=== PATIENT | male | born 1935 | race Caucasian/White ===

== ENCOUNTER 2019-11-15 15:53 | Emergency (ER) | payer MEDICARE, SELFPAY ==
[2018-12-15 07:44] VITALS: BMI 30.7
[2019-11-15] VITALS (11 sets, daily range): BP systolic 108–172; BP diastolic 68–91; PULSE 60–74; RESP 11–16; TEMP 36; O2SAT 93–99; BMI 29.6
--- NOTE | 2019-11-15 16:42 | EKG12_ITS ---
Test Reason : NUMB\TING Blood Pressure : / mmHG Vent. Rate : 060 BPM Atrial Rate : 060 BPM P-R Int : 200 ms QRS Dur : 102 ms QT Int : 408 ms P-R-T Axes : 056 -06 026 degrees QTc Int : 408 ms Normal sinus rhythm Nonspecific ST and T wave abnormality Abnormal ECG Confirmed by ELSY JOHNSON ([id number]), editor farm journal CARLY ROBISON ([id number]) on 11/18/2019 10:26:31 AM Referred By: BHUPINDER Confirmed By:ELSY JOHNSON
--- NOTE | 2019-11-15 16:42 | CT_ITS ---
STUDY: CTA HEAD AND NECK WITH CONTRAST REASON FOR EXAM: Male, 84 years old. Numbness and tingling on the left side for 2 weeks. RADIATION DOSAGE (If Supplied By Facility): CTDIvol = ( 30.60 ) mGy, DLP = ( 1520.78 ) mGycm TECHNIQUE: CT angiography was performed with a multi-detector CT scanner. Data acquisition was obtained from the skull base through the vertex following intravenous administration of 100 CC ISOVUE 300. MIP images were reconstructed from the axial data set. Post-processing of the angiographic images was performed, with multiplanar reformation and 3D reconstruction. Individualized dose optimization techniques were used for this CT. COMPARISON: CT of the brain, August 14, 2016. CTA of the neck, May 22, 2016. FINDINGS: Normal bilateral petrous carotid arteries. There is calcified plaque formation of the right cavernous carotid artery, without a cross-sectional luminal stenosis. There is calcified plaque formation of the left cavernous carotid artery, without a cross-sectional luminal stenosis. Normal right A1 segments of the anterior cerebral artery. Normal left A1 segments of the anterior cerebral artery. Normal intact anterior communicating artery (ACOM). Normal bilateral A2 segments of the anterior cerebral arteries. Normal right M1 and M2 segments of the middle cerebral arteries, with a normal M1 bifurcation. Normal left M1 and M2 segments of the middle cerebral arteries, with a normal M1 bifurcation. Normal right posterior communicating artery (PCOM). Normal left posterior communicating artery (PCOM). Normal bilateral vertebral arteries. Normal basilar artery with a normal basilar bifurcation. The visualized bilateral superior cerebellar (SCA) arteries are normal. Normal bilateral P1, P2 and visualized P3 segments of the posterior cerebral arteries. There is no demonstrated aneurysm of the [place]. There is chronic involutional changes. There is a remote lacunar infarct in the left thalamus. There is vague increased density along the vasques matter of the right posterior to represent subarachnoid hemorrhage on the precontrast image. There is no evidence of extravasation of contrast on the post contrast study. AORTIC ARCH: There is atherosclerotic calcific plaque formation of the aortic arch and great vessels arising from the aortic arch, without a hemodynamically significant stenosis. There is a normal origin of the brachiocephalic, left common carotid, and left subclavian arteries. RIGHT CAROTID ARTERIES: Tortuosity of the proximal right common carotid artery (CCA). There is calcific plaque at the carotid bifurcation extending upward into the carotid bulb. There is less than 50% stenosis. Normal origin of the right internal carotid (ICA) artery without a hemodynamically significant stenosis. Normal visualized cervical portion of the right internal carotid artery. Normal origin of the right external carotid artery (ECA). LEFT CAROTID ARTERIES: Tortuosity of the proximal left common carotid artery (CCA). There is calcified plaque along the distal common carotid artery without stenosis. There is minimal calcific plaque in the carotid bulb without significant stenosis. There is minimal calcification at the origin of the left internal carotid (ICA) artery without a hemodynamically significant stenosis. Normal visualized cervical portion of the left internal carotid artery. Normal origin of the left external carotid artery (ECA). VERTEBRAL ARTERIES: Normal right vertebral artery. There is minimal calcific plaque of the left vertebral artery at the level of the C4-5 disc space without significant stenosis. The remainder of the left vertebral artery is unremarkable. CT/CTA Head AND Neck W/ Contrast IMPRESSION: 1. But appears to be a subarachnoid hemorrhage in the right posterior parietal vertex. 2. Normal [place]. 3. Hemodynamically insignificant bilateral carotid plaque by NASA criteria. The findings are similar to the previous study. N.B. : The above information has been verbally conveyed by Elan Rivas DO to Edwin Ramsey MD, on 11/15/2019 18:11:15 (ET). Electronically Signed: Elan Rivas DO at 18:14 EDT Tel [phone], Service support ,
--- NOTE | 2019-11-15 16:44 | ED.VISSUMM ---
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 History of diabetes, hypertension and pacemaker. Patient is on Plavix on a daily aspirin. Patient states for last 5 days that intermittent left-sided tingling, numbness and some weakness in his left leg today. Currently his symptoms are resolved. They have come and gone the last 5 days. He denies any falls or headache. He denies other complaints. Physical Examination: Older male no acute distress vital signs stable afebrile. Currently without complaint. Initial blood pressure 127/68. HEENT exam unremarkable. Pupils are unreactive light extra motions are intact. No facial droop. Normal speech. No signs of trauma to his face or scalp. Neck nontender. Lungs clear to auscultation. Heart regular rate and rhythm rate about 70 no murmur. Abdomen soft nontender. Remedies moves all 4. Neurovascular intact. 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 Fingertip to nose within normal limits. Dorsi plantarflexion intact. Neurologically is awake alert no focal motor or sensory deficits. NIH score of 0. Test Results: CBC shows a white count of 7. Hemoglobin 14. Chemistries BUN of 27 creatinine 1.62 consistent with renal insufficiency. PT PTT INR unremarkable. Troponin normal. EKG shows a normal sinus rhythm rate of 60 with no acute signs of AL. CAT scan of the brain without contrast shows a subarachnoid hemorrhage in the right posterior parietal vertex as read by the radiologist and reviewed by me. The CTA of the head neck shows bilateral insignificant carotid plaques. But no acute abnormality no significant change from prior. The radiologist did call me and I did review the CAT scan findings. Chest x-ray portable 1 view shows no acute abnormality read both by myself and radiologist. Emergency Department Course and Treatment: Patient currently symptom-free. 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 He will be worked up and admitted. Treatment Plan: Repeat exam at 1814 the patient is doing well. Neurologic exam is still normal 1 unchanged from his presentation here. He and I discussed all his test results. Due to the concern of a possible subarachnoid hemorrhage and that the patient is on Plavix and aspirin and we have no neurosurgery here will be transferred. I discussed options with him and he had his pacemaker placed at [facility] so I have them on page to accept him in transfer. Disposition: Transfer to [facility] Impression: Acute left-sided numbness and weakness resolved. Posterior parietal vertex subarachnoid hemorrhage Anticoagulated on aspirin and Plavix History of diabetes and prior stroke This note was generated with [employer] dictation software. It may contain incorrect words, spelling, and punctuation that were not noted in review of the chart prior to signing ED Disposition - Plan for ED Patient: Referrals: Navin Paniagua MD [Primary Care Provider] -
--- NOTE | 2019-11-15 17:15 | RAD_ITS ---
STUDY: X-RAY CHEST REASON FOR EXAM: Male, 84 years old. Numbness and tingling in the left side of the body intermittently since November 09. History of TIAs. TECHNIQUE: Single AP portable view of the chest. COMPARISON: May 12, 2016. FINDINGS: The lungs are mildly hyperexpanded. There are stable calcified granuloma in the left mid lung. There is no new mass or infiltrate. There is no demonstrated pleural abnormality. Normal size heart. Stable cardiac pacemaker. Normal mediastinum and soren. Normal visualized pulmonary arteries. There is atherosclerotic tortuosity of the aortic arch and descending thoracic aorta. There are diffuse degenerative changes of the visualized thoracic spine. There is degenerative osteoarthritis of the bilateral shoulders. There is no demonstrated abnormality of the visualized soft tissue structures of the upper abdomen. RAD/Chest 1 View IMPRESSION: No acute cardiopulmonary disease or interval change. Electronically Signed: Elan Rivas DO at 17:37 EDT Tel [phone], Service support ,
[2019-11-15 17:16] LABS: Bedside Glucose 114 mg/dL (70-110)
[2019-11-15 17:19] LABS: Absolute Lymphocyte Count 0.79 X10^3/uL (0.83-4.51); Absolute Neutrophil Count 5.6 X10^3/uL (2.0-7.7); Basophil# 0.02 X10^3/uL; Basophil% 0.3 % (0-1); Eosinophil# 0.06 X10^3/uL; Eosinophils% 0.9 % (0-5); Hematocrit 44.4 % (40-54); Hemoglobin 14.3 g/dL (13.0-16.5); Lymphocyte # 0.79 X10^3/ul (4.0); Lymphocyte % 11.2 % (19-41); Mean Corp Hgb Conc 32.2 g/dL (32-36); Mean Corpuscular Hgb 29.2 pg (27.0-32.0); Mean Corpuscular Volume 90.6 fL (80-94); Mean Platelet Vol. 10.7 fl (6.2-12.0); Monocyte# 0.61 X10^3/uL; Monocyte% 8.7 % (0-10); NRBC Flagged by Analyzer 0 % (0-5); Neutrophil # 5.55 X10^3/uL (2.7-7.7); Neutrophil % 78.6 % (47-70); Platelet Count 145 K/mm3 (150-450); RBC Distribution Width CV 13.1 % (11.6-14.6); RBC Distribution Width SD 42.6 fl (35.1-43.9); White Blood Count 7.1 K/mm3 (4.4-11.0)
[2019-11-15 17:21] LABS: Anion Gap 4 (5-15); BUN 27 mg/dL (7-18); BUN/Creat Ratio 16.7 RATIO (10-20); Calcium,Total 9.2 mg/dL (8.5-10.1); Chloride 104 mmol/L (98-107); Creatinine, Serum 1.62 mg/dL (0.70-1.30); EST Glomerular Filtration Rate 43 mL/min (>60); Est Glom Filt Rate - Afr Amer 52 mL/min (>60); Estimated Creatinine Clearance 36.15 ml/min; Glucose 112 mg/dL (74-106); Potassium 4.2 mmol/L (3.5-5.1); Sodium Level 136 mmol/L (136-145)
[2019-11-15 17:25] LABS: International Normalized Ratio 1.1; Prothrombin Time (Protime)PT. 13.2 SECONDS (11.7-14.9)
[2019-11-15 17:26] LABS: Partial Thromboplast Time 23.9 Seconds (24.1-36.2)
== END 2019-11-15 19:57 | disposition short-term general hospital (02) ==
LOC: ED 16:31
PROVIDERS: Emergency Provider Emergency Medicine; PCP Internal Medicine
DX: I60.9 Nontraumatic subarachnoid hemorrhage, unspecified (principal); E11.9 Type 2 diabetes mellitus without complications; I10 Essential (primary) hypertension; Z79.02 Long term (current) use of antithrombotics/antiplatelets; Z79.82 Long term (current) use of aspirin; Z87.891 Personal history of nicotine dependence; Z95.0 Presence of cardiac pacemaker
CPT/HCPCS: 70496; 70498; 71045; 80048; 82962; 84484; 85025; 85610; 85730; 93005; 99285; Q9967; A4216

== ENCOUNTER → 2019-12-22 13:37 | Outpatient (CLI) | payer MEDICARE, SELFPAY ==
[2019-12-14 09:42] VITALS: BMI 29.2
--- NOTE | 2019-12-22 13:50 | CT_ITS ---
STUDY: CT BRAIN WITH AND WITHOUT CONTRAST REASON FOR EXAM: Male, 84 years old. SDH RADIATION DOSAGE (If Supplied By Facility): CTDIvol = ( 60.81 ) mGy, DLP = ( 4374.99 ) mGycm TECHNIQUE: Transaxial CT imaging of the brain was performed pre and post contrast administration. The examination was performed with intravenous administration of IV 50mL Isovue-370. Individualized dose optimization techniques were used for this CT. COMPARISON: None. FINDINGS: Normal soft tissue structures. Normal calvarium. There is moderate cerebral atrophy with widening of the extra-axial spaces and ventricular dilatation. There are areas of decreased attenuation within the white matter tracts of the supratentorial brain, consistent with microvascular disease changes. Normal basal ganglia and thalami. Normal brainstem. Normal cerebellum. Dense carotid calcifications noted. There is no intracranial hemorrhage. There are no findings of an acute ischemic infarction. Normal visualized paranasal sinuses. CT/Brain/Head W/WO Contrast IMPRESSION: Chronic involutional changes of the brain. No acute hemorrhage or suspicious enhancing lesion, no interval change Electronically Signed: Jaylen Aj MD at 14:47 EDT , Service support ,
[2019-12-23 07:09] LABS: CREATININE FINGERSTICK 1.26 mg/dL (0.70-1.30); EGFR FINGERSTICK 58 mL/min (>60)
== END ==
PROVIDERS: PCP Internal Medicine
DX: I60.9 Nontraumatic subarachnoid hemorrhage, unspecified (principal)
CPT/HCPCS: 70470; Q9967

== ENCOUNTER → 2020-06-19 12:49 | Outpatient (CLI) | payer MEDICARE, SELFPAY ==
[2019-12-14 09:42] VITALS: BMI 29.2
--- NOTE | 2020-06-19 13:03 | CT_ITS ---
STUDY: CT ABDOMEN AND PELVIS WITH AND WITHOUT CONTRAST REASON FOR EXAM: Male, 85 years old. GROSS HEMATURIA-ONE EPISODE, ? [place], DB, HTN, COPD, NO PREV SURG RADIATION DOSAGE (If Supplied By Facility): CTDIvol = ( 16.67 ) mGy, DLP = ( 2193.31 ) mGycm TECHNIQUE: Transaxial images were obtained from the dome of the diaphragm to the symphysis pubis without oral contrast. 100ML ISOVUE 300 was administered. Sagittal and coronal images were reconstructed. Individualized dose optimization techniques were used for this CT. COMPARISON: None. FINDINGS: Mild increased linear markings at the lung bases suggestive of scarring. Calcified granuloma in the right lower lobe. A dual-chamber pacemaker is seen. Normal liver. Normal gallbladder and extrahepatic biliary system. There are multiple benign calcified granulomata of the spleen. Normal pancreas. Normal bilateral adrenal glands. There is a 5.1 cm x 5.2 cm cyst in the lower pole of the right kidney. Parapelvic cysts are also seen measuring up to 3.3 cm x 3.9 cm. Multiple cysts are seen in the left kidney. The largest is in the lower lateral wall of the left kidney measuring 5.1 cm x 4.3 cm. Normal visualized stomach. Normal small intestine. There are multiple colonic diverticula consistent with diverticulosis. The appendix is visualized and appears normal. There is diffuse atherosclerotic calcification of the abdominal aorta. There is evidence of an infrarenal abdominal aortic aneurysm with a transverse dimension of 4.1 cm.Normal inferior vena cava. There is borderline retroperitoneal lymphadenopathy with enlarged nodes no greater than 10mm in the short axis diameter. 2 calculi are seen at the base of the bladder on the left side. The larger calculus measures 1.8 cm x 1.7 cm. The smaller calculus measures 0.6 cm x 0.7 cm. There is enlargement of the prostate gland. This causes indentation at the bladder base. Central calcifications are seen. There is a small umbilical hernia containing fat. There are diffuse degenerative changes of the visualized lumbar spine. CT/CT Abd/Pelvis W/WO Contrast IMPRESSION: Bilateral renal cysts. Bladder calculi. Prostatic enlargement with indentation at the bladder base. Electronically Signed: Andrew Waters, at 14:55 EST , Service support ,
== END ==
PROVIDERS: PCP Internal Medicine; Visit Provider Nurse Practitioner Adult Health
DX: R31.0 Gross hematuria (principal)
CPT/HCPCS: 74178; Q9967

== ENCOUNTER → 2020-07-14 10:33 | Outpatient (CLI) | payer MEDICARE, SELFPAY ==
[2019-12-14 09:42] VITALS: BMI 29.2
== END ==
PROVIDERS: PCP Internal Medicine; Referring Provider Urology; Visit Provider Urology
DX: Z11.59 Encounter for screening for other viral diseases (principal)
CPT/HCPCS: 87635; C9803; U0003

== ENCOUNTER → 2020-07-18 10:54 | Outpatient (CLI) | payer MEDICARE, SELFPAY ==
[2019-12-14 09:42] VITALS: BMI 29.2
[2020-07-18 11:32] LABS: Hematocrit 43.8 % (40-54); Hemoglobin 14.5 g/dL (13.0-16.5); Mean Corp Hgb Conc 33.1 g/dL (32-36); Mean Corpuscular Volume 90.7 fL (80-94); Mean Platelet Vol. 11.4 fl (6.2-12.0); POSITIVE COUNT YES; Platelet Count 137 K/mm3 (150-450); RBC Distribution Width CV 12.9 % (11.6-14.6); RBC Distribution Width SD 42.2 fl (35.1-43.9); Red Blood Count 4.83 M/mm3 (4.6-6.2); White Blood Count 5.9 K/mm3 (4.4-11.0)
[2020-07-18 11:33] LABS: Scan Indicated on CBC? Y/N YES- FLAGS NOTED
[2020-07-18 11:54] LABS: Anion Gap 3 (5-15); BUN 19 mg/dL (7-18); BUN/Creat Ratio 18.4 RATIO (10-20); Calcium,Total 8.7 mg/dL (8.5-10.1); Chloride 103 mmol/L (98-107); Creatinine, Serum 1.03 mg/dL (0.70-1.30); EST Glomerular Filtration Rate 73 mL/min (>60); Est Glom Filt Rate - Afr Amer 88 mL/min (>60); Glucose 159 mg/dL (74-106); Potassium 4.1 mmol/L (3.5-5.1); Sodium Level 136 mmol/L (136-145)
== END ==
PROVIDERS: PCP Internal Medicine; Referring Provider Urology; Visit Provider Urology
DX: Z01.818 Encounter for other preprocedural examination (principal)
CPT/HCPCS: 36415; 80048; 85027

== ENCOUNTER → 2020-09-07 15:10 | Outpatient (CLI) | payer MEDICARE, SELFPAY ==
[2020-08-07 08:58] VITALS: BMI 29.7
[2020-09-07 15:41] LABS: Bacteria 0 SEEN /hpf (None Seen); Mucous, Urine 0 SEEN /hpf (<or=2+); Red Blood Cells-Urine 0 SEEN /hpf (0-5); Squamous Epithelial Cells - UA 0 SEEN /hpf (0-5)
[2020-09-07 16:24] LABS: Color, Urine Yellow (Yellow); Glucose, Dipstick Normal (Normal); Ketone-Dipstick Negative (Negative); Leukocyte Esterase-Dipstick 25 /ul (Negative); Nitrite-Dipstick Negative (Negative); Occult Blood-Urine 10 /ul (Negative); Protein-Dipstick Negative (Negative); Urine Bilirubin Dipstick Negative (Negative); Urine Clarity Clear (Clear); Urine Urobilinogen Normal (Normal); Urine pH 6.5 (5.0 - 8.0)
[2020-09-07 16:27] LABS: Anion Gap 4 (5-15); BUN 22 mg/dL (7-18); BUN/Creat Ratio 21.4 RATIO (10-20); Chloride 107 mmol/L (98-107); Creatinine, Serum 1.03 mg/dL (0.70-1.30); EST Glomerular Filtration Rate 73 mL/min (>60); Est Glom Filt Rate - Afr Amer 88 mL/min (>60); Glucose 100 mg/dL (74-106); Potassium 4.2 mmol/L (3.5-5.1); Sodium Level 138 mmol/L (136-145)
[2020-09-07 16:35] LABS: Hemoglobin A1c 6.4 % (3.8-5.6); White Blood Cells 0-5 SEEN /hpf (0-5)
[2020-09-07 16:39] LABS: Microalbumin,Random Urine 41.7 mg/L (NO RANGE EST.)
== END ==
PROVIDERS: PCP Internal Medicine; Referring Provider Internal Medicine; Visit Provider Internal Medicine
DX: E11.9 Type 2 diabetes mellitus without complications (principal); R31.0 Gross hematuria
CPT/HCPCS: 80048; 81001; 82043; 82570; 83036

== ENCOUNTER → 2021-03-22 12:38 | Outpatient (CLI) | payer MEDICARE, SELFPAY ==
[2021-03-22 13:18] LABS: ALB/GLOB Ratio 1.2 RATIO (0.9-2.4); AST(SGOT) 13 U/L (15-37); Alanine Aminotransfer ALT/SGPT 14 U/L (16-61); Albumin, Serum 3.7 g/dL (3.2-5.0); Alkaline Phosphatase 58 U/L (45-117); Anion Gap 4 (5-15); BUN 18 mg/dL (7-18); BUN/Creat Ratio 18.1 RATIO (10-20); Calcium,Total 8.8 mg/dL (8.5-10.1); Chloride 107 mmol/L (98-107); Cholesterol 139 mg/dL (200); Creatinine, Serum 0.99 mg/dL (0.70-1.30); EST Glomerular Filtration Rate 76 mL/min (>60); Est Glom Filt Rate - Afr Amer 92 mL/min (>60); Globulin 3.1 g/dL (2.2-4.2); Glucose 132 mg/dL (74-106); High Density Lipoprotein 54 mg/dL; Protein, Total 6.8 g/dL (6.4-8.2); Sodium Level 140 mmol/L (136-145); Triglycerides 51 mg/dL; Very Low Density Lipoprotein 10 mg/dL (5-40)
[2021-03-22 13:24] LABS: Hemoglobin A1c 6.3 % (3.8-5.6)
== END ==
PROVIDERS: PCP Internal Medicine; Visit Provider Internal Medicine
DX: E11.9 Type 2 diabetes mellitus without complications (principal)
CPT/HCPCS: 80053; 80061; 83036

== ENCOUNTER → 2021-06-20 12:30 | Outpatient (CLI) | payer MEDICARE, SELFPAY | PROVIDERS: PCP Internal Medicine; Visit Provider Surgery | DX: R19.4 Change in bowel habit (principal); Z86.010 Personal history of colon polyps | CPT/HCPCS: 82274 ==

== ENCOUNTER → 2022-08-08 | Outpatient (CLI) | payer MEDICARE, SELFPAY ==
[2022-08-08 13:39] LABS: BNP,B-Type NATRIURETIC PEPTIDE 176.6 pg/mL (0-100)
[2022-08-08 13:43] LABS: Anion Gap 4 (5-15); BUN 26 mg/dL (7-18); BUN/Creat Ratio 24.8 RATIO (10-20); Calcium,Total 9.1 mg/dL (8.5-10.1); Chloride 106 mmol/L (98-107); Creatinine, Serum 1.05 mg/dL (0.70-1.30); EST Glomerular Filtration Rate 71 mL/min (>60); Est Glom Filt Rate - Afr Amer 86 mL/min (>60); Glucose 161 mg/dL (74-106); Potassium 3.9 mmol/L (3.5-5.1); Sodium Level 139 mmol/L (136-145)
== END | disposition home or self-care (01) ==
LOC: LAB 10:27
PROVIDERS: PCP Internal Medicine; Referring Provider Nurse Practitioner Gerontology; Visit Provider Nurse Practitioner Gerontology
DX: R06.09 Other forms of dyspnea (principal); I48.0 Paroxysmal atrial fibrillation; R60.9 Edema, unspecified; M25.473 Effusion, unspecified ankle
CPT/HCPCS: 36415; 80048; 83880

== ENCOUNTER → 2022-08-15 | Outpatient (CLI) | payer MEDICARE, SELFPAY ==
--- NOTE | 2022-08-15 10:58 | ECHOD_ITS ---
Reason For Study: DYSPNEA Procedure This was a 2D Doppler, Color Flow transthoracic echocardiogram. Exam performed in department. Left Ventricle Normal LV size. Mild concentric left ventricular hypertrophy. Left ventricular systolic function is normal. The estimated ejection fraction is 60 %. Stage 2 diastolic dysfunction. No regional wall motion abnormalities noted. Right Ventricle Normal RV size. ICD or pacer leads identified within the right ventricle. Normal systolic function. Atria The left atrium is mildly enlarged. ICD or pacer leads identified within the right atrium. The right atrium is mildly enlarged. Mitral Valve Mild mitral valve prolapse. Mild (1+) eccentric mitral valve insufficiency. Tricuspid Valve Normal tricuspid valve. Mild (1+) tricuspid valve insufficiency. Pulmonary artery systolic pressure is 34 mmHg. Aortic Valve Normal aortic valve. Trisinus/trileaflet aortic valve. Pulmonic Valve Normal pulmonic valve. Great Vessels Normal aortic root. The pulmonary artery is normal size. Normal inferior vena cava. Pericardium/Pleural No pericardial effusion. MMode/2D Measurements & Calculations LVIDd: 4.3 cm IVSd: 1.2 cm Ao root diam: 3.6 cm LVIDs: 3.5 cm LVPWd: 1.2 cm RVDd: 3.8 cm FS: 18.9 % LAV(MOD-bp): 102.5 ml LVAd ap4: 26.6 cm2 SV(MOD-sp4): 47.9 ml LAV(MOD-bp) Indexed: 48.1 ml/m2 LVLd ap4: 7.6 cm LAV(MOD-sp2): 124.7 ml EDV(MOD-sp4): 74.8 ml LAV(MOD-sp4): 78.1 ml EDV(sp4-el): 78.6 ml LVAs ap4: 13.2 cm2 LVLs ap4: 5.3 cm ESV(MOD-sp4): 26.9 ml ESV(sp4-el): 27.6 ml EF(MOD-sp4): 64.1 % EF(sp4-el): 64.8 % SV(sp4-el): 51.0 ml LA A4 area: 23.9 cm2 LA dimension(2D): 4.4 cm RA A4 area: 23.6 cm2 Time Measurements MV dec time: 0.26 sec Doppler Measurements & Calculations MV E max harshil: 46.5 cm/sec Lat Peak E' Harshil: 9.3 cm/sec Med Peak E' Harshil: 6.0 cm/sec MV A max harshil: 44.4 cm/sec E/E' lat: 5.0 E/E' med: 7.8 MV E/A: 1.0 MV V2 max: 52.7 cm/sec Ao V2 max: 120.5 cm/sec MV max P.1 mmHg MV dec slope: 194.9 cm/sec2 Ao max P.8 mmHg MV V2 mean: 34.4 cm/sec Ao V2 mean: 83.9 cm/sec MV mean P.52 mmHg Ao mean P.3 mmHg MV V2 VTI: 20.4 cm Ao V2 VTI: 28.2 cm AV (velocity ratio): 0.73 LV V1 max: 91.2 cm/sec MR max harshil: 393.8 cm/sec PA V2 max: 109.5 cm/sec LV V1 max P.3 mmHg MR max P.0 mmHg PA V2 mean: 66.3 cm/sec LV V1 mean P.8 mmHg LV V1 mean: 61.7 cm/sec LV V1 VTI: 20.5 cm TR max harshil: 272.8 cm/sec TR max P.8 mmHg ECHO/Echo Complete Interpretation Summary Normal LV size. Left ventricular systolic function is normal. The estimated ejection fraction is 60 %. Stage 2 diastolic dysfunction. Mild concentric left ventricular hypertrophy. The left atrium is mildly enlarged. The right atrium is mildly enlarged. Ordering Physician: Nesha Grubbs Referring Physician: Nesha Grubbs Performed By: Helen Weldon RCS
== END | disposition home or self-care (01) ==
LOC: CVS 10:55
PROVIDERS: PCP Internal Medicine; Referring Provider Nurse Practitioner Gerontology; Visit Provider Nurse Practitioner Gerontology
DX: R60.9 Edema, unspecified (principal); I48.0 Paroxysmal atrial fibrillation; R06.09 Other forms of dyspnea; M25.473 Effusion, unspecified ankle; Z95.0 Presence of cardiac pacemaker
CPT/HCPCS: 93306

== ENCOUNTER → 2022-08-19 | Outpatient (CLI) | payer MEDICARE, SELFPAY ==
[2022-08-19 12:48] LABS: Anion Gap 5 (5-15); BUN 32 mg/dL (7-18); BUN/Creat Ratio 28.6 RATIO (10-20); Calcium,Total 9.1 mg/dL (8.5-10.1); Chloride 105 mmol/L (98-107); Creatinine, Serum 1.12 mg/dL (0.70-1.30); EST Glomerular Filtration Rate 66 mL/min (>60); Est Glom Filt Rate - Afr Amer 80 mL/min (>60); Glucose 110 mg/dL (74-106); Potassium 3.8 mmol/L (3.5-5.1); Sodium Level 138 mmol/L (136-145)
== END | disposition home or self-care (01) ==
LOC: LAB 11:20
PROVIDERS: PCP Internal Medicine; Referring Provider Nurse Practitioner Gerontology; Visit Provider Nurse Practitioner Gerontology
DX: R06.09 Other forms of dyspnea (principal)
CPT/HCPCS: 36415; 80048

== ENCOUNTER → 2023-10-21 | Outpatient (CLI) | payer MEDICARE, SELFPAY ==
--- NOTE | 2023-10-21 10:40 | ECHOD_ITS ---
Reason For Study: IDIOPATHIC HYPOTENSION Procedure This was a 2D Doppler, Color Flow transthoracic echocardiogram. Exam performed in department. Left Ventricle Normal LV size. The left ventricular ejection fraction is 55 %. Stage 1 diastolic dysfunction. No regional wall motion abnormalities noted. Right Ventricle Normal RV size. ICD or pacer leads identified within the right ventricle. Normal systolic function. Atria The left atrium is moderately enlarged. Normal right atrium. Mitral Valve Mild mitral valve prolapse. Mild-Moderate (1-2+) eccentric mitral valve insufficiency. Tricuspid Valve Normal tricuspid valve. Mild tricuspid valve insufficiency. Pulmonary artery systolic pressure is 21 mmHg. Aortic Valve Trisinus/trileaflet aortic valve. Pulmonic Valve Normal pulmonic valve. Mild (1+) pulmonic valve insufficiency. Pericardium/Pleural No pericardial effusion. MMode/2D Measurements & Calculations LVIDd: 5.5 cm IVSd: 1.4 cm Ao root diam: 3.7 cm LVIDs: 4.4 cm LVPWd: 1.1 cm RVDd: 3.4 cm FS: 19.8 % LAV(MOD-bp): 101.7 ml LVAd ap4: 26.8 cm2 LVAd ap2: 26.8 cm2 LAV(MOD-bp) Indexed: 47.5 ml/m2 LVLd ap4: 8.1 cm LVLd ap2: 8.0 cm LAV(MOD-sp2): 84.7 ml EDV(MOD-sp4): 74.9 ml EDV(MOD-sp2): 77.1 ml LAV(MOD-sp4): 117.4 ml EDV(sp4-el): 75.9 ml EDV(sp2-el): 76.0 ml LVAs ap4: 16.4 cm2 LVAs ap2: 13.0 cm2 LVLs ap4: 6.7 cm LVLs ap2: 6.6 cm ESV(MOD-sp4): 37.6 ml ESV(MOD-sp2): 23.0 ml ESV(sp4-el): 34.4 ml ESV(sp2-el): 21.8 ml EF(MOD-sp4): 49.9 % EF(MOD-sp2): 70.1 % EF(sp4-el): 54.6 % SV(MOD-sp4): 37.4 ml SV(MOD-sp2): 54.1 ml SV(sp4-el): 41.4 ml LA dimension(2D): 4.6 cm TAPSE: 1.5 cm LA A4 area: 30.2 cm2 Time Measurements MV dec time: 0.28 sec Doppler Measurements & Calculations MV E max harshil: 31.6 cm/sec Lat Peak E' Harshil: 6.6 cm/sec Med Peak E' Harshil: 4.2 cm/sec MV A max harshil: 44.6 cm/sec E/E' lat: 4.8 E/E' med: 7.5 MV E/A: 0.71 Ao V2 max: 115.9 cm/sec LV V1 max: 76.5 cm/sec PA V2 max: 68.6 cm/sec Ao max P.4 mmHg LV V1 max P.3 mmHg PA V2 mean: 48.8 cm/sec Ao V2 mean: 84.5 cm/sec LV V1 mean P.3 mmHg PA V2 VTI: 13.0 cm Ao mean P.3 mmHg LV V1 mean: 53.6 cm/sec Ao V2 VTI: 25.2 cm LV V1 VTI: 14.0 cm AV (velocity ratio): 0.56 PI dec slope: 70.0 cm/sec2 TR max harshil: 213.0 cm/sec TR max P.1 mmHg ECHO/Echo Complete Interpretation Summary The left ventricular ejection fraction is 55 %. ICD or pacer leads identified within the right ventricle. Normal LV size. No regional wall motion abnormalities noted. The left atrium is moderately enlarged. Mild mitral valve prolapse. Mild-Moderate (1-2+) eccentric mitral valve insufficiency. Stage 1 diastolic dysfunction. Ordering Physician: Navin Paniagua Referring Physician: Navin Paniagua Performed By: Luisa Whiteside, KATHRYN, RVT
== END | disposition home or self-care (01) ==
PROVIDERS: PCP Internal Medicine; Referring Provider Internal Medicine; Visit Provider Internal Medicine
DX: R06.02 Shortness of breath (principal)
CPT/HCPCS: 93306

== ENCOUNTER 2024-01-05 10:30 | Outpatient (RCR) | payer MEDICARE, SELFPAY ==
--- NOTE | 2023-12-03 10:22 | HP.PTEVAL_ITS ---
Patient's Visit Information Visit Information Visit Information: VIOLETA DEAL is a 88 year old M referred to Physical Therapy by Dr. Miguel Suarez DO with a diagnosis of CVA, imbalance. Date of Evaluation: 12/03/23 Physical Therapist: Tom Mccall, DPT, OCS, CSCS Visit Plan Frequency: 2x /Week Duration: 4-6 Weeks Plan: 2x/week for 4 weeks for 1. teach weight shift ex for HEP 2. Teach general strength for HEP with pics and HO, include HS stretch IE: is to use cane allt he time and stationary bike at home 5 min 3x/day gently Subjective Subjective: Thought he had a TIA. Symptoms were not feeling well. Has walker and cane that he uses at times. Got out of bed one time and balance gone and fell on L side. That was around 10/29. No injuries with fall. Got up and staggered out of room and banged into grigsby and furniture. Unlocked doors and called squad. Went to hospital and checked him out and symptoms passed, no more difficulty there but watched closely. Stayed a day and a half and then neighbor took him home. No other problems. Gets weakness in L leg at times for last couple years. Premorbid: walks neighborhood at home but doesn't anymore(not that he can't), Lives alone, has steps at home and no problkem with rail. Is back home now. Last couple weeks life feels back to normal but did fall one time LOB to the lef t and hit post, no injuries. 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 Sleeping well. Feels like balance is no better or worse than a month ago. No regular exercises. Basic ADLS all getting done easily, laundry in basement 11 steps without an issue, takes care of cat. Hobbies: reading newspaper and watching TV. Bigno night. Has cane he is using and walker in the house, does not always use. Objective Objective: Walk with cane into PT I, without cane can walk, trasnfers I chair and bed. Steps reciprocally with one rail.Poor weight shift with gait and short steps, pulls self up steps with UE vs weight shift. strength LE ankle, knees 4- and hips 3+ B Sensation LE WNL to gross light touch B LE. reflexes 2/3 patella and achilles B. coordination to reciprocal toe tap and heel tap is mild deficits. UE AROM funcitonal but stiff at top. TUG is 9 seconds. Balance/Special Test Scores Functional Gait Assessment Score: 22 % Disability: 26.6700 Lower Extremity Functional Score: 46 TUG Test Time Seconds: 9 30 Second Chair Rise Test Seconds: 8 Goals Goal 1:: FGA 24 and 30 second sit to stand 11 to improve mobility and safety Goal Time Frame: 2-4 Weeks Goal 2:: Pt feel 80% better in overall balance Goal Time Frame: 2-4 Weeks Goal 3:: I approrpiate hep to help balance and fend off effects of sedentarism Goal Time Frame: 2-4 Weeks Rehabilitation Potential Physical Therapy Diagnosis: imbalance leading to fall risk Rehabilitation Potential: Fair Anticipated Interventions Patient/Client Instruction: Educate patient on: Condition and Risk Factors For the Purpose of:: To increase tolerance to activity/condition/position, To improve gait and locomotor functions and To improve balance Therapeutic Exercise to Include: Strength training, Balance training and Flexibilty training For the Purpose of:: To improve muscle performance and motor function, To increase tolerance to activity/condition/position, To improve ability of physical actions for home/community/work/leisure, To improve gait and locomotor functions, To improve balance and To improve safety Text: Thank you for the opportunity to evaluate your patient. For Medicare and Medicare HMO plans, please review the plan of care and approve it. It will need to be FAXED BACK to us at [phone] for Medicare purposes. For Medicare only, by signing this I certify the plan of care. Please let me know if there are questions or concerns regarding this plan of care. Physician Signature: Date:
--- NOTE | 2023-12-03 11:26 | HP.OTEVAL ---
Patient's Visit Information Visit Information Visit Information: VIOLETA DEAL is a 88 year old M, referred to Occupational Therapy by Dr. Miguel Suarez DO, with a diagnosis of CVA. Date of Evaluation: 12/03/23 Occupational Therapist: Ellen Cantrell Subjective Subjective: This 88 year old referred to OT due to dx of CVA. per pt he had his first stroke approx 6 years ago pt states he was dx with brain bleed. Pt with TIA during COVID. Now pt presents s/p TIA one month ago. TIAs have impacted pt L side however he does not report he notices a difference. pt is R hand dominant. pt does not report any difficulty during self care or home management tasks at this time. OT eval only performed this date as pt functioning at baseline. pt is to see PT for balance impairments. pt in agreeance. Objective Objective/Observation: pt arrives using quad cane for mobility slow pace. ROM Shoulder: wfl Elbow: wfl Forearm: wfl Wrist: wfl CMC: wfl MP: wfl IP: wfl Radial Abduction: wfl Palmar Abduction: wfl Opposition: wfl MP: wfl PIP: wfl DIP: wfl ROM Comments: BUE AROM WFL Strength Shoulder: R 22# L 17.5# Elbow: R 37# L 33# Manager Civil: R and L 90# Lateral Pinch: R 10# L 8# Tripod Pinch: R 5# L 5# Strength Comments: no marked difference in strength between L and R UEs pt denies any perceived difference in strength between BUEs Edema Other: none Sensation Sensation Comments: denies numbness or tingling Movement Movement Comments: finger to nose assessment no dysmetria noted Nine Hole Peg Right: 27 sec Left: 33 sec Comments: no marked difference in coordination Quick DASH-Disab of Arm,Shoulder& Hand Quick DASH Score: 2.2725 Rehabilitation Rehabilitation Potential: Good Anticipated Interventions Other Interventions: no anticipated interventions as no OT POC eval only this date due to pt functioning at baseline Visit Plan General Plan: none TEXT: Thank you for the opportunity to evaluate your patient. For Medicare and Medicare HMO plans, please review the plan of care and approve it. It will need to be FAXED BACK to us at [phone] for Medicare purposes. Please let me know if there are questions or concerns regarding this plan of care. Physician Signature: Date:
--- NOTE | 2024-01-05 10:41 | HP.PTDCSUM ---
Discharge Summary D/C summary: It has been my pleasure to treat VIOLETA DEAL referred by Dr. Miguel Suarez DO, with the diagnosis of CVA, imbalance for a total of 8 visit(s). Discharge Date: 01/05/24 Please see the following information for a summary of their discharge status. Subjective Subjective: Feels ready to be done. Better then when he started. Still using cane, has not bumped any grigsby lately. Pruned grapes over the weekend adn got up of floor. Trying to remember to do HEP but not often. Overall Improvement % Improvement: 50 Objective Objective/Function: +3 FGA today. +3 on 30 sec STS Doing well outside of home exercise compliance. Goals Goal 1:: FGA 24 and 30 second sit to stand 11 to improve mobility and safety Goal Progress: Goal Met Goal 2:: Pt feel 80% better in overall balance Goal Progress: Progressing Goal 3:: I approrpiate hep to help balance and fend off effects of sedentarism Goal Progress: noncompliant. Plan Plan: d/c to HEP D/C Information d/c sentence: If there are questions or concerns regarding this patient's physical therapy, please feel free to call me at [phone]. Thank you for the referral of this patient. Sincerely, Tom Mccall, DPT, OCS, CSCS Balance/Gait/Functional tests Balance/Special Test Scores Functional Gait Assessment Score: 25 % Disability: 16.6700 Lower Extremity Functional Score: 51 TUG Test Time Seconds: 9 Tug Test: <10 sec.=free mobile 30 Second Chair Rise Test Seconds: 12 Improvement % Improvement: 50
== END 2024-01-05 13:56 | disposition home or self-care (01) ==
LOC: PT 10:30
PROVIDERS: PCP Internal Medicine; Referring Provider Internal Medicine; Visit Provider Internal Medicine
DX: Z86.73 Personal history of transient ischemic attack (TIA), and cerebral infarction without residual deficits (principal); R26.89 Other abnormalities of gait and mobility
CPT/HCPCS: 97110; 97161; 97165; 97530

== ENCOUNTER 2024-01-09 12:01 | Inpatient (IN) | payer MEDICARE, SELFPAY ==
[2024-01-09 12:06] VITALS: BP 136/63; PULSE 84; RESP 16; TEMP 36.1; O2SAT 100; BMI 27.1
--- NOTE | 2024-01-09 12:09 | ED.RN ---
D/T BLURRED VISION, VERBALIZED SYMPTOMS TO DR. STRICKLAND, HE ADVISED TO TRIAGE AND ROOM PATIENT.
--- NOTE | 2024-01-09 12:38 | CT_ITS ---
STUDY: CTA HEAD AND NECK WITH CONTRAST REASON FOR EXAM: Male, 89 years old. Right eye visual changes. History of prior subarachnoid hemorrhage. RADIATION DOSAGE (If Supplied By Facility): CTDIvol = ( 34.67 ) mGy, DLP = ( 1575.85 ) mGycm TECHNIQUE: CT angiography was performed with a multi-detector CT scanner. Data acquisition was obtained from the skull base through the vertex following intravenous administration of IV 100mL Isovue-370. MIP images were reconstructed from the axial data set. Post-processing of the angiographic images was performed, with multiplanar reformation and 3D reconstruction. Individualized dose optimization techniques were used for this CT. COMPARISON: Comparison is made with prior examination dated October 30, 2023. FINDINGS: Normal bilateral petrous carotid arteries. There is calcified plaque formation of the right cavernous carotid artery, without a cross-sectional luminal stenosis. There is calcified plaque formation of the left cavernous carotid artery, without a cross-sectional luminal stenosis. Normal right A1 segments of the anterior cerebral artery. Normal left A1 segments of the anterior cerebral artery. Normal intact anterior communicating artery (ACOM). Normal bilateral A2 segments of the anterior cerebral arteries. Normal right M1 and M2 segments of the middle cerebral arteries, with a normal M1 bifurcation. Normal left M1 and M2 segments of the middle cerebral arteries, with a normal M1 bifurcation. Normal right posterior communicating artery (PCOM). Normal left posterior communicating artery (PCOM). Normal bilateral vertebral arteries. Normal basilar artery with a normal basilar bifurcation. The visualized bilateral superior cerebellar (SCA) arteries are normal. Normal bilateral P1, P2 and visualized P3 segments of the posterior cerebral arteries. There is no demonstrated aneurysm of the [place] of [place]. Atherosclerotic calcification of the vertebral arteries. Moderate degree of cerebral atrophy. Old lacunar infarct in the left thalamus. Decreased bilateral periventricular density suggestive of chronic small vessel disease. AORTIC ARCH: There is atherosclerotic calcific plaque formation of the aortic arch and great vessels arising from the aortic arch, without a hemodynamically significant stenosis. There is a normal origin of the brachiocephalic, left common carotid, and left subclavian arteries. Atherosclerotic calcific plaques at the origin of the right brachiocephalic artery and left subclavian artery. RIGHT CAROTID ARTERIES: Normal right common carotid artery (CCA). Normal right common carotid bulb. There is extensive atherosclerotic plaque formation of the origin of the right internal carotid artery with an estimated stenosis of greater than 70%. Normal visualized cervical portion of the right internal carotid artery. Normal origin of the right external carotid artery (ECA). LEFT CAROTID ARTERIES: Normal left common carotid artery (CCA). Normal left common carotid bulb. There is mild atherosclerotic plaque formation of the origin of the left internal carotid artery with less than 50% cross sectional diameter stenosis. Normal visualized cervical portion of the left internal carotid artery. Normal origin of the left external carotid artery (ECA). VERTEBRAL ARTERIES: Atherosclerotic calcific plaque seen in the midportion of the left vertebral artery and along its distal portion. CT/CTA Head AND Neck W/ Contrast IMPRESSION: High-grade stenosis at the origin of the right internal carotid artery due to calcific plaque. No significant stenosis at the origin of left internal carotid artery. Stable atrophy of the brain. Electronically Signed: Andrew Waters MD at 14:06 EDT ,
--- NOTE | 2024-01-09 12:39 | EKG12_ITS ---
Test Reason : GENERAL Blood Pressure : / mmHG Vent. Rate : 062 BPM Atrial Rate : 062 BPM P-R Int : 278 ms QRS Dur : 102 ms QT Int : 420 ms P-R-T Axes : 000 -16 212 degrees QTc Int : 426 ms Atrial-paced rhythm with prolonged AV conduction Nonspecific ST and T wave abnormality Abnormal ECG Confirmed by RAPHAEL MIRZA, OMARI ([id number]), social media editor ARMIN LOFTON ([id number]) on 01/12/2024 8:34:51 AM Referred By: Confirmed By:OMARI LIM MD
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
[2024-01-09 12:48] LABS: Absolute Lymphocyte Count 0.59 X10^3/uL (0.83-4.51); Absolute Neutrophil Count 10.4 X10^3/uL (2.0-7.7); Basophil# 0.04 X10^3/uL; Basophil% 0.3 % (0-1); Eosinophil# 0.07 X10^3/uL; Eosinophils% 0.6 % (0-5); Hematocrit 43.6 % (40-54); Hemoglobin 13.7 g/dL (13.0-16.5); Lymphocyte # 0.59 X10^3/ul (0.83-4.51); Lymphocyte % 4.9 % (19-41); Mean Corp Hgb Conc 31.4 g/dL (32-36); Mean Corpuscular Hgb 28.8 pg (27.0-32.0); Mean Corpuscular Volume 91.8 fL (80-94); Mean Platelet Vol. 10.5 fl (6.2-12.0); Monocyte# 0.95 X10^3/uL; Monocyte% 7.9 % (0-10); NRBC Flagged by Analyzer 0 % (0-5); Neutrophil # 10.35 X10^3/uL (2.7-7.7); Neutrophil % 85.8 % (47-70); POSITIVE DIFFERENTIAL YES; Platelet Count 169 K/mm3 (150-450); RBC Distribution Width CV 13.5 % (11.6-14.6); RBC Distribution Width SD 45.7 fl (35.1-43.9); Red Blood Count 4.75 M/mm3 (4.6-6.2); White Blood Count 12.1 K/mm3 (4.4-11.0)
[2024-01-09 12:59] LABS: Anion Gap 8 (5-15); BUN 31 mg/dL (7-18); BUN/Creat Ratio 20.7 RATIO (10-20); Calcium,Total 9.4 mg/dL (8.5-10.1); Chloride 105 mmol/L (98-107); EST Glomerular Filtration Rate 47 mL/min (>60); Est Glom Filt Rate - Afr Amer 57 mL/min (>60); Estimated Creatinine Clearance 35.56 ml/min; Glucose 126 mg/dL (74-106); Sodium Level 139 mmol/L (136-145)
[2024-01-09 13:15] LABS: Prothrombin Time (Protime)PT. 13.4 SECONDS (11.7-14.9)
[2024-01-09 14:05] VITALS: BP 151/82; PULSE 71; RESP 14; O2SAT 95
[2024-01-09 14:55] VITALS: BP 155/83; PULSE 60; RESP 13; TEMP 36; O2SAT 96
--- NOTE | 2024-01-09 15:25 | HP.PCM.HOS_ITS ---
HPI - General General Date of Admission: 01/09/24 Date of Service: 01/09/24 Chief Complaint: vision changes [facility] Narrative VIOLETA DEAL, is a 89 M with a PMH as outlined who presents via the ED on 01/09/2024 with a complaint of vision changes. He saw his eye doctor today and was referred to the ED o/a of right eye retinal occlusion. He was watching tv yesterday and noticed that his left lower vision disappeared. He went to bed and says he woke up and his symptoms had improved; he went to see his opthalmologist and was referred to the ED. He said he had similar symptoms back in October 2023. HE denied any numbness, weakness, tingling, focal weakness or any other symptoms. Review of systems is otherwise negative. Vitals in the ED were blood pressure 155/83, pulse rate of 60, respirate rate of 13 and temperature of 96.8. He was saturating at 96% on room air. CBC showed hemoglobin of 13.7 WBC of 12.1 and platelets of 169. INR was 1. Chemistry was significant for creatinine of 1.5. Sodium was 139 potassium was 4 bicarb of 26. CTA head and neck showed high-grade stenosis at the origin of the right internal carotid artery due to calcific plaque. There was no read for the CT of the brain. Of note he did have a carotid ultrasound on 10/10/2023 which showed mild stenosis of the right and left extracranial internal carotid and with a 50% stenosis of the proximal common carotid artery. Of note he did have a CTA of the head and neck back October 2023 which showed moderate to severe atherosclerotic 2 disease most severe on the right with high-grade stenosis of the carotid bulb. He followed up with vascular surgery at that time. 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 Hyperlipidemia Hypertensive urgency Paroxysmal atrial fibrillation Paroxysmal supraventricular tachycardia Sick sinus syndrome Sinus node dysfunction Subarachnoid hemorrhage (11/12/19) Transient cerebral ischemic attack Home Medications ?Medication ?Instructions ?Recorded ?Last Taken ?Type finasteride 5 mg tablet 5 mg PO DAILY prostate 06/15/15 01/09/24 History tamsulosin 0.4 mg capsule 0.4 mg PO DAILY prostate 05/08/21 01/09/24 History atorvastatin 40 mg tablet 40 mg PO QHS cholesterol #90 tabs 11/19/22 01/08/24 Rx glipizide 5 mg tablet, extended 5 mg PO DAILY diabetes #90 tabs 11/19/22 01/09/24 Rx release 24 hr mycophenolate 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 10/30/23 01/09/24 History capsule aspirin 81 mg chewable tablet 81 mg PO BREAKFAST #0 tabs 10/31/23 01/09/24 Rx amiodarone 200 mg tablet 200 mg PO DAILY heart #90 tabs 11/06/23 01/09/24 Rx furosemide 40 mg tablet (Lasix) 40 mg PO TUSA diuretic 01/09/24 01/06/24 History Allergy/AdvReac Type Severity Reaction Status Date / Time amlodipine Allergy Rash Verified 01/09/24 12:05 ether AdvReac Unknown Verified 01/09/24 12:05 tolmetin (From To[place]in) AdvReac Hives Verified 01/09/24 12:05 Family History Father Negative FH of ASCVD Surgical History History of bladder surgery History of permanent cardiac pacemaker placement (08/29/15) History of tonsillectomy hx eyelid surgery Social History Smoking Status: Former smoker how long ago did patient quit smokin years ago alcohol intake: current alcohol intake frequency: 0-2 drinks per day Alcohol type: beer, wine and hard liquor substance use type: does not use caffeine: Yes Type: coffee Number of servings: 2 what type of physical activity do you participate in: none ROS Constitutional Constitutional: Denies anorexia, chills, fatigue, fever(s), malaise or weakness Eyes Eyes: Reports change in vision; Denies double vision, eye pain or loss of vision ENT HEENT: Denies dysphagia, headache(s), hearing loss or sore throat Cardiovascular Cardiovascular: Denies chest pain, dyspnea on exertion, edema, lightheadedness, orthopnea, palpitations, paroxysmal nocturnal dyspnea, rapid heart rate or syncope Respiratory/Chest Respiratory/Chest: Denies cough, dyspnea, shortness of breath at rest or shortness of breath with exertion Gastrointestinal Gastrointestinal: Denies abdominal pain, constipation, diarrhea, nausea or vomiting Genitourinary Genitourinary: Denies burning urination or dysuria Neurologic Neurologic: Denies confusion, disequilibrium, dizziness, focal weakness, headache(s), numbness, seizure-like activity, seizures, syncope or tingling Psychiatric Psychiatric: Denies anxiety or depression Endocrine Endocrinology: Denies change in body appearance Hematologic/Lymphatic Hematologic/Lymphatic: Denies anemia Vital Signs Vital Signs Vital Signs: 01/09/24 12:06 01/09/24 12:06 01/09/24 14:05 Temperature 96.9 F L Temperature Source Temporal Pulse Rate 84 84 71 Respiratory Rate 16 16 14 Blood Pressure 136/63 H 136/63 H 151/82 H Blood Pressure Mean 87 87 105 Pulse Ox 100 100 95 Oxygen Delivery Method Room Air Room Air Room Air 01/09/24 14:55 Temperature 96.8 F L Temperature Source Pulse Rate 60 Respiratory Rate 13 Blood Pressure 155/83 H Blood Pressure Mean 107 Pulse Ox 96 Oxygen Delivery Method Weight Weight: 194 lb 3.2 oz Body Mass Index (BMI) 27.1 Physical Exam Const alert, oriented x3 and no apparent distress General Appearance: cooperative and uncooperative HEENT normocephalic, head/scalp atraumatic, hearing grossly normal bilaterally, moist oral mucous membranes and oropharynx normal Mouth: oral and palatal mucosa normal Eyes PERRL, EOMs intact bilaterally and conjunctivae normal Neck no lymphadenopathy and supple Resp normal respiratory effort, no retractions, no use of accessory muscles and clear to auscultation bilaterally Cardio regular rate, regular rhythm, S1 normal heart sound, S2 normal heart sound and no murmurs GI normal to inspection, nondistended, normoactive bowel sounds, soft to palpation, non-tender and non-distended Extremity normal to inspection, full ROM and no clubbing, cyanosis or edema Neuro oriented x3, moves all extremities and no focal motor deficits Neuro Narrative: decreased visual [place] in the right eye. cranial nerves otherwise intact Sensorium / Orientation: awake and alert Motor Exam: strength 5/5 throughout Psych affect normal Results Lab / Micro Data 01/09/24 12:25 01/09/24 12:25 Labs: Laboratory Results - last 24 hr 01/09/24 12:25: WBC 12.1 H, RBC 4.75, Hgb 13.7, Hct 43.6, MCV 91.8, MCH 28.8, M CHC 31.4 L, RDW Std Deviation 45.7 H, RDW Coeff of [place] 13.5, Plt Count 169, MPV 10.5, Immature Gran % (Auto) 0.500, Neut % (Auto) 85.8 H, Lymph % (Auto) 4.9 L, [place] % (Auto) 7.9, Eos % (Auto) 0.6, Baso % (Auto) 0.3, Absolute Neuts (auto) 10.4 H, Absolute Lymphs (auto) 0.59 L, Nucleated RBC % 0, PT 13.4, INR 1.0, Sodium 139, Potassium 4.0, Chloride 105, Carbon Dioxide 26.0, Anion Gap 8, BUN 31 H, Creatinine 1.50 H, Estim Creat Clear Calc 35.56, Est GFR (MDRD) Af Amer 57 L, Est GFR (MDRD) Non-Af 47 L, BUN/Creatinine Ratio 20.7 H, Glucose 126 H, Calcium 9.4 Imaging Radiology Impression Head/Neck CTA 01/09/24 12:38 IMPRESSION: High-grade stenosis at the origin of the right internal carotid artery due to calcific plaque. No significant stenosis at the origin of left internal carotid artery. Stable atrophy of the brain. Electronically Signed: Andrew Waters MD at 14:06 EDT , Assessment & Plan Assessment/Plan (1) Sudden visual loss of right eye: (2) Carotid artery stenosis: PLAN: Plan #Sudden impaired right vision * Concern for an acute CVA. He was watching TV and suddenly lost vision in the right lower part of his eye. Has not improved. * He saw his supervisor [employer] today who referred to due to concern for stroke. * CT of the brain read is pending. * CTA of the head and neck showed high-grade stenosis at the origin of the right internal carotid artery due to calcific plaque. This is however present since October 2023. * PO aspirin; will consider adding on plavix. High intensity statin * consult neurology * 2D echo done in October 2023 showed EF of 55 to 60%. Will therefore hold off on repeating the echo * PT/OT on board. Fall precautions * Vascular surgery did see patient on 11/17/2023 and recommended completion of 3 weeks of Plavix as was recommended by neurology during his previous admission. He did complete 3 weeks of Plavix and is on aspirin only now. Plavix 75 mg daily added on pending neurology evaluation. * Patient is because risk factor is the A-fib which puts him at risk of thromboembolic stroke. Patient acknowledges this but is adamant he does not want to go on blood thinners such as Eliquis or Coumadin because of his history of subarachnoid hemorrhage. He understands that him not being on anticoagulation can result in mini strokes and possibly because stroke. He is however willing to take the risk and does not want to go on blood thinners. He wishes to have a conversation with the neurologist about this. * # Paroxysmal A-fib: On amiodarone. On statin. Not anticoagulated due to history of subarachnoid hemorrhage. Has a pacemaker in situ #Heart failure preserved ejection fraction: On Lasix. Not in exacerbation. #History of subarachnoid hemorrhage: Stable. Had a brain bleed about 4 years ago but is still adamant he does not want to go on any blood thinners. #BPH: On Flomax #TYpe 2 diabetes mellitus: on glipizide. ISS. Accuchecks ACHS. DVT prophylaxis: Lovenox Code status: full code * Patient counseled extensively about different types of CODE STATUS including full code, DNR CCA and DNR CCA. Patient elects to be full code. * Total [id number] time 17 minutes. Charges/Coding Visit Charges Inpatient E&M: 25487 Init Hosp L2 Procedures Hospitalists Procedures: 88940 Advncd Care Plan 30 Min
[2024-01-09 16:00] VITALS: BP 166/91; PULSE 62; RESP 18; O2SAT 97
[2024-01-09 17:10] VITALS: BP 146/87; PULSE 72; RESP 18; TEMP 36.5; O2SAT 97
[2024-01-09 17:13] VITALS: BMI 26.2
[2024-01-09 21:09] VITALS: BP 124/65; PULSE 64; RESP 18; TEMP 36.7; O2SAT 97
[2024-01-09] MEDS: Atorvastatin Calcium 40 MG Tablet PO (21:10)
[2024-01-09] MEDS: Mycophenolate Mofetil 250 MG Capsule 750 MG PO (21:10)
[2024-01-09] MEDS: Tamsulosin HCl 0.4 MG Capsule PO (21:25)
[2024-01-10] VITALS (7 sets, daily range): BP systolic 98–131; BP diastolic 59–73; PULSE 60–65; RESP 12–18; TEMP 36.4–37.1; O2SAT 94–97; BMI 26.2
[2024-01-10 05:32] LABS: Absolute Lymphocyte Count 0.78 X10^3/uL (0.83-4.51); Absolute Neutrophil Count 8.6 X10^3/uL (2.0-7.7); Basophil# 0.02 X10^3/uL; Basophil% 0.2 % (0-1); Eosinophil# 0.07 X10^3/uL; Eosinophils% 0.7 % (0-5); Hematocrit 38.3 % (40-54); Hemoglobin 11.9 g/dL (13.0-16.5); Lymphocyte # 0.78 X10^3/ul (0.83-4.51); Lymphocyte % 7.3 % (19-41); Mean Corp Hgb Conc 31.1 g/dL (32-36); Mean Corpuscular Hgb 28.7 pg (27.0-32.0); Mean Corpuscular Volume 92.5 fL (80-94); Mean Platelet Vol. 10.5 fl (6.2-12.0); Monocyte# 1.12 X10^3/uL; Monocyte% 10.5 % (0-10); NRBC Flagged by Analyzer 0 % (0-5); Neutrophil # 8.59 X10^3/uL (2.7-7.7); Neutrophil % 80.8 % (47-70); Platelet Count 166 K/mm3 (150-450); RBC Distribution Width CV 13.5 % (11.6-14.6); RBC Distribution Width SD 45.1 fl (35.1-43.9); Red Blood Count 4.14 M/mm3 (4.6-6.2); White Blood Count 10.6 K/mm3 (4.4-11.0)
[2024-01-10 05:58] LABS: Anion Gap 3 (5-15); BUN 24 mg/dL (7-18); BUN/Creat Ratio 20.7 RATIO (10-20); Calcium,Total 8.9 mg/dL (8.5-10.1); Chloride 109 mmol/L (98-107); Cholesterol 122 mg/dL (200); Creatinine, Serum 1.16 mg/dL (0.70-1.30); EST Glomerular Filtration Rate 63 mL/min (>60); Est Glom Filt Rate - Afr Amer 76 mL/min (>60); Estimated Creatinine Clearance 45.98 ml/min; Glucose 80 mg/dL (74-106); High Density Lipoprotein 49 mg/dL; Potassium 3.7 mmol/L (3.5-5.1); Sodium Level 138 mmol/L (136-145); Triglycerides 56 mg/dL; Very Low Density Lipoprotein 11 mg/dL (5-40)
--- NOTE | 2024-01-10 08:16 | PN.HOSP_ITS ---
Reason for Visit Reason for Visit: Diagnoses Sudden visual loss, right eye (01/09/24) Occlusion and stenosis of unspecified carotid artery (01/09/24) Subjective Subjective Patient is an 89-year-old gentleman who was referred to the emergency department by his air traffic controller on account of right eye retinal occlusion. He also did complain of some visual impairment in his left eye which he described as cloudy.CTA head and neck showed high-grade stenosis at the origin of the right internal carotid artery due to calcific plaque. Admitted to monitored bed for subsequent eval Objective Data Objective Data Vital Signs: Vital Signs Temp Pulse Resp BP Pulse Ox O2 Del Method 97.7 F L 65 18 112/61 96 Room Air 01/10/24 05:09 01/10/24 05:09 01/10/24 05:09 01/10/24 05:09 01/10/24 05:09 01/10/24 05:09 Oxygen Delivery Method Room Air Weight: 85.2 kg Body Mass Index (BMI) 26.2 Intake & Output: Intake and Output for Last 24 Hours 01/08/24 01/09/24 01/10/24 23:59 23:59 23:59 Intake Total 60 / 60 120 / 120 Balance 60 / 60 120 / 120 Lab / Micro Data 01/10/24 05:04 01/10/24 05:04 Labs: Laboratory Results - last 24 hr 01/09/24 12:25: WBC 12.1 H, RBC 4.75, Hgb 13.7, Hct 43.6, MCV 91.8, MCH 28.8, M CHC 31.4 L, RDW Std Deviation 45.7 H, RDW Coeff of [place] 13.5, Plt Count 169, MPV 10.5, Immature Gran % (Auto) 0.500, Neut % (Auto) 85.8 H, Lymph % (Auto) 4.9 L, [place] % (Auto) 7.9, Eos % (Auto) 0.6, Baso % (Auto) 0.3, Absolute Neuts (auto) 10.4 H, Absolute Lymphs (auto) 0.59 L, Nucleated RBC % 0, PT 13.4, INR 1.0, Sodium 139, Potassium 4.0, Chloride 105, Carbon Dioxide 26.0, Anion Gap 8, BUN 31 H, Creatinine 1.50 H, Estim Creat Clear Calc 35.56, Est GFR (MDRD) Af Amer 57 L, Est GFR (MDRD) Non-Af 47 L, BUN/Creatinine Ratio 20.7 H, Glucose 126 H, Calcium 9.4 01/10/24 05:04: WBC 10.6, RBC 4.14 L, Hgb 11.9 L, Hct 38.3 L, MCV 92.5, MCH 28.7, MCHC 31.1 L, RDW Std Deviation 45.1 H, RDW Coeff of [place] 13.5, Plt Count 166, MPV 10.5, Immature Gran % (Auto) 0.500, Neut % (Auto) 80.8 H, Lymph % (Auto) 7.3 L, [place] % (Auto) 10.5 H, Eos % (Auto) 0.7, Baso % (Auto) 0.2, A bsolute Neuts (auto) 8.6 H, Absolute Lymphs (auto) 0.78 L, Nucleated RBC % 0, Sodium 138, Potassium 3.7, Chloride 109 H, Carbon Dioxide 26.0, Anion Gap 3 L, B UN 24 H, Creatinine 1.16, Estim Creat Clear Calc 45.98, Est GFR (MDRD) Af Amer 76, Est GFR (MDRD) Non-Af 63, BUN/Creatinine Ratio 20.7 H, Glucose 80, Calcium 8.9, Triglycerides 56, Cholesterol 122, LDL Cholesterol 62, VLDL Cholesterol 11, HDL Cholesterol 49 Radiography Diagnostic Testing: Radiology Impression Head/Neck CTA 01/09/24 12:38 IMPRESSION: High-grade stenosis at the origin of the right internal carotid artery due to calcific plaque. No significant stenosis at the origin of left internal carotid artery. Stable atrophy of the brain. Electronically Signed: Andrew Waters MD at 14:06 EDT , Physical Exam Narrative GENERAL: cooperative HEENT: Atraumatic; normocephalic EYES; Anicteric, Normal Conjunctiva NECK; supple, normal thyroid, RESPIRATORY: Diminished to auscultation CARDIOVASCULAR: Regular S1 S2, GI: soft, normoactive bowel sounds, : No Renal angle tenderness; EXTREMITIES: No edema, no clubbing, MUSCULOSKELETAL: no muscle wasting NEURO: Awake; no lateralizing signs. SKIN: No Rash PSYCH; Flat affect Assessment & Plan Assessment/Plan (1) Sudden visual loss of right eye: (2) Carotid artery stenosis: QUALIFIERS: Laterality: right Qualified Code(s): I65.21 - Occlusion and stenosis of right carotid artery PLAN: Plan Patient is an 89-year-old gentleman who was referred to the emergency department by his air traffic controller on account of right eye retinal occlusion. He also did complain of some visual impairment in his left eye which he described as cloudy.CTA head and neck showed high-grade stenosis at the origin of the right internal carotid artery due to calcific plaque. Admitted to monitored bed for subsequent eval 1. Sudden visual loss ? Involving both eyes initially with the right side now with the left. Initial imaging studies obtained did demonstrate high-grade stenosis at the origin of the right internal carotid artery due to calcific plaque. This has been present since October 2023. Patient is on antiplatelet therapy with aspirin, Plavix was added in addition to high intensity statin. Requested for MRI of the brain (pending clearance by patient pacemaker rep on 01/12/2024) and neurology consultation. Patient has underlying history of paroxysmal A-fib and it was advised he goes on systemic anticoagulation however he was reluctant to start pending discussion with the neurologist 2. High-grade right internal carotid artery stenosis ? Consult placed to vascular surgery 3. Paroxysmal A-fib ? Rate controlled on amiodarone patient is not on systemic anticoagulation due to previous history of subarachnoid hemorrhage 4. Sick sinus syndrome ? Status post pacemaker placement 5. Chronic congestive heart failure with preserved ejection fraction ? Patient remains euvolemic 6. BPH with lower urinary obstructive symptoms - Patient treated with tamsulosin 7. Diabetes mellitus type II -patient's oral hypoglycemics held. Placed on Accu-Cheks a.c. and at bedtime and covered with sliding scale insulin 8. Anemia - Secondary to chronic disorder monitoring H&H and transfuse if patient becomes symptomatic or hemoglobin falls below 7 9. History of subarachnoid hemorrhage ? On 11/12/2019 10. DVT prophylaxis - On enoxaparin Time spent in the patient's overall evaluation,decision-making process, review of diagnostic data, adjustment of management, discussion with other providers, nursing nursing and ancillary staff involved in patient's care documentation, 50 Minutes Charges/Coding Visit Charges Inpatient E&M: 55552 Subs Hosp L3
[2024-01-10] MEDS: Aspirin 81 MG TAB.CHEW PO (09:26)
[2024-01-10] MEDS: Amiodarone 200 MG Tablet PO (09:27)
[2024-01-10] MEDS: Mycophenolate Mofetil 250 MG Capsule 750 MG PO ×2 (09:27→20:38)
[2024-01-10] MEDS: Enoxaparin 40 MG/0.4 ML Syringe SC (09:28)
[2024-01-10] MEDS: Finasteride 5 MG Tablet PO (09:28)
--- NOTE | 2024-01-10 11:49 | CON.PCM.NE_ITS ---
Assessment and Plan: Neuro Assessment/Plan VIOLETA DEAL is a 89 M with a past medical history of HTN, HLD and TIA presented with right retinal artery occlusion Plan: vascular surgery consult cont ASA 81 mg daily cont Lipitor 80 mg daily TTE hba1c, lipid panel vascular risk modification HPI Consult Data Date of Consult: 01/10/24 HPI Narrative HPI Narrative: VIOLETA DEAL, is a 89 M who presents hx of he was watching TV when he felt a curtain coming up his eye, he presented with his ct technologist where Retinal artery occlusion was found and he was sent to the hospital. 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 Hyperlipidemia Hypertensive urgency Paroxysmal atrial fibrillation Paroxysmal supraventricular tachycardia Sick sinus syndrome Sinus node dysfunction Subarachnoid hemorrhage (11/12/19) Transient cerebral ischemic attack Home Medications ?Medication ?Instructions ?Recorded ?Last Taken ?Type finasteride 5 mg tablet 5 mg PO DAILY prostate 06/15/15 01/09/24 History tamsulosin 0.4 mg capsule 0.4 mg PO QHS prostate 05/08/21 01/08/24 History atorvastatin 40 mg tablet 40 mg PO QHS cholesterol #90 tabs 11/19/22 01/08/24 Rx glipizide 5 mg tablet, extended 5 mg PO DAILY diabetes #90 tabs 11/19/22 01/09/24 Rx release 24 hr mycophenolate 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 10/30/23 01/09/24 History capsule aspirin 81 mg chewable tablet 81 mg PO BREAKFAST #0 tabs 10/31/23 01/09/24 Rx amiodarone 200 mg tablet 200 mg PO DAILY heart #90 tabs 11/06/23 01/09/24 Rx furosemide 40 mg tablet (Lasix) 40 mg PO TUSA diuretic 01/09/24 01/06/24 History Allergy/AdvReac Type Severity Reaction Status Date / Time amlodipine Allergy Rash Verified 01/09/24 12:05 ether AdvReac Unknown Verified 01/09/24 12:05 tolmetin (From Tolectin) AdvReac Hives Verified 01/09/24 12:05 Family History Father Negative FH of ASCVD Surgical History History of bladder surgery History of permanent cardiac pacemaker placement (08/29/15) History of tonsillectomy hx eyelid surgery Social History Smoking Status: Former smoker how long ago did patient quit smokin years ago alcohol intake: current alcohol intake frequency: 0-2 drinks per day Alcohol type: beer, wine and hard liquor substance use type: does not use caffeine: Yes Type: coffee Number of servings: 2 what type of physical activity do you participate in: none Vital Signs Vital Signs Vital Signs: 01/09/24 12:06 01/09/24 12:06 01/09/24 14:05 Temperature 96.9 F L Temperature Source Temporal Pulse Rate 84 84 71 Respiratory Rate 16 16 14 Respiratory Effort Respiratory Depth Respiratory Pattern Blood Pressure 136/63 H 136/63 H 151/82 H Blood Pressure Mean 87 87 105 Blood Pressure Source Blood Pressure Position Blood Pressure Location Pulse Ox 100 100 95 Oxygen Delivery Method Room Air Room Air Room Air 01/09/24 14:55 01/09/24 16:00 01/09/24 17:10 Temperature 96.8 F L 97.7 F L Temperature Source Oral Pulse Rate 60 62 72 Respiratory Rate 13 18 18 Respiratory Effort Respiratory Depth Respiratory Pattern Blood Pressure 155/83 H 166/91 H 146/87 H Blood Pressure Mean 107 116 106 Blood Pressure Source Monitor Blood Pressure Position Semi-Fowlers Blood Pressure Location Right Arm Pulse Ox 96 97 97 Oxygen Delivery Method Room Air Room Air 01/09/24 17:15 01/09/24 19:41 01/09/24 21:09 Temperature 98.0 F Temperature Source Temporal Pulse Rate 64 Respiratory Rate 18 Respiratory Effort Normal Non-Labored Respiratory Depth Normal Respiratory Pattern Normal Blood Pressure 124/65 H Blood Pressure Mean 84 Blood Pressure Source Monitor Blood Pressure Position Semi-Fowlers Blood Pressure Location Right Arm Pulse Ox 97 Oxygen Delivery Method Room Air Room Air Room Air 01/10/24 00:25 01/10/24 01:08 01/10/24 01:19 Temperature 98.7 F Temperature Source Temporal Pulse Rate 60 Respiratory Rate 18 Respiratory Effort Normal Non-Labored Respiratory Depth Normal Respiratory Pattern Normal Blood Pressure 117/63 Blood Pressure Mean 81 Blood Pressure Source Monitor Blood Pressure Position Semi-Fowlers Blood Pressure Location Left Arm Pulse Ox 94 96 Oxygen Delivery Method Room Air Room Air Room Air 01/10/24 05:09 01/10/24 08:38 01/10/24 09:09 Temperature 97.7 F L 98.0 F Temperature Source Temporal Oral Pulse Rate 65 63 Respiratory Rate 18 14 Respiratory Effort Respiratory Depth Respiratory Pattern Blood Pressure 112/61 98/61 Blood Pressure Mean 78 73 Blood Pressure Source Monitor Monitor Blood Pressure Position Semi-Fowlers Sitting Blood Pressure Location Left Arm Right Arm Pulse Ox 96 97 Oxygen Delivery Method Room Air Room Air Room Air Weight Weight: 85.2 kg Body Mass Index (BMI) 26.2 EEG Results Procedure Details EEG Procedure Details: VIOLETA DEAL is a 89 year old M with a past medical history of , who presents for evaluation of Electroencephalogram on DATE at TIME NIHSS NIHSS Nursing Documentation NIHSS Nursing Documentation: NIHSS: Ischemic Stroke/TIA Start: 01/09/24 17:52 Text: For PCU Patients: NIH and Neuro Check every 4 Status: Active hours, PRN and with change in RN caregiver. Freq: [id number] Protocol: Activity Type Activity Date Activity User E-sign Co-sign Detail Recorded Client Recorded Date Recorded By Document 01/10/24 05:09 DC desktop 01/10/24 05:17 DC 01/10/24 05:09 NIH Stroke Scale [NIHSS] A score of 0 is normal or asymptomatic . Total possible score is 42. Inpatient: RN or Physician to activate a stroke alert for onset of new stroke symptoms or with NIHSS increase >/= 3 points. Following change in neurological status, NIHSS will be performed per physician order or more frequently PRN. -1a. Level of Consciousness Alert; keenly responsive -1b. LOC Questions Answers BOTH questions correctly. -1c. LOC Commands Performs both tasks correctly . -2. Best Gaze Normal -3. Visual No visual loss -4. Facial Palsy Normal symmetrical movements -5a. Left Arm No drift; arm holds 90 (or 45 ) degrees for full 10 seconds -5b. Right Arm No drift; arm holds 90 (or 45 ) degrees for full 10 seconds -6a. Left Leg No drift; leg holds 30-degree position for full 5 seconds -6b. Right Leg No drift; leg holds 30-degree position for full 5 seconds -7. Limb Ataxia Absent -8. Sensory Normal; no sensory loss -9. Best Language No aphasia; normal -10. Dysarthria Normal -11. Extinction and Inattention No abnormality -Total 0 Query Text:A score of 0 is normal or asymptomatic. Total possible score is 42 . ED: Notify Physician for NIHSS increase by > / = 3 points. Inpatient: RN or Physician to activate a stroke alert for NIHSS increase of > / = 3 points. Coma Scale [Assess] -Eye Opening Spontaneous -Motor Obeys Commands -Verbal Oriented [Total] -Coma Scale Total 15 Physical Exam Neuro Neuro Narrative: AOx 3 following commands EMOI right lower eye decrease vision face symmetric no focal wekaness Lab / Micro Data 01/10/24 05:04 01/10/24 05:04 Labs: Laboratory Results - last 24 hr 01/09/24 12:25: WBC 12.1 H, RBC 4.75, Hgb 13.7, Hct 43.6, MCV 91.8, MCH 28.8, M CHC 31.4 L, RDW Std Deviation 45.7 H, RDW Coeff of [place] 13.5, Plt Count 169, MPV 10.5, Immature Gran % (Auto) 0.500, Neut % (Auto) 85.8 H, Lymph % (Auto) 4.9 L, [place] % (Auto) 7.9, Eos % (Auto) 0.6, Baso % (Auto) 0.3, Absolute Neuts (auto) 10.4 H, Absolute Lymphs (auto) 0.59 L, Nucleated RBC % 0, PT 13.4, INR 1.0, Sodium 139, Potassium 4.0, Chloride 105, Carbon Dioxide 26.0, Anion Gap 8, BUN 31 H, Creatinine 1.50 H, Estim Creat Clear Calc 35.56, Est GFR (MDRD) Af Amer 57 L, Est GFR (MDRD) Non-Af 47 L, BUN/Creatinine Ratio 20.7 H, Glucose 126 H, Calcium 9.4 01/10/24 05:04: WBC 10.6, RBC 4.14 L, Hgb 11.9 L, Hct 38.3 L, MCV 92.5, MCH 28.7, MCHC 31.1 L, RDW Std Deviation 45.1 H, RDW Coeff of [place] 13.5, Plt Count 166, MPV 10.5, Immature Gran % (Auto) 0.500, Neut % (Auto) 80.8 H, Lymph % (Auto) 7.3 L, [place] % (Auto) 10.5 H, Eos % (Auto) 0.7, Baso % (Auto) 0.2, A bsolute Neuts (auto) 8.6 H, Absolute Lymphs (auto) 0.78 L, Nucleated RBC % 0, Sodium 138, Potassium 3.7, Chloride 109 H, Carbon Dioxide 26.0, Anion Gap 3 L, B UN 24 H, Creatinine 1.16, Estim Creat Clear Calc 45.98, Est GFR (MDRD) Af Amer 76, Est GFR (MDRD) Non-Af 63, BUN/Creatinine Ratio 20.7 H, Glucose 80, Calcium 8.9, Triglycerides 56, Cholesterol 122, LDL Cholesterol 62, VLDL Cholesterol 11, HDL Cholesterol 49 Imaging Radiology Impression Head/Neck CTA 01/09/24 12:38 IMPRESSION: High-grade stenosis at the origin of the right internal carotid artery due to calcific plaque. No significant stenosis at the origin of left internal carotid artery. Stable atrophy of the brain. Electronically Signed: Andrew Waters MD at 14:06 EDT , Active Medications Active Medications Active Medications: Current Medications Generic Name Dose Route Start Last Admin Trade Name Freq PRN Reason Stop Dose Admin Acetaminophen 650 mg 01/09/24 17:50 Acetaminophen 325 Mg Tablet PO Q6H PRN PRN Pain 1-10 Or Fever >100.7 Amiodarone HCl 200 mg 01/10/24 10:00 01/10/24 09:27 Amiodarone 200 Mg Tablet PO 200 mg DAILY [facility]DO Administration Aspirin 81 mg 01/10/24 08:00 01/10/24 09:26 Aspirin 81 Mg Tab.Chew PO 81 mg BREAKFAST OSWALDO Administration Atorvastatin Calcium 40 mg 01/09/24 22:00 01/09/24 21:10 Atorvastatin Calcium 40 Mg Tablet PO 40 mg QHS [facility] Administration Enoxaparin Sodium 40 mg 01/10/24 10:00 01/10/24 09:28 Enoxaparin 40 Mg/0.4 Ml Syringe SC 40 mg DAILY [facility] Administration Finasteride 5 mg 01/10/24 10:00 01/10/24 09:28 Finasteride 5 Mg Tablet PO 5 mg DAILY [facility] Administration Furosemide 40 mg 01/10/24 10:00 01/10/24 09:28 Furosemide 40 Mg Tablet PO Not Given [facility] Protocol Glipizide 5 mg 01/10/24 08:00 [facility] HCl 10 - 20 mg 01/09/24 17:50 Labetalol (Compound) 20 Mg/4 Ml Syringe IV 01/10/24 17:54 Q10M PRN PRN maintain BP parameters with HR >/=60 Morphine Sulfate 2 - 4 mg 01/09/24 17:50 Morphine 2 Mg/Ml Syringe IV Q3H PRN PRN Pain Score 6-10 Morphine Sulfate 2 - 4 mg 01/09/24 18:16 Morphine 4 Mg/Ml Syringe IV Q3H PRN PRN Pain Score 6-10 Mycophenolate Mofetil 750 mg 01/09/24 22:00 01/10/24 09:27 Mycophenolate Mofetil 250 Mg Capsule PO 750 mg BID [facility] Administration Nitroglycerin 0.4 mg 01/09/24 17:50 Nitroglycerin (Inpatient Use) 0.4 Mg Tab.Subl SL Q5M PRN CARDIAC/CHEST PAIN Ondansetron HCl 4 mg 01/09/24 17:50 Ondansetron 4 Mg/2 Ml Vial IV Q8H PRN PRN NAUSEA/VOMITING Oxycodone HCl 5 mg 01/09/24 17:50 Oxycodone 5 Mg Tablet PO Q4H PRN PRN Pain Score 4-10 Sodium Chloride 10 - 40 ml 01/09/24 17:06 0.9% Saline Lock 10 Ml Syringe IV UD PRN SALINE FLUSH Tamsulosin HCl 0.4 mg 01/10/24 22:00 Tamsulosin Hcl 0.4 Mg Capsule PO 2200 [facility]
--- NOTE | 2024-01-10 14:05 | CASEMGMT ---
Social Work Pt completed PHQ-9 w/SW. Pt did indicate feeling down sometimes. Pt identifies it as being more related to his health. PHQ-9 does not indicate depression. RENAE Antonio
[2024-01-10] MEDS: Tamsulosin HCl 0.4 MG Capsule PO (20:38)
[2024-01-10] MEDS: Atorvastatin Calcium 40 MG Tablet PO (20:38)
[2024-01-10] MEDS: Bisacodyl 10 MG Suppository RC (20:38)
[2024-01-11] VITALS (10 sets, daily range): BP systolic 99–136; BP diastolic 62–78; PULSE 60–63; RESP 12–16; TEMP 36.1–36.6; O2SAT 94–99; BMI 26.2
--- NOTE | 2024-01-11 08:04 | PCM.PN.HOSP ---
Reason for Visit Reason for Visit: Diagnoses Sudden visual loss, right eye (01/10/24) Occlusion and stenosis of right carotid artery (01/10/24) Occlusion and stenosis of unspecified carotid artery (01/10/24) Subjective Subjective Case was discussed with teleneurology they recommended consultation with vascular surgery. Case was discussed with Dr. Mobley who had apparently seen the patient in November duplex revealed less than 50% stenosis bilaterally. Patient is scheduled to undergo MRI of the brain pending clearance from the IP [facility] (has a pacemaker) Objective Data Objective Data Vital Signs: Vital Signs Temp Pulse Resp BP Pulse Ox O2 Del Method 97.8 F 60 16 136/78 H 97 Room Air 01/11/24 06:00 01/11/24 06:00 01/11/24 06:00 01/11/24 06:00 01/11/24 06:00 01/11/24 06:00 Oxygen Delivery Method Room Air Weight: 85.2 kg Body Mass Index (BMI) 26.2 Intake & Output: Intake and Output for Last 24 Hours 01/09/24 01/10/24 01/11/24 23:59 23:59 23:59 Intake Total 60 / 60 600 / 720 240 / 240 Balance 60 / 60 600 / 720 240 / 240 Lab / Micro Data 01/10/24 05:04 01/10/24 05:04 Physical Exam Narrative GENERAL: cooperative HEENT: Atraumatic; normocephalic EYES; Anicteric, Normal Conjunctiva NECK; supple, normal thyroid, RESPIRATORY: Diminished to auscultation CARDIOVASCULAR: Regular S1 S2, GI: soft, normoactive bowel sounds, : No Renal angle tenderness; EXTREMITIES: No edema, no clubbing, MUSCULOSKELETAL: no muscle wasting NEURO: Awake; no lateralizing signs. SKIN: No Rash PSYCH; Flat affect Assessment & Plan Assessment/Plan (1) Sudden visual loss of right eye: (2) Carotid artery stenosis: QUALIFIERS: Laterality: right Qualified Code(s): I65.21 - Occlusion and stenosis of right carotid artery PLAN: Plan Patient is an 89-year-old gentleman who was referred to the emergency department by his tariff compiler on account of right eye retinal occlusion. He also did complain of some visual impairment in his left eye which he described as cloudy.CTA head and neck showed high-grade stenosis at the origin of the right internal carotid artery due to calcific plaque. Admitted to monitored bed for subsequent eval 1. Sudden visual loss ? Involving both eyes initially with the right side now with the left. Initial imaging studies obtained did demonstrate high-grade stenosis at the origin of the right internal carotid artery due to calcific plaque. This has been present since October 2023. Patient is on antiplatelet therapy with aspirin, Plavix was added in addition to high intensity statin. Requested for MRI of the brain (pending clearance by patient pacemaker rep on 01/12/2024) and neurology consultation. Patient has underlying history of paroxysmal A-fib and it was advised he goes on systemic anticoagulation however he was reluctant to start pending discussion with the neurologist 2. High-grade right internal carotid artery stenosis ? Consult placed to vascular surgery -01/11/2024 Case was discussed with teleneurology they recommended consultation with vascular surgery. Case was discussed with Dr. Mobley who had apparently seen the patient in November duplex revealed less than 50% stenosis bilaterally 3. Paroxysmal A-fib ? Rate controlled on amiodarone patient is not on systemic anticoagulation due to previous history of subarachnoid hemorrhage 4. Sick sinus syndrome ? Status post pacemaker placement 5. Chronic congestive heart failure with preserved ejection fraction ? Patient remains euvolemic 6. BPH with lower urinary obstructive symptoms - Patient treated with tamsulosin 7. Diabetes mellitus type II -patient's oral hypoglycemics held. Placed on Accu-Cheks a.c. and at bedtime and covered with sliding scale insulin 8. Anemia - Secondary to chronic disorder monitoring H&H and transfuse if patient becomes symptomatic or hemoglobin falls below 7 9. History of subarachnoid hemorrhage ? On 11/12/2019 10. DVT prophylaxis - On enoxaparin Time spent in the patient's overall evaluation,decision-making process, review of diagnostic data, adjustment of management, discussion with other providers, nursing nursing and ancillary staff involved in patient's care documentation, 35 Minutes Charges/Coding Visit Charges Inpatient E&M: 85153 Subs Hosp L2
[2024-01-11] MEDS: Mycophenolate Mofetil 250 MG Capsule 750 MG PO ×2 (08:13→20:51)
[2024-01-11] MEDS: Finasteride 5 MG Tablet PO (08:13)
[2024-01-11] MEDS: Aspirin 81 MG TAB.CHEW PO (08:14)
[2024-01-11] MEDS: Amiodarone 200 MG Tablet PO (08:14)
[2024-01-11] MEDS: Enoxaparin 40 MG/0.4 ML Syringe SC (08:14)
[2024-01-11] MEDS: glipiZIDE XL 5 MG Tablet PO (08:14)
[2024-01-11] MEDS: Atorvastatin Calcium 40 MG Tablet PO (20:51)
[2024-01-11] MEDS: Tamsulosin HCl 0.4 MG Capsule PO (20:52)
[2024-01-12] VITALS (9 sets, daily range): BP systolic 110–147; BP diastolic 69–87; PULSE 61–85; RESP 14–16; TEMP 36.4–36.6; O2SAT 94–99; BMI 26.2
[2024-01-12 06:28] LABS: Bedside Glucose 107 mg/dL (74-106)
--- NOTE | 2024-01-12 07:51 | EX.PCM.CON.S ---
Assessment & Plan Assessment/Plan (1) Acute retinal artery occlusion: PLAN: -CTA images reviewed, right ICA 23% stenosis, mid CCA tortuosity without atherosclerosis, left ICA 20% stenosis; innominate artery with 50% stenosis, irregular soft plaque, moderate aortic arch atherosclerosis -event most likely from aortic arch or innominate source -recommend care home dual antiplatelet, highest dose statin -will have him follow up in office after discharge HPI Consult Data Date of Consult: 01/12/24 HPI Narrative HPI Narrative: VIOLETA DEAL, is a 89 M who presents with right eye visual field loss occurring January 07. Was seen as outpatient by ophthalmology who identified a right retinal artery occlusion and referred him to the ED. No associated numbness/weakness/speech difficulty. He had been on 3 week course of plavix along with aspirin for a suspected posterior circulation transient ischemic attack in November. At that time duplex and CTA did not show significant carotid stenosis. 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 Hyperlipidemia Hypertensive urgency Paroxysmal atrial fibrillation Paroxysmal supraventricular tachycardia Sick sinus syndrome Sinus node dysfunction Subarachnoid hemorrhage (11/12/19) Transient cerebral ischemic attack Home Medications ?Medication ?Instructions ?Recorded ?Last Taken ?Type finasteride 5 mg tablet 5 mg PO DAILY prostate 06/15/15 01/09/24 History tamsulosin 0.4 mg capsule 0.4 mg PO QHS prostate 05/08/21 01/08/24 History atorvastatin 40 mg tablet 40 mg PO QHS cholesterol #90 tabs 11/19/22 01/08/24 Rx glipizide 5 mg tablet, extended 5 mg PO DAILY diabetes #90 tabs 11/19/22 01/09/24 Rx release 24 hr mycophenolate 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 10/30/23 01/09/24 History capsule aspirin 81 mg chewable tablet 81 mg PO BREAKFAST #0 tabs 10/31/23 01/09/24 Rx amiodarone 200 mg tablet 200 mg PO DAILY heart #90 tabs 11/06/23 01/09/24 Rx furosemide 40 mg tablet (Lasix) 40 mg PO TUSA diuretic 01/09/24 01/06/24 History Allergy/AdvReac Type Severity Reaction Status Date / Time amlodipine Allergy Rash Verified 01/09/24 12:05 ether AdvReac Unknown Verified 01/09/24 12:05 tolmetin (From Tolectin) AdvReac Hives Verified 01/09/24 12:05 Family History Father Negative FH of ASCVD Surgical History History of bladder surgery History of permanent cardiac pacemaker placement (08/29/15) History of tonsillectomy hx eyelid surgery Social History Smoking Status: Former smoker how long ago did patient quit smokin years ago alcohol intake: current alcohol intake frequency: 0-2 drinks per day Alcohol type: beer, wine and hard liquor substance use type: does not use caffeine: Yes Type: coffee Number of servings: 2 what type of physical activity do you participate in: none ROS Constitutional Constitutional: Denies chills, fever(s), frequent falls, lethargy or weakness Eyes Eyes: Reports blind spots, change in vision and loss of vision ENT HEENT: Denies bleeding gums, hoarseness or sore throat Cardiovascular Cardiovascular: Denies abdominal pain, bluish discoloration of hand/feet, chest pain with activity, claudication, cold extremities, cyanosis, dyspnea on exertion, erythema on extremities, irregular heart rhythm, leg edema, leg ulcers, numbness in extremities or weakness in extremities Respiratory/Chest Respiratory/Chest: Denies cough, excessive phlegm production, shortness of breath at rest, shortness of breath with exertion or wheezing Gastrointestinal Gastrointestinal: Denies anorexia, change in stool character, constipation, diarrhea, melena or rectal bleeding Genitourinary Genitourinary: Denies dysuria or hematuria Musculoskeletal Musculoskeletal: Denies abnormal gait Integumentary Integumentary: Reports other Details: ; Denies erythema, non-healing lesions or wounds Neurologic Neurologic: Denies abnormal speech, focal weakness, headache(s), loss of vision, numbness, paresthesias or sensory deficit Hematologic/Lymphatic Hematologic/Lymphatic: Denies easy bleeding, easy bruising or lymphadenopathy Physical Exam Const alert, oriented x3, no apparent distress and healthy appearing General Appearance: cooperative; Negative for combative or lethargic Orientation / Consciousness: awake Exam Limitations: no limitations HEENT Head and Scalp: normocephalic and atraumatic Eyes EOMs intact bilaterally General Eye: normal appearance of both eyes Neck full ROM, no lymphadenopathy and thyroid normal General: trachea midline; Negative for lymphadenopathy or tenderness Thyroid: thyroid normal Resp normal respiratory effort and no use of accessory muscles Effort and Inspection: Negative for labored, stridor or audible wheezes Cardio regular rate and regular rhythm Back/Spine Cervical Spine: cervical ROM normal Extremity full ROM, normal capillary refill and no clubbing, cyanosis or edema Skin no rashes or lesions noted and no wounds Neuro oriented x3, CN's II-XII intact bilaterally, no focal motor deficits and no sensory deficits noted Psych thought process normal, cooperative, affect normal, speech normal and activity/motor behavior normal Lab / Micro Data 01/10/24 05:04 01/10/24 05:04 Labs: Laboratory Results - last 24 hr 01/12/24 06:01: POC Glucose 107 H Charges/Coding Visit Charges Inpatient E&M: 79044 Init Hosp L3
[2024-01-12] MEDS: Finasteride 5 MG Tablet PO (09:22)
[2024-01-12] MEDS: Aspirin 81 MG TAB.CHEW PO (09:22)
[2024-01-12] MEDS: Enoxaparin 40 MG/0.4 ML Syringe SC (09:22)
[2024-01-12] MEDS: Mycophenolate Mofetil 250 MG Capsule 750 MG PO (09:22)
[2024-01-12] MEDS: glipiZIDE XL 5 MG Tablet PO (09:22)
[2024-01-12] MEDS: Amiodarone 200 MG Tablet PO (09:31)
--- NOTE | 2024-01-12 09:50 | CASEMGMT ---
RN CM Face to Face with patient for initial transition planning/care coordination assessment. RN CM introduced self and role at [facility]. Patient sitting in chair, alert and oriented. Patient willing to participate in assessment and is able to answer all questions appropriately. Care providers, pharmacy, and demographics verified. 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 Patient states he is independent at home. Transportation: self, [facility] Van, Neighbor DME/HHC: Patient has shower chair, cane, grab bars, walker, rollator at home. No previous HHC or SNF Patient wishes to discharge home, denies need for home health at this time. Patient walking 400ft with therapy. Patient states he has no further needs or concerns at this time. CM to follow for discharge planning needs that may arise. Disposition Plan: Patient to discharge home with family support and follow-up plans in place. Josephine PAULINO, RN, CM
[2024-01-12 12:19] LABS: Bedside Glucose 106 mg/dL (74-106)
--- NOTE | 2024-01-12 13:00 | NURSING ---
NIHSS late due to pt being down at MRI.
--- NOTE | 2024-01-12 13:59 | CHAPLAIN ---
Type of Pastoral Visit _x__ Initial Visit ___ Follow-up Visit ___ On-call Visit ___ General Patient Visit ___ Spiritual Assessment ___ Family Conference ___ Bereavement ___ Rapid Response ___ Code Blue ___ Other (describe below) Pastoral Care Referral From _x__ Patient ___ Family ___ Nurse ___ Physician ___ Regional Environmental Manager ___ Dietitian Research ___ Other (describe below) Sacrament/Intervention _x__ Active listening ___ Anointing ___ Buddhist ___ Bereavement ___ Communion ___ Janay exploration ___ _x__ Life review _x__ Prayer ___ Reconciliation ___ Sacrament of Sick _x__ Supportive presence ___ Wedding ___ Other (describe below) Pastoral Comments patient is welcoming and remembers this intermediate card tender from a recent admission; pt reviews his condition and that he is waiting for more direction on what it is and how to treat it; pt has good support from his neighbors; pt talks about what interests him and expresses thanks for the time given to him; prayer is given
--- NOTE | 2024-01-12 14:33 | STROKE.PNOTE ---
Objective Data Objective Data Vital Signs: Vital Signs Temp Pulse Resp BP Pulse Ox O2 Del Method 97.8 F 65 16 118/71 99 Room Air 01/12/24 14:05 01/12/24 14:05 01/12/24 14:05 01/12/24 14:05 01/12/24 14:05 01/12/24 14:05 Oxygen Delivery Method Room Air Weight: 85.2 kg Body Mass Index (BMI) 26.2 Intake & Output: Intake and Output for Last 24 Hours 01/10/24 01/11/24 01/12/24 23:59 23:59 23:59 Intake Total 600 / 720 600 / 840 600 / 600 Output Total 500 / 500 Balance 600 / 720 100 / 340 600 / 600 Lab / Micro Data 01/10/24 05:04 01/10/24 05:04 Labs: Laboratory Results - last 24 hr 01/12/24 06:01: POC Glucose 107 H 01/12/24 12:01: POC Glucose 106 Physical Exam HEENT normocephalic and head/scalp atraumatic Neuro oriented x3 and moves all extremities Neuro Narrative: Awake, alert, Oriented X3 Speech Fluent Comprehension intact decreased vision Right eye lower quadrant Rest of CN intact Motor 5/5 Sensation: Intact No ataxia Subject: Neurology Subjective VIOLETA DEAL is a 89 year old M, who we are seeing in consultation today for advice on the management of vision loss in right eye on left lower quadrant from retinal artery occlusion. No acute ON events. Assessment and Plan: Stroke Assessment/Plan VIOLETA DEAL is a 89 M with a history of carotid artery stenosis, P Afib, CVA, HTN, SSS, TIA who presents for evaluation of loss of vision in Right eye lower left quadrant. His symptoms are persistent. No new symptoms. Was diagnosed with Right retinal artery occlusion. has subacute R frontal infarct. Suspect from ICA disease vs AFib vs other causes. Neurological examination shows Loss of vision in Right eye lower quadrant. Neuroimaging shows R ICA stenosis on CTA, carotid duplex: <50% ICA stenosis. MRI Brain: subacute Right frontal stroke, LDL 62. Current on ASA. Continue AP per vascular surgery. F/up on HbA1c F/up with vascular surgery as out patient AFib. Currently not on AC. DW Patient risk and benefits of AC as he has PAfib for stroke prevention. If he is started on AC single AP is sufficient for carotid stenosis. HTN: Aggressive control of HTN. Aim normotension HLD: Statin. Thanks for the consult. Spent 35 min in evaluation and management
--- NOTE | 2024-01-12 15:45 | DCINST_ITS ---
Discharge Instructions Diet Discharge Diet: 1800 Calorie Control Diet Activity Discharge Activity: May Not Drive Weight Bearing Status: Full weight bearing Follow Up Care Test Results: Test results from this visit will be discussed in further detail at your follow- up appointment, if applicable. Discharge Plan Admission Admit Date/Time: 01/10/24 15:10 Primary Reason for Your Visit: SUBACUTE STROKE, RETINAL ARTERY OCCLUSION Attending Provider: Miguel Suarez Primary Care Provider: Navin Paniagua Consulting Providers: Huber Mendez; Garcia Page; Desiree Baptiste; Jimena Russell; Cecy Jackson; Medardo Wade; Farzaneh Reyes; Juanpablo Almanza; Lan Donovan; Wanda Bhat; Justin Kelly; Jennifer Heck; Nguyen Lombardo; Lida Mejia; Juan Quiroz; Joan Cardenas; Ender Olivarez; Niki Daigle; Eliseo Colin; Nicolasa Li; Tom Mobley; Santiago Boateng Discharge Orders/Prescriptions Prescriptions: New clopidogrel [Plavix] 75 mg tablet 75 mg PO DAILY Qty: 30 0RF Rx Instructions: START ON 01/13/24 Continued finasteride 5 MG tablet 5 mg PO DAILY tamsulosin 0.4 mg capsule 0.4 mg PO QHS furosemide [Lasix] 40 mg tablet 40 mg PO TUSA Rx Instructions: 40 mg orally twice per week on and Fri mycophenolate mofetil 250 mg capsule 750 mg PO BID aspirin 81 mg Tablet,Chewable 81 mg PO BREAKFAST Qty: 0 0RF Rx Instructions: You may take either a baby aspirin or an 81 mg coated aspirin daily atorvastatin 40 mg tablet 40 mg PO QHS Qty: 90 3RF glipizide 5 mg tablet extended release 24hr 5 mg PO DAILY Qty: 90 0RF amiodarone 200 mg tablet 200 mg PO DAILY Qty: 90 3RF Patient Comments: pt unsure of dosage 10/30/23 Referrals / Follow Up: Navin Paniagua MD [Primary Care Provider] - Within 1 Month Disposition Disposition (needs filled in before D/C Order can be placed): Home, Self Care
--- NOTE | 2024-01-12 15:54 | PCM.DC.SUM ---
Providers Date of Admission: 01/10/24 Date of Discharge: 01/12/24 Primary Care Physician: Dr. Navin Paniagua MD Consultations 01/09/24 17:52 Consult: Tele-Neurology Routine Consulting Provider: [facility] Reason for Consult: Acute Ischemic Stroke/TIA EMERGENT Consult: No Notified: Yes Date Notified: 01/09/24 Time Notified: 18:31 Method of Notification: Answering Service Nursing Unit Staff Notify [facility] of Tele-Neurology Consult: Yes 01/10/24 12:36 Consult: Vascular Surgery Routine Consulting Provider: Tom Mobley Reason for Consult: R ICA stenosis EMERGENT Consult: No Notified: Yes Date Notified: 01/10/24 Time Notified: 12:37 Method of Notification: Text Reason For Visit: TIA/CVA Diagnosis Discharge Diagnosis (1) Acute retinal artery occlusion: Status: Inactive Code(s): H34.9 - Unspecified retinal vascular occlusion Plan 1. Branch retinal artery occlusion right eye #2 subacute lacunar infarct right frontal area #3 paroxysmal atrial fibrillation #4 hyperlipidemia #5 type 2 diabetes #6 BPH Medications at Discharge Home Medications finasteride 5 mg tablet 5 mg PO DAILY prostate 06/15/15 tamsulosin 0.4 mg capsule 0.4 mg PO QHS prostate 05/08/21 atorvastatin 40 mg tablet 40 mg PO QHS cholesterol #90 tabs 11/19/22 glipizide 5 mg tablet, extended release 24 hr 5 mg PO DAILY diabetes #90 tabs 11/19/22 mycophenolate mofetil 250 mg capsule 750 mg PO BID transplant 10/30/23 aspirin 81 mg chewable tablet 81 mg PO BREAKFAST heart health #0 tabs 10/31/23 amiodarone 200 mg tablet 200 mg PO DAILY heart #90 tabs 11/06/23 furosemide 40 mg tablet (Lasix) 40 mg PO TUSA diuretic 01/09/24 clopidogrel 75 mg tablet (Plavix) 75 mg PO DAILY #30 tabs 01/12/24 Hospital Course Operations None Procedures - (Carotid duplex scan) Summary of Care Provided Minutes Spent on Discharge: 31 Hospital Course: This 89-year-old white male was seen in the emergency room at [facility] after being directed there by his facility maintenance technician due to blurred vision in his right eye. The facility maintenance technician told the patient he had a stroke in his eye, patient was sent in to evaluate him for an acute ischemic infarct of the brain. Workup in the emergency room included head and neck CTA which showed a high-grade stenosis at the origin of the right internal carotid artery due to calcific plaque, there was no significant stenosis at the origin of the left internal carotid artery, there was stable atrophy of the brain. Patient's chemistry panel showed an elevated creatinine of 1.5, CBC showed an elevated white blood cell count of 12.1. Patient was admitted to PCU, he was seen by PT OT and speech therapy, patient underwent a carotid artery duplex scan which showed no evidence of severe stenosis. Patient was maintained on antiplatelet agents and a statin, he was seen in consultation by teleneurology, he underwent an MRI which showed a subacute right frontal lacunar infarct. I talked with the patient's facility maintenance technician by phone, the facility maintenance technician stated that the patient had a branch retinal artery occlusion of the right eye-his facility maintenance technician was Dr. Brett Meza. I discussed this with the patient, I also went over the fact that the patient had no history of subarachnoid hemorrhage-this was erroneously placed in the patient's chart due to an incorrect CT scan read out several years ago. On 01/13/2024, patient was seen and examined: On examination he appeared in good health and spirits. Vital signs as documented. Skin warm and dry and without overt rashes. Neck without JVD, neck was supple, trachea midline, thyroid was normal. Lungs clear bilaterally, normal air movement was noted. Heart exam notable for regular rhythm, normal sounds and absence of murmurs, rubs or gallops. Abdomen unremarkable and without evidence of organomegaly, masses, or abdominal aortic enlargement. Bowel sounds are present, abdomen is not distended. Extremities nonedematous, no cyanosis was noted, no clubbing was noted. Neuro: Cranial nerves II through XII are grossly intact, no focal motor deficits were noted, sensation to light touch and pinprick intact, motor exam 5/5 throughout. Psych: Patient is alert and oriented x3, he does not appear anxious or depressed, he does not appear agitated. Patient was discharged home in stable condition on 01/13/2024, he was discharged on dual antiplatelet medications, patient's last 2 pacemaker interrogations did not show any evidence of A-fib and this was discussed with teleneurology and they recommended dual antiplatelet medications as to had vascular surgery. Weight / BMI Weight Weight: 85.2 kg Body Mass Index (BMI) 26.2 ABG / Lab / Microbiology Data 01/10/24 05:04 01/10/24 05:04 Laboratory: Laboratory Results - last 24 hr 01/12/24 06:01: POC Glucose 107 H 01/12/24 12:01: POC Glucose 106 Radiography Diagnostic Testing: Radiology Impression Brain MRI 01/12/24 17:50 IMPRESSION: Subacute right frontal periventricular lacunar infarct. Moderate chronic white matter changes. Electronically Signed: Dyana Zhang MD at 14:42 EDT , D/C Instructions Discharge Diet: 1800 Calorie Control Diet Weight Bearing Status: Full weight bearing Meaningful Use Info Meaningful Use Meaningful Use Diagnoses (Choose all that apply): None applicable Ischemic Stroke Statin Dosing Therapy Reference: STATIN DOSE THERAPY REFERENCE: * Patients > 75 years receive moderate or high dose statin therapy. * Patients 75 years or YOUNGER should receive HIGH intensity statin dose unless contraindicated. You will be required to document reason for non-treatment if statin daily dose does not meet guidelines. HIGH DOSE STATIN THERAPY DAILY Atorvastatin > than or = to 40 mg Rosuvastatin > than or = to 20 mg Amlodipine + Atorvastatin > than or = to 2.5/40 mg Ezetimibe + Simvastatin 10/80 mg Simvastatin 80mg Discharge Plan Admission Admit Date/Time: 01/10/24 15:10 Primary Reason for Your Visit: SUBACUTE STROKE, RETINAL ARTERY OCCLUSION Attending Provider: Miguel Suarez Primary Care Provider: Navin Paniagua Consulting Providers: Huber Mendez; Garcia Page; Desiree Baptiste; Jimena Russell; Cecy Jackson; Medardo Wade; Farzaneh Reyes; Juanpablo Almanza; Lan Donovan; Wanda Bhat; Justin Kelly; Jennifer Heck; Nguyen Lombardo; Lida Mejia; Juan Quiroz; Joan Cardenas; Ender Olivarez; Niki Daigle; Eliseo Colin; Nicolasa Li; Tom Mobley; Santiago Boateng Discharge Orders/Prescriptions Prescriptions: New clopidogrel [Plavix] 75 mg tablet 75 mg PO DAILY Qty: 30 0RF Rx Instructions: START ON 01/13/24 Continued finasteride 5 MG tablet 5 mg PO DAILY tamsulosin 0.4 mg capsule 0.4 mg PO QHS furosemide [Lasix] 40 mg tablet 40 mg PO TUSA Rx Instructions: 40 mg orally twice per week on and Fri mycophenolate mofetil 250 mg capsule 750 mg PO BID aspirin 81 mg Tablet,Chewable 81 mg PO BREAKFAST Qty: 0 0RF Rx Instructions: You may take either a baby aspirin or an 81 mg coated aspirin daily atorvastatin 40 mg tablet 40 mg PO QHS Qty: 90 3RF glipizide 5 mg tablet extended release 24hr 5 mg PO DAILY Qty: 90 0RF amiodarone 200 mg tablet 200 mg PO DAILY Qty: 90 3RF Patient Comments: pt unsure of dosage 10/30/23 Referrals / Follow Up: Navin Paniagua MD [Primary Care Provider] - 01/20/24 11:20 am Disposition Disposition (needs filled in before D/C Order can be placed): Home, Self Care Charges/Coding Visit Charges Inpatient E&M: 78950 Disch Hosp >30min
[2024-01-12] MEDS: Clopidogrel Bisulfate 75 MG Tablet PO (15:56)
--- NOTE | 2024-01-12 17:50 | MRI_ITS ---
HISTORY: STROKE LIKE SYMPTOMS. TECHNIQUE: Multiplanar and multisequence MR images of the brain were obtained without contrast. 289 images. COMPARISON: CT 01/09/2024. FINDINGS: BRAIN PARENCHYMA: Faint focus of restricted diffusion in the right frontal periventricular white matter. Chronic left periventricular lacunar infarct. Chronic white matter changes bilaterally. No acute intracranial hemorrhage identified. CSF SPACES: Moderate volume loss. No significant midline shift or other mass effect.No extra-axial fluid collection. VASCULAR SYSTEM: Major intracranial flow voids are maintained. PARANASAL SINUSES AND MASTOID AIR CELLS: No significant air fluid levels. ORBITS: Bilateral lens resections. MRI/Brain without Contrast IMPRESSION: Subacute right frontal periventricular lacunar infarct. Moderate chronic white matter changes. Electronically Signed: Dyana Zhang MD at 14:42 EDT ,
== END 2024-01-12 16:11 | disposition home or self-care (01) | DRG 124 ==
LOC: ED 14:39 → PCU 15:56
PROVIDERS: Internal Medicine; Nurse Practitioner; Admitting Provider Student in an Organized Health Care Education/Training Program; Emergency Provider Emergency Medicine; PCP Internal Medicine; Visit Provider Internal Medicine
DX: H34.231 Retinal artery branch occlusion, right eye (principal); I63.81 Other cerebral infarction due to occlusion or stenosis of small artery; I50.32 Chronic diastolic (congestive) heart failure; I11.0 Hypertensive heart disease with heart failure; E11.9 Type 2 diabetes mellitus without complications; J44.9 Chronic obstructive pulmonary disease, unspecified; I48.0 Paroxysmal atrial fibrillation; E78.5 Hyperlipidemia, unspecified; I69.322 Dysarthria following cerebral infarction; M48.02 Spinal stenosis, cervical region; I65.21 Occlusion and stenosis of right carotid artery; Z79.82 Long term (current) use of aspirin; Z87.891 Personal history of nicotine dependence; R29.700 NIHSS score 0; N40.0 Benign prostatic hyperplasia without lower urinary tract symptoms
CPT/HCPCS: 36415; 70496; 70498; 70551; 80048; 80061; 82962; 85025; 85610; 93005; 94762; 97110; 97161; 97166; 97530; 99284; Q9967; A4216

== ENCOUNTER → 2024-01-23 | Outpatient (CLI) | payer MEDICARE, SELFPAY ==
[2024-01-23 10:31] LABS: Absolute Lymphocyte Count 0.64 X10^3/uL (0.83-4.51); Basophil# 0.02 X10^3/uL; Basophil% 0.2 % (0-1); Eosinophil# 0.08 X10^3/uL; Hematocrit 41.2 % (40-54); Hemoglobin 13.1 g/dL (13.0-16.5); Lymphocyte # 0.64 X10^3/ul (0.83-4.51); Lymphocyte % 7.7 % (19-41); Mean Corp Hgb Conc 31.8 g/dL (32-36); Mean Corpuscular Hgb 28.9 pg (27.0-32.0); Mean Corpuscular Volume 90.9 fL (80-94); Mean Platelet Vol. 10.5 fl (6.2-12.0); Monocyte# 0.54 X10^3/uL; Monocyte% 6.5 % (0-10); NRBC Flagged by Analyzer 0 % (0-5); Neutrophil # 7.01 X10^3/uL (2.7-7.7); Platelet Count 175 K/mm3 (150-450); RBC Distribution Width CV 13.5 % (11.6-14.6); RBC Distribution Width SD 45.1 fl (35.1-43.9); Red Blood Count 4.53 M/mm3 (4.6-6.2); White Blood Count 8.3 K/mm3 (4.4-11.0)
[2024-01-23 11:10] LABS: ALB/GLOB Ratio 1.3 RATIO (0.9-2.4); AST(SGOT) 15 U/L (15-37); Alanine Aminotransfer ALT/SGPT 16 U/L (16-61); Albumin, Serum 3.5 g/dL (3.2-5.0); Alkaline Phosphatase 79 U/L (45-117); Anion Gap 7 (5-15); BUN 26 mg/dL (7-18); Chloride 108 mmol/L (98-107); Creatinine, Serum 1.18 mg/dL (0.70-1.30); EST Glomerular Filtration Rate 62 mL/min (>60); Est Glom Filt Rate - Afr Amer 75 mL/min (>60); Globulin 2.6 g/dL (2.2-4.2); Glucose 133 mg/dL (74-106); Potassium 4.3 mmol/L (3.5-5.1); Protein, Total 6.1 g/dL (6.4-8.2); Sodium Level 138 mmol/L (136-145)
[2024-01-23 13:33] LABS: Hemoglobin A1c 6.3 % (3.8-5.6)
== END | disposition home or self-care (01) ==
LOC: LAB 09:38
PROVIDERS: PCP Internal Medicine; Referring Provider Internal Medicine; Visit Provider Internal Medicine
DX: E11.22 Type 2 diabetes mellitus with diabetic chronic kidney disease (principal); N18.31 Chronic kidney disease, stage 3a
CPT/HCPCS: 36415; 80053; 83036; 85025

== ENCOUNTER 2024-03-16 16:52 | Emergency (ER) | payer OTHER, SELFPAY ==
[2024-03-16 16:53] VITALS: BP 137/69; PULSE 85; RESP 18; TEMP 36.2; O2SAT 96; BMI 26.9
--- NOTE | 2024-03-16 19:18 | EDS_ITS ---
HPI History of Present Illness HPI Narrative: Patient presents with pain and swelling to his right calf that began today. Patient noted some ecchymosis and swelling to his right calf. Patient denies any trauma or injury. Patient describes the pain as dull. Patient states it is worse when he stands up. Patient denies any paresthesias or weakness. Patient takes Plavix but is not on any anticoagulants. Patient states that he called his primary care physician's office who referred him to the emergency dep artment. Chief Complaint: Lower Extremity Injury Informant: patient Onset/Context/Timing Onset: Today Context: Sudden Onset Timing: Continuous Quality of Pain: Dull Location: Right calf Worsened by: Standing and weightbearing Relieved by: Nothing Associated Symptoms Associated Symptoms: Negative for Parasthesia, Weakness or Loss of Funtion Narrative Tetanus Immunization: Unknown [facility] Medical History Carotid artery stenosis Sudden visual loss of right eye Acute retinal artery occlusion Carotid stenosis, asymptomatic Diastolic CHF Ventricular tachycardia Swelling Dyspnea on exertion Ankle edema Chest pressure CVA (cerebral vascular accident) History of hemorrhagic cerebrovascular accident (CVA) without residual deficits Disequilibrium Blurred vision Carotid artery stenosis Hypertensive urgency History of CVA (cerebrovascular accident) COPD (chronic obstructive pulmonary disease) Sick sinus syndrome Paroxysmal supraventricular tachycardia Essential (primary) hypertension Diabetes mellitus BPH (benign prostatic hyperplasia) Hyperlipidemia Sinus node dysfunction Paroxysmal atrial fibrillation Transient cerebral ischemic attack Home Medications ?Medication ?Instructions ?Recorded ?Last Taken ?Type finasteride 5 mg tablet 5 mg PO DAILY prostate 06/15/15 01/09/24 History tamsulosin 0.4 mg capsule 0.4 mg PO QHS prostate 05/08/21 01/08/24 History atorvastatin 40 mg tablet 40 mg PO QHS cholesterol #90 tabs 11/19/22 01/08/24 Rx glipizide 5 mg tablet, extended 5 mg PO DAILY diabetes #90 tabs 11/19/22 01/09/24 Rx release 24 hr mycophenolate 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 10/30/23 01/09/24 History capsule aspirin 81 mg chewable tablet 81 mg PO BREAKFAST heart health #0 10/31/23 01/09/24 Rx tabs amiodarone 200 mg tablet 200 mg PO DAILY heart #90 tabs 11/06/23 01/09/24 Rx furosemide 40 mg tablet (Lasix) 40 mg PO TUSA diuretic 01/09/24 01/06/24 History clopidogrel 75 mg tablet (Plavix) 75 mg PO DAILY #30 tabs 01/12/24 Unknown Rx Allergy/AdvReac Type Severity Reaction Status Date / Time amlodipine Allergy Rash Verified 03/16/24 16:53 ether AdvReac Unknown Verified 03/16/24 16:53 tolmetin (From Tolectin) AdvReac Hives Verified 03/16/24 16:53 Family History Father Negative FH of ASCVD Surgical History History of bladder surgery History of permanent cardiac pacemaker placement (08/29/15) hx eyelid surgery History of tonsillectomy Social History Smoking Status: Former smoker how long ago did patient quit smokin years ago alcohol intake: current alcohol intake frequency: 0-2 drinks per day Alcohol type: beer, wine and hard liquor substance use type: does not use caffeine: Yes Type: coffee Number of servings: 2 what type of physical activity do you participate in: none ROS ROS ED Constitutional Constitutional ED: Denies chills or fever(s) Eyes Eyes: Denies blurry vision or change in vision ENT ENT ED: Denies rhinorrhea or sore throat Cardiovascular Cardiovascular: Denies chest pain or palpitations Respiratory/Chest Respiratory/Chest: Denies cough or dyspnea Gastrointestinal Gastrointestinal: Denies nausea or vomiting Genitourinary Genitourinary ED: Denies dysuria or hematuria Musculoskeletal Musculoskeletal: Reports back pain; Denies neck pain Integumentary Denies abscess or rash Neurologic Neurologic: Denies headache(s) or weakness Allergic/Immunologic Allergic/Immunologic ED: Denies mouth swelling or urticaria EXAM Physical Exam Const Vital Signs: 03/16/24 16:53 Temperature 97.2 F L Temperature Source Temporal Pulse Rate 85 Respiratory Rate 18 Blood Pressure 137/69 H Blood Pressure Mean 91 Pulse Ox 96 Oxygen Delivery Method Room Air Positive well nourished and well developed General Appearance ED: well developed and NAD HEENT Reports moist mucous membranes Neck full ROM and supple Extremity Extremity Narrative: There is tenderness, edema, and ecchymosis over the medial aspect of the right lower leg. There is no bony crepitance or step-off noted. There is a small skin tear noted over the distal aspect of the hematoma. There is no posterior calf muscle tenderness. There is good range of motion. There is no tenderness or step-off of the Achilles tendon. Sensation was intact to light touch bilaterally in the lower extremities. Strength is 5/5 bilaterally in the lower extremities. Neuro oriented x3, CN's II-XII intact bilaterally, moves all extremities and no sensory deficits noted Sensorium / Orientation: alert Motor Exam: strength 5/5 throughout Psych mental status grossly normal MDM MDM MDM Narrative Medical decision making narrative: Patient was advised that this is a hematoma in the subcutaneous tissues. Patient does not have any signs or symptoms of a DVT at this time. Patient was given a tetanus booster. There is a bacitracin dressing placed over the skin tear. Patient was instructed to ice and elevate the right leg. Patient was instructed to follow-up with his primary care physician in 5 to 7 days. Patient was instructed return if worse in any way. Patient understood and was agreeable with the plan. All questions were answered. Discharge Plan Triage Chief Complaint: Lower Extremity Injury ED Provider: Tom Raya Dx/Rx/DC Orders Clinical Impression: Hematoma of right lower leg, Skin tear of right lower leg without complication Instructions: ED Contusion, Lower Extremity Prescriptions: No Action finasteride 5 MG tablet 5 mg PO DAILY tamsulosin 0.4 mg capsule 0.4 mg PO QHS furosemide [Lasix] 40 mg tablet 40 mg PO TU Rx Instructions: 40 mg orally twice per week on and Fri clopidogrel [Plavix] 75 mg tablet 75 mg PO DAILY Qty: 30 0RF Rx Instructions: START ON 01/13/24 mycophenolate mofetil 250 mg capsule 750 mg PO BID aspirin 81 mg Tablet,Chewable 81 mg PO BREAKFAST Qty: 0 0RF Rx Instructions: You may take either a baby aspirin or an 81 mg coated aspirin daily atorvastatin 40 mg tablet 40 mg PO QHS Qty: 90 3RF glipizide 5 mg tablet extended release 24hr 5 mg PO DAILY Qty: 90 0RF amiodarone 200 mg tablet 200 mg PO DAILY Qty: 90 3RF Patient Comments: pt unsure of dosage 10/30/23 Primary Care Provider: Navin Paniagua Referrals: Navin Paniagua MD [Primary Care Provider] - 5-7 Days Print Language: Peruvian Disposition Disposition: Home, Self Care
[2024-03-16] MEDS: Diphth,Pertuss(Acell),Tet Vac 0.5 ML Vial IM (19:28)
[2024-03-16 19:35] VITALS: BP 123/70; PULSE 61; RESP 18; TEMP 36.4; O2SAT 99
== END 2024-03-16 19:37 | disposition home or self-care (01) ==
PROVIDERS: Emergency Provider Emergency Medicine; PCP Internal Medicine; Visit Provider Emergency Medicine
DX: S80.11XA Contusion of right lower leg, initial encounter (principal); I11.0 Hypertensive heart disease with heart failure; I50.30 Unspecified diastolic (congestive) heart failure; J44.9 Chronic obstructive pulmonary disease, unspecified; E11.9 Type 2 diabetes mellitus without complications; S81.811A Laceration without foreign body, right lower leg, initial encounter; Z87.891 Personal history of nicotine dependence; Z86.73 Personal history of transient ischemic attack (TIA), and cerebral infarction without residual deficits; Z95.0 Presence of cardiac pacemaker; X58.XXXA Exposure to other specified factors, initial encounter
CPT/HCPCS: 90715; 99283

== ENCOUNTER → 2024-03-22 | Outpatient (CLI) | payer MEDICARE, SELFPAY | END | disposition home or self-care (01) | PROVIDERS: PCP Internal Medicine; Visit Provider Nurse Practitioner | DX: M79.604 Pain in right leg (principal); R60.0 Localized edema ==

== ENCOUNTER → 2024-06-01 | Outpatient (CLI) | payer MEDICARE, SELFPAY ==
[2024-06-01 16:21] LABS: Absolute Lymphocyte Count 0.63 X10^3/uL (0.83-4.51); Absolute Neutrophil Count 6.2 X10^3/uL (2.0-7.7); Basophil# 0.02 X10^3/uL; Basophil% 0.3 % (0-1); Eosinophil# 0.07 X10^3/uL; Eosinophils% 0.9 % (0-5); Hematocrit 40.6 % (40-54); Hemoglobin 12.5 g/dL (13.0-16.5); Lymphocyte # 0.63 X10^3/ul (0.83-4.51); Lymphocyte % 8.3 % (19-41); Mean Corp Hgb Conc 30.8 g/dL (32-36); Mean Corpuscular Hgb 28.7 pg (27.0-32.0); Mean Corpuscular Volume 93.1 fL (80-94); Mean Platelet Vol. 10.9 fl (6.2-12.0); Monocyte# 0.63 X10^3/uL; Monocyte% 8.3 % (0-10); NRBC Flagged by Analyzer 0 % (0-5); Neutrophil % 81.5 % (47-70); Platelet Count 171 K/mm3 (150-450); RBC Distribution Width CV 13.2 % (11.6-14.6); RBC Distribution Width SD 44.9 fl (35.1-43.9); Red Blood Count 4.36 M/mm3 (4.6-6.2); White Blood Count 7.6 K/mm3 (4.4-11.0)
[2024-06-01 16:43] LABS: BNP,B-Type NATRIURETIC PEPTIDE 145.9 pg/mL (0-100)
[2024-06-01 16:46] LABS: ALB/GLOB Ratio 1.5 RATIO (0.9-2.4); AST(SGOT) 23 U/L (15-37); Alanine Aminotransfer ALT/SGPT 17 U/L (16-61); Albumin, Serum 3.6 g/dL (3.2-5.0); Alkaline Phosphatase 85 U/L (45-117); Anion Gap 4 (5-15); BUN 21 mg/dL (7-18); BUN/Creat Ratio 15.3 RATIO (10-20); Calcium,Total 8.9 mg/dL (8.5-10.1); Chloride 106 mmol/L (98-107); Creatinine, Serum 1.37 mg/dL (0.70-1.30); EST Glomerular Filtration Rate 52 mL/min (>60); Est Glom Filt Rate - Afr Amer 63 mL/min (>60); Globulin 2.4 g/dL (2.2-4.2); Glucose 97 mg/dL (74-106); Sodium Level 140 mmol/L (136-145)
--- OUTSIDE RECORDS SUMMARY | 2024-06-01 19:53 | XMS RPT_ITS | CCD ---
Author Organization [facility] Care Team Providers Care Cleat Feeder Name Role Phone OTRY Yao, Sandra Guevara Unavailable Unavailable TORY Yao, Sandra Guevara Unavailable Unavailable Siva MIRZA, Navin Magana Primary Care Provider [phone] Siva MIRZA, Navin Magana Primary Care Provider [phone] Siva MIRZA, Navin Magana Primary Care Provider [phone] Siva MIRZA, Navin Magana Primary Care Provider [phone] NAVIN PANIAGUA Referring Unavailable SIVA, NAVIN Magana Primary Care Unavailable NAVIN PANIAGUA Attending Unavailable NAVIN PANIAGUA Primary Care Unavailable NAVIN PANIAGUA Attending Unavailable NAVIN PANIAGUA Primary Care Unavailable NAVIN PANIAGUA Attending Unavailable NAVIN PANIAGUA Primary Care Unavailable SEEMA MCGINNIS Attending Unavailable NAVIN PANIAGUA Primary Care Unavailable SEEMA MCGINNIS Referring Unavailable SIVA, NAVIN Magana Primary Care Unavailable NAVIN PANIAGUA Referring Unavailable SIVA, NAVIN Magana Primary Care Unavailable RUBEN CORREA Referring Unavailable NAVIN PANIAGUA Primary Care Unavailable MARYLOU MELGOZA Attending Unavailable NAVIN PANIAGUA Referring Unavailable PANIAGUA, NAVIN Magana Primary Care Unavailable OSCAR WEAVER Attending Unavailable NAVIN PANIAGUA Referring Unavailable PANIAGUA, NAVIN Magana Primary Care Unavailable NAVIN PANIAGUA Attending Unavailable SIVA, NAVIN Magana Primary Care Unavailable NAVIN PANIAGUA Attending Unavailable NAVIN PANIAGUA Primary Care Unavailable SEEMA MCGINNIS Attending Unavailable NAVIN PANIAGUA Primary Care Unavailable RUBEN CORREA Attending Unavailable SIVANAVIN Primary Care Unavailable PANIAGUA, SOLO Attending Unavailable NAVIN PANIAGUA Primary Care Unavailable NAVIN PANIAGUA Attending Unavailable NAVIN PANIAGUA Primary Care Unavailable NAVIN PANIAGUA Referring Unavailable NAVIN PANIAGUA Primary Care Unavailable NAVIN PANIAGUA Attending Unavailable NAVIN PANIAGUA Primary Care Unavailable Allergies Allergy Classification Reported Allergen(s) Allergy Type Date of Onset Reaction(s) Facility NSAIDs (1 source) Tolmetin Drug Allergy 06-21-2005 [facility] (2 sources) TALECTIN drug allergy 10-18-2015 hives [facility] Work Phone: (20 sources) ETHER; Translations: [ETHER] drug allergy 06-21-2005 unknown [facility] Work Phone: (20 sources) Tolmetin; Translations: [TOLMETIN SODIUM] Drug Allergy 06-21-2005 [facility] Work Phone: Medications Current Medications Medication Drug Class(es) Dates Sig (Normalized) Sig (Original) amiodarone hydrochloride 200 mg oral tablet (20 sources) Antiarrhythmic Start: 11-13-2022 take 1 tablet by mouth once daily amiodarone (PACERONE) 200 mg tablet Take 200 mg by mouth once daily. 11/13/2022 Active Comment on above: Take 200 mg by mouth once daily. aspirin 81 mg delayed release oral tablet (20 sources) Platelet Aggregation Inhibitor, Nonsteroidal Anti-inflammatory Drug Start: 11-08-2023 take 1 tablet by mouth once daily aspirin, enteric coated (ASPIRIN, ENTERIC COATED) 81 mg EC tablet Indications: TIA (transient ischemic attack) Take 1 tablet by mouth once daily. 11/08/2023 Active Start: 10-10-2015 End: 10-22-2016 take 1 tablet by mouth once daily ASPIRIN 325 MG TABS One tablet by mouth daily ASPIRIN [id number] Michelle Moralez RN Comment on above: Take 1 tablet by marium th once daily. atorvastatin 40 mg oral tablet (20 sources) HMG-CoA Reductase Inhibitor Start: 08-19-19 24 take 1 tablet by mouth once daily at bedtime for hyperlipidemia atorvastatin (LIPITOR) 40 mg tablet Take 1 tablet by mouth daily at bedtime. For cholesterol. 90 tablet 3 08/19/2023 Active Start: 04-24-2022 End: 05-26-2023 take 1 tablet by mouth once daily at bedtime for hyperlipidemia atorvastatin (LIPITOR) 40 mg tablet Take 1 tablet by mouth daily at bedtime. For cholesterol. 90 tablet 3 05/22/2022 05/26/2023 Discontinued Start: 09-04-2021 End: 04-10-2022 take 1 tablet by mouth once daily at bedtime for hyperlipidemia atorvastatin (LIPITOR) 40 mg tablet Take 1 tablet by mouth daily at bedtime. For cholesterol. 90 tablet 3 09/04/2021 04/10/2022 Discontinued (Discontinued by another Health Care Provider) Start: 08-30-2019 End: 08-09-2020 take 1 tablet by mouth once daily at bedtime for hyperlipidemia atorvastatin (LIPITOR) 40 mg tablet Indications: Hyperlipidemia with target LDL less than 100 Take 1 tablet by mouth daily at bedtime. For cholesterol. 90 tablet 3 08/30/2019 08/09/2020 Discontinued Comment on above: Take 1 tablet by marium daily at bedtime. For cholesterol. cephalexin 500 mg oral capsule (9 sources) Cephalosporin Antibacterial Start: End: take 1 capsule by mouth three times daily cephALEXin (KEFLEX) 500 mg capsule Indications: Cellulitis of left leg Take 1 capsule by mouth three times a day for 7 days. 21 capsule 0 02/20/2024 02/27/2024 Active Start: 05-20-2023 End: 05-27-2023 take 1 capsule by mouth three times daily cephALEXin (KEFLEX) 500 mg capsule Indications: Cellulitis of left lower extremity Take 1 capsule by mouth three times a day for 7 days. 21 capsule 0 05/20/2023 05/27/2023 Active Comment on above: Take 1 capsule by mo [facility] three times a day for 7 days. clopidogrel 75 mg oral tablet (20 sources) [id number] Platelet Inhibitor Start: 02-07-2024 End: 04-07-2024 clopidogrel (PLAVIX) 75 mg tablet Indications: TIA (transient ischemic attack) Take 1 tablet by mouth once daily. Patient should start on February 07, 2024. 60 tablet 02/07/2024 Active Start: 10-31-2023 End: 01-28-2024 take 1 tablet by mouth once daily clopidogrel (PLAVIX) 75 mg tablet Indications: TIA (transient ischemic attack) Take 1 tablet by mouth once daily. 21 days/doses. 0 10/31/2023 01/28/2024 Discontinued Start: 10-22-2016 take 1 tablet by marium th once daily PLAVIX 75 MG TABS One tablet by mouth daily CLOPIDOGREL BISULFATE [id number] Ga Peters MD Comment on above: Take 1 tablet by marium th once daily. Take 1 tablet by marium th once daily. 21 days/doses. ezetimibe 10 mg oral tablet (14 sources) Dietary Cholesterol Absorption Inhibitor Start: 4 take 1 tablet by mouth once daily ezetimibe (ZETIA) 10 mg tablet Indications: Hyperlipidemia with target LDL less than 100 Take 1 tablet by mouth once daily. 90 tablet 3 01/28/2024 Active finasteride 5 mg oral tablet (20 sources) 5-alpha Reductase Inhibitor Start: 2 End: 4 take 1 tablet by mouth once daily finasteride (PROSCAR) 5 mg tablet Indications: BPH with obstruction/lower urinary tract symptoms Take 1 tablet by mouth once daily. 90 tablet 3 09/04/2023 Active Start: 06-01-2020 End: 11-04-2020 take 1 tablet by mouth once daily finasteride (PROSCAR) 5 mg tablet Indications: BPH with obstruction/lower urinary tract symptoms Take 1 tablet by mouth once daily. 90 tablet 3 06/01/2020 11/04/2020 Discontinued Start: 10-10-2015 take 1 tablet by marium th once daily PROSCAR 5 MG TABS One tablet by mouth daily FINASTERIDE [id number] Michelle Moralez RN Comment on above: Take 1 tablet by marium th once daily. furosemide 40 mg oral tablet (20 sources) Loop Diuretic Start: 05-29-2023 furosemide (LASIX) 40 mg tablet Take 1 tablet by mouth. Take 1 tablet on Friday & Friday only. 05/29/2023 Active Start: 05-16-2023 End: 06-05-2023 take 1 tablet by mouth once daily furosemide (LASIX) 20 mg tablet Indications: Edema of both legs Take 1 tablet by mouth once daily for 5 days. 5 tablet 05/16/2023 05/20/2023 Discontinued Comment on above: Take 1 tablet by mraium th once daily for 5 days. Take 1 tablet by marium th once daily for 5 days. This is in addition to the previously filled 5 day script. Take 1 tablet by marium th. Take 1 tablet on Friday & Friday only. Take 1 tablet by marium th. Take 1 tablet on Friday & Friday only. glipiZIDE er 5 mg 24 hr extended release oral tablet (20 sources) Sulfonylurea Start: 12-29-2023 take 1 tablet by mouth once daily glipiZIDE (GLUCOTROL XL) 5 mg 24 hr tablet Indications: Controlled type 2 diabetes mellitus without complication, without long-term current use of insulin (HCC) Take 1 tablet by mouth once daily. 90 tablet 3 12/29/2023 Active Start: 07-11-2022 End: 12-26-2023 take 1 tablet by mouth once daily glipiZIDE (GLUCOTROL XL) 5 mg 24 hr tablet Indications: Controlled type 2 diabetes mellitus without complication, without long-term current use of insulin (HCC) Take 1 tablet by mouth once daily. 90 tablet 07/11/2022 09/11/2022 Discontinued Comment on above: Take 1 tablet by marium th once daily. mycophenolate mofetil 250 mg oral capsule (20 sources) Start: take 3 capsules by mouth twice daily mycophenolate mofetil (CELLCEPT) 250 mg capsule Take 3 capsules by mouth two times a day. From [place] [facility] rep. 02/20/2024 Active Start: 03-10-2023 End: 02-20-2024 mycophenolate mofetil (CELLC EPT) 250 mg capsule 500 mg. 0 03/10/2023 02/20/2024 Discontinued Start: 01-10-2023 End: 05-20-2023 mycophenolate mofetil (CELLC EPT) 250 mg capsule Indications: Drug rash Take 3 capsules by mouth twice daily. Per Dr. Hwang 01/10/2023 05/20/2023 Discontinued Start: 02-08-2022 End: 01-10-2023 take 2 capsules by mouth in the evening mycophenolate mofetil (CELLCEPT) 250 mg capsule Indications: Bullous pemphigoid , Drug rash Take 750 mg by mouth twice daily. Per Dr. Hwang Staying off medication till 06/02 then restarting 07/09 changed to 3 capsules in AM and 2 in PM 02/08/2022 01/10/2023 Discontinued Start: 02-08-2022 mycophenolate mofetil (CELLCEPT) 250 mg capsule Indications: Bullous pemphigoid , Drug rash Take 750 mg by mouth twice daily. Per Dr. Hwang Staying off medication till 06/02 then restarting 0 02/08/2022 Active Start: 02-08-2022 take 1 capsule by mo uth twice daily mycophenolate mofetil (CELLCEPT) 250 mg capsule Indications: Bullous pemphigoid , Drug rash Take 1 capsule by mouth twice daily. 0 02/08/2022 Active Comment on above: Take 1 capsule by mo uth twice daily. Take 750 mg by mouth twice daily. Per Dr. Hwang Take 750 mg by mouth twice daily. Per Dr. Hwang Staying off medication till 06/02 then restarting Take 750 mg by mouth twice daily. Per Dr. Hwang Staying off medication till 06/02 then restarting 07/09 changed to 3 capsules in AM and 2 in PM Take 3 capsules by m outh twice daily. Per Dr. Hwang 500 mg. tamsulosin hydrochloride 0.4 mg oral capsule (20 sources) alpha-Adrenergic Lizbeth Start: take 1 capsule by mouth once daily at bedtime tamsulosin (FLOMAX) 0.4 mg Indications: BPH with obstruction/lower urinary tract symptoms Take 1 capsule by mouth daily at bedtime. 90 capsule 3 12/29/2023 Active Start: 09-04-2021 End: 12-26-2023 take 1 capsule by mouth once daily at bedtime tamsulosin (FLOMAX) 0.4 mg Indications: BPH with obstruction/lower urinary tract symptoms Take 1 capsule by mouth daily at bedtime. 90 capsule 3 09/04/2021 09/11/2022 Discontinued Start: 08-30-2019 End: 08-08-2020 take 1 capsule by mouth once daily at bedtime tamsulosin ER (FLOMAX) 0.4 mg cap Indications: BPH with obstruction/lower urinary tract symptoms Take 1 capsule by mouth daily at bedtime. 90 capsule 3 08/30/2019 08/08/2020 Discontinued Start: 10-10-2015 take 1 tablet by marium once daily FLOMAX 0.4 MG CAPS One tablet by mouth daily TAMSULOSIN HCL [id number] Michelle Moralez RN Comment on above: Take 1 capsule by mo [facility] daily at bedtime. triamcinolone acetonide 0.005 mg/mg topical ointment (20 sources) Corticosteroid Start: 03-08-2024 triamcinolone acetonide topical 0.5 % ointment Indications: Stasis dermatitis , Asteototic dermatitis Apply to affected area two times a day as needed (itchy areas arms and legs. [place] medication.). 03/08/2024 Active Start: 01-10-2023 End: 10-24-2023 triamcinolone (KENALOG) 0.02 5 % ointment Apply to affected area once daily. Dr. Hwang, [place] [facility]. 01/10/2023 10/24/2023 Discontinued Comment on above: Apply to affected ar ea once daily. Dr. Hwang, [place] [facility]. Completed/Discontinued Medications Medication Drug Class(es) Dates Sig (Normalized) Sig (Original) amLODIPine 10 mg oral tablet (12 sources) Dihydropyridine Calcium Channel Lizbeth Start: 09-04-2021 End: 04-10-2022 take 1 tablet by mouth once daily amLODIPine (NORVASC) 10 mg tablet Indications: Essential hypertension Take 1 tablet by mouth once daily. 90 tablet 3 09/04/2021 04/10/2022 Discontinued (Discontinued by another Health Care Provider) Start: 06-01-2020 End: 11-04-2020 take 1 tablet by mouth once daily amLODIPine (NORVASC) 10 mg tablet Indications: Essential hypertension Take 1 tablet by mouth once daily. 90 tablet 3 06/01/2020 11/04/2020 Discontinued Comment on above: Take 1 tablet by marium once daily. chlorthalidone 25 mg oral tablet (2 sources) Thiazide-like Diuretic Start: End: take 1 tablet by mouth once daily chlorthalidone (HYGROTON) 25 mg tablet Indications: Stasis dermatitis Take 1 tablet by mouth once daily for 7 days. 7 tablet 0 02/23/2024 03/08/2024 Discontinued (Course of therapy completed) diclofenac sodium 0.01 mg/mg topical gel (1 source) Nonsteroidal Anti-inflammatory Drug End: apply 2 g topically every twelve hours as needed diclofenac sodium (VOLTAREN) 1 % topical gel Apply 2 g to affected area twice daily as needed. 03/26/2021 Discontinued losartan potassium 25 mg oral tablet (20 sources) Angiotensin 2 Receptor Lizbeth Start: End: losartan (COZAAR) 25 mg tablet Indications: Essential hypertension 1 tablet. 07/11/2022 05/20/2023 Discontinued Comment on above: 1 tablet. Take 1 tablet by marium th once daily. 24 hr metFORMIN hydrochloride 500 mg extended release oral tablet (20 sources) Biguanide Start: End: take 1 tablet by mouth twice daily metFORMIN ER (GLUCOPHAGE XR) 500 mg 24 hr tablet Take 1 tablet by mouth twice daily. 180 tablet 3 05/22/2022 07/11/2022 Discontinued (Clinical Decision) Start: 09-04-2021 End: 04-26-2022 take 1 tablet by mouth once daily at breakfast metFORMIN ER (GLUCOPHAGE XR) 500 mg 24 hr tablet Take 1 tablet by mouth daily with breakfast. 90 tablet 3 09/04/2021 04/26/2022 Discontinued Start: 05-19-2020 End: 08-09-2020 take 1 tablet by mouth once daily at breakfast metFORMIN ER (GLUCOPHAGE XR) 500 mg 24 hr tablet Indications: Controlled type 2 diabetes mellitus without complication, without long-term current use of insulin (HCC) Take 1 tablet by mouth daily with breakfast. Covered generic please. 90 tablet 3 05/19/2020 08/09/2020 Discontinued Comment on above: Take 1 tablet by marium th daily with breakfast. Take 1 tablet by marium th twice daily. niacinamide 500 mg oral tablet (20 sources) End: 10-28-19 take 1 tablet by mouth twice daily at mealtime Niacinamide 500 mg tablet Take 500 mg by mouth two times a day with meals. 10/28/2023 Discontinued Comment on above: Take 500 mg by mouth two times a day with meals. omeprazole 40 mg delayed release oral capsule (20 sources) Proton Pump Inhibitor Start: 05-27-20 End: 09-08-19 take 1 capsule by mouth once daily omeprazole (PRILOSEC) 40 mg capsule Take 1 capsule by mouth once daily. 90 capsule 1 06/17/2022 12/16/2022 Discontinued Comment on above: Take 1 capsule by [facility] once daily. pramoxine hydrochloride 10 mg/ml topical lotion (20 sources) End: 10-24-19 24 Pramoxine HCl (SARNA SENSITIVE) 1 % lotn Apply 0.25 mL to affected area two times a day. 10/24/2023 Discontinued Comment on above: Apply 0.25 mL to aff ected area two times a day. pravastatin sodium 40 mg oral tablet (4 sources) HMG-CoA Reductase Inhibitor Start: 10-10-19 take 1 tablet by mouth at bedtime PRAVASTATIN SODIUM 40 MG TABS One tablet by mouth at bedtime. PRAVASTATIN SODIUM [id number] Michelle Moralez RN Start: 10-10-2015 take 1 tablet by marium th once daily PRAVASTATIN SODIUM 80 MG TABS One tablet by mouth daily PRAVASTATIN SODIUM [id number] Ga Peters MD predniSONE 5 mg oral tablet (20 sources) Start: 01-10-2023 take 2 tablets by mouth every other day predniSONE (DELTASONE) 5 mg tablet Take 2 tablets by mouth every other day. Dr. Hwang, [place] [facility]. 0 01/10/2023 Active Start: 04-10-2022 End: 01-10-2023 take 2 tablets by mouth once daily, then take 2 tablets by mouth once daily predniSONE (DELTASONE) 5 mg tablet Take 10 mg by mouth once daily. Taking 10mg per day 04/10/2022 01/10/2023 Discontinued Start: 04-10-2022 take 3 tablets by mo [facility] once daily predniSONE (DELTASONE) 5 mg tablet Take 3 tablets by mouth once daily. 0 04/10/2022 Active Start: 02-08-2022 End: 04-10-2022 predniSONE (DELTASONE) 20 mg tablet Indications: Bullous pemphigoid , Drug rash Take 5 mg by mouth three times daily. Per Dr. Hwang 0 02/08/2022 04/10/2022 Discontinued (Dosage adjustment) Start: 02-08-2022 take 1 tablet by marium th once daily predniSONE (DELTASONE) 20 mg tablet Indications: Bullous pemphigoid , Drug rash Take 1 tablet by mouth once daily. 0 02/08/2022 Active End: 09-04-2023 take 2 tablets by mouth once daily predniSONE (DELTASONE) 10 mg tablet Take 10 mg by mouth once daily. Taking 3 tablets once daily for 7 days then take two tablets once daily for 7 days 0 09/04/2023 Discontinued Comment on above: Take 1 tablet by marium th once daily. Take 3 tablets by mo uth once daily. Take 5 mg by mouth t hree times daily. Per Dr. Hwang Take 10 mg by mouth once daily. Taking 10mg per day Take 2 tablets by mo uth every other day. Dr. Hwang, [place] [facility]. Take 10 mg by mouth once daily. Taking 3 tablets once daily for 7 days then take two tablets once daily for 7 days silver sulfADIAZINE 10 mg/ml topical cream (16 sources) Sulfonamide Antibacterial Start: 05-07-20 End: 06-19-20 silver sulfADIAZINE (SILVADENE) 1 % cream Indications: Open wound Apply 1 application to affected area once daily. 400 g 2 05/07/2023 06/19/2023 Discontinued (Course of therapy completed) Comment on above: Apply 1 application to affected area once daily. B COMPLEX VITAMINS (4 sources) Start: 10-10-19 take 1 tablet by mouth once daily VITAMIN B COMPLEX TABS One tablet by mouth daily B COMPLEX VITAMINS [id number] Michelle Moralez RN Start: 10-10-2015 End: 10-22-2016 take 1 tablet by mouth once daily VITAMIN B COMPLEX TABS One tablet by mouth daily B COMPLEX VITAMINS [id number] Ga Peters MD Problems Active Problems Problem Classification Problem Date Documented Da te Episodic/Chronic Abdominal pain (2 sources) Indigestion; Translations: [Epigastric pain] Episodic Aortic; peripheral; and visceral artery aneurysms (20 sources) Abdominal aortic aneurysm without rupture; Translations: [Abdominal aortic aneurysm, without rupture] Onset: 06-20-2020 06-20-2020 Chronic Blindness and vision defects (2 sources) Visual disturbance; Translations: [Unspecified visual disturbance] 11-08-2023 Episodic Cardiac dysrhythmias (20 sources) Paroxysmal atrial fibrillation; Translations: [Sinus node dysfunction] Onset: 06-04-2015 Resolved: 10-27-2018 10-10-2015 Chronic Chronic kidney disease (20 sources) Chronic kidney disease stage 3A ; Translations: [Stage 3a chronic kidney disease] Onset: 01-10-2023 01-10-2023 Chronic Chronic kidney disease (1 source) Chronic kidney disease; Translations: [Stage 3a chronic kidney disease (HCC)] Onset: 01-10-2023 Chronic obstructive pulmonary disease and bronchiectasis (20 sources) Simple chronic bronchitis; Translations: [Simple chronic bronchitis] Onset: 05-07-2007 02-21-2017 Chronic Coagulation and hemorrhagic disorders (20 sources) Platelet count below reference range; Translations: [Thrombocytopenia, unspecified] Onset: 10-27-2018 Resolved: 01-28-2024 10-27-2018 Chronic Conduction disorders (20 sources) Sinus node dysfunction; Translations: [Cardiac pacemaker in situ] Onset: 10-10-2015 10-10-2015 Chronic Diabetes mellitus with complications (5 sources) Disorder of nervous system due to type 2 diabetes mellitus; Translations: [Type 2 diabetes mellitus with other diabetic neurological complication] Chronic Diabetes mellitus without complication (20 sources) Type 2 diabetes mellitus without complication; Translations: [Type 2 diabetes mellitus without complications] Onset: 02-21-2010 01-08-2016 Chronic Disorders of lipid metabolism (20 sources) Hyperlipidemia; Translations: [Hyperlipidemia, unspecified] Onset: 02-21-2010 10-10-2015 Chronic Essential hypertension (20 sources) Hypertensive disorder; Translations: [Essential hypertension] Onset: 10-10-2015 10-10-2015 Chronic Genitourinary symptoms and ill-defined conditions (1 source) Cloudy urine; Translations: [Unspecified abnormal findings in urine] Episodic Hyperplasia of prostate (20 sources) Benign prostatic hypertrophy with outflow obstruction; Translations: [Benign prostatic hyperplasia with lower urinary tract symptoms] Onset: 05-13-2006 01-31-2016 Chronic Immunizations and screening for infectious disease (4 sources) Needs influenza immunization; Translations: [Encounter for immunization] Episodic Mycoses (6 sources) Onychomycosis; Translations: [Tinea unguium] Episodic Nausea and vomiting (1 source) Nausea; Translations: [Nausea] Episodic Occlusion or stenosis of precerebral arteries (1 source) Bilateral stenosis of carotid arteries; Translations: [Occlusion and stenosis of bilateral carotid arteries] 11-10-2023 Chronic Other and ill-defined heart disease (11 sources) Diastolic dysfunction; Translations: [Other ill-defined heart diseases] Onset: 05-29-2023 02-23-2024 Chronic Other circulatory disease (1 source) Low blood pressure; Translations: [Hypotension, unspecified] 06-19-2023 Episodic Other circulatory disease (2 sources) Idiopathic hypotension; Translations: [Idiopathic hypotension] 09-04-2023 Episodic Other connective tissue disease (6 sources) Pain of toe of left foot; Translations: [Pain in left toe(s)] Episodic Other connective tissue disease (6 sources) Pain of toe of right foot; Translations: [Pain in right toe(s)] Episodic Other connective tissue disease (1 source) Pain in lower limb; Translations: [Pain in right leg] 03-22-2024 Episodic Other connective tissue disease (1 source) Pain in right leg; Translations: [Acute pain of right lower extremity] Onset: 03-23-2024 Episodic Other gastrointestinal disorders (1 source) Diarrhea; Translations: [Diarrhea, unspecified] Episodic Other inflammatory condition of skin (1 source) Pruritus, unspecified; Translations: [Unspecified pruritic disorder] 05-16-2023 Episodic Other injuries and conditions due to external causes (1 source) Open wound; Translations: [Other injury of unspecified body region, initial encounter] 05-08-2023 Episodic Other injuries and conditions due to external causes (1 source) Contusion; Translations: [Other injury of unspecified body region, initial encounter] 03-22-2024 Episodic Other lower respiratory disease (6 sources) Dyspnea on exertion; Translations: [Other forms of dyspnea] Episodic Other lower respiratory disease (3 sources) Dyspnea; Translations: [Dyspnea, unspecified] 05-16-2023 Episodic Other nervous system disorders (1 source) Abnormal gait; Translations: [Unsteadiness on feet] 11-10-2023 Episodic Other nutritional; endocrine; and metabolic disorders (2 sources) Body mass index (BMI) 30.0-30.9, adult; Translations: [Body mass index (BMI) 30.0-30.9, adult] Onset: 10-10-2015 10-10-2015 Chronic Other skin disorders (2 sources) Ingrowing toenail; Translations: [Ingrowing nail] 04-22-2023 Episodic Other skin disorders (1 source) Eruption; Translations: [Rash and other nonspecific skin eruption] 05-22-2023 Episodic Other upper respiratory infections (1 source) Viral upper respiratory tract infection; Translations: [Acute upper respiratory infection, unspecified] 06-19-2023 Episodic Peripheral and visceral atherosclerosis (5 sources) Peripheral vascular disease, unspecified; Translations: [Peripheral vascular disease, unspecified] Chronic Residual codes; unclassified (3 sources) Bilateral lower limb edema; Translations: [Localized edema] 05-16-2023 Episodic Residual codes; unclassified (1 source) Edema of right lower limb; Translations: [Localized edema] 03-22-2024 Episodic Residual codes; unclassified (1 source) Localized edema; Translations: [Edema of right lower extremity] Onset: 03-23-2024 Episodic Screening and history of mental health and substance abuse codes (2 sources) Ex-cigarette smoker; Translations: [Personal history of nicotine dependence] Episodic Superficial injury; contusion (1 source) Cat scratch injury; Translations: [Abrasion of left hand, initial encounter] 10-28-2023 Episodic Transient cerebral ischemia (20 sources) Transient cerebral ischemic attack, unspecified; Translations: [Transient cerebral ischemia] Onset: 10-10-2015 10-10-2015 Chronic Unclassified (1 source) Permanent cardiac pacemaker procedure ; Translations: [Presence of cardiac pacemaker] Onset: 10-10-2015 10-10-2015 Unclassified (1 source) Long-term drug therapy; Translations: [Other half-way (current) drug therapy] Onset: 10-10-2015 10-10-2015 Unclassified (1 source) Abdominal aortic aneurysm (AAA) without rupture, unspecified part (HCC); Translations: [Abdominal aortic aneurysm (AAA) without rupture, unspecified part (HCC)] Onset: 06-20-2020 Past or Other Problems Problem Classification Problem Date Documented Da te Episodic/Chronic Acute cerebrovascular disease (20 sources) Hemorrhage into subarachnoid space of neuraxis; Translations: [Nontraumatic subarachnoid hemorrhage, unspecified] Onset: 11-15-2019 Resolved: 09-05-2020 09-05-2020 Chronic Allergic reactions (20 sources) Eruption due to drug; Translations: [Generalized skin eruption due to drugs and medicaments taken internally] Onset: 02-08-2022 Resolved: 06-08-2023 Episodic Calculus of urinary tract (20 sources) Urinary bladder stone; Translations: [Calculus in bladder] Onset: 06-20-2020 Resolved: 06-06-2021 06-06-2021 Episodic Deficiency and other anemia (20 sources) Anemia; Translations: [Anemia, unspecified] Onset: 02-10-2008 Resolved: 02-21-2017 02-21-2017 Episodic Other aftercare (1 source) Other remote computer terminal operator (current) drug therapy; Translations: [Other half-way (current) drug therapy] Onset: 10-10-2015 10-10-2015 Episodic Other circulatory disease (1 source) Idiopathic hypotension; Translations: [Idiopathic hypotension] Onset: 09-04-2023 Episodic Other connective tissue disease (20 sources) Plantar fascial fibromatosis; Translations: [Plantar fascial fibromatosis] Onset: 07-24-2005 Resolved: 03-08-2015 03-08-2015 Episodic Other diseases of veins and lymphatics (20 sources) Stasis dermatitis; Translations: [Venous insufficiency (chronic) (peripheral)] Onset: 06-08-2023 06-08-2023 Episodic Other diseases of veins and lymphatics (1 source) Venous insufficiency (chronic) (peripheral); Translations: [Stasis dermatitis] Onset: 06-08-2023 Episodic Other inflammatory condition of skin (20 sources) Bullous pemphigoid; Translations: [Bullous pemphigoid] Onset: 02-08-2022 Resolved: 06-08-2023 Chronic Other inflammatory condition of skin (20 sources) Pruritus of skin; Translations: [Pruritus, unspecified] Onset: 06-05-2023 06-05-2023 Episodic Other nutritional; endocrine; and metabolic disorders (2 sources) Body mass index (BMI) 29.0-29.9, adult; Translations: [Body mass index (BMI) 29.0-29.9, adult] Onset: 10-10-2015 04-15-2016 Episodic Other screening for suspected conditions (not mental disorders or infectious disease) (20 sources) Patient encounter status; Translations: [Encounter for screening for eye and ear disorders] Onset: 09-08-2023 Resolved: 01-28-2024 07-15-2023 Episodic Other skin disorders (20 sources) Disseminated superficial actinic porokeratosis; Translations: [Disseminated superficial actinic porokeratosis (DSAP)] Onset: 06-08-2023 06-08-2023 Episodic Retinal detachments; defects; vascular occlusion; and retinopathy (20 sources) Retinal embolus; 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] Onset: 08-22-2016 Resolved: 10-27-2018 10-27-2018 Chronic Skin and subcutaneous tissue infections (3 sources) Cellulitis of left lower limb; Translations: [Cellulitis of left lower limb] Onset: 02-20-2024 05-20-2023 Episodic Spondylosis; intervertebral disc disorders; other back problems (20 sources) Sciatica; Translations: [Sciatica, unspecified side] Onset: 02-13-2011 Resolved: 03-08-2015 03-08-2015 Episodic Results Test Name Value Interpretation Reference Range Facility [facility] 05-31-2024 [facility] Telephone (INTMWS) VIOLETA DEAL ([id number]) 1935 Date Time Provider Department 05/31/24 NAVIN PANIAGUA INTWS During your visit today, we recorded the following information about you: Ismael Guevara RN 05/31/2024 9:34 AM Signed Patient phoned to let pcp know, [facility] [place], and informed him, his kidney lab is 1.5, states normal is 1.2. Reports they were not worried about it, but advised patient to let pcp know. Reports he takes mycophenolate mofetil 250 mg capsule, 3 capsules two times a day. Navin Paniagua MD 05/31/2024 12:20 PM Signed Noted. Allergies As of Date: 05/31/2024 Noted Allergy Reaction ETHER 06/21/2005 TOLECTIN (TOLMETIN SODIUM) 06/21/2005 Date Reviewed: 03/22/2024 Reviewed by: Alix Kevin MA - Fully Assessed Reason for Visit: Report of lab result [Other] Prescriptions as of 05/31/2024 - triamcinolone acetonide topical 0.5 % ointment Apply to affected area two times a day as needed (itchy areas arms and legs. [place] medication.). - mycophenolate mofetil (CELLCEPT) 250 mg capsule Take 3 capsules by mouth two times a day. From [place] support services rep. - clopidogrel (PLAVIX) 75 mg tablet Take 1 tablet by mouth once daily. Patient should start on February 07, 2024. - ezetimibe (ZETIA) 10 mg tablet Take 1 tablet by mouth once daily. - tamsulosin (FLOMAX) 0.4 mg Take 1 capsule by mouth daily at bedtime. - glipiZIDE (GLUCOTROL XL) 5 mg 24 hr tablet Take 1 tablet by mouth once daily. - aspirin, enteric coated (ASPIRIN, ENTERIC COATED) 81 mg EC tablet Take 1 tablet by mouth once daily. - finasteride (PROSCAR) 5 mg tablet Take 1 tablet by mouth once daily. - atorvastatin (LIPITOR) 40 mg tablet Take 1 tablet by mouth daily at bedtime. For cholesterol. - furosemide (LASIX) 40 mg tablet Take 1 tablet by mouth. Take 1 tablet on Friday AND Friday only. - amiodarone (PACERONE) 200 mg tablet Take 200 mg by mouth once daily. 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] 08/22/2016 10/27/2018 Paroxysmal A-fib (HCC) [I48.0] 06/04/2015 Sinus node dysfunction (HCC) [I49.5] 06/04/2015 10/27/2018 Cardiac pacemaker in situ [Z95.0] 01/12/2018 Thrombocytopenia (HCC) [D69.6] 10/27/2018 01/28/2024 Subarachnoid bleed (HCC) [I60.9] 11/15/2019 09/05/2020 Essential hypertension [I10] 11/24/2019 Abdominal aortic aneurysm (AAA) without rupture*06/20/2020 Bladder calculi [N21.0] 06/20/2020 06/06/2021 Bullous pemphigoid [L12.0] 02/08/2022 06/08/2023 Drug rash [L27.0] 02/08/2022 06/08/2023 Stage 3a chronic kidney disease (HCC) [N18.31] 01/10/2023 Pruritic disorder [L29.9] 06/05/2023 Asteototic dermatitis [L30.8] 06/08/2023 Stasis dermatitis [I87.2] 06/08/2023 Dermatitis, disseminated superficial actinic po*06/08/2023 Abnormal CBC [R79.89] 09/08/2023 01/28/2024 TIA (transient ischemic attack) [G45.9] 11/08/2023 Diastolic dysfunction [I51.89] 05/29/2023 Encounter Status:Closed by NAVIN PANIAGUA on 05/31/24 [facility] 05-18-2024 [facility] Telephone (INTMWS) VIOLETA DEAL ([id number]) 1935 Ismael Date Time Provider Department 05/18/24 NAVIN PANIAGUA INTMWS During your visit today, we recorded the following information about you: Ismael Guevara RN 05/18/2024 3:03 PM Signed Patient phoned to give Seema update on right leg. Reports the hematoma is reabsorbing back into the leg, and the leg is 1/2 smaller than the last time he saw Seema, on 03-22-24. Reports he saw Account Manager today, who clipped his toenails. Seema Mcginnis APRN.CECI 05/18/2024 3:07 PM Signed Noted Seema Mcginnis APRN.CNP Allergies As of Date: 05/18/2024 Noted Allergy Reaction ETHER 06/21/2005 TOLECTIN (TOLMETIN SODIUM) 06/21/2005 Date Reviewed: 03/22/2024 Reviewed by: Alix Kevin MA - Fully Assessed Reason for Visit: Patient Update [1234] Prescriptions as of 05/18/2024 - triamcinolone acetonide topical 0.5 % ointment Apply to affected area two times a day as needed (itchy areas arms and legs. [place] medication.). - mycophenolate mofetil (CELLCEPT) 250 mg capsule Take 3 capsules by mouth two times a day. From [place] support services rep. - clopidogrel (PLAVIX) 75 mg tablet Take 1 tablet by mouth once daily. Patient should start on February 07, 2024. - ezetimibe (ZETIA) 10 mg tablet Take 1 tablet by mouth once daily. - tamsulosin (FLOMAX) 0.4 mg Take 1 capsule by mouth daily at bedtime. - glipiZIDE (GLUCOTROL XL) 5 mg 24 hr tablet Take 1 tablet by mouth once daily. - aspirin, enteric coated (ASPIRIN, ENTERIC COATED) 81 mg EC tablet Take 1 tablet by mouth once daily. - finasteride (PROSCAR) 5 mg tablet Take 1 tablet by mouth once daily. - atorvastatin (LIPITOR) 40 mg tablet Take 1 tablet by mouth daily at bedtime. For cholesterol. - furosemide (LASIX) 40 mg tablet Take 1 tablet by mouth. Take 1 tablet on Friday AND Friday only. - amiodarone (PACERONE) 200 mg tablet Take 200 mg by mouth once daily. 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] 08/22/2016 10/27/2018 Paroxysmal A-fib (HCC) [I48.0] 06/04/2015 Sinus node dysfunction (HCC) [I49.5] 06/04/2015 10/27/2018 Cardiac pacemaker in situ [Z95.0] 01/12/2018 Thrombocytopenia (HCC) [D69.6] 10/27/2018 01/28/2024 Subarachnoid bleed (HCC) [I60.9] 11/15/2019 09/05/2020 Essential hypertension [I10] 11/24/2019 Abdominal aortic aneurysm (AAA) without rupture*06/20/2020 Bladder calculi [N21.0] 06/20/2020 06/06/2021 Bullous pemphigoid [L12.0] 02/08/2022 06/08/2023 Drug rash [L27.0] 02/08/2022 06/08/2023 Stage 3a chronic kidney disease (HCC) [N18.31] 01/10/2023 Pruritic disorder [L29.9] 06/05/2023 Asteototic dermatitis [L30.8] 06/08/2023 Stasis dermatitis [I87.2] 06/08/2023 Dermatitis, disseminated superficial actinic po*06/08/2023 Abnormal CBC [R79.89] 09/08/2023 01/28/2024 TIA (transient ischemic attack) [G45.9] 11/08/2023 Diastolic dysfunction [I51.89] 05/29/2023 Encounter Status:Closed by SEEMA MCGINNIS on 05/18/24 [facility] 04-27-2024 CNPN Telephone (FAMPWS) VIOLETA DEAL ([id number]) 1935 M Date Time Provider Department 04/27/24 SEEMA MCGINNISDARLENE During your visit today, we recorded the following information about you: Maria Teresa Palmer LPN 04/27/2024 8:26 AM Signed Last OV:03/22/24 - ER f/u right calf pain, swelling Pt is calling today for update on hematoma on right calf. Pt reports it has been over a month and he thought hematoma would have been absorbed by now. Pt reports right calf is 1 1/2 inches bigger than left calf and there is some swelling in left foot. Pt reports area is not painful. Pt reports he tries to keep leg elevated when he can. Pt is asking if he needs to be doing something else and also how long can it take for hematoma to be absorbed. Pt does not want to come in for appt because he does not feel he needs to. HOLLAND Vargas Naz M, BERNARDO.PREPARATION SUPERVISOR FREEZING 04/27/2024 2:59 PM Signed There is not specific timeline for resolution of a hematoma, it varies depending on location, size, etc. There could be other reasons for his symptoms as well. If he feels his symptoms have worsened he needs to be evaluated now, otherwise follow-up in 4 weeks if persisting. Seema Mcginnis APRN.Bonnie Alaniz LPN 04/27/2024 3:10 PM Signed Patient notified of below recommendation, verbalized understanding. Symptoms have not worsened, improving slowly. Bonnie Peres LPN Allergies As of Date: 04/27/2024 Noted Allergy Reaction ETHER 06/21/2005 TOLECTIN (TOLMETIN SODIUM) 06/21/2005 Date Reviewed: 03/22/2024 Reviewed by: Alix Kevin MA - Fully Assessed Reason for Visit: hematoma [Other] Prescriptions as of 04/27/2024 - triamcinolone acetonide topical 0.5 % ointment Apply to affected area two times a day as needed (itchy areas arms and legs. [place] medication.). - mycophenolate mofetil (CELLCEPT) 250 mg capsule Take 3 capsules by mouth two times a day. From [place] support services rep. - clopidogrel (PLAVIX) 75 mg tablet Take 1 tablet by mouth once daily. Patient should start on February 07, 2024. - ezetimibe (ZETIA) 10 mg tablet Take 1 tablet by mouth once daily. - tamsulosin (FLOMAX) 0.4 mg Take 1 capsule by mouth daily at bedtime. - glipiZIDE (GLUCOTROL XL) 5 mg 24 hr tablet Take 1 tablet by mouth once daily. - aspirin, enteric coated (ASPIRIN, ENTERIC COATED) 81 mg EC tablet Take 1 tablet by mouth once daily. - finasteride (PROSCAR) 5 mg tablet Take 1 tablet by mouth once daily. - atorvastatin (LIPITOR) 40 mg tablet Take 1 tablet by mouth daily at bedtime. For cholesterol. - furosemide (LASIX) 40 mg tablet Take 1 tablet by mouth. Take 1 tablet on Friday AND Friday only. - amiodarone (PACERONE) 200 mg tablet Take 200 mg by mouth once daily. 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] 08/22/2016 10/27/2018 Paroxysmal A-fib (HCC) [I48.0] 06/04/2015 Sinus node dysfunction (HCC) [I49.5] 06/04/2015 10/27/2018 Cardiac pacemaker in situ [Z95.0] 01/12/2018 Thrombocytopenia (HCC) [D69.6] 10/27/2018 01/28/2024 Subarachnoid bleed ([facility]) [I60.9] 11/15/2019 09/05/2020 Essential hypertension [I10] 11/24/2019 Abdominal aortic aneurysm (AAA) without rupture*06/20/2020 Bladder calculi [N21.0] 06/20/2020 06/06/2021 Bullous pemphigoid [L12.0] 02/08/2022 06/08/2023 Drug rash [L27.0] 02/08/2022 06/08/2023 Stage 3a chronic kidney disease (HCC) [N18.31] 01/10/2023 Pruritic disorder [L29.9] 06/05/2023 Asteototic dermatitis [L30.8] 06/08/2023 Stasis dermatitis [I87.2] 06/08/2023 Dermatitis, disseminated superficial actinic po*06/08/2023 Abnormal CBC [R79.89] 09/08/2023 01/28/2024 TIA (transient ischemic attack) [G45.9] 11/08/2023 Diastolic dysfunction [I51.89] 05/29/2023 Encounter Status:[facility] (INTMWS[facility] VIOLETA DEAL ([id number]) 1935 Ismael Date Time Provider Department 03/23/24 SEEMA MCGINNIS INTMWS During your visit today, we recorded the following information about you: Alix Kevin MA 03/23/2024 2:53 PM Signed ----- Message from Seema Mcginnis APRN.PREPARATION SUPERVISOR FREEZING sent at 03/23/2024 1:30 PM EDT ----- Please let the patient know the preliminary results of the ultrasound were negative for blood clot. It did show a large hematoma but as discussed during office visit this is not something that requires treatment and will resolve on its own. If the final results indicate anything different I will let him know Seema Mcginnis APRN.Alix Dickson MA 03/23/2024 2:53 PM Signed Left message to call office. 03/23/2024 2:53 PM Bonnie Peres LPN 03/24/2024 8:13 AM Signed Patient notified of below results/recommendatio ns, verbalized understanding. Bonnie Peres LPN Allergies As of Date: 03/23/2024 Noted Allergy Reaction ETHER 06/21/2005 TOLECTIN (TOLMETIN SODIUM) 06/21/2005 Date Reviewed: 03/22/2024 Reviewed by: Alix Kevin MA - Fully Assessed Reason for Visit: Results [95] Prescriptions as of 03/24/2024 - triamcinolone acetonide topical 0.5 % ointment Apply to affected area two times a day as needed (itchy areas arms and legs. [place] medication.). - mycophenolate mofetil (CELLCEPT) 250 mg capsule Take 3 capsules by mouth two times a day. From [place] support services rep. - clopidogrel (PLAVIX) 75 mg tablet Take 1 tablet by mouth once daily. Patient should start on February 07, 2024. - ezetimibe (ZETIA) 10 mg tablet Take 1 tablet by mouth once daily. - tamsulosin (FLOMAX) 0.4 mg Take 1 capsule by mouth daily at bedtime. - glipiZIDE (GLUCOTROL XL) 5 mg 24 hr tablet Take 1 tablet by mouth once daily. - aspirin, enteric coated (ASPIRIN, ENTERIC COATED) 81 mg EC tablet Take 1 tablet by mouth once daily. - finasteride (PROSCAR) 5 mg tablet Take 1 tablet by mouth once daily. - atorvastatin (LIPITOR) 40 mg tablet Take 1 tablet by mouth daily at bedtime. For cholesterol. - furosemide (LASIX) 40 mg tablet Take 1 tablet by mouth. Take 1 tablet on Friday AND Friday only. - amiodarone (PACERONE) 200 mg tablet Take 200 mg by mouth once daily. 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] 08/22/2016 10/27/2018 Paroxysmal A-fib (HCC) [I48.0] 06/04/2015 Sinus node dysfunction (HCC) [I49.5] 06/04/2015 10/27/2018 Cardiac pacemaker in situ [Z95.0] 01/12/2018 Thrombocytopenia (HCC) [D69.6] 10/27/2018 01/28/2024 Subarachnoid bleed (HCC) [I60.9] 11/15/2019 09/05/2020 Essential hypertension [I10] 11/24/2019 Abdominal aortic aneurysm (AAA) without rupture*06/20/2020 Bladder calculi [N21.0] 06/20/2020 06/06/2021 Bullous pemphigoid [L12.0] 02/08/2022 06/08/2023 Drug rash [L27.0] 02/08/2022 06/08/2023 Stage 3a chronic kidney disease (HCC) [N18.31] 01/10/2023 Pruritic disorder [L29.9] 06/05/2023 Asteototic dermatitis [L30.8] 06/08/2023 Stasis dermatitis [I87.2] 06/08/2023 Dermatitis, disseminated superficial actinic po*06/08/2023 Abnormal CBC [R79.89] 09/08/2023 01/28/2024 TIA (transient ischemic attack) [G45.9] 11/08/2023 Diastolic dysfunction [I51.89] 05/29/2023 Encounter Status:Closed by ALIX KEVIN on 03/23/24 Normal [facility] Telephone (INTMWS) VIOLETA DEAL ([id number]) 1935 M Date Time Provider Department 03/23/24 SEEMA MCGINNIS INTMWS During your visit today, we recorded the following information about you: Enedina Grayson LPN 03/23/2024 9:07 AM Signed Pt states he was sent to [facility] yesterday for an US to r/o a clot. Pt states when he arrived at the hospital they did not have the order so he was unable to get the test done. Pt is unhappy AND wants to know what happened. HOLLAND Joya Naz M, APRN.CNP 03/23/2024 9:17 AM Signed Please have one of the PSR's look into this Seema Mcginnis APRN.Alix Dickson MA 03/23/2024 9:22 AM Signed Order reprinted and handed to PSS on 2nd floor to look into. Keep encounter open until resolved. Alix Kevin MA 03/23/2024 9:56 AM Signed Patient scheduled today at noon at [facility]. Maria Teresa Palmer LPN 03/23/2024 3:14 PM Signed Pt notified of message below: Alix Kevin MA 03/23/24 2:53 PM Note ----- Message from Seema Mcginnis APRN.PREPARATION SUPERVISOR FREEZING sent at 03/23/2024 1:30 PM EDT ----- Please let the patient know the preliminary results of the ultrasound were negative for blood clot. It did show a large hematoma but as discussed during office visit this is not something that requires treatment and will resolve on its own. If the final results indicate anything different I will let him know Seema Mcginnis APRN.CECI Palmer LPN Allergies As of Date: 03/23/2024 Noted Allergy Reaction ETHER 06/21/2005 TOLECTIN (TOLMETIN SODIUM) 06/21/2005 Date Reviewed: 03/22/2024 Reviewed by: Alix Kevin MA - Fully Assessed Reason for Visit: Patient Update [1234] Prescriptions as of 03/23/2024 - triamcinolone acetonide topical 0.5 % ointment Apply to affected area two times a day as needed (itchy areas arms and legs. VT medication.). - mycophenolate mofetil (CELLCEPT) 250 mg capsule Take 3 capsules by mouth two times a day. From [place] support services rep. - clopidogrel (PLAVIX) 75 mg tablet Take 1 tablet by mouth once daily. Patient should start on February 07, 2024. - ezetimibe (ZETIA) 10 mg tablet Take 1 tablet by mouth once daily. - tamsulosin (FLOMAX) 0.4 mg Take 1 capsule by mouth daily at bedtime. - glipiZIDE (GLUCOTROL XL) 5 mg 24 hr tablet Take 1 tablet by mouth once daily. - aspirin, enteric coated (ASPIRIN, ENTERIC COATED) 81 mg EC tablet Take 1 tablet by mouth once daily. - finasteride (PROSCAR) 5 mg tablet Take 1 tablet by mouth once daily. - atorvastatin (LIPITOR) 40 mg tablet Take 1 tablet by mouth daily at bedtime. For cholesterol. - furosemide (LASIX) 40 mg tablet Take 1 tablet by mouth. Take 1 tablet on Friday AND Friday only. - amiodarone (PACERONE) 200 mg tablet Take 200 mg by mouth once daily. 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] 08/22/2016 10/27/2018 Paroxysmal A-fib (HCC) [I48.0] 06/04/2015 Sinus node dysfunction (HCC) [I49.5] 06/04/2015 10/27/2018 Cardiac pacemaker in situ [Z95.0] 01/12/2018 Thrombocytopenia (HCC) [D69.6] 10/27/2018 01/28/2024 Subarachnoid bleed (HCC) [I60.9] 11/15/2019 09/05/2020 Essential hypertension [I10] 11/24/2019 Abdominal aortic aneurysm (AAA) without rupture*06/20/2020 Bladder calculi [N21.0] 06/20/2020 06/06/2021 Bullous pemphigoid [L12.0] 02/08/2022 06/08/2023 Drug rash [L27.0] 02/08/2022 06/08/2023 Stage 3a chronic kidney disease (HCC) [N18.31] 01/10/2023 Pruritic disorder [L29.9] 06/05/2023 Asteototic dermatitis [L30.8] 06/08/2023 Stasis dermatitis [I87.2] 06/08/2023 Dermatitis, disseminated superficial actinic po*06/08/2023 Abnormal CBC [R79.89] 09/08/2023 01/28/2024 TIA (transient ischemic attack) [G45.9] 11/08/2023 Diastolic dysfunction [I51.89] 05/29/2023 Encounter Status:Closed by MARIA ETRESA PALMER on 03/23/24 Normal [facility] LEG VEIN DVT UNL VAS LABo n 03-23-2024 LEG VEIN DVT UNL VAS LAB Non-Invasive Vascular Laboratory [facility] Lower Extremity Venous Duplex Unilateral - Right Date of service/time: 03/23/2024 12:03:55 PM Name: MR. VIOLETA DEAL Date of : 1935 Age: 89 years Gender: M Clinical Indication Lower extremity pain and lower extremity swelling. Right TECHNIQUE -------- A venous duplex ultrasound examination was performed, including grayscale imaging with compression maneuvers and color Doppler and spectral Doppler examination with augmentation maneuvers and response to respiration of the below mentioned veins. FINDINGS -------- RIGHT SIDE Distal external iliac vein Doppler: normal flow. Compression: normal. Common femoral vein Doppler: normal flow. Compression: normal. Femoral vein Doppler: normal flow. Compression: normal. Popliteal vein Doppler: normal flow. Compression: normal. Posterior tibial veins Compression: normal. Peroneal veins Compression: normal. Great saphenous vein Compression: normal. Small saphenous vein Compression: normal. LEFT SIDE Common femoral vein Doppler: normal flow. IMPRESSION RIGHT SIDE - DEEP VEINS Negative for acute deep vein thrombosis. Hematoma noted at mid calf measuring 12.6 cm in length. RIGHT SIDE - SUPERFICIAL VEINS Negative for superficial thrombophlebitis in the great saphenous vein and small saphenous vein. LEFT SIDE - DEEP VEINS Spontaneous and respirophasic flow noted in the common femoral vein. Technologist: Junie Wilde RVT, [facility] Ordering physician: SEEMA MCGINNIS Interpreting physician: LEE ANN Carreno DO Final CC [facility] Image : [id number] See Link below for Image Normal [facility] CNOVon 03-22-2024 CNOV Office Visit (INTMWS ) VIOLETA DEAL ([id number]) 1935 [place] Date Time Provider Department 03/22/24 12:40 PM SEEMA MCGINNIS INTMWS During your visit today, we recorded the following information about you: Temperature Pulse Respiration Blood pressure 98.8 degrees 85/minute 20/minute 112/64 Weight 87.8 kg Seema Mcginnis, 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 He was being treated outpatient for the past month with antibiotics for cellulitis of the right leg followed by triamcinolone for stasis dermatitis. He called on 03/16 to report right calf swelling, pain and bruising and advised to go to the ER. He was evaluated at [facility] ER, symptoms attributed to a hematoma secondary to soft tissue injury/skin tear. No concerns for DVT and ultrasound was not done. Patient called today to report bruising in the leg is worse, bruising has now spread to the inner thigh and down to the foot. Swelling and pain are improving. Wound is healing albeit slowly. Denies fever, chills, body aches, malaise, nausea, purulent drainage. Keeping wound covered with dressing. Review of Systems See HPI PAST MEDICAL HISTORY 06/20/2020: Abdominal aortic aneurysm (AAA) without rupture (HCC) Comment: Infrarenal 4.[address] scan No date: Acute gastritis without mention of hemorrhage No date: Anemia, unspecified No date: Benign neoplasm of colon 06/20/2020: Bladder calculi 05/13/2006: BPH with obstruction/lower urinary tract symptoms 01/10/2024: Branch retinal artery occlusion of right eye No date: Bullous pemphigoid 01/12/2018: Cardiac pacemaker in situ Comment: Dr. [facility] 01/24/2022: COVID-19 No date: Degeneration of lumbar or lumbosacral intervertebral disc 05/29/2023: Diastolic dysfunction No date: Diverticulosis of colon (without mention of hemorrhage) 02/08/2022: Drug rash 08/22/2016: Embolism involving retinal artery Comment: 2015 02/21/2010: Hyperlipidemia LDL goal < 100 No date: MGUS (monoclonal gammopathy of unknown significance) 06/04/2015: Paroxysmal A-fib (HCC) No date: Personal history of colonic polyps 01/10/2024: Right-sided lacunar infarction (HCC) Comment: subacute right frontal 05/07/2007: Simple chronic bronchitis (HCC) Comment: mild COPD 06/04/2015: Sinus node dysfunction (HCC) 11/15/2019: Subarachnoid bleed (HCC) Comment: [facility] 11/08/2023: TIA (transient ischemic attack) 06/04/2015: Transient neurologic deficit 02/21/2010: Type II or unspecified type diabetes mellitus without mention of complication, not stated as uncontrolled PAST SURGICAL HISTORY 08/2004: COLONOSCOPY FLX DX W/COLLJ SPEC WHEN PFRMD Comment: Colonoscopy 02/25/2008: COLONOSCOPY FLX DX W/COLLJ SPEC WHEN PFRMD Comment: Repeat in 06/26/2020: CYSTOSCOPY 02/25/2008: EGD TRANSORAL BIOPSY SINGLE/MULTIPLE 2014: EYELID SURGERY PROCEDURE, UNLISTED; Left 07/21/2020: LITHOLAPAXY COMP/LG > 2.5 CM 08/2015: PACEMAKER 2011: PAST SURGICAL HISTORY OF; Left Comment: macular hole, left eye 07/27/2020: PROSTHETIC IMPLANT DEVICE UROLIFT Comment: Dr. Queen 2011: XCAPSL CTRC RMVL INSJ IO LENS PROSTH W/O ECP Comment: Cataract Removal ALLERGIES Ether and Tolectin [Tolmetin Sodium] MEDICATIONS triamcinolone acetonide topical 0.5 % ointment Apply to affected area two times a day as needed (itchy areas arms and legs. [facility] medication.). mycophenolate mofetil (CELLCEPT) 250 mg capsule Take 3 capsules by mouth two times a day. From [place] support [place] rep. clopidogrel (PLAVIX) 75 mg tablet Take 1 tablet by mouth once daily. Patient should start on February 07, 2024. ezetimibe (ZETIA) 10 mg tablet Take 1 tablet by mouth once daily. tamsulosin (FLOMAX) 0.4 mg Take 1 capsule by mouth daily at bedtime. glipiZIDE (GLUCOTROL XL) 5 mg 24 hr tablet Take 1 tablet by mouth once daily. aspirin, enteric coated (ASPIRIN, ENTERIC COATED) 81 mg EC tablet Take 1 tablet by mouth once daily. finasteride (PROSCAR) 5 mg tablet Take 1 tablet by mouth once daily. atorvastatin (LIPITOR) 40 mg tablet Take 1 tablet by mouth daily at bedtime. For cholesterol. furosemide (LASIX) 40 mg tablet Take 1 tablet by mouth. Take 1 tablet on Friday AND Friday only. amiodarone (PACERONE) 200 mg tablet Take 200 mg by mouth once daily. FAMILY HISTORY Problem Relation Age of Onset COPD Mother Heart Father CHF Diabetes Father COPD Sister Obesity Maternal Grandmother Obesity Paternal Grandmother Diabetes Paternal Grandmother Social History Tobacco Use Smoking status: Former Current packs/day: 0.00 Average packs/day: 1 pack/day for 50.0 years (50.0 ttl pk-yrs) Types: Cigarettes Start date: 12/18/1944 Quit date: 12/18/1994 Years since qu (more content not included)... Normal [facility] CNOVon 03-08-2024 CNOV Office Visit (INTMWS ) VIOLETA DEAL ([id number]) 1935 M Date Time Provider Department 03/08/24 3:00 PM NAVIN PANIAGUA INTMWS During your visit today, we recorded the following information about you: Temperature Pulse Respiration Blood pressure 97.3 degrees 77/minute 14/minute 130/70 Weight Height 86.9 kg 1.803 m Navin Paniagua MD 03/08/2024 3:19 PM Signed This note was created using BlackDuckter. Subjective Violeta Deal is a 89 year old male. His leg rashes were much better. He also saw his [facility] support services rep last week, and he was advised to use his compression socks regularly. He was prescribed KANDI as needed. Review of Systems Constitutional: Negative for fatigue and fever. Respiratory: Negative. Cardiovascular: Negative. Neurological: Negative. ACTIVE PROBLEM LIST Bph With Obstruction/Lower Urinary Tract Symptoms Simple Chronic Bronchitis (Hcc) Controlled Type 2 Diabetes Mellitus Without Complication, Without Long-Term Current Use of Insulin (Hcc) Hyperlipidemia With Target Ldl Less Than 100 Paroxysmal A-Fib (Hcc) Cardiac Pacemaker in Situ Essential Hypertension Abdominal Aortic Aneurysm (Aaa) Without Rupture (Hcc) Stage 3a Chronic Kidney Disease (Hcc) Pruritic Disorder Asteototic Dermatitis Stasis Dermatitis Dermatitis, Disseminated Superficial Actinic Porokeratosis (Dsap) Tia (Transient Ischemic Attack) Diastolic Dysfunction Current Outpatient Medications Medication Sig chlorthalidone (HYGROTON) 25 mg tablet Take 1 tablet by mouth once daily for 7 days. mycophenolate mofetil (CELLCEPT) 250 mg capsule Take 3 capsules by mouth two times a day. From [place] support [place] rep. clopidogrel (PLAVIX) 75 mg tablet Take 1 tablet by mouth once daily. Patient should start on February 07, 2024. ezetimibe (ZETIA) 10 mg tablet Take 1 tablet by mouth once daily. tamsulosin (FLOMAX) 0.4 mg Take 1 capsule by mouth daily at bedtime. glipiZIDE (GLUCOTROL XL) 5 mg 24 hr tablet Take 1 tablet by mouth once daily. aspirin, enteric coated (ASPIRIN, ENTERIC COATED) 81 mg EC tablet Take 1 tablet by mouth once daily. finasteride (PROSCAR) 5 mg tablet Take 1 tablet by mouth once daily. atorvastatin (LIPITOR) 40 mg tablet Take 1 tablet by mouth daily at bedtime. For cholesterol. furosemide (LASIX) 40 mg tablet Take 1 tablet by mouth. Take 1 tablet on Friday AND Friday only. amiodarone (PACERONE) 200 mg tablet Take 200 mg by mouth once daily. No current facility-administered medications for this visit. Objective BP 130/70 (BP Site: Left Arm, BP Position: Sitting, BP Cuff Size: Large Adult) Pulse 77 Temp 36.3 ?C (97.3 ?F) Resp 14 Ht 180.3 cm (5' 11 ) Wt 86.9 kg (191 lb 9.3 oz) SpO2 98% BMI 26.72 kg/m? Physical Exam Constitutional: General: He is not in acute distress. Cardiovascular: Heart sounds: Normal heart sounds. Pulmonary: Breath sounds: Normal breath sounds. Musculoskeletal: Right lower leg: No edema. Left lower leg: No edema. Skin: Findings: No erythema or rash. Neurological: Mental Status: He is alert. Assessment and Plan 1. Stasis dermatitis - ICD9: 454.1, ICD10: I87.2 (primary diagnosis) Controlled. - TRIAMCINOLONE ACETONIDE 0.5 % TOPICAL OINTMENT 2. 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 - TRIAMCINOLONE ACETONIDE 0.5 % TOPICAL OINTMENT MD Siva Walls Victor H, MD 03/08/2024 3:09 PM Signed DO FASTING BLOOD WORK BEFORE JULY APPT. Allergies As of Date: 03/08/2024 Noted Allergy Reaction ETHER 06/21/2005 TOLECTIN (TOLMETIN SODIUM) 06/21/2005 Date Reviewed: 03/08/2024 Reviewed by: Katelyn Simmons LPN - Fully Assessed Reason for Visit: Follow Up [171] Cmt: 2 week follow up- lower left leg cellulitis Primary Visit Diagnosis:Stasis dermatitis [I87.2] Other Visit Diagnosis:Asteototic dermatitis [L30.8] Prescriptions as of 03/08/2024 - triamcinolone acetonide topical 0.5 % ointment Apply to affected area two times a day as needed (itchy areas arms and legs. [facility] medication.). - mycophenolate mofetil (CELLCEPT) 250 mg capsule Take 3 capsules by mouth two times a day. From [place] support services rep. - clopidogrel (PLAVIX) 75 mg tablet Take 1 tablet by mouth once daily. Patient should start on February 07, 2024. - ezetimibe (ZETIA) 10 mg tablet Take 1 tablet by mouth once daily. - tamsulosin (FLOMAX) 0.4 mg Take 1 capsule by mouth daily at bedtime. - glipiZIDE (GLUCOTROL XL) 5 mg 24 hr tablet Take 1 tablet by mouth once daily. - aspirin, enteric coated (ASPIRIN, ENTERIC COATED) 81 mg EC tablet Take 1 tablet by mouth once daily. - finasteride (PROSCAR) 5 mg tablet Take 1 tablet by mouth once daily. - atorvastatin (LIPITOR) 40 mg tablet Take 1 tablet by mouth daily at bedtime. For cholesterol. - furosemide (LASIX) 40 mg tablet Take 1 tablet by mouth. Take 1 tablet on Friday AND (more content not included)... Normal [facility] CNOVon 02-23-2024 CNOV Office Visit (INTMWS ) VIOLETA DEAL ([id number]) 1935 M Date Time Provider Department 02/23/24 2:40 PM NAVIN PANIAGUA INTMWS During your visit today, we recorded the following information about you: Temperature Pulse Respiration Blood pressure 98.3 degrees 84/minute 24/minute 124/64 Weight 88 kg Navin Paniagua MD 02/23/2024 3:22 PM Signed This note was created using Denty'sriter. Subjective Patient presents with: Pain Violeta Deal was here with daughter and son in law. He was having sharp pains in his legs last night, bothersome enough to interfere with sleep. He had no fever or chills. Pain was better today. His rash was stable. I saw him 3 days ago. Review of Systems Constitutional: Negative for fatigue and fever. ACTIVE PROBLEM LIST Bph With Obstruction/Lower Urinary Tract Symptoms Simple Chronic Bronchitis ([facility]) Controlled Type 2 Diabetes Mellitus Without Complication, Without Long-Term Current Use of Insulin ([facility]) Hyperlipidemia With Target Ldl Less Than 100 Paroxysmal A-Fib ([facility]) Cardiac Pacemaker in Situ Essential Hypertension Abdominal Aortic Aneurysm (Aaa) Without Rupture ([facility]) Stage 3a Chronic Kidney Disease ([facility]) Pruritic Disorder Asteototic Dermatitis Stasis Dermatitis Dermatitis, Disseminated Superficial Actinic Porokeratosis (Dsap) Tia (Transient Ischemic Attack) Current Outpatient Medications Medication Sig cephALEXin (KEFLEX) 500 mg capsule Take 1 capsule by mouth three times a day for 7 days. mycophenolate mofetil (CELLCEPT) 250 mg capsule Take 3 capsules by mouth two times a day. From [place] support services rep. clopidogrel (PLAVIX) 75 mg tablet Take 1 tablet by mouth once daily. Patient should start on February 07, 2024. ezetimibe (ZETIA) 10 mg tablet Take 1 tablet by mouth once daily. tamsulosin (FLOMAX) 0.4 mg Take 1 capsule by mouth daily at bedtime. glipiZIDE (GLUCOTROL XL) 5 mg 24 hr tablet Take 1 tablet by mouth once daily. aspirin, enteric coated (ASPIRIN, ENTERIC COATED) 81 mg EC tablet Take 1 tablet by mouth once daily. finasteride (PROSCAR) 5 mg tablet Take 1 tablet by mouth once daily. atorvastatin (LIPITOR) 40 mg tablet Take 1 tablet by mouth daily at bedtime. For cholesterol. furosemide (LASIX) 40 mg tablet Take 1 tablet by mouth. Take 1 tablet on Friday AND Friday only. amiodarone (PACERONE) 200 mg tablet Take 200 mg by mouth once daily. No current facility-administered medications for this visit. Objective BP 124/64 (BP Site: Left Arm, BP Position: Sitting, BP Cuff Size: Large Adult) Pulse 84 Temp 36.8 ?C (98.3 ?F) (Temporal) Resp 24 Wt 88 kg (194 lb) BMI 26.31 kg/m? Physical Exam Constitutional: General: He is not in acute distress. Appearance: He is not ill-appearing. Pulmonary: Effort: Pulmonary effort is normal. Musculoskeletal: Right lower le+ Pitting Edema present. Left lower le+ Pitting Edema present. Skin: Findings: Erythema and rash present. Comments: Erythema is more confluent in the lower legs above the ankle. Left lateral small ulcer has dried up. Neurological: Mental Status: He is alert. Assessment and Plan 1. Stasis dermatitis - ICD9: 454.1, ICD10: I87.2 (primary diagnosis) - Elevate legs often. I did not recommend compression stockings due to inflammation. - CHLORTHALIDONE 25 MG TABLET. Take one(1) tablet daily x 7 days. - I offered PRN pain medication. He declined. 2. Stage 3a chronic kidney disease (HCC) - ICD9: 585.3, ICD10: N18.31 - eGFR: 48 Stable - Recent labs noted. Questions, concerns were discussed with patient and family. He should consider reaching out to his [place] support services rep. Follow up in 2 weeks. Navin Paniagua MD Allergies As of Date: 02/23/2024 Noted Allergy Reaction ETHER 06/21/2005 TOLECTIN (TOLMETIN SODIUM) 06/21/2005 Date Reviewed: 02/23/2024 Reviewed by: Bonnie Peres LPN - Fully Assessed Reason for Visit: Pain [78] Primary Visit Diagnosis:Stasis dermatitis [I87.2] Other Visit Diagnosis:Stage 3a chronic kidney disease (HCC) [N18.31] Order(s):chlorthalido ne (HYGROTON) 25 mg tabletTake 1 tablet by mouth once daily for 7 days.Disp: 7 tabletRfl: 0 Prescriptions as of 02/23/2024 - chlorthalidone (HYGROTON) 25 mg tablet Take 1 tablet by mouth once daily for 7 days. - cephALEXin (KEFLEX) 500 mg capsule Take 1 capsule by mouth three times a day for 7 days. - mycophenolate mofetil (CELLCEPT) 250 mg capsule Take 3 capsules by mouth two times a day. From [place] support services rep. - clopidogrel (PLAVIX) 75 mg tablet Take 1 tablet by mouth once daily. Patient should start on February 07, 2024. - ezetimibe (ZETIA) 10 mg tablet Take 1 tablet by mouth once daily. - tamsulosin (FLOMAX) 0.4 mg Take 1 capsule by mouth daily at bedtime. - glipiZIDE (GLUCOTROL XL) 5 mg 24 hr tablet Take 1 tablet by mouth once daily. - aspirin, enteri (more content not included)... Normal [facility] CNOVon 02-20-2024 CNOV Office Visit (INTMWS ) VIOLETA DEAL ([id number]) 1935 M Date Time Provider Department 02/20/24 3:40 PM NAVIN PANIAGUA INTMWS During your visit today, we recorded the following information about you: Temperature Pulse Respiration Blood pressure 97.5 degrees 90/minute 14/minute 138/60 Weight Height 87.1 kg 1.829 m Navin Paniagua MD 02/22/2024 1:13 PM Signed This note was created using Denty'sriter. Subjective Violeta Deal is a 89 year old male with itchy rash of both legs for 2 days. He was concerned about a medication reaction due to a recalcitrant rash managed by his [facility] support services rep and diagnosed as drug sensitivity rash. He's also had drainage noted from his left leg. Review of Systems Constitutional: Negative for fatigue and fever. ACTIVE PROBLEM LIST Bph With Obstruction/Lower Urinary Tract Symptoms Simple Chronic Bronchitis ([facility]) Controlled Type 2 Diabetes Mellitus Without Complication, Without Long-Term Current Use of Insulin (Hcc) Hyperlipidemia With Target Ldl Less Than 100 Paroxysmal A-Fib (Hcc) Cardiac Pacemaker in Situ Essential Hypertension Abdominal Aortic Aneurysm (Aaa) Without Rupture (Hcc) Stage 3a Chronic Kidney Disease (Hcc) Pruritic Disorder Asteototic Dermatitis Stasis Dermatitis Dermatitis, Disseminated Superficial Actinic Porokeratosis (Dsap) Tia (Transient Ischemic Attack) Social History Tobacco Use Smoking status: Former Packs/day: 1.00 Years: 50.00 Additional pack years: 0.00 Total pack years: 50.00 Types: Cigarettes Quit date: 12/18/1994 Years since quittin.1 Smokeless tobacco: Never Vaping Use Vaping Use: Never used Substance Use Topics Alcohol use: Yes Alcohol/week: 2.0 standard drinks of alcohol Types: 2 Cans of Beer (12oz) per week Comment: daily Drug use: No Current Outpatient Medications Medication Sig clopidogrel (PLAVIX) 75 mg tablet Take 1 tablet by mouth once daily. Patient should start on February 07, 2024. ezetimibe (ZETIA) 10 mg tablet Take 1 tablet by mouth once daily. tamsulosin (FLOMAX) 0.4 mg Take 1 capsule by mouth daily at bedtime. glipiZIDE (GLUCOTROL XL) 5 mg 24 hr tablet Take 1 tablet by mouth once daily. aspirin, enteric coated (ASPIRIN, ENTERIC COATED) 81 mg EC tablet Take 1 tablet by mouth once daily. finasteride (PROSCAR) 5 mg tablet Take 1 tablet by mouth once daily. atorvastatin (LIPITOR) 40 mg tablet Take 1 tablet by mouth daily at bedtime. For cholesterol. mycophenolate mofetil (CELLCEPT) 250 mg capsule 500 mg. furosemide (LASIX) 40 mg tablet Take 1 tablet by mouth. Take 1 tablet on Friday AND Friday only. amiodarone (PACERONE) 200 mg tablet Take 200 mg by mouth once daily. No current facility-administered medications for this visit. Objective BP 138/60 (BP Site: Left Arm, BP Position: Sitting, BP Cuff Size: Large Adult) Pulse 90 Temp 36.4 ?C (97.5 ?F) Resp 14 Ht 182.9 cm (6') Wt 87.1 kg (192 lb) SpO2 98% BMI 26.04 kg/m? Physical Exam Constitutional: Appearance: He is not ill-appearing. Musculoskeletal: Right lower le+ Pitting Edema present. Left lower le+ Pitting Edema present. Skin: Comments: Small ulcer just above left lateral ankle with scant serous drainage and more confluent erythema extending proximally. Assessment and Plan 1. Cellulitis of left leg - ICD9: 682.6, ICD10: L03.116 (primary diagnosis) - Begin treatment with Cephalaxin (Keflex) - CEPHALEXIN 500 MG CAPSULE - Over the counter Benadryl as needed for itching. 2. Stasis dermatitis - ICD9: 454.1, ICD10: I87.2 - Take an extra dose of furosemide. 3. Essential hypertension - ICD9: 401.9, ICD10: I10 Fair control. - Continue current medications MD Siva Walls Victor H, MD 02/20/2024 3:50 PM Signed TRY BENADRYL (OFF THE SHELF) FOR ALLERGY, ITCHING. Allergies As of Date: 02/20/2024 Noted Allergy Reaction ETHER 06/21/2005 TOLECTIN (TOLMETIN SODIUM) 06/21/2005 Date Reviewed: 02/20/2024 Reviewed by: Katelyn Simmons LPN - Fully Assessed Reason for Visit: Same Day Appointment [255] Cmt: bilateral legs and arms itchy Primary Visit Diagnosis:Cellulitis of left leg [L03.116] Other Visit Diagnoses:Stasis dermatitis [I87.2] Essential hypertension [I10] Order(s):cephALEXin (KEFLEX) 500 mg capsuleTake 1 capsule by mouth three times a day for 7 days.Disp: 21 capsuleRfl: 0 Prescriptions as of 02/22/2024 - cephALEXin (KEFLEX) 500 mg capsule Take 1 capsule by mouth three times a day for 7 days. - mycophenolate mofetil (CELLCEPT) 250 mg capsule Take 3 capsules by mouth two times a day. From [place] support services rep. - clopidogrel (PLAVIX) 75 mg tablet Take 1 tablet by mouth once daily. Patient should start on February 07, 2024. - ezetimibe (ZETIA) 10 mg tablet Take 1 tablet by mouth once daily. - tamsulosin (FLOMAX) 0.4 mg Take 1 capsule by mouth daily at (more content not included)... Normal [facility] ALBUMIN/CREATININE RATIO, UR INEon 01-28-2024 Albumin DL <= 20 mg/L (U) [Mass/Vol] 75.5 mg/L Normal [facility] Comment on above: Order Comment: Speci men Type: URINE SPECIMENOrdering Facility: [facility] Address: [address] [place] [address] Performed By: #### U ACR ####[facility] LABCLIA [id number] [place] [address] [place] Albumin/Creatinine (U) [Mass ratio] 39 mg/g High <30 [facility] Comment on above: Order Comment: Speci men Type: URINE SPECIMENOrdering Facility: [facility] Address: [address] [place] [address] Result Comment: Adul t Male and Female Nephrotic Criteria: <30 mg/g is considered normal to mildly increased 30-300 mg/g is considered moderately increased >300 mg/g is considered severely increased KDIGO. (2013). KDIGO 2012 Clinical Practice Guideline for the Evaluation and Management of Chronic Kidney Disease. Official Journal of the International Society of Nephrology, 3(1), 1-150. Performed By: #### U ACR ####[facility] LABIA [id number] [place] [address] [place] Creatinine (U) [Mass/Vol] 191.4 mg/dL Normal 20.0-300.0 [facility] Comment on above: Order Comment: Speci men Type: URINE SPECIMENOrdering Facility: [facility] Address: [address] [place] [address] Performed By: #### U ACR ####[facility] LABCLIA [id number] [place] [id number] [place] CBC W Auto Differential pane l (Bld)on 01-28-2024 Basophils (Bld) [#/Vol] 0.03 10*3/uL Normal <0.11 [facility] Comment on above: Order Comment: Speci men Type: BLOOD SPECIMENOrdering Facility: [facility] Address: [address] [place] [address] Performed By: #### 5 7021-8 ####[facility] LABCLIA [id number] [place] [address] [place] Basophils/100 WBC (Bld) 0.3 % Normal [facility] Comment on above: Order Comment: Speci men Type: BLOOD SPECIMENOrdering Facility: [facility] Address: [address] [place] [address] Performed By: #### 5 7021-8 ####[facility] LABCLIA [id number] [place] [address] [place] Differential cell count method Nom (Bld) Auto Normal [facility] Comment on above: Order Comment: Speci men Type: BLOOD SPECIMENOrdering Facility: [facility] Address: [address] [place] [address] Performed By: #### 5 7021-8 ####[facility] LABCLIA [id number] [place] [address] [place] Eosinophils (Bld) [#/Vol] 0.09 10*3/uL Normal <0.46 [facility] Comment on above: Order Comment: Speci men Type: BLOOD SPECIMENOrdering Facility: [facility] Address: [address] [place] [address] Performed By: #### 5 7021-8 ####[facility] LABCLIA [id number] [place] [address] [place] Eosinophils/100 WBC (Bld) 1.0 % Normal [facility] Comment on above: Order Comment: Speci men Type: BLOOD SPECIMENOrdering Facility: [facility] Address: [address] [place] [address] Performed By: #### 5 7021-8 ####[facility] LABCLIA [id number] [place] [address] [place] Erythrocyte distribution width (RBC) [Ratio] 13.5 % Normal 11.5-15.0 [facility] Comment on above: Order Comment: Speci men Type: BLOOD SPECIMENOrdering Facility: [facility] Address: [address] [place] [address] Performed By: #### 5 7021-8 ####[facility] LABCLIA [id number] [place] [address] [place] Hematocrit (Bld) [Volume fraction] 44.6 % Normal 39.0-51.0 [facility] Comment on above: Order Comment: Speci men Type: BLOOD SPECIMENOrdering Facility: [facility] Address: [address] [place] [address] Performed By: #### 5 7021-8 ####[facility] LABCLIA [id number] [place] [address] [place] Hemoglobin (Bld) [Mass/Vol] 14.1 g/dL Normal 13.0-17.0 [facility] Comment on above: Order Comment: Speci men Type: BLOOD SPECIMENOrdering Facility: [facility] Address: [address] [place] [address] Performed By: #### 5 7021-8 ####[facility] LABCLIA [id number] [place] [address] [place] Immature granulocytes (Bld) [#/Vol] 0.04 10*3/uL Normal <0.10 [facility] Comment on above: Order Comment: Speci men Type: BLOOD SPECIMENOrdering Facility: [facility] Address: [address] [place] [address] Performed By: #### 5 7021-8 ####[facility] LABCLIA [id number] [place] [address] [place] Immature granulocytes/100 WBC (Bld) 0.5 % Normal [facility] Comment on above: Order Comment: Speci men Type: BLOOD SPECIMENOrdering Facility: [facility] Address: [address] [place] [address] Performed By: #### 5 7021-8 ####[facility] LABCLIA [id number] [place] [address] [place] Lymphocytes (Bld) [#/Vol] 0.74 10*3/uL Low 1.00-4.00 [facility] Comment on above: Order Comment: Speci men Type: BLOOD SPECIMENOrdering Facility: [facility] Address: [address] [place] [address] Performed By: #### 5 7021-8 ####[facility] LABCLIA [id number] [place] [address] [place] Lymphocytes/100 WBC (Bld) 8.6 % Normal [facility] Comment on above: Order Comment: Speci men Type: BLOOD SPECIMENOrdering Facility: [facility] Address: [address] [place] [address] Performed By: #### 5 7021-8 ####[facility] LABIA [id number] [place] [address] [place] MCH (RBC) [Entitic mass] 29.6 pg Normal 26.0-34.0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 06/08/2023 Stasis dermatitis [I87.2] 06/08/2023 Dermatitis, disseminated superficial actinic po*06/08/2023 Abnormal CBC [R79.89] 09/08/2023 TIA (transient ischemic attack) [G45.9] 11/08/2023 Encounter Status:Closed by NAVIN PANIAGUA on 12/12/23 [facility] 11-17-2023 CNP[facility] Telephone (INTMWS) VIOLETA DEAL ([id number]) 1935 M Date Time Provider Department 11/17/23 NAVIN PANIAGUA During your visit today, we recorded the following information about you: Bonnie Peres LPN 11/17/2023 12:18 PM Signed ----- Message from Navin Paniagua MD sent at 11/16/2023 6:19 AM EDT ----- Stable abdominal aortic aneurysm. Recheck in next year. Bonnie Peres LPN 11/17/2023 12:20 PM Signed Patient notified, verbalized understanding. Bonnie Peres LPN Allergies As of Date: 11/17/2023 Noted Allergy Reaction ETHER 06/21/2005 TOLECTIN (TOLMETIN SODIUM) 06/21/2005 Date Reviewed: 11/10/2023 Reviewed by: Katelyn Mcgovern LPN - Fully Assessed Reason for Visit: Results [95] Prescriptions as of 11/17/2023 - clopidogrel (PLAVIX) 75 mg tablet Take 1 tablet by mouth once daily. 21 days/doses. - aspirin, enteric coated (ASPIRIN, ENTERIC COATED) 81 mg EC tablet Take 1 tablet by mouth once daily. - finasteride (PROSCAR) 5 mg tablet Take 1 tablet by mouth once daily. - atorvastatin (LIPITOR) 40 mg tablet Take 1 tablet by mouth daily at bedtime. For cholesterol. - tamsulosin (FLOMAX) 0.4 mg Take 1 capsule by mouth daily at bedtime. - glipiZIDE (GLUCOTROL XL) 5 mg 24 hr tablet Take 1 tablet by mouth once daily. - mycophenolate mofetil (CELLCEPT) 250 mg capsule 500 mg. - furosemide (LASIX) 40 mg tablet Take 1 tablet by mouth. Take 1 tablet on Friday AND Friday only. - amiodarone (PACERONE) 200 mg tablet Take 200 mg by mouth once daily. Meds Comments as of 11/12/2019: Problem List As Of Date 11/17/2023 Noted Resolved Plantar fascial fibromatosis [M72.2] 07/24/2005 03/08/2015 BPH with obstruction/lower urinary tract sympto*05/13/2006 Simple chronic bronchitis (HCC) [J41.0] 05/07/2007 Anemia, unspecified [D64.9] 02/10/2008 02/21/2017 Controlled type 2 diabetes mellitus without com*02/21/2010 Hyperlipidemia with target LDL less than 100 [E*02/21/2010 Sciatica [M54.30] 02/13/2011 03/08/2015 Embolism involving retinal artery [H34.9] 08/22/2016 10/27/2018 Paroxysmal A-fib (HCC) [I48.0] 06/04/2015 Sinus node dysfunction (HCC) [I49.5] 06/04/2015 10/27/2018 Cardiac pacemaker in situ [Z95.0] 01/12/2018 Thrombocytopenia (HCC) [D69.6] 10/27/2018 Subarachnoid bleed (HCC) [I60.9] 11/15/2019 09/05/2020 Essential hypertension [I10] 11/24/2019 Abdominal aortic aneurysm (AAA) without rupture*06/20/2020 Bladder calculi [N21.0] 06/20/2020 06/06/2021 Bullous pemphigoid [L12.0] 02/08/2022 06/08/2023 Drug rash [L27.0] 02/08/2022 06/08/2023 Stage 3a chronic kidney disease (HCC) [N18.31] 01/10/2023 Pruritic disorder [L29.9] 06/05/2023 Asteototic dermatitis [L30.8] 06/08/2023 Stasis dermatitis [I87.2] 06/08/2023 Dermatitis, disseminated superficial actinic po*06/08/2023 Abnormal CBC [R79.89] 09/08/2023 TIA (transient ischemic attack) [G45.9] 11/08/2023 Encounter Status:Closed by BONNIE PERES on 11/17/23 Normal [facility] ABD AORTAon 11-13-2023 US ABD AORTA * * *Final Report* * * DATE OF EXAM: Nov 13 2023 10:33AM WRU [id number] - US ABD AORTA / PROCEDURE REASON: Abdominal aortic aneurysm (AAA) without rupture, unspecified part (HCC) * * * * Physician Interpretation * * * * EXAMINATION: COMPLETE ABDOMINAL AORTA ULTRASOUND WITH DOPPLER IMAGING HISTORY: Follow-up of a previously demonstrated abdominal aortic aneurysm. TECHNIQUE: Yan scale sonography with color Doppler and spectral Doppler (duplex) imaging of the abdominal aorta and common iliac arteries bilaterally was performed. Images were obtained and stored in a permanent archive. MQ: USAOC_1 COMPARISON: 06/13/2021 RESULT: AORTA (AP x TV): Proximal: Not seen due to overlying bowel gas Mid (level of renal arteries): 2.3 cm x 2.6 cm Distal: 3.5 cm x 4.1 cm. This extends 4.6 cm in length Common Iliac Arteries (AP x TV): Right: 1.1 cm x 1 cm Left: 0.8 cm x 1 cm Atherosclerotic plaque: present Doppler: Abdominal aorta is patent with no stenosis or dissection. Normal spectral waveforms. IMPRESSION: Stable infrarenal abdominal aortic aneurysm General Inspector: PSC Transcribe Date/Time: Nov 13 2023 4:50P Dictated by : KURT ACUNA MD This examination was interpreted and the report reviewed and electronically signed by: KURT ACUNA MD on Nov 13 2023 4:52PM EST [id number] Normal [facility] Abdominal Aortaon 024 [facility] CNOVon 11-10-2023 CNOV Office Visit (INTMWS ) VIOLETA DEAL ([id number]) 1935 M Date Time Provider Department 11/10/23 12:00 PM NAVIN PANIAGUA INTMWS During your visit today, we recorded the following information about you: Temperature Pulse Respiration Blood pressure 97.6 degrees 72/minute 12/minute 124/68 Weight Height 89.4 kg 1.829 m Navin Paniagua MD 11/10/2023 1:26 PM Signed This note was created using Denty'sriter. Subjective Patient presents with: Hospital F/U: had a possible stroke with a fall Transitional Care Management Progress Note The patients TCM visit was performed within the 14 days of discharge. Patient's Date of discharge: 10/31/23 Date of initial coordinator contact after discharge: 11/03/23 Discharge diagnosis: TIA, cerebrovascular disease, HTN, paroxysmal atrial fibrillation. Medication review completed Yes Navin Paniagua MD Provider Documentation: In follow-up of hospitalization, Violeta Deal is a 88 year old male with the chief complaint of transition of care. I have reviewed the patient?s last hospital course including diagnostic testing performed during this hospitalization, their discharge medications, and my assessment and plan with the patient and any family members present at today?s visit (son Shamir). Violeta Deal is a 88 year old male he was feeling better, and had residual dizziness and persisting unsteady gait. He had no falls since his discharge. He continued to have vision disturbance. He was limiting his driving due to squiggly lines at times. I referred him to ophthalmology but he had not decided where to go. It turned out he had been to the [facility] several years ago. Review of Systems Constitutional: Negative for chills, fatigue and fever. HENT: Negative. Eyes: Positive for visual disturbance. Negative for pain. Respiratory: Negative for cough and shortness of breath. Cardiovascular: Negative for chest pain, palpitations and leg swelling. Gastrointestinal: Negative for nausea and vomiting. Musculoskeletal: Positive for gait problem. Neurological: Positive for dizziness. Negative for facial asymmetry, speech difficulty, weakness, numbness and headaches. ACTIVE PROBLEM LIST Bph With Obstruction/Lower Urinary Tract Symptoms Simple Chronic Bronchitis (Hcc) Controlled Type 2 Diabetes Mellitus Without Complication, Without Long-Term Current Use of Insulin (Hcc) Hyperlipidemia With Target Ldl Less Than 100 Paroxysmal A-Fib (Hcc) Cardiac Pacemaker in Situ Thrombocytopenia (Hcc) Essential Hypertension Abdominal Aortic Aneurysm (Aaa) Without Rupture (Hcc) Stage 3a Chronic Kidney Disease (Hcc) Pruritic Disorder Asteototic Dermatitis Stasis Dermatitis Dermatitis, Disseminated Superficial Actinic Porokeratosis (Dsap) Abnormal Cbc Tia (Transient Ischemic Attack) Social History Tobacco Use Smoking status: Former Packs/day: 1.00 Years: 50.00 Additional pack years: 0.00 Total pack years: 50.00 Types: Cigarettes Quit date: 12/18/1994 Years since quittin.9 Smokeless tobacco: Never Vaping Use Vaping Use: Never used Substance Use Topics Alcohol use: Yes Alcohol/week: 2.0 standard drinks of alcohol Types: 2 Cans of Beer (12oz) per week Comment: daily Drug use: No Current Outpatient Medications Medication Sig clopidogrel (PLAVIX) 75 mg tablet Take 1 tablet by mouth once daily. 21 days/doses. aspirin, enteric coated (ASPIRIN, ENTERIC COATED) 81 mg EC tablet Take 1 tablet by mouth once daily. finasteride (PROSCAR) 5 mg tablet Take 1 tablet by mouth once daily. atorvastatin (LIPITOR) 40 mg tablet Take 1 tablet by mouth daily at bedtime. For cholesterol. tamsulosin (FLOMAX) 0.4 mg Take 1 capsule by mouth daily at bedtime. glipiZIDE (GLUCOTROL XL) 5 mg 24 hr tablet Take 1 tablet by mouth once daily. mycophenolate mofetil (CELLCEPT) 250 mg capsule 500 mg. furosemide (LASIX) 40 mg tablet Take 1 tablet by mouth. Take 1 tablet on Friday AND Friday only. amiodarone (PACERONE) 200 mg tablet Take 200 mg by mouth once daily. No current facility-administered medications for this visit. Objective Blood Pressure 124/68 (BP Site: Left Arm, BP Position: Sitting, BP Cuff Size: Large Adult) Pulse 72 Temperature 36.4 ?C (97.6 ?F) Respiration 12 Height 182.9 cm (6') Weight 89.4 kg (197 lb) Oxygen Saturation 96% Body Mass Index 26.72 kg/m? Physical Exam Constitutional: General: He is not in acute distress. Appearance: He is not ill-appearing. HENT: Head: Normocephalic. Eyes: Extraocular Movements: Extraocular movements intact. Pupils: Pupils are equal, round, and reactive to light. Comments: Mild ptosis right eye. Neck: Vascular: No carotid bruit. Cardiovascular: Rate and Rhythm: Normal rate and regular rhythm. Heart sounds: No murmur heard. No gallop. Pulmonary: Effort (more content not included)... [facility]INT[facility] VIOLETA DEAL ([id number]) 1935 M Date Time Provider Department 11/07/23 NAVIN PANIAGUA INTMWS During your visit today, we recorded the following information about you: Chanell Doan RN 11/07/2023 4:41 PM Signed Patient calling and states that his vision has been blurry for past couple of days. Patient states that it has been worse where he cannot read. Patient reports that he cannot see to drive. Patient reports that he was driving over the lines. Patient states that he knows he should not be driving. Patient was recently in the hospital and is wondering if Plavix could be causing this? Asked patient if he told daughter about all this. Patient states that he thinks. Asked patient if this nurse could call daughter regarding medical information. Patient gave permission for staff to talk to daughter regarding medical information. Called and spoke with daughter. Patient has been complaining of vision problems with reading. Patient was complaining of this prior to starting on Plavix. Daughter aware of patient having issues with driving. Daughter is going to talk to patient's son regarding this. Patient is scheduled with Dr. Paniagua on 11/10/2023. Daughter states that one of them will try and make it to appointment with provider. TORY Faith Victor H, MD 11/08/2023 10:13 AM Signed ASSESSMENT/PLAN: 1. Vision disturbance - ICD9: 368.9, ICD10: H53.9 (primary diagnosis) - Not likely from Plavix. Schedule consult. - CONSULT TO OPHTHALMOLOGY 2. TIA (transient ischemic attack) - ICD9: 435.9, ICD10: G45.9 Recent discharge summary noted. - ASPIRIN 81 MG TABLET,DELAYED RELEASE - CLOPIDOGREL 75 MG TABLET MD Rhea Walls Amanda, TORY 11/10/2023 9:35 AM Signed Pts daughter called and is notified of providers results and instructions. She voices understanding. She states her brother will be going with Pt to appointment today. She states her and her brother are going to talk to him today about going into a residential and not driving. TORY Calzada Amanda, TORY 11/10/2023 9:47 AM Signed Pt called and is notified of providers results and instructions. Pt voices understanding. Maryellen Wilkerson RN Allergies As of Date: 11/07/2023 Noted Allergy Reaction ETHER 06/21/2005 TOLECTIN (TOLMETIN SODIUM) 06/21/2005 Date Reviewed: 10/28/2023 Reviewed by: Bonnie Peres LPN - Fully Assessed Reason for Visit: Patient Update [1234] Primary Visit Diagnosis:Vision disturbance [H53.9] Other Visit Diagnosis:TIA (transient ischemic attack) [G45.9] Order(s):aspirin, enteric coated (ASPIRIN, ENTERIC COATED) 81 mg EC tabletTake 1 tablet by mouth once daily.Disp: Rfl: clopidogrel (PLAVIX) 75 mg tabletTake 1 tablet by mouth once daily.Disp: 30 tabletRfl: CONSULT TO OPHTHALMOLOGY [1948] Order #: [id number]: 1 FUTURE Prescriptions as of 11/10/2023 - aspirin, enteric coated (ASPIRIN, ENTERIC COATED) 81 mg EC tablet Take 1 tablet by mouth once daily. - clopidogrel (PLAVIX) 75 mg tablet Take 1 tablet by mouth once daily. - finasteride (PROSCAR) 5 mg tablet Take 1 tablet by mouth once daily. - atorvastatin (LIPITOR) 40 mg tablet Take 1 tablet by mouth daily at bedtime. For cholesterol. - tamsulosin (FLOMAX) 0.4 mg Take 1 capsule by mouth daily at bedtime. - glipiZIDE (GLUCOTROL XL) 5 mg 24 hr tablet Take 1 tablet by mouth once daily. - mycophenolate mofetil (CELLCEPT) 250 mg capsule 500 mg. - furosemide (LASIX) 40 mg tablet Take 1 tablet by mouth. Take 1 tablet on Friday AND Friday only. - amiodarone (PACERONE) 200 mg tablet Take 200 mg by mouth once daily. Meds Comments as of 11/12/2019: Problem List As Of Date 11/07/2023 Noted Resolved Plantar fascial fibromatosis [M72.2] 07/24/2005 03/08/2015 BPH with obstruction/lower urinary tract sympto*05/13/2006 Simple chronic bronchitis (HCC) [J41.0] 05/07/2007 Anemia, unspecified [D64.9] 02/10/2008 02/21/2017 Controlled type 2 diabetes mellitus without com*02/21/2010 Hyperlipidemia with target LDL less than 100 [E*02/21/2010 Sciatica [M54.30] 02/13/2011 03/08/2015 Embolism involving retinal artery [H34.9] 08/22/2016 10/27/2018 Paroxysmal A-fib (HCC) [I48.0] 06/04/2015 Sinus node dysfunction (HCC) [I49.5] 06/04/2015 10/27/2018 Cardiac pacemaker in situ [Z95.0] 01/12/2018 Thrombocytopenia (HCC) [D69.6] 10/27/2018 Subarachnoid bleed (HCC) [I60.9] 11/15/2019 09/05/2020 Essential hypertension [I10] 11/24/2019 Abdominal aortic aneurysm (AAA) without rupture*06/20/2020 Bladder calculi [N21.0] 06/20/2020 06/06/2021 Bullous pemphigoid [L12.0] 02/08/2022 06/08/2023 Drug rash [L27.0] 02/08/2022 06/08/2023 Stage 3a chronic kidney disease (HCC) [N18.31] 01/10/2023 Pruritic disorder [L29.9] 06/05/2023 Asteototic dermatitis [L30.8] 06/08/2023 Stasis dermatitis [I87.2] more content not included)... Normal [facility] CNOVon 10-28-2023 CNOV Office Visit (INTMWS ) VIOLETA DEAL ([id number]) 1935 M Date Time Provider Department 10/28/23 10:00 AM NAVIN PANIAGUA INTMWS During your visit today, we recorded the following information about you: Weight 88.9 kg Navin Paniagua MD 10/28/2023 10:50 AM Signed This note was created using NoteWriter. Subjective Patient presents with: F/U 3 Month Violeta Deal is a 88 year old male. His blood pressure had stabilized and hypotension resolved. He was not taking hypertension medication now. Echo showed normal EF. He was scheduled to see his trauma registrar next month. He mentioned his neck feeling heavy at times. He had his left hand scratched by his cat 3 days ago. He cleaned scratches immediately and this looked dry. Review of Systems Constitutional: Negative for activity change, appetite change and unexpected weight change. HENT: Negative for congestion and sore throat. Respiratory: Negative for cough and shortness of breath. Cardiovascular: Negative for chest pain, palpitations and leg swelling. Gastrointestinal: Negative for abdominal pain, diarrhea and vomiting. Genitourinary: Negative for difficulty urinating and dysuria. Musculoskeletal: Negative for neck pain and neck stiffness. Neurological: Negative for dizziness, weakness, numbness and headaches. ACTIVE PROBLEM LIST Bph With Obstruction/Lower Urinary Tract Symptoms Simple Chronic Bronchitis ([facility]) Controlled Type 2 Diabetes Mellitus Without Complication, Without Long-Term Current Use of Insulin ([facility]) Hyperlipidemia With Target Ldl Less Than 100 Paroxysmal A-Fib ([facility]) Cardiac Pacemaker in Situ Thrombocytopenia ([facility]) Essential Hypertension Abdominal Aortic Aneurysm (Aaa) Without Rupture ([facility]) Stage 3a Chronic Kidney Disease ([facility]) Pruritic Disorder Asteototic Dermatitis Stasis Dermatitis Dermatitis, Disseminated Superficial Actinic Porokeratosis (Dsap) Abnormal Cbc Current Outpatient Medications Medication Sig finasteride (PROSCAR) 5 mg tablet Take 1 tablet by mouth once daily. atorvastatin (LIPITOR) 40 mg tablet Take 1 tablet by mouth daily at bedtime. For cholesterol. tamsulosin (FLOMAX) 0.4 mg Take 1 capsule by mouth daily at bedtime. glipiZIDE (GLUCOTROL XL) 5 mg 24 hr tablet Take 1 tablet by mouth once daily. mycophenolate mofetil (CELLCEPT) 250 mg capsule 500 mg. furosemide (LASIX) 40 mg tablet Take 1 tablet by mouth. Take 1 tablet on Friday AND Friday only. amiodarone (PACERONE) 200 mg tablet Take 200 mg by mouth once daily. Niacinamide 500 mg tablet Take 500 mg by mouth two times a day with meals. (Patient not taking: Reported on 09/18/2023) No current facility-administered medications for this visit. Objective Blood Pressure (Pended) 104/60 (BP Site: Left Arm, BP Position: Sitting, BP Cuff Size: Large Adult) Pulse (Pended) 64 Temperature (Pended) 36.1 ?C (97 ?F) (Temporal) Weight 88.9 kg (196 lb) Body Mass Index 26.58 kg/m? Physical Exam Constitutional: Appearance: Normal appearance. HENT: Head: Atraumatic. Eyes: Conjunctiva/sclera: Conjunctivae normal. Cardiovascular: Rate and Rhythm: Normal rate and regular rhythm. Heart sounds: No murmur heard. No gallop. Pulmonary: Effort: No respiratory distress. Breath sounds: No wheezing or rales. Abdominal: Palpations: There is no mass. Tenderness: There is no abdominal tenderness. Musculoskeletal: Cervical back: Neck supple. No tenderness. No pain with movement, spinous process tenderness or muscular tenderness. Normal range of motion. Right lower leg: No edema. Left lower leg: No edema. Lymphadenopathy: Cervical: No cervical adenopathy. Skin: Comments: 2 small dried superficial lacertations, left hand. No signs of inflammation. Neurological: General: No focal deficit present. Mental Status: He is alert. Comments: Using a cane. Assessment and Plan 1. Essential hypertension - ICD9: 401.9, ICD10: I10 (primary diagnosis) Diet controlled. Off medications. 2. Controlled type 2 diabetes mellitus without complication, without long-term current use of insulin (HCC) - ICD9: 250.00, ICD10: E11.9 - Controlled - Continue current medications - HGB A1C 3. Abdominal aortic aneurysm (AAA) without rupture, unspecified part (HCC) - ICD9: 441.4, ICD10: I71.40 Recheck. - US ABD AORTA 4. Need for COVID-19 vaccine - ICD9: V04.89, ICD10: Z23 - [employer] COVID-19 VACCINE (2022- SEASON) AGE 12+ YR 5. Cat scratch of left hand, initial encounter - ICD9: 914.0, E906.8, ICD10: S60.512A, W55.03XA Superficial, not infected. Monitor for s/s of infection. 6. Stage 3a chronic kidney disease (HCC) - ICD9: 585.3, ICD10: N18.31 Monitor. - COMP METABOLIC PANEL 7. Thrombocytopenia (HCC) - ICD9: 287.5, ICD10: D69.6 Monitor. - CBC + DIFF Navin Paniagua MD Allergies As of Date: 10/28/2023 Noted (more content not included)... [facility]INTMWS[facility] VIOLETA DEAL ([id number]) 1935 M Date Time Provider Department 10/21/23 NAVIN PANIAGUA INTMWS During your visit today, we recorded the following information about you: Ute Witt Ma 10/21/2023 3:16 PM Signed Pt had Echo competed outside ordered by PCP. Please review records scanned into chart, link below. Ute Witt Ma [facility] - Echo [ID [id number]] Navin Paniagua MD 10/23/2023 5:50 PM Signed Echocardiogram is overall stable. When does he see his director of cardiology service line? Instruct him to review the medication changes we made to help keep his blood pressure up with [facility]. Mya Hernández LPN 10/24/2023 2:52 PM Signed Pt reports he has an apt with his trauma registrar on 12-01-23. He will make sure his trauma registrar is aware of the medications he is taking and the changes that were made. Mya Hernández LPN Allergies As of Date: 10/21/2023 Noted Allergy Reaction ETHER 06/21/2005 TOLECTIN (TOLMETIN SODIUM) 06/21/2005 Date Reviewed: 09/18/2023 Reviewed by: Candis Carreno MA - Fully Assessed Reason for Visit: Results [95] Prescriptions as of 10/24/2023 - finasteride (PROSCAR) 5 mg tablet Take 1 tablet by mouth once daily. - atorvastatin (LIPITOR) 40 mg tablet Take 1 tablet by mouth daily at bedtime. For cholesterol. - tamsulosin (FLOMAX) 0.4 mg Take 1 capsule by mouth daily at bedtime. - glipiZIDE (GLUCOTROL XL) 5 mg 24 hr tablet Take 1 tablet by mouth once daily. - mycophenolate mofetil (CELLCEPT) 250 mg capsule 500 mg. - furosemide (LASIX) 40 mg tablet Take 1 tablet by mouth. Take 1 tablet on Friday AND Friday only. - Niacinamide 500 mg tablet Take 500 mg by mouth two times a day with meals. - amiodarone (PACERONE) 200 mg tablet Take 200 mg by mouth once daily. 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.9] 08/22/2016 10/27/2018 Paroxysmal A-fib (HCC) [I48.0] 06/04/2015 Sinus node dysfunction (HCC) [I49.5] 06/04/2015 10/27/2018 Cardiac pacemaker in situ [Z95.0] 01/12/2018 Thrombocytopenia (HCC) [D69.6] 10/27/2018 Subarachnoid bleed (HCC) [I60.9] 11/15/2019 09/05/2020 Essential hypertension [I10] 11/24/2019 Abdominal aortic aneurysm (AAA) without rupture*06/20/2020 Bladder calculi [N21.0] 06/20/2020 06/06/2021 Bullous pemphigoid [L12.0] 02/08/2022 06/08/2023 Drug rash [L27.0] 02/08/2022 06/08/2023 Stage 3a chronic kidney disease (HCC) [N18.31] 01/10/2023 Pruritic disorder [L29.9] 06/05/2023 Asteototic dermatitis [L30.8] 06/08/2023 Stasis dermatitis [I87.2] 06/08/2023 Dermatitis, disseminated superficial actinic po*06/08/2023 Abnormal CBC [R79.89] 09/08/2023 Medications Discontinued During This Encounter Prescriptions - Pramoxine HCl (SARNA SENSITIVE) 1 % lotn (Discontinued) Reported on 09/18/2023 - triamcinolone (KENALOG) 0.025 % ointment (Discontinued) Reported on 09/18/2023 Encounter Status:Closed by NAVIN PANIAGUA on 10/24/23 Normal [facility] 09-29-2023 CNPN Telephone (INTMWS) VIOLETA DEAL ([id number]) 1935 Date Time Provider Department 09/29/23 NAVIN PANIAGUA INTMWS During your visit today, we recorded the following information about you: Barbara Cardona RN 09/29/2023 10:[address] Hwang, physician at [facility], calling with an update for Dr. Paniagua. Dr. Hwang sees patient routinely at the [facility] and patient has been experiencing a rash that he has been having difficulty determining the cause. Dr. Hwang calling to review current [facility] medication list compared to their [facility] list as well as past medication holidays . Medication discrepancies were noted by Dr. Hwang as well. Dr. Hwang states that he is not sure of cause of pt's rash. He voices concern for the patient to be able to presently comply with care due to current cognitive impairments. Dr. Hwang is sensing a disconnect in patient. Dr. Hwang states that he may call back this week for further information, or for any fax requests. TORY Mayo Victor H, MD 09/29/2023 10:18 PM Signed Noted. Allergies As of Date: 09/29/2023 Noted Allergy Reaction ETHER 06/21/2005 TOLECTIN (TOLMETIN SODIUM) 06/21/2005 Date Reviewed: 09/18/2023 Reviewed by: Candis Carreno MA - Fully Assessed Reason for Visit: [facility] Physician Call to PCP [Other] Prescriptions as of 09/29/2023 - finasteride (PROSCAR) 5 mg tablet Take 1 tablet by mouth once daily. - atorvastatin (LIPITOR) 40 mg tablet Take 1 tablet by mouth daily at bedtime. For cholesterol. - tamsulosin (FLOMAX) 0.4 mg Take 1 capsule by mouth daily at bedtime. - glipiZIDE (GLUCOTROL XL) 5 mg 24 hr tablet Take 1 tablet by mouth once daily. - mycophenolate mofetil (CELLCEPT) 250 mg capsule 500 mg. - furosemide (LASIX) 40 mg tablet Take 1 tablet by mouth. Take 1 tablet on Friday AND Friday only. - Niacinamide 500 mg tablet Take 500 mg by mouth two times a day with meals. - Pramoxine HCl (SARNA SENSITIVE) 1 % lotn Apply 0.25 mL to affected area two times a day. - triamcinolone (KENALOG) 0.025 % ointment Apply to affected area once daily. Dr. Hwang, [facility]. - amiodarone (PACERONE) 200 mg tablet Take 200 mg by mouth once daily. 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] 08/22/2016 10/27/2018 Paroxysmal A-fib (HCC) [I48.0] 06/04/2015 Sinus node dysfunction (HCC) [I49.5] 06/04/2015 10/27/2018 Cardiac pacemaker in situ [Z95.0] 01/12/2018 Thrombocytopenia (HCC) [D69.6] 10/27/2018 Subarachnoid bleed (HCC) [I60.9] 11/15/2019 09/05/2020 Essential hypertension [I10] 11/24/2019 Abdominal aortic aneurysm (AAA) without rupture*06/20/2020 Bladder calculi [N21.0] 06/20/2020 06/06/2021 Bullous pemphigoid [L12.0] 02/08/2022 06/08/2023 Drug rash [L27.0] 02/08/2022 06/08/2023 Stage 3a chronic kidney disease (HCC) [N18.31] 01/10/2023 Pruritic disorder [L29.9] 06/05/2023 Asteototic dermatitis [L30.8] 06/08/2023 Stasis dermatitis [I87.2] 06/08/2023 Dermatitis, disseminated superficial actinic po*06/08/2023 Abnormal CBC [R79.89] 09/08/2023 Encounter Status:Closed by NAVIN PANIAGUA on 09/29/23 [facility] CNOVSPon 09-18-2023 OVS Visit (SP) Office (ABBI) TOYINVIOLETA Pedro ([id number]) 1935 M Date Time Provider Department 09/18/23 10:40 AM OSCAR WEAVER During your visit today, we recorded the following information about you: Temperature Pulse Blood pressure Weight 97.9 degrees 69/minute 118/66 91.9 kg Height 1.829 m Oscar Weaver MD 09/18/2023 3:43 PM Signed HISTORY OF PRESENT ILLNESS: Violeta Deal is a 88 year old male referred for cbc abnormality. Looking at CBC he appears to have platelet clumping. We reviewed this phenomenon, and that it is a purely in vitro issue. CLINICAL IMPRESSION: Platelet clumping, this is of no clinical significance RECOMMENDATION/PLAN: 1. Cbcs can be run in blue top tubes for possibly more accurate platelet counts. Written and verbal health teaching given to patient, patient verbalizes understanding and agrees with treatment plan. 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 Peters[facility] 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 Hyperlipidemia LDL goal < 100 02/21/2010 MGUS (monoclonal gammopathy of unknown significance) Paroxysmal A-fib (HCC) 06/04/2015 Personal history of colonic polyps Simple chronic bronchitis (HCC) 05/07/2007 mild COPD Sinus node dysfunction ([facility]) 06/04/2015 Subarachnoid bleed ([facility]) 11/15/2019 [facility] Transient neurologic deficit 06/04/2015 Type II or unspecified type diabetes mellitus without mention of complication, not stated as uncontrolled 02/21/2010 PAST SURGICAL HISTORY Procedure Laterality Date COLONOSCOPY FLX DX W/COLLJ SPEC WHEN PFRMD 08/2004 Colonoscopy COLONOSCOPY FLX DX W/COLLJ SPEC WHEN PFRMD 02/25/2008 Repeat in CYSTOSCOPY 06/26/2020 EGD TRANSORAL BIOPSY SINGLE/MULTIPLE 02/25/2008 EYELID SURGERY PROCEDURE, UNLISTED Left 2014 LITHOLAPAXY COMP/LG > 2.5 CM 07/21/2020 PACEMAKER 08/2015 PAST SURGICAL HISTORY OF Left 2011 macular hole, left eye PROSTHETIC IMPLANT DEVICE UROLIFT 07/27/2020 Dr. Queen XCAPSL CTRC RMVL INSJ IO LENS PROSTH W/O ECP 2012 Cataract Removal FAMILY HISTORY Problem Relation Age of Onset COPD Mother Heart Father CHF Diabetes Father COPD Sister Obesity Maternal Grandmother Obesity Paternal Grandmother Diabetes Paternal Grandmother Social History Tobacco Use Smoking status: Former Packs/day: 1.00 Years: 50.00 Additional pack years: 0.00 Total pack years: 50.00 Types: Cigarettes Quit date: 12/18/1994 Years since quittin.7 Smokeless tobacco: Never Vaping Use Vaping Use: Never used Substance Use Topics Alcohol use: Yes Alcohol/week: 2.0 standard drinks of alcohol Types: 2 Cans of Beer (12oz) per week Comment: daily Drug use: No ALLERGIES: ALLERGIES Allergen Reactions Ether Tolectin [Tolmetin * CURRENT OUTPATIENT MEDICATIONS: finasteride (PROSCAR) 5 mg tablet Take 1 tablet by mouth once daily. atorvastatin (LIPITOR) 40 mg tablet Take 1 tablet by mouth daily at bedtime. For cholesterol. tamsulosin (FLOMAX) 0.4 mg Take 1 capsule by mouth daily at bedtime. glipiZIDE (GLUCOTROL XL) 5 mg 24 hr tablet Take 1 tablet by mouth once daily. mycophenolate mofetil (CELLCEPT) 250 mg capsule 500 mg. furosemide (LASIX) 40 mg tablet Take 1 tablet by mouth. Take 1 tablet on Friday AND Friday only. amiodarone (PACERONE) 200 mg tablet Take 200 mg by mouth once daily. Niacinamide 500 mg tablet Take 500 mg by mouth two times a day with meals. (Patient not taking: Reported on 09/18/2023) Pramoxine HCl (SARNA SENSITIVE) 1 % lotn Apply 0.25 mL to affected area two times a day. (Patient not taking: Reported on 09/18/2023) triamcinolone (KENALOG) 0.025 % ointment Apply to affected area once daily. Dr. Hwang, [place] [facility]. (Patient not taking: Reported on 09/18/2023) REVIEW OF SYSTEMS: GENERAL: No fever, night sweats, weight loss or malaise. All other reviewed and negative other than HPI. PHYSICAL EXAMINATION: VITAL SIGNS: BP 118/66 Pulse 69 Temp (Src) 97.9 (Temporal) Ht 6' 0 (1.83m) Wt 202 lb 8 oz (91.9kg) SpO2 98% BMI 27.46 kg/(m2). GENERAL APPEARANCE: Well appearing, in no acute distress, alert and oriented x3, well-hydrated, well nourished. I spent a total of 30 minutes on the date of the service which included preparing to see the patient, [id number] patient care, completing clinical documentation, c (more content not included)... Normal [facility] CNPNon 09-10-2023 CNPN Telephone (INTMWS) TOYINVIOLETA Vasquez ([id number]) 1935 M Date Time Provider Department 09/10/23 NAVIN PANIAGUA INTMWS During your visit today, we recorded the following information about you: Bettie Brumfield LPN 09/10/2023 8:58 AM Signed Will you please file an order for the echo at [facility]. This will then send the PSR to enter a referral/precert. [facility] is asking for the recert/auth number. With faxing them an outside order the precert/referral doesn't get completed. Navin Paniagua MD 09/11/2023 8:51 AM Signed ASSESSMENT/PLAN: 1. Idiopathic hypotension - ICD9: 458.9, ICD10: I95.0 - ECHO MD Alyce Walls Janice, LPN 09/15/2023 9:14 AM Signed Precert says no auth needed this was faxed to [facility] by or precert dept. Allergies As of Date: 09/10/2023 Noted Allergy Reaction ETHER 06/21/2005 TOLECTIN (TOLMETIN SODIUM) 06/21/2005 Date Reviewed: 09/09/2023 Reviewed by: Maryellen Melissa, TORY - Fully Assessed Reason for Visit: Orders [681] Primary Visit Diagnosis:Idiopathic hypotension [I95.0] Order(s):ECHO [057724] Order #: [id number]: 1 FUTURE Prescriptions as of 09/15/2023 - finasteride (PROSCAR) 5 mg tablet Take 1 tablet by mouth once daily. - atorvastatin (LIPITOR) 40 mg tablet Take 1 tablet by mouth daily at bedtime. For cholesterol. - tamsulosin (FLOMAX) 0.4 mg Take 1 capsule by mouth daily at bedtime. - glipiZIDE (GLUCOTROL XL) 5 mg 24 hr tablet Take 1 tablet by mouth once daily. - mycophenolate mofetil (CELLCEPT) 250 mg capsule 500 mg. - furosemide (LASIX) 40 mg tablet Take 1 tablet by mouth. Take 1 tablet on Friday AND Friday only. - Niacinamide 500 mg tablet Take 500 mg by mouth two times a day with meals. - Pramoxine HCl (SARNA SENSITIVE) 1 % lotn Apply 0.25 mL to affected area two times a day. - triamcinolone (KENALOG) 0.025 % ointment Apply to affected area once daily. Dr. Hwang, [facility]. - amiodarone (PACERONE) 200 mg tablet Take 200 mg by mouth once daily. 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] 08/22/2016 10/27/2018 Paroxysmal A-fib (HCC) [I48.0] 06/04/2015 Sinus node dysfunction (HCC) [I49.5] 06/04/2015 10/27/2018 Cardiac pacemaker in situ [Z95.0] 01/12/2018 Thrombocytopenia (HCC) [D69.6] 10/27/2018 Subarachnoid bleed (HCC) [I60.9] 11/15/2019 09/05/2020 Essential hypertension [I10] 11/24/2019 Abdominal aortic aneurysm (AAA) without rupture*06/20/2020 Bladder calculi [N21.0] 06/20/2020 06/06/2021 Bullous pemphigoid [L12.0] 02/08/2022 06/08/2023 Drug rash [L27.0] 02/08/2022 06/08/2023 Stage 3a chronic kidney disease (HCC) [N18.31] 01/10/2023 Pruritic disorder [L29.9] 06/05/2023 Asteototic dermatitis [L30.8] 06/08/2023 Stasis dermatitis [I87.2] 06/08/2023 Dermatitis, disseminated superficial actinic po*06/08/2023 Abnormal CBC [R79.89] 09/08/2023 Encounter Status:Closed by BETTIE BRUMFIELD on 09/15/23 Normal [facility] CNOVon 09-09-2023 CNOV Office Visit (PODIWS ) VIOLETA DEAL ([id number]) 1935 Date Time Provider Department 09/09/23 11:30 AM MARYLOU MELGOZA PODTERESA During your visit today, we recorded the following information about you: Maryellen Melissa, TORY 09/09/2023 11:56 AM Signed Patient presents with: Left Foot - Established Patient, Follow Up, Diabetic Foot Care Right Foot - Established Patient, Follow Up, Diabetic Foot Care Patient presents for Diabetic foot /nail care. UMAIR- 04/22/23 Marylou Melgoza 09/09/2023 11:44 AM Signed Diabetes Foot Care Instructions When you have diabetes, proper foot care is very important. Poor foot care may lead to amputation of a foot or leg. As a person with diabetes, you are more vulnerable to foot problems, because diabetes can damage your nerves and reduce blood flow to your feet. Here are some diabetes foot care tips to follow: Wash and Dry Your Feet Daily Use mild soaps Use warm water Pat your skin dry; do not rub. Thoroughly dry your feet. After washing, use lotion on your feet to prevent cracking. Do not put lotion between your toes. Examine Your Feet Each Day Check the tops and bottoms of your feet. Have someone else look at your feet if you cannot see them. Check for dry, cracked skin. Look for blisters, cuts, scratches, or other sores. Check for redness, increased warmth, or tenderness when touching any area of your feet. Check for ingrown toenails, corns, and calluses. If you get a blister or sore from your shoes, do not pop it. Apply a bandage and wear a different pair of shoes. Take Care of Your Toenails Cut toenails after bathing, when they are soft. Cut toenails straight across and smooth with a nail file. Avoid cutting into the corners of toes. Do not cut cuticles. If you have neuropathy (or decreased sensation in your feet) a rate examiner should always cut your toenails. Be Careful When Exercising Walk and exercise in comfortable shoes. Do not exercise when you have open sores on your feet. Protect Your Feet With Shoes and Socks Never go barefoot. Always protect your feet by wearing shoes or hard-soled slippers or footwear. Avoid shoes with high heels and pointed toes. Avoid shoes that expose your toes or heels (such as open-toed shoes or sandals). These types of shoes increase your risk for injury and potential infections. Try on new footwear with the type of socks you usually wear. Do not wear new shoes for more than an hour at a time. Change your socks daily. Look and feel inside your shoes before putting them on to make sure there are no foreign objects or rough areas. Avoid tight socks. Wear natural-fiber socks (cotton, wool, or a cotton-wool blend). Wear special shoes if your health care provider recommends them. Wear shoes/boots that will protect your feet from various weather conditions (cold, moisture, etc.). Make sure your shoes fit properly. If you have neuropathy (nerve damage), you may not notice that your shoes are too tight. Perform the footwear test described below. Footwear Test Use this simple test to see if your shoes fit correctly: Stand on a piece of paper. (Make sure you are standing and not sitting, because your foot changes shape when you stand.) Trace the outline of your foot. Trace the outline of your shoe. Compare the tracings: Is the shoe too narrow? Is your foot crammed into the shoe? The shoe should be at least 1/2 inch longer than your longest toe and as wide as your foot. Proper Shoe Choices The following types of shoes are best for people with diabetes Closed toes and heels Leather uppers without a seam inside At least 1/2 inch extra space at the end of your longest toe Inside of shoe should be soft with no rough areas Outer sole should be made of stiff material Shoes should be at least as wide as your feet Tips for Foot Care in Diabetes Don't wait to treat a minor foot problem if you have diabetes. Follow your health care provider's guidelines and first aid guidelines. Report foot injuries and infections to your health care provider immediately. Check water temperature with your elbow, not your foot. Do not use a heating pad on your feet. Do not cross your legs. Do not self-treat your corns, calluses, or other foot problems. Go to your health care provider or rate examiner to treat these conditions. Marylou Melgoza 09/09/2023 11:56 AM Signed Last saw pcp: 09/04/23 Subjective: Patient presents to clinic c/o painful toenails. They state that the nails are especially painful with shoe gear and pressure. Patient states that nails 1-5 b/l are painful. Patient admits to being diabetic . No other pedal complaints at this time. Patient states no change in medications or medical history since last visit. Objective: Patient presents to clinic ambulating in sneakers Vasc: DP and PT pulses are nonpalpable b (more content not included)... Normal [facility] Noa 09-08-2023 KATERINA Telephone (ABBI) HERCULES,VIOLETA J ([id number]) 1935 M Date Time Provider Department 09/08/23 KHLOE BEEBE During your visit today, we recorded the following information about you: Brielle Jeffries 09/08/2023 2:34 PM Signed Patient is being referred to Hematology. DX: Abnormal CBC Insurance: O Medicare Referred by: Dr. Paniagua Please review and advise. Marisela Block LPN 09/08/2023 3:05 PM Signed Schedule with Dr. Weaver. HOLLAND Melendez Haley 09/10/2023 9:27 AM Signed Patient scheduled for 09/[address] Weaver. Amita Fam Allergies As of Date: 09/08/2023 Noted Allergy Reaction ETHER 06/21/2005 TOLECTIN (TOLMETIN SODIUM) 06/21/2005 Date Reviewed: 09/04/2023 Reviewed by: Bonnie Peres LPN - Fully Assessed Reason for Visit: New Patient [172] Prescriptions as of 09/10/2023 - finasteride (PROSCAR) 5 mg tablet Take 1 tablet by mouth once daily. - atorvastatin (LIPITOR) 40 mg tablet Take 1 tablet by mouth daily at bedtime. For cholesterol. - tamsulosin (FLOMAX) 0.4 mg Take 1 capsule by mouth daily at bedtime. - glipiZIDE (GLUCOTROL XL) 5 mg 24 hr tablet Take 1 tablet by mouth once daily. - mycophenolate mofetil (CELLCEPT) 250 mg capsule 500 mg. - furosemide (LASIX) 40 mg tablet Take 1 tablet by mouth. Take 1 tablet on Friday AND Friday only. - Niacinamide 500 mg tablet Take 500 mg by mouth two times a day with meals. - Pramoxine HCl (SARNA SENSITIVE) 1 % lotn Apply 0.25 mL to affected area two times a day. - triamcinolone (KENALOG) 0.025 % ointment Apply to affected area once daily. Dr. Hwang, [place] [facility]. - amiodarone (PACERONE) 200 mg tablet Take 200 mg by mouth once daily. 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] 08/22/2016 10/27/2018 Paroxysmal A-fib (HCC) [I48.0] 06/04/2015 Sinus node dysfunction (HCC) [I49.5] 06/04/2015 10/27/2018 Cardiac pacemaker in situ [Z95.0] 01/12/2018 Thrombocytopenia (HCC) [D69.6] 10/27/2018 Subarachnoid bleed (HCC) [I60.9] 11/15/2019 09/05/2020 Essential hypertension [I10] 11/24/2019 Abdominal aortic aneurysm (AAA) without rupture*06/20/2020 Bladder calculi [N21.0] 06/20/2020 06/06/2021 Bullous pemphigoid [L12.0] 02/08/2022 06/08/2023 Drug rash [L27.0] 02/08/2022 06/08/2023 Stage 3a chronic kidney disease (HCC) [N18.31] 01/10/2023 Pruritic disorder [L29.9] 06/05/2023 Asteototic dermatitis [L30.8] 06/08/2023 Stasis dermatitis [I87.2] 06/08/2023 Dermatitis, disseminated superficial actinic po*06/08/2023 Abnormal CBC [R79.89] 09/08/2023 Encounter Status:Closed by AMITA PARNELL on 09/10/23 Normal [facility] CBC panel Auto (Bld)on 09-05 Erythrocyte distribution width (RBC) [Ratio] 13.9 % 11.5 - 15.0 % [facility] Hematocrit (Bld) [Volume fraction] 43.1 % 39.0 - 51.0 % [facility] Hemoglobin (Bld) [Mass/Vol] 13.6 g/dL 13.0 - 17.0 g/dL [facility] MCH (RBC) [Entitic mass] 29.4 pg 26.0 - 34.0 pg [facility] MCHC (RBC) [Mass/Vol] 31.6 g/dL 30.5 - 36.0 g/dL [facility] MCV (RBC) [Entitic vol] 93.3 fL 80.0 - 100.0 fL [facility] Nucleated RBC (Bld) [#/Vol] <0.01 k/uL [facility] Platelet mean volume (Bld) [Entitic vol] [facility] Platelets (Bld) [#/Vol] [facility] RBC (Bld) [#/Vol] 4.62 10*6/uL 4.20 - 6.0 0 m/uL [facility] WBC (Bld) [#/Vol] 9.77 10*3/uL 3.70 - 11. 00 k/uL [facility] Comprehensive metabolic 2000 panelon 09-05-2023 Albumin [Mass/Vol] 4.0 g/dL 3.9 - 4.9 g/dL [facility] ALP [Catalytic activity/Vol] 62 U/L 38 - 113 U/L [facility] ALT [Catalytic activity/Vol] 8 U/L Low 10 - 54 U/L [facility] Anion gap [Moles/Vol] 8 mmol/L Low 9 - 18 mmol/L [facility] AST [Catalytic activity/Vol] 15 U/L 14 - 40 U/L [facility] Bilirubin [Mass/Vol] 0.4 mg/dL 0.2 - 1.3 mg/dL [facility] Calcium [Mass/Vol] 9.7 mg/dL 8.5 - 10. 2 mg/dL [facility] Chloride [Moles/Vol] 100 mmol/L 97 - 105 mmol/L [facility] CO2 [Moles/Vol] 28 mmol/L 22 - 30 mmol/L [facility] Creatinine [Mass/Vol] 1.31 mg/dL High 0.73 - 1.22 mg/dL [facility] Estimated Glomerular Filtration Rate 52 mL/min/1.73m Low >=60 mL/min/1.73m [facility] Glucose [Mass/Vol] 152 mg/dL High 74 - 99 mg/dL [facility] Potassium [Moles/Vol] 4.7 mmol/L 3.7 - 5.1 mmol/L [facility] Protein [Mass/Vol] 6.0 g/dL Low 6.3 - 8.0 g/dL [facility] Sodium [Moles/Vol] 136 mmol/L 136 - 144 mmol/L [facility] Urea nitrogen [Mass/Vol] 22 mg/dL 9 - 24 mg/dL [facility] CBC panel Auto (Bld)on 09-04 Erythrocyte distribution width (RBC) [Ratio] 13.9 % Normal 11.5-15.0 [facility] Comment on above: Order Comment: Speci men Type: BLOOD SPECIMENOrdering Facility: [facility] Address: [address] [place] [address] Performed By: #### 5 [id number], ROBERTR ####[facility] [facility] [id number] [place] [address] [place] Hematocrit (Bld) [Volume fraction] 43.1 % Normal 39.0-51.0 [facility] Comment on above: Order Comment: Speci men Type: BLOOD SPECIMENOrdering Facility: [facility] Address: [address] [place] [address] Performed By: #### 5 8410-2, ROBERTR ####[facility] [id number] [place] [address] [place] Hemoglobin (Bld) [Mass/Vol] 13.6 g/dL Normal 13.0-17.0 [facility] Comment on above: Order Comment: Speci men Type: BLOOD SPECIMENOrdering Facility: [facility] Address: [address] [place] [address] Performed By: #### 5 8410-2, WAMMR ####[facility] [id number] [place] [address] [place] MCH (RBC) [Entitic mass] 29.4 pg Normal 26.0-34.0 [facility] Comment on above: Order Comment: Speci men Type: BLOOD SPECIMENOrdering Facility: [facility] Address: [address] [place] [address] Performed By: #### 5 8410-2, WAFESTUSR ####[facility] [id number] [place] [address] [place] MCHC (RBC) [Mass/Vol] 31.6 g/dL Normal 30.5-36.0 [facility] Comment on above: Order Comment: Speci men Type: BLOOD SPECIMENOrdering Facility: [facility] Address: [address] [place] [address] Performed By: #### 5 8410-2, ROBERTR ####[facility] [id number] [place] [address] [place] MCV (RBC) [Entitic vol] 93.3 fL Normal 80.0-100.0 [facility] Comment on above: Order Comment: Speci men Type: BLOOD SPECIMENOrdering Facility: [facility] Address: [address] [place] [address] Performed By: #### 5 8410-2, WAFESTUSR ####[facility] [id number] [place] [address] [place] Nucleated RBC (Bld) [#/Vol] 10*3/uL Normal <0.01 [facility] Comment on above: Order Comment: Speci men Type: BLOOD SPECIMENOrdering Facility: [facility] Address: [address] [place] [address] Performed By: #### 5 8410-2, WAMMR ####[facility] [id number] [place] [address] [place] Platelet mean volume (Bld) [Entitic vol] Normal [facility] Comment on above: Order Comment: Speci men Type: BLOOD SPECIMENOrdering Facility: [facility] Address: [address] [place] [address] Result Comment: Unab le to Report. Performed By: #### 5 8410-2, WAFESTUSR ####[facility] [id number] [place] [address] [place] Platelets (Bld) [#/Vol] Normal [facility] Comment on above: Order Comment: Speci men Type: BLOOD SPECIMENOrdering Facility: [facility] Address: [address] [place] [address] Result Comment: Plat elet count confirmed by manual review of peripheral blood smear. Results checked and verified.No clot detected.Platelets Clumped Estimate Normal. Performed By: #### 5 8410-2, WAMMR ####[facility] [id number] [place] [address] [place] RBC (Bld) [#/Vol] 4.62 10*6/uL Normal 4.20-6.00 [facility] Comment on above: Order Comment: Speci men Type: BLOOD SPECIMENOrdering Facility: [facility] Address: [address] [place] [address] Performed By: #### 5 8410-2, WAMMR ####[id number] [place] [address] [place] WBC (Bld) [#/Vol] 9.77 10*3/uL Normal 3.70-11.00 [facility] Comment on above: Order Comment: Speci men Type: BLOOD SPECIMENOrdering Facility: [facility] Address: [address] [place] [address] Performed By: #### 5 8410-2, WAMMR ####[facility] [id number] [place] [address] [place] CNOVon 09-04-2023 CNOV Office Visit (INTMWS ) VIOLETA DEAL ([id number]) 1935 M Date Time Provider Department 09/04/23 11:40 AM NAVIN PANIAGUA INTMWS During your visit today, we recorded the following information about you: Temperature Pulse Blood pressure Weight 97.7 degrees 81/minute 94/58 90.7 kg Navin Paniagua MD 09/04/2023 2:10 PM Signed This note was created using VeriShow. Subjective Violeta Deal is a 88 year old male. Review of Systems Objective BP 94/58 (BP Site: Left Arm, BP Position: Sitting, BP Cuff Size: Large Adult) Pulse 81 Temp 36.5 ?C (97.7 ?F) (Temporal) Wt 90.7 kg (200 lb) BMI 28.45 kg/m? Physical Exam Assessment and Plan Navin Paniagua MD 09/04/2023 2:10 PM Signed This note was created using VeriShow. Subjective Violeta Deal is a 88 year old male. His blood pressure started running lower about 6 months ago. Few months ago, I had him stop losartan completely. Recently he was concerned about elevating blood pressure, but comparison with his machines show his home readings are 20 points or more higher. He saw his trauma registrar ([facility]) in May but no medication changes were recommended. [facility] Review of Systems Constitutional: Negative for appetite change, diaphoresis, fever and unexpected weight change. HENT: Negative. Respiratory: Negative for cough, shortness of breath and wheezing. Cardiovascular: Negative for chest pain, palpitations and leg swelling. Gastrointestinal: Negative for diarrhea, nausea and vomiting. Genitourinary: Negative for difficulty urinating, dysuria and frequency. Neurological: Negative for dizziness, syncope and headaches. ACTIVE PROBLEM LIST Bph With Obstruction/Lower Urinary Tract Symptoms Simple Chronic Bronchitis (Hcc) Controlled Type 2 Diabetes Mellitus Without Complication, Without Long-Term Current Use of Insulin (Hcc) Hyperlipidemia With Target Ldl Less Than 100 Paroxysmal A-Fib (Hcc) Cardiac Pacemaker in Situ Thrombocytopenia (Hcc) Essential Hypertension Abdominal Aortic Aneurysm (Aaa) Without Rupture (Hcc) Stage 3a Chronic Kidney Disease (Hcc) Pruritic Disorder Asteototic Dermatitis Stasis Dermatitis Dermatitis, Disseminated Superficial Actinic Porokeratosis (Dsap) Current Outpatient Medications Medication Sig atorvastatin (LIPITOR) 40 mg tablet Take 1 tablet by mouth daily at bedtime. For cholesterol. tamsulosin (FLOMAX) 0.4 mg Take 1 capsule by mouth daily at bedtime. glipiZIDE (GLUCOTROL XL) 5 mg 24 hr tablet Take 1 tablet by mouth once daily. mycophenolate mofetil (CELLCEPT) 250 mg capsule 500 mg. furosemide (LASIX) 40 mg tablet Take 1 tablet by mouth. Take 1 tablet on Friday AND Friday only. omeprazole (PRILOSEC) 40 mg capsule Take 1 capsule by mouth once daily. Niacinamide 500 mg tablet Take 500 mg by mouth two times a day with meals. Pramoxine HCl (SARNA SENSITIVE) 1 % lotn Apply 0.25 mL to affected area two times a day. triamcinolone (KENALOG) 0.025 % ointment Apply to affected area once daily. Dr. Hwang, [place] [facility]. amiodarone (PACERONE) 200 mg tablet Take 200 mg by mouth once daily. finasteride (PROSCAR) 5 mg tablet Take 1 tablet by mouth once daily. No current facility-administered medications for this visit. Objective BP 94/58 (BP Site: Left Arm, BP Position: Sitting, BP Cuff Size: Large Adult) Pulse 81 Temp 36.5 ?C (97.7 ?F) (Temporal) Wt 90.7 kg (200 lb) BMI 28.45 kg/m? Physical Exam Constitutional: General: He is not in acute distress. Appearance: He is not ill-appearing or diaphoretic. HENT: Head: Normocephalic. Eyes: Extraocular Movements: Extraocular movements intact. Conjunctiva/sclera: Conjunctivae normal. Cardiovascular: Rate and Rhythm: Normal rate and regular rhythm. Occasional Extrasystoles are present. Heart sounds: No murmur heard. No gallop. Pulmonary: Effort: No respiratory distress. Breath sounds: No wheezing or rales. Abdominal: General: There is no distension. Palpations: Abdomen is soft. Tenderness: There is no abdominal tenderness. Musculoskeletal: Right lower le+ Pitting Edema present. Left lower le+ Pitting Edema present. Neurological: General: No focal deficit present. Mental Status: He is alert. Comments: Using a cane. EKG RESULTS: Paced, prolonged AV conduction, nonspecific T changes. Rate 62. Similar pattern to previous. Assessment and Plan 1. 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 Send order for ECHO at the local hospital to be read by his trauma registrar, Dr. Peters. His cardiology follow up is in November. - ECG COMPLETE - CBC - COMP METABOLIC PANEL 2. 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 - FINASTERIDE 5 (more content not included)... Normal [facility] Comprehensive metabolic 2000 panelon 09-04-2023 Albumin [Mass/Vol] 4.0 g/dL Normal 3.9-4.9 [facility] Comment on above: Order Comment: Speci men Type: BLOOD SPECIMENOrdering Facility: [facility] Address: [address] [place] [address] Performed By: #### 2 4323-8 ####[facility] [id number] [place] [address] [place] ALP [Catalytic activity/Vol] 62 U/L Normal 38-113 [facility] Comment on above: Order Comment: Speci men Type: BLOOD SPECIMENOrdering Facility: [facility] Address: [address] [place] [address] Performed By: #### 2 4323-8 ####[facility]CL[facility] [id number] [place] [address] [place] ALT [Catalytic activity/Vol] 8 U/L Low 10-54 [facility] Comment on above: Order Comment: Speci men Type: BLOOD SPECIMENOrdering Facility: [facility] Address: [address] [place] [address] Performed By: #### 2 4323-8 ####[facility]CLIA [id number] [id number] [address] [place] Anion gap [Moles/Vol] 8 mmol/L Low 9-18 [facility] Comment on above: Order Comment: Speci men Type: BLOOD SPECIMENOrdering Facility: [facility] Address: [address] [place] [address] Performed By: #### 2 4323-8 ####[facility]CL[facility] [id number] [place] [address] [place] AST [Catalytic activity/Vol] 15 U/L Normal 14-40 [facility] Comment on above: Order Comment: Speci men Type: BLOOD SPECIMENOrdering Facility: [facility] Address: [address] [place] [address] Performed By: #### 2 4323-8 ####[facility] [id number] [place] [address] [place] Bilirubin [Mass/Vol] 0.4 mg/dL Normal 0.2-1.3 [facility] Comment on above: Order Comment: Speci men Type: BLOOD SPECIMENOrdering Facility: [facility] Address: [address] [place] [address] Performed By: #### 2 4323-8 ####[facility] [id number] [place] [address] [place] Calcium [Mass/Vol] 9.7 mg/dL Normal 8.5-10.2 [facility] Comment on above: Order Comment: Speci men Type: BLOOD SPECIMENOrdering Facility: [facility] Address: [address] [place] [address] Performed By: #### 2 4323-8 ####[facility] [id number] [place] [address] [place] Chloride [Moles/Vol] 100 mmol/L Normal 97-105 [facility] Comment on above: Order Comment: Speci men Type: BLOOD SPECIMENOrdering Facility: [facility] Address: [address] [place], [place] [address] Performed By: #### 2 4323-8 ####[facility] [id number] [place] [address] [place] CO2 [Moles/Vol] 28 mmol/L Normal 22-30 [facility] Comment on above: Order Comment: Speci men Type: BLOOD SPECIMENOrdering Facility: [facility] Address: [address] [place] [address] Performed By: #### 2 4323-8 ####[facility] [id number] [place] [address] [place] Creatinine [Mass/Vol] 1.31 mg/dL High 0.73-1.22 [facility] Comment on above: Order Comment: Speci men Type: BLOOD SPECIMENOrdering Facility: [facility] Address: [address] [place] [address] Performed By: #### 2 4323-8 ####[facility]CL[facility] [id number] [place] [address] [place] Creatinine and Glomerular filtration rate.predicted panel (S/P/Bld) 52 mL/min/1.73m??? Low >=60 [facility] Comment on above: Order Comment: Speci men Type: BLOOD SPECIMENOrdering Facility: [facility] Address: [address] [place] [address] Result Comment: Jaycee mated Glomerular Filtration Rate (eGFR) is calculated using the 2020 CKD-EPI creatinine equation. This equation utilizes serum creatinine, sex, and age as parameters. The creatinine assay has traceable calibration to isotope dilution-mass spectrometry. Refer to KDIGO guidelines for clinical interpretation. In patients with unstable renal function, e.g. those with acute kidney injury, the eGFR may not accurately reflect actual GFR. Performed By: #### 2 4323-8 ####[facility] [id number] [place] [address] [place] Glucose [Mass/Vol] 152 mg/dL High 74-99 [facility] Comment on above: Order Comment: Speci men Type: BLOOD SPECIMENOrdering Facility: [facility] Address: [address] [place] [address] Result Comment: The [place] Diabetes Association (ADA) provides guidance for cutoff values for fasting glucose and random glucose. The ADA defines fasting as no caloric intake for at least 8 hours. Fasting plasma glucose results between 100 to 125 mg/dL indicate increased risk for diabetes (prediabetes). Fasting plasma glucose results greater than or equal to 126 mg/dL meet the criteria for diagnosis of diabetes. In the absence of unequivocal hyperglycemia, results should be confirmed by repeat testing. In a patient with classic symptoms of hyperglycemia or hyperglycemic crisis, random plasma glucose results greater than or equal to 200 mg/dL meet the criteria for diagnosis of diabetes. Reference: Standards of Medical Care in Diabetes 2016, [place] Diabetes Association. Diabetes Care. 2016.39(Suppl 1). Performed By: #### 2 4323-8 ####[facility] [id number] [place] [address] [place] Potassium [Moles/Vol] 4.7 mmol/L Normal 3.7-5.1 [facility] Comment on above: Order Comment: Speci men Type: BLOOD SPECIMENOrdering Facility: [facility] Address: [address] [place] [address] Performed By: #### 2 4323-8 ####[facility] [id number] [place] [address] [place] Protein [Mass/Vol] 6.0 g/dL Low 6.3-8.0 [facility] Comment on above: Order Comment: Speci men Type: BLOOD SPECIMENOrdering Facility: [facility] Address: [address] [place] [address] Performed By: #### 2 4323-8 ####[facility]CLIA [id number] [facility] [place] [address] [place] Sodium [Moles/Vol] 136 mmol/L Normal 136-144 [facility] Comment on above: Order Comment: Speci men Type: BLOOD SPECIMENOrdering Facility: [facility] Address: [address] [place], [place] [id number] Performed By: #### 2 4323-8 ####[facility] [id number] [place] [id number] [place] Urea nitrogen [Mass/Vol] 22 mg/dL Normal 9-24 [facility] Comment on above: Order Comment: Speci men Type: BLOOD SPECIMENOrdering Facility: [facility] Address: [address] [place] [address] Performed By: #### 2 4323-8 ####[facility] [id number] [place] [id number] [place] [id number] 09-04-2023 ECG01 Ventricular Rate : 6 2 BPM Atrial Rate : 61 BPM P-R Interval : 262 ms QRS Duration : 106 ms Q-T Interval : 432 ms QTC Calculation(Bazett) : 438 ms Calculated R [place] : -18 degrees Calculated T [place] : -31 degrees ATRIAL-PACED RHYTHM WITH PROLONGED AV CONDUCTION NONSPECIFIC T WAVE ABNORMALITY ABNORMAL ECG Confirmed by IVAN MOTA DO ([id number]) on 09/09/2023 4:31:20 PM NAME : VIOLETA DEAL PID : [id number] : 1935 Gender : Male Race : ORD : Procedure Date : Sep 04 2023 12:54:27 Edit Date : Sep 09 2023 16:31:23 Diagnosis: ATRIAL-PACED RHYTHM WITH PROLONGED AV CONDUCTION NONSPECIFIC T WAVE ABNORMALITY ABNORMAL ECG Confirmed by IVAN MOTA DO ([id number]) on 09/09/2023 4:31:20 PM Test Reason : Location : [facility] : [facility] Overread By : IVAN MOTA DO Edited By : IVAN MOTA DO Referred By : NAVIN PANIAGUA Acquired by : Eber GARCIA [facility] HbA1c (Bld)on 09-04-2023 Average glucose Estimated from glycated hemoglobin (Bld) [Mass/Vol] 148 mg/dL Normal [facility] Comment on above: Order Comment: Speci men Type: BLOOD SPECIMENOrdering Facility: [facility] Address: [address] [place] [address] Result Comment: eAG: (Estimated average glucose) is a calculated value from HgbA1c and is technical account representative of the average blood glucose level in the last 2-3 month period. Performed By: #### 5 5454-3 ####[facility]CL[facility] [id number] [place] [address] [place] HbA1c (Bld) [Mass fraction] 6.8 % High 4.3-5.6 [facility] Comment on above: Order Comment: Speci men Type: BLOOD SPECIMENOrdering Facility: [facility] Address: [address] [place] [address] Result Comment: [place] Diabetes Association guidelines indicate that patients with HgbA1c in the range 5.7-6.4% are at increased risk for development of diabetes, and intervention by lifestyle modification may be beneficial. HgbA1c greater or equal to 6.5% is considered diagnostic of diabetes. Performed By: #### 5 5454-3 ####[facility]CL[facility] [id number] [place] [address] [place] MORPH WAM REFLEXon 4 Ovalocytes LM Ql (Bld) Few Normal [facility] Comment on above: Order Comment: [place] men Type: BLOOD SPECIMENOrdering Facility: [facility] Address: [address] [place] [address] Performed By: #### 5 8410-2, WAMMR ####[facility]CL[facility] [id number] [place] [address] [place] Platelets Estimate (Bld) [#/Vol] Adequate Normal [facility] Comment on above: Order Comment: Speci men Type: BLOOD SPECIMENOrdering Facility: [facility] Address: [address] [place] [place] [address] Performed By: #### 5 8410-2, WAMMR ####[facility]CL[facility] [id number] [place] [address] [place] RBC FRAGMENTS Few Abnormal None Seen [facility] Comment on above: Order Comment: Speci men Type: BLOOD SPECIMENOrdering Facility: [facility] Address: [address] [place] [address] Performed By: #### 5 8410-2, LAINA ####[facility]CL[facility] [id number] [place] [address] [place] RED CELL MORPH Reviewed: see result s of individual morphologies Normal [facility] Comment on above: Order Comment: Speci men Type: BLOOD SPECIMENOrdering Facility: [facility] Address: [address] [place] [address] Performed By: #### 5 8410-2, LAINA ####[facility] [id number] [address] OF [facility] VIOLE[facility] DEAL ([id number]) 1935 M Date Time Provider Department 07/29/23 NAVIN PANIAGUA INTCLARK During your visit today, we recorded the following information about you: Bernice Blas MA 07/29/2023 11:53 AM Signed ----- Message from Navin Paniagua MD sent at 07/26/2023 11:18 AM EST ----- Test results are okay. Diabetes controlled. Kidney disease stable. Cholesterol better. Continue current medications. Bernice Blas MA 07/29/2023 1:03 PM Signed Patient notified of results, verbalizes understanding of instructions. Bernice Blas MA Allergies As of Date: 07/29/2023 Noted Allergy Reaction ETHER 06/21/2005 TOLECTIN (TOLMETIN SODIUM) 06/21/2005 Date Reviewed: 07/15/2023 Reviewed by: Ruben Correa APRN.POLICY CANCELLATION CLERK - Fully Assessed Reason for Visit: Results [95] Prescriptions as of 07/29/2023 - tamsulosin (FLOMAX) 0.4 mg Take 1 capsule by mouth daily at bedtime. - glipiZIDE (GLUCOTROL XL) 5 mg 24 hr tablet Take 1 tablet by mouth once daily. - mycophenolate mofetil (CELLCEPT) 250 mg capsule 500 mg. - predniSONE (DELTASONE) 10 mg tablet Take 10 mg by mouth once daily. Taking 3 tablets once daily for 7 days then take two tablets once daily for 7 days - furosemide (LASIX) 40 mg tablet Take 1 tablet by mouth. Take 1 tablet on Friday AND Friday only. - omeprazole (PRILOSEC) 40 mg capsule Take 1 capsule by mouth once daily. - atorvastatin (LIPITOR) 40 mg tablet Take 1 tablet by mouth daily at bedtime. For cholesterol. - Niacinamide 500 mg tablet Take 500 mg by mouth two times a day with meals. - Pramoxine HCl (SARNA SENSITIVE) 1 % lotn Apply 0.25 mL to affected area two times a day. - triamcinolone (KENALOG) 0.025 % ointment Apply to affected area once daily. Dr. Hwang, [place] [facility]. - amiodarone (PACERONE) 200 mg tablet Take 200 mg by mouth once daily. - finasteride (PROSCAR) 5 mg tablet Take 1 tablet by mouth once daily. 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] 08/22/2016 10/27/2018 Paroxysmal A-fib (HCC) [I48.0] 06/04/2015 Sinus node dysfunction (HCC) [I49.5] 06/04/2015 10/27/2018 Cardiac pacemaker in situ [Z95.0] 01/12/2018 Thrombocytopenia (HCC) [D69.6] 10/27/2018 Subarachnoid bleed (HCC) [I60.9] 11/15/2019 09/05/2020 Essential hypertension [I10] 11/24/2019 Abdominal aortic aneurysm (AAA) without rupture*06/20/2020 Bladder calculi [N21.0] 06/20/2020 06/06/2021 Bullous pemphigoid [L12.0] 02/08/2022 06/08/2023 Drug rash [L27.0] 02/08/2022 06/08/2023 Stage 3a chronic kidney disease (HCC) [N18.31] 01/10/2023 Pruritic disorder [L29.9] 06/05/2023 Asteototic dermatitis [L30.8] 06/08/2023 Stasis dermatitis [I87.2] 06/08/2023 Dermatitis, disseminated superficial actinic po*06/08/2023 Encounter Status:Closed by BERNICE BLAS on [facility]29/23 [facility] VIOLETA DEAL ([id number]) 1935 M Date Time Provider Department 07/24/23 [facility] During your visit today, we recorded the following information about you: Enedina Grayson LPN 07/24/2023 12:04 PM Signed Pt is asking if there are any restrictions on the amount of alcohol he can have over the holidays in regards to the medications he takes? States he usually doesn't drink much, occasionally 2 beers but is asking about cocktails now. Please advise. HOLLAND Joya Victor H, MD 07/24/2023 5:23 PM Signed I would not exceed 2 12 oz of beer or 1.5 ounce of hard liquor daily. Alcohol can interact with his diabetes medication. Bernice Blas MA 07/24/2023 7:02 PM Signed Unable to reach patient. Left VM to return call to office. Please read below and advise. NEELAM Schwartz Brittany L, MA 07/29/2023 11:41 AM Signed Patient notified of results, verbalizes understanding of instructions. Patient would like PCP to be made aware urine has been cloudy AND denies any other symptoms. Patient states he has not completed a urinalysis in awhile AND wasn't sure based off the cloudiness if it was necessary. NEELAM Schwartz Victor H, MD 07/29/2023 4:01 PM Signed Monitor only, and increase fluid intake. Call for other symptoms like dysuria, fever, urgency. Alix Kevin Ma 07/29/2023 5:11 PM Signed Patient notified, verbalized understanding,. Allergies As of Date: 07/24/2023 Noted Allergy Reaction ETHER 06/21/2005 TOLECTIN (TOLMETIN SODIUM) 06/21/2005 Date Reviewed: 07/15/2023 Reviewed by: Ruben Correa APRN.POLICY CANCELLATION CLERK - Fully Assessed Reason for Visit: Patient Question [4977] Prescriptions as of 07/29/2023 - tamsulosin (FLOMAX) 0.4 mg Take 1 capsule by mouth daily at bedtime. - glipiZIDE (GLUCOTROL XL) 5 mg 24 hr tablet Take 1 tablet by mouth once daily. - mycophenolate mofetil (CELLCEPT) 250 mg capsule 500 mg. - predniSONE (DELTASONE) 10 mg tablet Take 10 mg by mouth once daily. Taking 3 tablets once daily for 7 days then take two tablets once daily for 7 days - furosemide (LASIX) 40 mg tablet Take 1 tablet by mouth. Take 1 tablet on Friday AND Friday only. - omeprazole (PRILOSEC) 40 mg capsule Take 1 capsule by mouth once daily. - atorvastatin (LIPITOR) 40 mg tablet Take 1 tablet by mouth daily at bedtime. For cholesterol. - Niacinamide 500 mg tablet Take 500 mg by mouth two times a day with meals. - Pramoxine HCl (SARNA SENSITIVE) 1 % lotn Apply 0.25 mL to affected area two times a day. - triamcinolone (KENALOG) 0.025 % ointment Apply to affected area once daily. Dr. Hwang, [facility]. - amiodarone (PACERONE) 200 mg tablet Take 200 mg by mouth once daily. - finasteride (PROSCAR) 5 mg tablet Take 1 tablet by mouth once daily. 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] 08/22/2016 10/27/2018 Paroxysmal A-fib (HCC) [I48.0] 06/04/2015 Sinus node dysfunction (HCC) [I49.5] 06/04/2015 10/27/2018 Cardiac pacemaker in situ [Z95.0] 01/12/2018 Thrombocytopenia (HCC) [D69.6] 10/27/2018 Subarachnoid bleed (HCC) [I60.9] 11/15/2019 09/05/2020 Essential hypertension [I10] 11/24/2019 Abdominal aortic aneurysm (AAA) without rupture*06/20/2020 Bladder calculi [N21.0] 06/20/2020 06/06/2021 Bullous pemphigoid [L12.0] 02/08/2022 06/08/2023 Drug rash [L27.0] 02/08/2022 06/08/2023 Stage 3a chronic kidney disease (HCC) [N18.31] 01/10/2023 Pruritic disorder [L29.9] 06/05/2023 Asteototic dermatitis [L30.8] 06/08/2023 Stasis dermatitis [I87.2] 06/08/2023 Dermatitis, disseminated superficial actinic po*06/08/2023 Encounter Status:Closed by ALIX KEVIN MA on 07/29/23 Normal [facility] Comprehensive metabolic 2000 panelon 07-18-2023 Albumin [Mass/Vol] 3.8 g/dL Low 3.9-4.9 [facility] Comment on above: Order Comment: Speci men Type: BLOOD SPECIMENOrdering Facility: [facility] Address: [address] [place] [address] Performed By: #### 2 4331-1, ####[facility] LABCLIA [id number] [place] [address] [place] ALP [Catalytic activity/Vol] 52 U/L Normal 38-113 [facility] Comment on above: Order Comment: Speci men Type: BLOOD SPECIMENOrdering Facility: [facility] Address: [address] [place] [address] Performed By: #### 2 4331-1, ####[facility] LABCLIA [id number] [place] [address] [place] ALT [Catalytic activity/Vol] 10 U/L Normal 10-54 [facility] Comment on above: Order Comment: Speci men Type: BLOOD SPECIMENOrdering Facility: [facility] Address: [address] [place] [address] Performed By: #### 2 4331-1, ####[facility] LABCLIA [id number] [place] [address] [place] Anion gap [Moles/Vol] 7 mmol/L Low 9-18 [facility] Comment on above: Order Comment: Speci men Type: BLOOD SPECIMENOrdering Facility: [facility] Address: [address] [place] [address] Performed By: #### 2 4331-1, ####[facility] LABCLIA [id number] [place] [address] [place] AST [Catalytic activity/Vol] 17 U/L Normal 14-40 [facility] Comment on above: Order Comment: Speci men Type: BLOOD SPECIMENOrdering Facility: [facility] Address: [address] [place] [address] Performed By: #### 2 433-, ####[facility] LABCLIA [id number] [place] [address] [place] Bilirubin [Mass/Vol] 0.6 mg/dL Normal 0.2-1.3 [facility] Comment on above: Order Comment: Speci men Type: BLOOD SPECIMENOrdering Facility: [facility] Address: [address] [place] [address] Performed By: #### 2 43308-04, ####[facility] LABCLIA [id number] [place] [address] [place] Calcium [Mass/Vol] 9.5 mg/dL Normal 8.5-10.2 [facility] Comment on above: Order Comment: Speci men Type: BLOOD SPECIMENOrdering Facility: [facility] Address: [address] [place] [address] Performed By: #### 2 43308-04, ####[facility] LABCLIA [id number] [place] [id number] [place] Chloride [Moles/Vol] 102 mmol/L Normal 97-105 [facility] Comment on above: Order Comment: Speci men Type: BLOOD SPECIMENOrdering Facility: [facility] Address: [address] [place] [address] Performed By: #### 2 4331-1, ####[facility] LABCLIA [id number] [place] [address] [place] CO2 [Moles/Vol] 29 mmol/L Normal 22-30 [facility] Comment on above: Order Comment: Speci men Type: BLOOD SPECIMENOrdering Facility: [facility] Address: [address] [place] [address] Performed By: #### 2 4331-1, ####[facility] LABCLIA [id number] [place] [address] [place] Creatinine [Mass/Vol] 1.30 mg/dL High 0.73-1.22 [facility] Comment on above: Order Comment: Speci men Type: BLOOD SPECIMENOrdering Facility: [facility] Address: [address] [place] [address] Performed By: #### 2 4331-, ####[facility] LABIA [id number] [address] STATES OF [facility] Creatinine and Glomerular filtration rate.predicted panel (S/P/Bld) 53 mL/min/1.73m??? Low >=60 [facility] Comment on above: Order Comment: Speci men Type: BLOOD SPECIMENOrdering Facility: [facility] Address: [address] [place] [address] Result Comment: Jaycee mated Glomerular Filtration Rate (eGFR) is calculated using the 2020 CKD-EPI creatinine equation. This equation utilizes serum creatinine, sex, and age as parameters. The creatinine assay has traceable calibration to isotope dilution-mass spectrometry. Refer to KDIGO guidelines for clinical interpretation. In patients with unstable renal function, e.g. those with acute kidney injury, the eGFR may not accurately reflect actual GFR. Performed By: #### 2 4331-1, ####[facility] LABCLIA [id number] [place] [address] [place] Glucose [Mass/Vol] 133 mg/dL High 74-99 [facility] Comment on above: Order Comment: Speci men Type: BLOOD SPECIMENOrdering Facility: [facility] Address: [address] [place] [address] Result Comment: The [place] Diabetes Association (ADA) provides guidance for cutoff values for fasting glucose and random glucose. The ADA defines fasting as no caloric intake for at least 8 hours. Fasting plasma glucose results between 100 to 125 mg/dL indicate increased risk for diabetes (prediabetes). Fasting plasma glucose results greater than or equal to 126 mg/dL meet the criteria for diagnosis of diabetes. In the absence of unequivocal hyperglycemia, results should be confirmed by repeat testing. In a patient with classic symptoms of hyperglycemia or hyperglycemic crisis, random plasma glucose results greater than or equal to 200 mg/dL meet the criteria for diagnosis of diabetes. Reference: Standards of Medical Care in Diabetes 2016, [place] Diabetes Association. Diabetes Care. 2016.39(Suppl 1). Performed By: #### 2 4331-, 62735-3 ####[facility] LABCLIA [id number] [place] [address] [place] Potassium [Moles/Vol] 4.6 mmol/L Normal 3.7-5.1 [facility] Comment on above: Order Comment: Speci men Type: BLOOD SPECIMENOrdering Facility: [facility] Address: [address] [place] [address] Performed By: #### 2 4331-, ####[facility] LABIA [id number] [place] [address] [place] Protein [Mass/Vol] 6.0 g/dL Low 6.3-8.0 [facility] Comment on above: Order Comment: Speci men Type: BLOOD SPECIMENOrdering Facility: [facility] Address: [address] [place] [address] Performed By: #### 2 4331-, ####[facility] LABIA [id number] [place] [address] [place] Sodium [Moles/Vol] 138 mmol/L Normal 136-144 [facility] Comment on above: Order Comment: Speci men Type: BLOOD SPECIMENOrdering Facility: [facility] Address: [address] [place] [address] Performed By: #### 2 4331-1, 16704-1 ####[facility] LABCLIA [id number] [place] [address] [place] Urea nitrogen [Mass/Vol] 27 mg/dL High 9-24 [facility] Comment on above: Order Comment: Speci men Type: BLOOD SPECIMENOrdering Facility: [facility] Address: [address] [place] [address] Performed By: #### 2 4331-1, 63279-1 ####[facility] LABCLIA [id number] [place] [address] [place] HbA1c (Bld)on 07-18-2023 Average glucose Estimated from glycated hemoglobin (Bld) [Mass/Vol] 160 mg/dL Normal [facility] Comment on above: Order Comment: [facility] Type: BLOOD SPECIMENOrdering Facility: [facility] Address: [address] [place] [address] Result Comment: eAG: (Estimated average glucose) is a calculated value from HgbA1c and is technical account representative of the average blood glucose level in the last 2-3 month period. Performed By: #### 5 5454-3 ####[facility] LABCLIA [id number] [place] [address] [place] HbA1c (Bld) [Mass fraction] 7.2 % High 4.3-5.6 [facility] Comment on above: Order Comment: Speci men Type: BLOOD SPECIMENOrdering Facility: [facility] Address: [address] [place] [address] Result Comment: [place] Diabetes Association guidelines indicate that patients with HgbA1c in the range 5.7-6.4% are at increased risk for development of diabetes, and intervention by lifestyle modification may be beneficial. HgbA1c greater or equal to 6.5% is considered diagnostic of diabetes. Performed By: #### 5 5454-3 ####[facility] LABCLIA [id number] [place] [id number] [place] Lipid 1996 panelon 3 Cholesterol [Mass/Vol] 181 mg/dL Normal <200 [facility] Comment on above: Order Comment: Speci men Type: BLOOD SPECIMENOrdering Facility: [facility] Address: [address] [place] [address] Result Comment: <200 mg/dL, Desirable 200-239 mg/dL, Borderline high >239 mg/dL, High Performed By: #### 2 4331-1, 44109-0 ####[facility] LABCLIA [id number] [address] STATES [facility] Cholesterol in HDL [Mass/Vol] 66 mg/dL Normal >39 [facility] Comment on above: Order Comment: Harrisi men Type: BLOOD SPECIMENOrdering Facility: [facility] Address: [address] [place] [address] Result Comment: 40-5 9 mg/dL, Acceptable >59 mg/dL, High: Negative risk factor for coronary heart disease <40 mg/dL, Low: Positive risk factor for coronary heart disease Performed By: #### 2 4331-1, ####[facility] LABCLIA [id number] [address] Cholesterol in LDL [Mass/Vol] 105 mg/dL High <100 [facility] Comment on above: Order Comment: Speci men Type: BLOOD SPECIMENOrdering Facility: [facility] Address: [address] [place] [address] Result Comment: <100 mg/dL, Optimal 100-129 mg/dL, Near optimal/above optimal 130-159 mg/dL, Borderline high 160-189 mg/dL, High >189 mg/dL, Very high Secondary prevention optimal LDL Cholesterol levels are recommended to be < 70 mg/dL Performed By: #### 2 4331-1, 45340-8 ####[facility] LABCLIA [id number] [address] [place] Cholesterol in LDL/Cholesterol in HDL [Mass ratio] 1.59 {ratio} Normal <2.54 [facility] Comment on above: Order Comment: Speci men Type: BLOOD SPECIMENOrdering Facility: [facility] Address: [address] [place] [address] Result Comment: Hafsa cline: 1. National Cholesterol Education Program ATP III Guideline At-A-Glance Quick Desk Reference: National Heart, Lung, and Blood [place]. National Institutes of Health. 2001: NIH Publication No. 01-3305. 2. An International Atherosclerosis Society position paper: global recommendations for the management of dyslipidemia: executive summary, Atherosclerosis. 2014: 232(2):410-413. Performed By: #### 2 4331-1, ####[facility] LABCLIA [id number] [place] [address] [place] Cholesterol in VLDL [Mass/Vol] 10 mg/dL Normal <30 [facility] Comment on above: Order Comment: Harriskate carmen Type: BLOOD SPECIMENOrdering Facility: [facility] Address: [address] [place] [address] Performed By: #### 2 433-, ####[facility] LABCLIA [id number] [place] [address] [place] Cholesterol non HDL [Mass/Vol] 115 mg/dL Normal <130 [facility] Comment on above: Order Comment: Morro nella Type: BLOOD SPECIMENOrdering Facility: [facility] Address: [address] [place] [address] Result Comment: <130 mg/dL, Optimal 130-159 mg/dL, Near optimal/above optimal 160-189 mg/dL, Borderline high 190-219 mg/dL, High >219 mg/dL, Very high Secondary prevention optimal non HDL Cholesterol levels are recommended to be <100 mg/dL Performed By: #### 2 4331-1, 72576-4 ####[facility] LABCLIA [id number] [place] [address] [place] Cholesterol.total/C holesterol in HDL [Mass ratio] 2.74 {ratio} Normal <5.10 [facility] Comment on above: Order Comment: Speci men Type: BLOOD SPECIMENOrdering Facility: [facility] Address: [address] [place] [address] Performed By: #### 2 4331-1, ####[facility] LABCLIA [id number] [place] [address] [place] FASTING TIME 12 hrs Normal [facility] Comment on above: Order Comment: Speci men Type: BLOOD SPECIMENOrdering Facility: [facility] Address: [address] [place] [address] Performed By: #### 2 4331-1, ####[facility] LABCLIA [id number] [place] [address] [place] Triglyceride [Mass/Vol] 51 mg/dL Normal <150 [facility] Comment on above: Order Comment: Speci men Type: BLOOD SPECIMENOrdering Facility: [facility] Address: [address] [place] [address] Result Comment: <150 mg/dL, Normal 150-199 mg/dL, Borderline high 200-499 mg/dL, High >499 mg/dL, Very high Performed By: #### 2 4331-1, ####[facility] LABCLIA [id number] [place] [address] [place] CNOVon 07-15-2023 CNOV Office Visit (INTMWS ) VIOLETA DEAL ([id number]) 1935 M Date Time Provider Department 07/15/23 10:00 AM RUBEN CORREA INTMWS During your visit today, we recorded the following information about you: Pulse Respiration Blood pressure Weight 69/minute 16/minute 120/66 89.8 kg Ruben Correa APRN.POLICY CANCELLATION CLERK 07/15/2023 12:17 PM Signed Violeta Deal is a 88 year old male here for a Medicare wellness visit. Medicare Health Risk Assessment He notes he is in his usual state of health. He is active daily but no formal exercise. No reported alcohol use. He walks with a cane. No falls reported since last year no reported concerns regarding teaser sexual function. Reports trying to eat a healthy diet. Notes feeling a bit depressed at times but not interested in counseling or medication at this time. No smoking is reported. Mildly hard of hearing. No tobacco use. No safety concerns in his home. General Health Exercise: Minutes/Day Exercise: Days/Week Alcohol: Daily Use Alcohol: Drinks/Day Alcohol: 6 or more drinks Feel off balance Concerns: Teeth/Dentures Concerns: Sexual function Troubled by feelings Frequency: Eating healthy diet ADLs requiring help Safety precautions in home/vehicle Smoke, vape, chews tobacco Difficulty hearing Difficulty seeing Current Providers Specialists: I have reviewed specialist-related care of the patient in the medical record. [facility]. He sees [facility] specialist, interested in getting prescriptions ordered by this provider sent to his preferred pharmacy. He sees rate examiner Dr Melgoza Medical/Family history review Reviewed and updated problem list, medical/surgical/fami ly/social history, medications, and allergies. Opioid use review Opioid Medications (last 90 days) Some values may be hidden. Unless noted otherwise, only the newest values recorded on each date are displayed. Opioid Medications No data to display. Depression screening Depression Screening PHQ-2 Score 07/15/2023 2 Depression screening tool completed and reviewed. Based on score and interview, patient is at risk for depression. Screening tool discussed with patient, and I recommended antidepressant and counseling if he would like but he defers for now. He will consider it. Cognitive screening Mini Cog Score: 4 Cognitive screening reviewed and no further action needed (score 3-5) Functional Observation Was the patient's timed Up AND Go test unsteady or ? 12 seconds? Yes Advance Care Planning Surrogate decision maker and/or advance care plan documented Measurements BP 120/66 Pulse 69 Resp 16 Wt 198 lb (89.8kg) Additional screenings: Vision Screening Right eye - Without correction: 20/25 With correction: Left eye - Without correction: 20/100 With correction: Both eyes - Without correction: 20/25 With correction: Assessment/Plan Medicare annual wellness visit, subsequent (Z00.00) - Endorse healthy diet and regular exercise - Fall avoidance information provided - Personalized prevention plan provided Advised: [facility] to [facility] your [facility] to your preferred pharmacy when you see them. Let us know if any problem with this. Consider treatment of depression Ruben Correa APRN.Ruben Walker APRN.CNS 07/15/2023 10:37 AM Addendum Ask your [facility] doctor to send your prescriptions to your preferred pharmacy when you see them. Let us know if any problem with this. Consider treatment of depression Screening schedule The following prevention plan is recommended: RSV Vaccine(1 - 1-dose 60+ series) Never done Advance Directive Discussion due on 08/04/2022 Depression Assessment due on 08/04/2022 Covid-19 Vaccine(2022- season) due on 04/04/2023 LDL Cholesterol due on 04/11/2023 Diabetic Foot Exam due on 05/29/2023 Dilated Retinal Exam due on 06/06/2023 HbA1C due on 07/12/2023 WHAT YOU CAN DO TO PREVENT FALLS Many falls can be prevented. By making some changes, you can lower your chances of falling. Four things YOU can do to prevent falls for you* and your caregiver 1. Begin a regular exercise program Exercise is one of the most important ways to lower your chances of falling. It makes you stronger and helps you feel better. Exercises that improve balance and coordination (like Lito Chi) are the most helpful. Lack of exercise leads to weakness and increases your chances of falling. Ask your doctor or health care provider about the best type of exercise program for you. 2. Have your health care provider review your medicines Have your doctor or pharmacist review all the medicines you take, even [id number] medicines. As you get older, the way medicines work in your body can change. Some medicines, or combinations of medicines, can make you sleepy or dizzy and can cause you to fall. 3. Have (more content not included)... Normal [facility] Noa 06-30-2023 KATERINA Telephone (FAMPWS) VIOLETA DEAL ([id number]) 1935 M Date Time Provider Department 06/30/23 SEEMA STANFORD During your visit today, we recorded the following information about you: Maria Teresa Palmer LPN 06/30/2023 8:29 AM Signed Pt calls to report he is on prednisone that was prescribed by [facility] support services rep for rash. Pt reports either he did not get enough tabs or he miscalculated his dose but he is a couple tabs short. Pt reports [facility] to see if it will matter if he does not take the last two doses of prednisone 10 mg. Pt is asking if he does need it if pcp will prescribe a couple of tabs and send it to [facility] because [facility] meds come through [facility] and would not make it here in time. Pt will call back and let office know what he hears from the [facility]. Seema Poe LPN, APRN.CECI 06/30/2023 9:21 AM Signed I can refill if needed Seema Stanford APRN.Bonnie Alaniz LPN 06/30/2023 11:02 AM Signed TC to Vu, he is waiting for the [facility] to return his call and would like to get the medication from [facility]. Bonnie Peres LPN Allergies As of Date: 06/30/2023 Noted Allergy Reaction ETHER 06/21/2005 TOLECTIN (TOLMETIN SODIUM) 06/21/2005 Date Reviewed: 06/19/2023 Reviewed by: Seema Stanford APRN.PREPARATION SUPERVISOR FREEZING - Fully Assessed Reason for Visit: Medication Problem [65] Prescriptions as of 06/30/2023 - mycophenolate mofetil (CELLCEPT) 250 mg capsule 500 mg. - predniSONE (DELTASONE) 10 mg tablet Take 10 mg by mouth once daily. Taking 3 tablets once daily for 7 days then take two tablets once daily for 7 days - furosemide (LASIX) 40 mg tablet Take 1 tablet by mouth. Take 1 tablet on Friday AND Friday only. - omeprazole (PRILOSEC) 40 mg capsule Take 1 capsule by mouth once daily. - atorvastatin (LIPITOR) 40 mg tablet Take 1 tablet by mouth daily at bedtime. For cholesterol. - Niacinamide 500 mg tablet Take 500 mg by mouth two times a day with meals. - Pramoxine HCl (SARNA SENSITIVE) 1 % lotn Apply 0.25 mL to affected area two times a day. - triamcinolone (KENALOG) 0.025 % ointment Apply to affected area once daily. Dr. Hwang, [facility]. - amiodarone (PACERONE) 200 mg tablet Take 200 mg by mouth once daily. - tamsulosin (FLOMAX) 0.4 mg Take 1 capsule by mouth daily at bedtime. - finasteride (PROSCAR) 5 mg tablet Take 1 tablet by mouth once daily. - glipiZIDE (GLUCOTROL XL) 5 mg 24 hr tablet Take 1 tablet by mouth once daily. 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 Simple chronic bronchitis (HCC) [J41.0] 05/07/2007 Anemia, unspecified [D64.9] 02/10/2008 02/21/2017 Controlled type 2 diabetes mellitus without com*02/21/2010 Hyperlipidemia with target LDL less than 100 [E*02/21/2010 Sciatica [M54.30] 02/13/2011 03/08/2015 Embolism involving retinal artery [H34.9] 08/22/2016 10/27/2018 Paroxysmal A-fib (HCC) [I48.0] 06/04/2015 Sinus node dysfunction (HCC) [I49.5] 06/04/2015 10/27/2018 Cardiac pacemaker in situ [Z95.0] 01/12/2018 Thrombocytopenia (HCC) [D69.6] 10/27/2018 Subarachnoid bleed (HCC) [I60.9] 11/15/2019 09/05/2020 Essential hypertension [I10] 11/24/2019 Abdominal aortic aneurysm (AAA) without rupture*06/20/2020 Bladder calculi [N21.0] 06/20/2020 06/06/2021 Bullous pemphigoid [L12.0] 02/08/2022 06/08/2023 Drug rash [L27.0] 02/08/2022 06/08/2023 Stage 3a chronic kidney disease (HCC) [N18.31] 01/10/2023 Pruritic disorder [L29.9] 06/05/2023 Asteototic dermatitis [L30.8] 06/08/2023 Stasis dermatitis [I87.2] 06/08/2023 Dermatitis, disseminated superficial actinic po*06/08/2023 Encounter Status:Closed by BONNIE PERES LPN on 06/30/23 [facility] [place] 06-20-2023 CNPN Telephone (INTMWS) VIOLETA DEAL ([id number]) 1935 M Date Time Provider Department 06/20/23 NAVIN PANIAGUA INTIsmaelWS During your visit today, we recorded the following information about you: Barbara Cardona RN 06/20/2023 8:32 AM Signed Patient updated of message below. Result Notes Seema Stanford APRN.CNP 06/20/2023 6:53 AM EST Please let the patient know he was negative for COVID, influenza and RSV. Follow-up in one week if throat symptoms don't improve or sooner for any worsening symptoms MIREYA Nieto RN Allergies As of Date: 06/20/2023 Noted Allergy Reaction ETHER 06/21/2005 TOLECTIN (TOLMETIN SODIUM) 06/21/2005 Date Reviewed: 06/19/2023 Reviewed by: Seema Stanford APRN.CNP - Fully Assessed Prescriptions as of 06/20/2023 - mycophenolate mofetil (CELLCEPT) 250 mg capsule 500 mg. - predniSONE (DELTASONE) 10 mg tablet Take 10 mg by mouth once daily. Taking 3 tablets once daily for 7 days then take two tablets once daily for 7 days - furosemide (LASIX) 40 mg tablet Take 1 tablet by mouth. Take 1 tablet on Friday AND Friday only. - omeprazole (PRILOSEC) 40 mg capsule Take 1 capsule by mouth once daily. - atorvastatin (LIPITOR) 40 mg tablet Take 1 tablet by mouth daily at bedtime. For cholesterol. - Niacinamide 500 mg tablet Take 500 mg by mouth two times a day with meals. - Pramoxine HCl (SARNA SENSITIVE) 1 % lotn Apply 0.25 mL to affected area two times a day. - triamcinolone (KENALOG) 0.025 % ointment Apply to affected area once daily. Dr. Hwang, [place] [facility]. - amiodarone (PACERONE) 200 mg tablet Take 200 mg by mouth once daily. - tamsulosin (FLOMAX) 0.4 mg Take 1 capsule by mouth daily at bedtime. - finasteride (PROSCAR) 5 mg tablet Take 1 tablet by mouth once daily. - glipiZIDE (GLUCOTROL XL) 5 mg 24 hr tablet Take 1 tablet by mouth once daily. 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 Simple chronic bronchitis (HCC) [J41.0] 05/07/2007 Anemia, unspecified [D64.9] 02/10/2008 02/21/2017 Controlled type 2 diabetes mellitus without com*02/21/2010 Hyperlipidemia with target LDL less than 100 [E*02/21/2010 Sciatica [M54.30] 02/13/2011 03/08/2015 Embolism involving retinal artery [H34.9] 08/22/2016 10/27/2018 Paroxysmal A-fib (HCC) [I48.0] 06/04/2015 Sinus node dysfunction (HCC) [I49.5] 06/04/2015 10/27/2018 Cardiac pacemaker in situ [Z95.0] 01/12/2018 Thrombocytopenia (HCC) [D69.6] 10/27/2018 Subarachnoid bleed (HCC) [I60.9] 11/15/2019 09/05/2020 Essential hypertension [I10] 11/24/2019 Abdominal aortic aneurysm (AAA) without rupture*06/20/2020 Bladder calculi [N21.0] 06/20/2020 06/06/2021 Bullous pemphigoid [L12.0] 02/08/2022 06/08/2023 Drug rash [L27.0] 02/08/2022 06/08/2023 Stage 3a chronic kidney disease (HCC) [N18.31] 01/10/2023 Pruritic disorder [L29.9] 06/05/2023 Asteototic dermatitis [L30.8] 06/08/2023 Stasis dermatitis [I87.2] 06/08/2023 Dermatitis, disseminated superficial actinic po*06/08/2023 Encounter Status:Closed by BARBARA CARDONA on 06/20/23 [facility] CNOVon 06-19-2023 CNOV Office Visit (INTMWS ) VIOLETA DEAL ([id number]) 1935 M Date Time Provider Department 06/19/23 10:40 AM SEEMA STANFORD INTMWS During your visit today, we recorded the following information about you: Temperature Pulse Respiration Blood pressure 97.1 degrees 65/minute 18/minute 104/53 Weight 93 kg Seema Stanford APRN.CNP 06/19/2023 11:50 AM Signed CC: Patient presents with: Recheck: Blood pressure HPI Violeta Deal is a 88 year old male who presents today for above. His visit today is for follow-up. Patient was last seen for this approximately 2 weeks ago. Medication changes: Yes BP was low, Losartan discontinued. He is not currently on any medications now for hypertension Home BP's: Yes 130/60's Denies: dizziness, lightheadedness, palpitations, feeling faint, syncope Last 4 Encounter BP Readings: Date: BP: 06/19/2023 104/53 06/05/2023 86/42 05/22/2023 130/70 05/20/2023 114/62 Last 3 Encounter Wt Readings: Date: Wt: 06/19/2023 93 kg (205 lb) 06/05/2023 93 kg (205 lb) 05/22/2023 94.3 kg (208 lb) Patient's daughter called in this morning with concerns. Reports she spoke with him this morning and his voiced sounded hoarse and that patient stated he can't even clear it with water. He was also speaking in short, choppy sentences like he was SOB. She is concerned that symptoms may be due to CHF. Patient reports hoarse voice, post nasal drainage and sore throat started three days ago. Mucus is thick and hard to swallow but he denies difficulty swallowing liquids/solids and does not choke or cough. He has a slight cough that is productive with clear sputum. He has chronic SOB with exertion, no worse than usual. Edema is actually improving with Lasix twice a week prescribed by his trauma registrar. He has a history of CHF and COPD. Denies weight gain, PND, orthopnea, fever, chills, nasal congestion, rhinorrhea, wheezing. No sick contacts that he is aware of. Started taking Robitussin cough syrup this morning. Review of Systems Constitutional: Negative for appetite change and fatigue. 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 Peters[facility] 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 Hyperlipidemia LDL goal < 100 02/21/2010 MGUS (monoclonal gammopathy of unknown significance) Paroxysmal A-fib (HCC) 06/04/2015 Personal history of colonic polyps Simple chronic bronchitis (HCC) 05/07/2007 mild COPD Sinus node dysfunction (HCC) 06/04/2015 Subarachnoid bleed (HCC) 11/15/2019 [facility] Transient neurologic deficit 06/04/2015 Type II or unspecified type diabetes mellitus without mention of complication, not stated as uncontrolled 02/21/2010 PAST SURGICAL HISTORY Procedure Laterality Date COLONOSCOPY FLX DX W/COLLJ SPEC WHEN PFRMD 08/2004 Colonoscopy COLONOSCOPY FLX DX W/COLLJ SPEC WHEN PFRMD 02/25/2008 Repeat in CYSTOSCOPY 06/26/2020 EGD TRANSORAL BIOPSY SINGLE/MULTIPLE 02/25/2008 EYELID SURGERY PROCEDURE, UNLISTED Left 2014 LITHOLAPAXY COMP/LG > 2.5 CM 07/21/2020 PACEMAKER 08/2015 PAST SURGICAL HISTORY OF Left 2011 macular hole, left eye PROSTHETIC IMPLANT DEVICE UROLIFT 07/27/2020 Dr. Queen XCAPSL CTRC RMVL INSJ IO LENS PROSTH W/O ECP 2011 Cataract Removal ALLERGIES Ether and Tolectin [Tolmetin Sodium] MEDICATIONS mycophenolate mofetil (CELLCEPT) 250 mg capsule 500 mg. furosemide (LASIX) 40 mg tablet Take 1 tablet by mouth. Take 1 tablet on Friday AND Friday only. omeprazole (PRILOSEC) 40 mg capsule Take 1 capsule by mouth once daily. atorvastatin (LIPITOR) 40 mg tablet Take 1 tablet by mouth daily at bedtime. For cholesterol. Niacinamide 500 mg tablet Take 500 mg by mouth two times a day with meals. Pramoxine HCl (SARNA SENSITIVE) 1 % lotn Apply 0.25 mL to affected area two times a day. triamcinolone (KENALOG) 0.025 % ointment Apply to affected area once daily. Dr. Hwang, [place] [facility]. amiodarone (PACERONE) 200 mg tablet Take 200 mg by mouth once daily. tamsulosin (FLOMAX) 0.4 mg Take 1 capsule by mouth daily at bedtime. finasteride (PROSCAR) 5 mg tablet Take 1 tablet by mouth once daily. glipiZIDE (GLUCOTROL XL) 5 mg 24 hr tablet Take 1 tablet by mouth once daily. predniSONE (DELTASONE) 10 mg tablet Take 10 mg by mouth once daily. Taking 3 tablets once daily for 7 days then take two tablets once bri (more content not included)... [facility] VIOLE[facility] DEAL ([id number]) 1935 M Date Time Provider Department 06/19/23 NAVIN PANIAGUA INTMWS During your visit today, we recorded the following information about you: Maryellen Wilkerson, RN 06/19/2023 10:12 AM Signed Pts daughter called in and reports she just got off the phone with the Pt and they didn't know he had an appointment today, and he has been sneaking around to other doctor appointments and not telling them. She said they wouldn't be able to make it here in an hour to go with him and they don't think he is being truthful with the providers. The states on the phone his voice sounds hoarse and Pts states he can't clear his throat even with water, daughters was a regulatory auditor and he states it sounds like CHF to him. They also report it's hard to understand him and he's speaking in choppy sentences. They report he is very irritable and threw the phone down when they were talking to him. They think his )2 may be low and wanted provider to check pulse ox. Pt also has swelling in his legs, they were saying something about fluid on the lungs. She says he has been sleeping in late and left [place] early because he couldn't stand any longer, and this isn't like him. They have had the talk of him moving closer to them or her brother and going into a residential, but he says he isn't ready. They said he had just gone to the [place] and had been put on Prednisone, but it had been discontinued. Then they said Dr Paniagua had put him on Lasix and his trauma registrar had put him on a 5 day course of Lasix. She just wants the provider to ask him how he's feeling and take a really good lock at him. She would like a call if provider thinks he needs sent to the ER. Older, Seema, 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 [employer]ZING 06/19/2023 10:25 AM Signed Noted Seema Stanford APRN.CNP Allergies As of Date: 06/19/2023 Noted Allergy Reaction ETHER 06/21/2005 TOLECTIN (TOLMETIN SODIUM) 06/21/2005 Date Reviewed: 06/05/2023 Reviewed by: Bonnie Peres LPN - Fully Assessed Reason for Visit: Patient Update [1234] Prescriptions as of 06/19/2023 - furosemide (LASIX) 40 mg tablet Take 1 tablet by mouth. Take 1 tablet on Friday AND Friday only. - omeprazole (PRILOSEC) 40 mg capsule Take 1 capsule by mouth once daily. - atorvastatin (LIPITOR) 40 mg tablet Take 1 tablet by mouth daily at bedtime. For cholesterol. - silver sulfADIAZINE (SILVADENE) 1 % cream Apply 1 application to affected area once daily. - Niacinamide 500 mg tablet Take 500 mg by mouth two times a day with meals. - Pramoxine HCl (SARNA SENSITIVE) 1 % lotn Apply 0.25 mL to affected area two times a day. - triamcinolone (KENALOG) 0.025 % ointment Apply to affected area once daily. Dr. Hwang, [place] [facility]. - amiodarone (PACERONE) 200 mg tablet Take 200 mg by mouth once daily. - tamsulosin (FLOMAX) 0.4 mg Take 1 capsule by mouth daily at bedtime. - finasteride (PROSCAR) 5 mg tablet Take 1 tablet by mouth once daily. - glipiZIDE (GLUCOTROL XL) 5 mg 24 hr tablet Take 1 tablet by mouth once daily. 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] 08/22/2016 10/27/2018 Paroxysmal A-fib (HCC) [I48.0] 06/04/2015 Sinus node dysfunction (HCC) [I49.5] 06/04/2015 10/27/2018 Cardiac pacemaker in situ [Z95.0] 01/12/2018 Thrombocytopenia (HCC) [D69.6] 10/27/2018 Subarachnoid bleed (HCC) [I60.9] 11/15/2019 09/05/2020 Essential hypertension [I10] 11/24/2019 Abdominal aortic aneurysm (AAA) without rupture*06/20/2020 Bladder calculi [N21.0] 06/20/2020 06/06/2021 Bullous pemphigoid [L12.0] 02/08/2022 06/08/2023 Drug rash [L27.0] 02/08/2022 06/08/2023 Stage 3a chronic kidney disease (HCC) [N18.31] 01/10/2023 Pruritic disorder [L29.9] 06/05/2023 Asteototic dermatitis [L30.8] 06/08/2023 Stasis dermatitis [I87.2] 06/08/2023 Dermatitis, disseminated superficial actinic po*06/08/2023 Encounter Status:Closed by SEEMA STANFORD on 06/19/23 Normal [facility] COVID AND INFLUENZA A/B AND RSV NAAT, ROUTINEon 06-19-2023 SARS-CoV-2 (COVID-19) RNA ANAND+probe Ql (Unsp spec) COVID 19 RESULT: Not detected INFLUENZA A PCR: Not detected INFLUENZA B PCR: Not detected RSV PCR: Not detected Normal [facility] Comment on above: Performed By: #### C VFLRS ####[facility] LABCLIA [id number] [address] [place] Noa 06-06-2023 CNPN Telephone (INTMWS) VIOLETA DEAL ([id number]) 1935 M Date Time Provider Department 06/06/23 NAVIN PANIAGUA INTMWS During your visit today, we recorded the following information about you: Ismael Guevara RN 06/06/2023 2:[address] Thomason- [place]- asked to speak with pcp or send message. Reports patient saw pcp yesterday and was referred to [facility]. Reports she was informed pcp has concern for cellulitis. Reports she has been seeing patient and is sure it is not cellulitis. 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 They treated patient with doxycycline recently, and are treating him with triamcinolone ointment (pt hasn't received it yet- will receive in the mail) twice day. Patient is encouraged to moisturize dry skin. Reports the weeping is from stasis derm. Dr. Thomason has advised patient to wear compression socks for the swelling and wrap the weeping areas. Reports patient has a f/u with them this month and hopefully has improved. Reports they have a half-way plan in place. 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 States they believe for patient to go to [facility], may cause confusion, and risk continuity of care, and overlapping of treatments. She has advised patient to hold off on visit to [facility], and patient is agreeable. You can reach Dr. Thomason [phone] extension [phone], which is Dr Isabelle bañuelos. She will be at the [place] on Friday. Navin Paniagua MD 06/08/2023 9:02 AM Signed Noted. 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 Take 1 tablet on Friday AND Friday only. - omeprazole (PRILOSEC) 40 mg capsule Take 1 capsule by mouth once daily. - atorvastatin (LIPITOR) 40 mg tablet Take 1 tablet by mouth daily at bedtime. For cholesterol. - silver sulfADIAZINE (SILVADENE) 1 % cream Apply 1 application to affected area once daily. - Niacinamide 500 mg tablet Take 500 mg by mouth two times a day with meals. - Pramoxine HCl (SARNA SENSITIVE) 1 % lotn Apply 0.25 mL to affected area two times a day. - triamcinolone (KENALOG) 0.025 % ointment Apply to affected area once daily. Dr. Hwang, [place] [facility]. - amiodarone (PACERONE) 200 mg tablet Take 200 mg by mouth once daily. - tamsulosin (FLOMAX) 0.4 mg Take 1 capsule by mouth daily at bedtime. - finasteride (PROSCAR) 5 mg tablet Take 1 tablet by mouth once daily. - glipiZIDE (GLUCOTROL XL) 5 mg 24 hr tablet Take 1 tablet by mouth once daily. 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/13/2006 Simple chronic bronchitis (HCC) [J41.0] 05/07/2007 Anemia, unspecified [D64.9] 02/10/2008 02/21/2017 Controlled type 2 diabetes mellitus without com*02/21/2010 Hyperlipidemia with target LDL less than 100 [E*02/21/2010 Sciatica [M54.30] 02/13/2011 03/08/2015 Embolism involving retinal artery [H34.9] 08/22/2016 10/27/2018 Paroxysmal A-fib (HCC) [I48.0] 06/04/2015 Sinus node dysfunction (HCC) [I49.5] 06/04/2015 10/27/2018 Cardiac pacemaker in situ [Z95.0] 01/12/2018 Thrombocytopenia (HCC) [D69.6] 10/27/2018 Subarachnoid bleed (HCC) [I60.9] 11/15/2019 09/05/2020 Essential hypertension [I10] 11/24/2019 Abdominal aortic aneurysm (AAA) without rupture*06/20/2020 Bladder calculi [N21.0] 06/20/2020 06/06/2021 Bullous pemphigoid [L12.0] 02/08/2022 Drug rash [L27.0] 02/08/2022 Stage 3a chronic kidney disease (HCC) [N18.31] 01/10/2023 Pruritic disorder [L29.9] 06/05/2023 Encounter Status:Closed by NAVIN PANIAGUA on 06/08/23 [facility] CNOVon 06-05-2023 CNOV Office Visit (INTMWS ) VIOLETA DEAL ([id number]) 1935 M Date Time Provider Department 06/05/23 3:00 PM NAVIN PANIAGUA INTMWS During your visit today, we recorded the following information about you: Temperature Pulse Respiration Blood pressure 97.3 degrees 65/minute 24/minute 86/42 Weight 93 kg Navin Paniagua MD 06/08/2023 8:54 AM Signed This note was created using Denty'sriter. Subjective Violeta Deal is a 88 year old male. He had chronic refractory dermatitis and pruritus for which he has been going to the [place]. Last month he was seen acutely for left arm cellulitis, wounds, and edema. This was followed with celluliti of the left leg. This was in the setting of edema and chronic refractory dermatitis. He has been going to dermatology in the [place] and had various diagnoses the past few years. He even had elimination process of his medications for drug hypersensitivity to no avail. His trauma registrar had been giving his diuretics sparingly due to low blood pressure and kidney disease. His furosemide dose was increased to 40 mg 2 times a week. At this point, he has completed antibiotics an infection was controlled. He continued with rash, itching, swelling with areas of serous seepage in his left elbow and left leg. He was applying absorbent dressings and applying topical treatments. Review of Systems Constitutional: Positive for fatigue. Negative for chills and fever. HENT: Negative. Respiratory: Negative for cough, chest tightness and shortness of breath. Cardiovascular: Positive for leg swelling. Negative for chest pain and palpitations. Gastrointestinal: Negative for diarrhea, nausea and vomiting. Genitourinary: Negative for difficulty urinating and frequency. Neurological: Negative for dizziness, light-headedness and headaches. ACTIVE PROBLEM LIST Bph With Obstruction/Lower Urinary Tract Symptoms Simple Chronic Bronchitis ([facility]) Controlled Type 2 Diabetes Mellitus Without Complication, Without Long-Term Current Use of Insulin ([facility]) Hyperlipidemia With Target Ldl Less Than 100 Paroxysmal A-Fib ([facility]) Cardiac Pacemaker in Situ Thrombocytopenia ([facility]) Essential Hypertension Abdominal Aortic Aneurysm (Aaa) Without Rupture ([facility]) Bullous Pemphigoid Drug Rash Stage 3a Chronic Kidney Disease ([facility]) Current Outpatient Medications Medication Sig omeprazole (PRILOSEC) 40 mg capsule Take 1 capsule by mouth once daily. atorvastatin (LIPITOR) 40 mg tablet Take 1 tablet by mouth daily at bedtime. For cholesterol. losartan (COZAAR) 25 mg tablet Take 1 tablet by mouth once daily. silver sulfADIAZINE (SILVADENE) 1 % cream Apply 1 application to affected area once daily. Niacinamide 500 mg tablet Take 500 mg by mouth two times a day with meals. Pramoxine HCl (SARNA SENSITIVE) 1 % lotn Apply 0.25 mL to affected area two times a day. triamcinolone (KENALOG) 0.025 % ointment Apply to affected area once daily. Dr. Hwang, [place] [facility]. amiodarone (PACERONE) 200 mg tablet Take 200 mg by mouth once daily. tamsulosin (FLOMAX) 0.4 mg Take 1 capsule by mouth daily at bedtime. finasteride (PROSCAR) 5 mg tablet Take 1 tablet by mouth once daily. glipiZIDE (GLUCOTROL XL) 5 mg 24 hr tablet Take 1 tablet by mouth once daily. furosemide (LASIX) 40 mg tablet Take 1 tablet by mouth. Take 1 tablet on Friday AND Friday only. furosemide (LASIX) 20 mg tablet Take 1 tablet by mouth once daily for 5 days. This is in addition to the previously filled 5 day script. (Patient not taking: Reported on 06/05/2023) No current facility-administered medications for this visit. Objective BP (!) 86/42 (BP Site: Right Arm, BP Position: Sitting, BP Cuff Size: Large Adult) Pulse 65 Temp 36.3 ?C (97.3 ?F) (Temporal) Resp 24 Wt 93 kg (205 lb) SpO2 96% BMI 29.16 kg/m? Physical Exam Constitutional: General: He is not in acute distress. Appearance: He is not ill-appearing or diaphoretic. HENT: Mouth/Throat: Mouth: Mucous membranes are moist. Eyes: Conjunctiva/sclera: Conjunctivae normal. Cardiovascular: Rate and Rhythm: Normal rate and regular rhythm. Pulmonary: Effort: No respiratory distress. Breath sounds: No wheezing or rales. Abdominal: General: There is no distension. Musculoskeletal: Right forearm: No edema. Left forearm: Edema present. Right lower le+ Pitting Edema present. Left lower le+ Pitting Edema present. Skin: Findings: Rash present. Rash is scaling. Comments: Superficial erosions with serous seepage, left lebow, left tibia. Neurological: Mental Status: He is alert. Assessment and Plan 1. Dermatitis - ICD9: 692.9, ICD10: L30.9 (primary diagnosis) - I suggested he get a 2nd opinion. [facility] TO [facility]ER[facility] 2. Pruritic disorder - ICD9: 698.9, ICD10: L29.9 See above. - CONSULT TO DERMATOLOGY (more content not included)... Normal [facility] XR Chest PA and Lateralon IMPRESSION: Stable exam with mild fibrotic changes in the lung bases and no definite acute disease. General Inspector: ASHWINI Transcribe Date/Time: May 17 2023 8:04P Dictated by : ELLY PATEL MD This examination was interpreted and the report reviewed and electronically signed by: ELLY PATEL MD on May 17 2023 8:05PM [facility] DIVISION OF RADIOLOGY * * *Final Report* * * DATE OF EXAM: May 16 2023 2:32PM WOX [id number] - XR CHEST 2V FRONTAL/LAT / PROCEDURE REASON: Dyspnea, unspecified type * * * * Physician Interpretation * * * * EXAMINATION: CHEST RADIOGRAPH (2 VIEW FRONTAL & LATERAL) CLINICAL HISTORY: Dyspnea, unspecified type MQ: [id number] EXAM DATE/TIME: 05/16/2023 2:32 PM COMPARISON: 07/25/2022. RESULT: Lines, tubes, and devices: A left pacemaker remains in place. Lungs and pleura: There are mild fibrotic changes in the lower lungs. There is a small calcified granuloma in the left midlung. No consolidation. No lung mass. No pleural effusion. No pneumothorax. Cardiomediastinal silhouette: Stable cardiomediastinal silhouette. Bones and soft tissues: Unremarkable. DIVISION OF RADIOLOGY Provider, [facility] - 05/17/2023 * * *Final Report* * * DATE OF EXAM: May 16 2023 2:32PM WOX [id number] - XR CHEST 2V FRONTAL/LAT / PROCEDURE REASON: Dyspnea, unspecified type * * * * Physician Interpretation * * * * EXAMINATION: CHEST RADIOGRAPH (2 VIEW FRONTAL & LATERAL) CLINICAL HISTORY: Dyspnea, unspecified type MQ: [id number] EXAM DATE/TIME: 05/16/2023 2:32 PM COMPARISON: 07/25/2022. RESULT: Lines, tubes, and devices: A left pacemaker remains in place. Lungs and pleura: There are mild fibrotic changes in the lower lungs. There is a small calcified granuloma in the left midlung. No consolidation. No lung mass. No pleural effusion. No pneumothorax. Cardiomediastinal silhouette: Stable cardiomediastinal silhouette. Bones and soft tissues: Unremarkable. IMPRESSION IMPRESSION: Stable exam with mild fibrotic changes in the lung bases and no definite acute disease. General Inspector: ASHWINI Transcribe Date/Time: May 17 2023 8:04P Dictated by : ELLY PATEL MD This examination was interpreted and the report reviewed and electronically signed by: ELLY PATEL MD on May 17 2023 8:05PM EST [facility] XR Chest PA and LateralOrder ed By: [facility] Provider on 05-17-2023 [facility] XR Chest PA and Lateralon Radiology Study observation (narrative) [facility] HEMOGLOBIN A1C (POC)on 09-11 HbA1c (Bld) [Mass fraction] 7.0 % Abnormal 4.2 - 5.6 % [facility] XR Chest PA and Lateralon IMPRESSION: Stable exam without acute findings. General Inspector: ASHWINI Transcribe Date/Time: Jul 26 2022 4:35P Dictated by : ILEANA CUADRA MD This examination was interpreted and the report reviewed and electronically signed by: ILEANA CUADRA MD on Jul 26 2022 4:37PM EST DIVISION OF RADIOLOGY * * *Final Report* * * DATE OF EXAM: Jul 25 2022 10:42AM WOX 5291 - XR CHEST 2V FRONTAL/LAT / PROCEDURE REASON: multiple diagnoses * * * * Physician Interpretation * * * * EXAMINATION: CHEST RADIOGRAPH (2 VIEW FRONTAL & LATERAL) CLINICAL HISTORY: Simple chronic bronchitis (HCC) Dyspnea on exertion MQ: XC2_6 EXAM DATE/TIME: 07/25/2022 10:42 AM COMPARISON: Chest on 06/01/2020 RESULT: Lines, tubes, and devices: No change in position of left chest dual-chamber pacemaker. Lungs and pleura: Stable focal calcification overlying the left midlung. No consolidation. No lung mass. No pleural effusion or pneumothorax. There is a large left-sided pericardial fat pad. Cardiomediastinal silhouette: Stable cardiac silhouette, with tortuosity and atherosclerotic calcifications of the thoracic aorta. Bones and soft tissues: Mild degenerative changes in the spine. DIVISION OF RADIOLOGY Provider, [facility] - 07/26/2022 * * *Final Report* * * DATE OF EXAM: Jul 25 2022 10:42AM WOX 5291 - XR CHEST 2V FRONTAL/LAT / PROCEDURE REASON: multiple diagnoses * * * * Physician Interpretation * * * * EXAMINATION: CHEST RADIOGRAPH (2 VIEW FRONTAL & LATERAL) CLINICAL HISTORY: Simple chronic bronchitis (HCC) Dyspnea on exertion MQ: XC2_6 EXAM DATE/TIME: 07/25/2022 10:42 AM COMPARISON: Chest on 06/01/2020 RESULT: Lines, tubes, and devices: No change in position of left chest dual-chamber pacemaker. Lungs and pleura: Stable focal calcification overlying the left midlung. No consolidation. No lung mass. No pleural effusion or pneumothorax. There is a large left-sided pericardial fat pad. Cardiomediastinal silhouette: Stable cardiac silhouette, with tortuosity and atherosclerotic calcifications of the thoracic aorta. Bones and soft tissues: Mild degenerative changes in the spine. IMPRESSION IMPRESSION: Stable exam without acute findings. General Inspector: PSCB Transcribe Date/Time: Jul 26 2022 4:35P Dictated by : ILEANA CUADRA MD This examination was interpreted and the report reviewed and electronically signed by: ILEANA CUADRA MD on Jul 26 2022 4:37PM EST [facility] XR Chest PA and LateralOrder ed By: [facility] Provider on 07-26-2022 [facility] LUNG DIFFUSION CAPACITY (GWYN O)on 07-25-2022 [facility] SPIROMETRY WITH DILATOR IF O BSTRUCTEDon 07-25-2022 DLCO (ml/min/mmHg) 23.81 ml/min/mmHg [facility] DLCO/VA (ml/min/mmHg/L) 4.23 ml/min/mmHg/L [facility] NRB94-98% PRE (L/S) 1.50 L/S [facility] FEV1 PRE (L) 2.58 L [facility] FEV1/FVC PRE (%) 70 % [facility] FVC PRE (L) 3.71 L [facility] PEF PRE (L/S) 7.53 L/S [facility] VA (L) 5.63 L [facility] XR Chest PA and Lateralon Radiology Study observation (narrative) [facility] CBC panel Auto (Bld)on 05-27 Erythrocyte distribution width (RBC) [Ratio] 13.6 % 11.5 - 15.0 % [facility] Hematocrit (Bld) [Volume fraction] 42.9 % 39.0 - 51.0 % [facility] Hemoglobin (Bld) [Mass/Vol] 14.1 g/dL 13.0 - 17.0 g/dL [facility] MCH (RBC) [Entitic mass] 30.1 pg 26.0 - 34.0 pg [facility] MCHC (RBC) [Mass/Vol] 32.9 g/dL 30.5 - 36.0 g/dL [facility] MCV (RBC) [Entitic vol] 91.5 fL 80.0 - 100.0 fL [facility] Nucleated RBC (Bld) [#/Vol] <0.01 k/uL [facility] Platelet mean volume (Bld) [Entitic vol] 11.0 fL 9.0 - 12.7 fL [facility] Platelets (Bld) [#/Vol] 165 10*3/uL 150 - 400 k/uL [facility] RBC (Bld) [#/Vol] 4.69 10*6/uL 4.20 - 6.0 0 m/uL [facility] WBC (Bld) [#/Vol] 10.51 10*3/uL 3.70 - 11 .00 k/uL [facility] Comprehensive metabolic 2000 panelon 05-27-2022 Albumin [Mass/Vol] 4.2 g/dL 3.9 - 4.9 g/dL [facility] ALP [Catalytic activity/Vol] 59 U/L 38 - 113 U/L [facility] ALT [Catalytic activity/Vol] 6 U/L Low 10 - 54 U/L [facility] Anion gap [Moles/Vol] 9 mmol/L 9 - 18 mmol/L [facility] AST [Catalytic activity/Vol] 14 U/L 14 - 40 U/L [facility] Bilirubin [Mass/Vol] 0.6 mg/dL 0.2 - 1.3 mg/dL [facility] Calcium [Mass/Vol] 9.4 mg/dL 8.5 - 10. 2 mg/dL [facility] Chloride [Moles/Vol] 104 mmol/L 97 - 105 mmol/L [facility] CO2 [Moles/Vol] 24 mmol/L 22 - 30 mmol/L [facility] Creatinine [Mass/Vol] 1.19 mg/dL 0.73 - 1.22 mg/dL [facility] Estimated Glomerular Filtration Rate 59 mL/min/1.73m Low >=60 mL/min/1.73m [facility] Glucose [Mass/Vol] 175 mg/dL High 74 - 99 mg/dL [facility] Potassium [Moles/Vol] 4.5 mmol/L 3.7 - 5.1 mmol/L [facility] Protein [Mass/Vol] 5.8 g/dL Low 6.3 - 8.0 g/dL [facility] Sodium [Moles/Vol] 137 mmol/L 136 - 144 mmol/L [facility] Urea nitrogen [Mass/Vol] 26 mg/dL High 9 - 24 mg/dL [facility] XR Chest PA and Lateralon IMPRESSION: Findings as described above. General Inspector: ASHWINI Transcribe Date/Time: Jun 01 2020 3:25P Dictated by : ILEANA CUADRA MD This examination was interpreted and the report reviewed and electronically signed by: ILEANA CUADRA MD on Jun 01 2020 3:26PM [facility] DIVISION OF RADIOLOGY * * *Final Report* * * DATE OF EXAM: Jun 01 2020 11:14AM WOX 5291 - XR CHEST 2V FRONTAL/LAT / PROCEDURE REASON: Dyspnea, unspecified type * * * * Physician Interpretation * * * * EXAMINATION: CHEST RADIOGRAPH (2 VIEW FRONTAL & LATERAL) CLINICAL HISTORY: Dyspnea, unspecified type MQ: XC2_6 EXAM DATE/TIME: 06/01/2020 11:14 AM COMPARISON: Chest x-ray on 02/11/2008 RESULT: Lines, tubes, and devices: There is a left chest dual-chamber pacemaker in place, with its leads extending to the right atrium and right ventricle. Lungs and pleura: Stable calcified granuloma overlying the left midlung. No consolidation seen. No masses. No pleural effusions or pneumothorax. Cardiomediastinal silhouette: The cardiac silhouette is within normal limits, with tortuosity of the thoracic aorta. There are calcified lymph nodes in the left hilum. Bones and soft tissues: The spine shows degenerative changes. DIVISION OF RADIOLOGY Provider, [facility] - 06/01/2020 * * *Final Report* * * DATE OF EXAM: Jun 01 2020 11:14AM WOX 5291 - XR CHEST 2V FRONTAL/LAT / PROCEDURE REASON: Dyspnea, unspecified type * * * * Physician Interpretation * * * * EXAMINATION: CHEST RADIOGRAPH (2 VIEW FRONTAL & LATERAL) CLINICAL HISTORY: Dyspnea, unspecified type MQ: XC2_6 EXAM DATE/TIME: 06/01/2020 11:14 AM COMPARISON: Chest x-ray on 02/11/2008 RESULT: Lines, tubes, and devices: There is a left chest dual-chamber pacemaker in place, with its leads extending to the right atrium and right ventricle. Lungs and pleura: Stable calcified granuloma overlying the left midlung. No consolidation seen. No masses. No pleural effusions or pneumothorax. Cardiomediastinal silhouette: The cardiac silhouette is within normal limits, with tortuosity of the thoracic aorta. There are calcified lymph nodes in the left hilum. Bones and soft tissues: The spine shows degenerative changes. IMPRESSION IMPRESSION: Findings as described above. General Inspector: PSCMarsha Transcribe Date/Time: Jun 01 2020 3:25P Dictated by : ILEANA CUADRA MD This examination was interpreted and the report reviewed and electronically signed by: ILEANA CUADRA MD on Jun 01 2020 3:26PM EST [facility] Radiology Study observation (narrative) [facility] XR Chest PA and LateralOrder ed By: [facility] Provider on 06-01-2020 [facility] A1Con 11-17-2019 HbA1c (Bld) [Mass fraction] 6.2 % High 4.0-6.0 [facility] ([place]) Comment on above: Performed By: #### A 1C #### [place] [address] CT ANGIOGRAPHY HEAD W/ CONTR Amanda 11-17-2019 CT ANGIOGRAPHY HEAD W/ CONTRAST ORIGINAL CT Angiogram of the head, 11/16/2019 8:19 PM INDICATION: SAH, r/o vascular lesion (AVM, etc.) COMPARISON: No TECHNIQUE: CT angiography of the head following uncomplicated administration of intravenous contrast, with 3D post-acquisition processing, and with results displayed in source images, sagittal reformats throught the carotid siphons, maximum intensity projections and volume rendered images. This exam was performed according to our departmental dose optimization program, and includes the following measures where applicable: automated exposure control, adjustment of the mAs and/or kVp according to patient size and/or exam, and an iterative reconstruction algorithm. FINDINGS: The study is of fair technical quality. The internal carotid arteries and their major branches are patent without occlusion, significant stenosis or aneurysm. Major vessels of the posterior circulation are unremarkable in appearance. IMPRESSION: Mildly limited but otherwise unremarkable examination. Interpreted By: Lan Pennington MD Preliminary Report By: Lan Pennington MD Electronically Signed By: Lan Pennington MD Dictated Date: 11/16/2019 10:16:11 PM Prelim Date: 11/16/2019 10:16:11 PM Sign Date: 11/16/2019 10:27:24 PM Ordering Provider:Tom Velázquez [facility] ([place] CT VENOGRAM HEAD W/CONTRASTo n 11-17-2019 CT VENOGRAM HEAD W/CONTRAST ORIGINAL CT VENOGRAM HEAD W/CONTRAST Multiplanar sagittal, axial, coronal, and 3D reconstructions were created and reviewed. This exam was performed according to our departmental dose optimization program, and includes the following measures where applicable: automated exposure control, adjustment of the mAs and/or kVp according to patient size and/or exam, and an iterative reconstruction algorithm. Clinical Statement: SAH, r/o cortical vein thrombosis. COMPARISON: None CTV: There is normal opacification of the dural venous sinuses and larger intracranial veins, including the deep cerebral venous system. Specifically, there is no evidence of dural sinus or cortical vein thrombosis. IMPRESSION: No venous sinus or cortical vein thrombosis. Interpreted By: Nesha Sawyer MD Preliminary Report By: Nesha Sawyer MD Electronically Signed By: Nesha Sawyer MD Dictated Date: 11/17/2019 12:41:31 PM Prelim Date: 11/17/2019 12:41:31 PM Sign Date: 11/17/2019 12:51:01 PM Ordering Provider:Tom Velázquez [facility] ([place]) .Auto Diffon 11-16-2019 Ammonia (P) [Mass/Vol] 0.50 10 3/mcL Normal 0.09-1.40 [facility] ([place] Comment on above: Performed By: #### C CHRISTIAN GIRARD ANEU, BMP, GFR #### [address] [address] Basophils (Bld) [#/Vol] 0.00 10 3/mcL Normal 0.00-0.27 [facility] ([place]) Comment on above: Performed By: #### C BC, ADGARY, ANEU, BMP, GFR #### [address] [address] Basophils/100 WBC (Bld) 0.3 % Normal 0.0-2.5 [facility] ([place] Comment on above: Performed By: #### C BC, ADIFF, ANEU, BMP, GFR #### [address] [address] Eosinophils (Bld) [#/Vol] 0.10 10 3/mcL Normal 0.00-0.65 [facility] ([place]) Comment on above: Performed By: #### C BC, ADIFF, ANEU, BMP, GFR #### [address] [address] Eosinophils/100 WBC (Bld) 1.9 % Normal 0.0-6.0 [facility] ([place]) Comment on above: Performed By: #### C BC, ADIFF, ANEU, BMP, GFR #### [address] [address] Lymphocytes (Bld) [#/Vol] 0.70 10 3/mcL Low 0.90-4.32 [facility] ([place]) Comment on above: Performed By: #### C BC, ADIFF, ANEU, BMP, GFR #### [address] [address] Lymphocytes/100 WBC (Bld) 15.4 % Low 20.0-40.0 [facility] ([place]) Comment on above: Performed By: #### C BC, ADIFF, ANEU, BMP, GFR #### [address] [address] Monocytes/100 WBC (Bld) 11.6 % Normal 2.0-13.0 [facility] ([place]) Comment on above: Performed By: #### C BC, ADIFF, ANEU, BMP, GFR #### [address] [address] Neutrophils/100 WBC (Bld) 70.8 % Normal 50.0-75.0 [facility] ([place]) Comment on above: Performed By: #### C BC, ADIFF, ANEU, BMP, GFR #### [address] [address] .GFRon 11-16-2019 GFR >60 Normal [facility] ([place]) Comment on above: Result Comment: GFR Population mean for , Non- Americans Ages 20-29 = 116 mL/min/1.73 sq.m. Ages 30-39 = 107 mL/min/1.73 sq.m. Ages 40-49 = 99 mL/min/1.73 sq.m. Ages 50-59 = 93 mL/min/1.73 sq.m. Ages 60-69 = 85 mL/min/1.73 sq.m. Ages 70+ = 75 mL/min/1.73 sq.m. Chronic Kidney Disease: Less than 60 mL/min/1.73 square meters End Stage Renal Disease: Less than 15 mL/min/1.73 square meters Performed By: #### C BC, ADIFF, ANEU, BMP, GFR #### [address] [address] GFR Non- >60 Normal [facility] ([place]) Comment on above: Result Comment: GFR Population mean for , Non- Americans Ages 20-29 = 116 mL/min/1.73 sq.m. Ages 30-39 = 107 mL/min/1.73 sq.m. Ages 40-49 = 99 mL/min/1.73 sq.m. Ages 50-59 = 93 mL/min/1.73 sq.m. Ages 60-69 = 85 mL/min/1.73 sq.m. Ages 70+ = 75 mL/min/1.73 sq.m. Chronic Kidney Disease: Less than 60 mL/min/1.73 square meters End Stage Renal Disease: Less than 15 mL/min/1.73 square meters Performed By: #### C BC, ADIFF, ANEU, BMP, GFR #### [address] [address] .NEUABSon 11-16-2019 Neutrophils (Bld) [#/Vol] 3.20 10 3/mcL Normal 2.25-8.10 [facility] ([place] Comment on above: Performed By: #### C BC, ADIFF, ANEU, BMP, GFR #### [address] [address] BMPon 11-16-2019 Creatinine [Mass/Vol] 1.04 mg/dL Normal 0.60-1.40 [facility] ([place] Comment on above: Performed By: #### C BC, ADIFF, ANEU, BMP, GFR #### [address] [address] Urea nitrogen/Creatinine [Mass ratio] 21.2 ratio Normal 10.0-22.0 [facility] ([place] Comment on above: Performed By: #### C BC, ADIFF, ANEU, BMP, GFR #### [address] [address] Calcium [Mass/Vol] 8.6 mg/dL Normal 8.4-10.1 [facility] ([place]) Comment on above: Performed By: #### C BC, ADIFF, ANEU, BMP, GFR #### [address] [address] Chloride [Moles/Vol] 107 mmol/L Normal 98-110 [facility] ([place] Comment on above: Performed By: #### C BC, ADIFF, ANEU, BMP, GFR #### [address] [address] CO2 [Moles/Vol] 27 mmol/L Normal 22-32 [facility] ([place]) Comment on above: Performed By: #### C BC, ADIFF, ANEU, BMP, GFR #### [address] [address] Electrolyte Balance 5.0 mEq/L Normal 4.0-15.0 [facility] ([place]) Comment on above: Performed By: #### C BC, ADIFF, ANEU, BMP, GFR #### [address] [address] Glucose [Mass/Vol] 165 mg/dL High 82-115 [facility] ([place]) Comment on above: Performed By: #### C BC, ADIFF, ANEU, BMP, GFR #### [address] [address] Potassium [Moles/Vol] 4.1 mmol/L Normal 3.5-5.0 [facility] ([place] Comment on above: Performed By: #### C BC, ADIFF, ANEU, BMP, GFR #### [address] [address] Sodium [Moles/Vol] 139 mmol/L Normal 136-145 [facility] ([place] Comment on above: Performed By: #### C BC, ADIFF, ANEU, BMP, GFR #### [place] [address] Urea nitrogen [Mass/Vol] 22.0 mg/dL Normal 8.0-22.0 [facility] ([place] Comment on above: Performed By: #### C BC, ADIFF, ANEU, BMP, GFR #### [place] [address] CBCon 11-16-2019 Erythrocyte distribution width (RBC) [Ratio] 13.7 % Normal 11.5-15.5 [facility] ([place] Comment on above: Performed By: #### C BC, ADIFF, ANEU, BMP, GFR #### [place] [address] Hematocrit (Bld) [Volume fraction] 40.7 % Normal 40.0-52.0 [facility] ([place] Comment on above: Performed By: #### C BC, ADIFF, ANEU, BMP, GFR #### [place] [address] Hemoglobin (Bld) [Mass/Vol] 13.9 G/dL Normal 13.0-17.5 [facility] ([place] Comment on above: Performed By: #### C BC, ADIFF, ANEU, BMP, GFR #### [place] [address] MCH (RBC) [Entitic mass] 30.3 pg Normal 27.0-33.0 [facility] ([place] Comment on above: Performed By: #### C BC, ADIFF, ANEU, BMP, GFR #### [place] [address] MCHC (RBC) [Mass/Vol] 34.3 G/dL Normal 32.0-36.0 [facility] ([place] Comment on above: Performed By: #### C BC, ADIFF, ANEU, BMP, GFR #### [facility] [address] [place], [place] [address] MCV (RBC) [Entitic vol] 88.5 fL Normal 81.0-100.0 [facility] ([place] Comment on above: Performed By: #### C BC, ADIFF, ANEU, BMP, GFR #### [address] [address] Platelet mean volume (Bld) [Entitic vol] 7.6 fL Normal 6.4-10.5 [facility] ([place] Comment on above: Performed By: #### C BC, ADIFF, ANEU, BMP, GFR #### [address] [address] Platelets (Bld) [#/Vol] 166 10 3/mcL Normal 150-450 [facility] ([place] Comment on above: Performed By: #### C BC, ADIFF, ANEU, BMP, GFR #### [address] [address] RBC (Bld) [#/Vol] 4.59 10 6/mcL Normal 4.50-6.00 [facility] ([place]) Comment on above: Performed By: #### C BC, ADIFF, ANEU, BMP, GFR #### [address] [address] WBC (Bld) [#/Vol] 4.50 10 3/mcL Normal 4.50-10.80 [facility] ([place]) Comment on above: Performed By: #### C BC, ADIFF, ANEU, BMP, GFR #### [address] [address] [address] HEAD OR BRAIN W/O CONTRAS Ton 11-16-2019 CT HEAD OR BRAIN W/O CONTRAST ORIGINAL CT HEAD OR BRAIN W/O CONTRAST CLINICAL STATEMENT: Intracranial hemorrhage. TECHNIQUE: Axial CT images from skull base to vertex without IV contrast. This exam was performed according to our departmental dose optimization program, and includes the following measures where applicable: automated exposure control, adjustment of the mAs and/or kVp according to patient size and/or exam, and an iterative reconstruction algorithm. COMPARISON: 11/15/2019 FINDINGS: Hyperdensity along the RIGHT central sulcus appears unchanged from yesterday's examination and appears to follow cortex. No new intracranial hyperdensity or hemorrhage is identified. Scattered parenchymal hypodensities in the cerebral white matter are nonspecific but statistically most consistent with mild chronic microvascular angiopathy. Atherosclerotic calcifications are present in the cavernous carotid arteries bilaterally. There is proportionate enlargement of the ventricular system and cortical sulci, compatible with parenchymal volume loss. 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 A small hypodensity in the LEFT basal ganglia is also unchanged. The skull base and calvarium demonstrate no acute abnormality. The visualized paranasal sinuses are clear. Included mastoid air cells are clear. IMPRESSION: No significant change in hyperdensity along the RIGHT central sulcus which may relate to laminar necrosis (favored) or hemorrhage. 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 piece dye worker 10-18-2016 Left ventricular Ejection fraction 69 % Invalid Interpretation Code [employer] Work Phone: Office Visit: [facility] 04-15-20 16 Dietary management education, guidance, and counseling (procedure) yes Invalid Interpretation Code [employer] Work Phone: Office Visiton 10-18-2015 cardiac risk group C Invalid Interpretation Code [employer] Work Phone: General cardiovascular disease 10Y risk [#] [place] no Not enough information Invalid Interpretation Code [employer] Work Phone: Tobacco smoking status NHIS Former smoker [employer] Work Phone: Tobacco use CPHS Former smoker Invalid Interpretation Code [employer] Work Phone: Clinical Lists Update: Camilo whitney 08-22-2015 Anion gap 6 mmol/L Invalid Interpretation Code [facility] Work Phone: Anion gap molar conc 6 mmol/L [facility] Work Phone: Calcium mass conc 8.8 mg/dL Invalid Interpretation Code [facility] Work Phone: Chloride molar conc 106 mmol/L Invalid Interpretation Code [facility] Work Phone: CO2 28 mmol/L Invalid Interpretation Code [facility] Work Phone: CO2 ppres (BldV) 28 mmol/L [facility] Work Phone: Creatinine mass conc 1.28 mg/dL Invalid Interpretation Code [facility] Work Phone: Erythrocytes (RBC) 5.04 10*6/uL Invalid Interpretation Code [facility] Work Phone: Glucose 146 mg/dL High [facility] Work Phone: Glucose mass conc 146 mg/dL High [facility] Work Phone: Hematocrit (HCT) 46.0 % Invalid Interpretation Code [facility] Work Phone: Hematocrit Volume Fraction (Bld) 46.0 % [facility] Work Phone: Hemoglobin mass conc (Bld) 14.9 g/dL Invalid Interpretation Code [facility] Work Phone: Platelets 167 10*3/mm3 Invalid Interpretation Code [facility] Work Phone: Platelets #/vol (Bld) 167 10*3/mm3 [facility] Work Phone: Potassium molar conc 4.5 mmol/L Invalid Interpretation Code [facility] Work Phone: RBC #/vol (Bld) 5.04 10*6/uL [facility] Work Phone: Sodium molar conc 140 mmol/L Invalid Interpretation Code [facility] Work Phone: Urea nitrogen mass conc 19 mg/dL Invalid Interpretation Code [facility] Work Phone: Urea nitrogen/Creatinine mass ratio 14.8 mg/mg Invalid Interpretation Code [facility] Work Phone: WBC #/vol (Bld) 7.8 10*3/uL [facility] Work Phone: WBC (Leukocytes) 7.8 10*3/uL Invalid Interpretation Code [facility] Work Phone: Vital Signs Date Time Vital Sign Value Performing Clinician Ricky phillips 03-22-2024 12:33-0400 Body mass index (BMI) [Ratio] 27 kg/m2 Seema Mcginnis 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 [employer] Work Phone: [facility] 03-22-2024 12:33-0400 Body temperature 98.8 [degF] Seema Mcginnis APRN.PREPARATION SUPERVISOR [employer] Work Phone: [facility] 03-22-2024 12:33-0400 Body weight 87.8 kg Seema Mcginnis APRN.PREPARATION SUPERVISOR [employer] Work Phone: [facility] 03-22-2024 12:33-0400 Diastolic blood pressure 64 mm[Hg] Seema Mcginnis 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 [employer] Work Phone: [facility] 03-22-2024 12:33-0400 Heart rate 85 /min Seema Mcginnis APRN.PREPARATION SUPERVISOR [employer] Work Phone: [facility] 03-22-2024 12:33-0400 Respiratory rate 20 /min Seema Mcginnis APRN.PREPARATION SUPERVISOR [employer] Work Phone: [facility] 03-22-2024 12:33-0400 SaO2% (BldA) [Mass fraction] 98 % Seema Mcginnis APRN.PREPARATION SUPERVISOR [employer] Work Phone: [facility] 03-22-2024 12:33-0400 Systolic blood pressure 112 mm[Hg] Seema Mcginnis APRN.PREPARATION SUPERVISOR [employer] Work Phone: [facility] 03-08-2024 14:42-0400 Body height 180.3 cm Navin Paniagua MD Work Phone: [facility] 03-08-2024 14:42-0400 Body mass index (BMI) [Ratio] 26.72 kg/m2 Navin Paniagua MD Work Phone: [facility] 03-08-2024 14:42-0400 Body temperature 97.3 [degF] Navin Paniagua MD Work Phone: [facility] 03-08-2024 14:42-0400 Body weight 86.9 kg Navin Paniagua MD Work Phone: [facility] 03-08-2024 14:42-0400 Diastolic blood pressure 70 mm[Hg] Navin Paniagua MD Work Phone: [facility] 03-08-2024 14:42-0400 Heart rate 77 /min Navin Paniagua MD Work Phone: [facility] 03-08-2024 14:42-0400 Respiratory rate 14 /min Navin Paniagua MD Work Phone: [facility] 03-08-2024 14:42-0400 SaO2% (BldA) [Mass fraction] 98 % Navin Paniagua MD Work Phone: [facility] 03-08-2024 14:42-0400 Systolic blood pressure 130 mm[Hg] Navin Paniagua MD Work Phone: [facility] 02-23-2024 14:44-0400 Body mass index (BMI) [Ratio] 26.31 kg/m2 Navin Paniagua MD Work Phone: [facility] 02-23-2024 14:44-0400 Body temperature 98.29 [degF] Navin Paniagua MD Work Phone: [facility] 02-23-2024 14:44-0400 Body weight 88 kg Navin Paniagua MD Work Phone: [facility] 02-23-2024 14:44-0400 Diastolic blood pressure 64 mm[Hg] Navin Paniagua MD Work Phone: [facility] 02-23-2024 14:44-0400 Heart rate 84 /min Navin Paniagua MD Work Phone: [facility] 02-23-2024 14:44-0400 Respiratory rate 24 /min Navin Paniagua MD Work Phone: [facility] 02-23-2024 14:44-0400 Systolic blood pressure 124 mm[Hg] Navin Paniagua MD Work Phone: [facility] 02-20-2024 15:21-0400 Body height 182.9 cm Navin Paniagua MD Work Phone: [facility] 02-20-2024 15:21-0400 Body mass index (BMI) [Ratio] 26.04 kg/m2 Navin Paniagua MD Work Phone: [facility] 02-20-2024 15:21-0400 Body temperature 97.5 [degF] Navin Paniagua MD Work Phone: [facility] 02-20-2024 15:21-0400 Body weight 87.09 kg Navin Paniagua MD Work Phone: [facility] 02-20-2024 15:21-0400 Diastolic blood pressure 60 mm[Hg] Navin Paniagua MD Work Phone: [facility] 02-20-2024 15:21-0400 Heart rate 90 /min Navin Paniagua MD Work Phone: [facility] 02-20-2024 15:21-0400 Respiratory rate 14 /min Navin Paniagua MD Work Phone: [facility] 02-20-2024 15:21-0400 SaO2% (BldA) [Mass fraction] 98 % Navin Paniagua MD Work Phone: [facility] 02-20-2024 15:21-0400 Systolic blood pressure 138 mm[Hg] Navin Paniagua MD Work Phone: [facility] 01-28-2024 09:00-0400 Body mass index (BMI) [Ratio] 25.62 kg/m2 Navin Paniagua MD Work Phone: [facility] 01-28-2024 09:00-0400 Body temperature 97.11 [degF] Navin Paniagua MD Work Phone: [facility] 01-28-2024 09:00-0400 Body weight 85.68 kg Navin Paniagua MD Work Phone: [facility] 01-28-2024 09:00-0400 Diastolic blood pressure 60 mm[Hg] Navin Paniagua MD Work Phone: [facility] 01-28-2024 09:00-0400 Heart rate 72 /min Navin Paniagua MD Work Phone: [facility] 01-28-2024 09:00-0400 Respiratory rate 12 /min Navin Paniagua MD Work Phone: [facility] 01-28-2024 09:00-0400 Systolic blood pressure 96 mm[Hg] Navin Paniagua MD Work Phone: [facility] 11-10-2023 12:05-0400 Body height 182.9 cm Navin Paniagua MD Work Phone: [facility] 11-10-2023 12:05-0400 Body temperature 97.59 [degF] Navin Paniagua MD Work Phone: [facility] 11-10-2023 12:05-0400 Body weight 89.36 kg Navin Paniagua MD Work Phone: [facility] 11-10-2023 12:05-0400 Diastolic blood pressure 68 mm[Hg] Navin Paniagua MD Work Phone: [facility] 11-10-2023 12:05-0400 Heart rate 72 /min Navin Paniagua MD Work Phone: [facility] 11-10-2023 12:05-0400 Respiratory rate 12 /min Navin Paniagua MD Work Phone: [facility] 11-10-2023 12:05-0400 SaO2% (BldA) [Mass fraction] 96 % Navin Paniagua MD Work Phone: [facility] 11-10-2023 12:05-0400 Systolic blood pressure 124 mm[Hg] Navin Paniagua MD Work Phone: [facility] 10-28-2023 10:00-0400 Body weight 88.91 kg Navin Paniagua MD Work Phone: [facility] 09-18-2023 10:47-0500 Body height 182.9 cm Oscar Weaver MD Work Phone: [facility] 09-18-2023 10:47-0500 Body temperature 97.9 [degF] Oscar Weaver MD Work Phone: [facility] 09-18-2023 10:47-0500 Body weight 91.85 kg Oscar Weaver MD Work Phone: [facility] 09-18-2023 10:47-0500 Diastolic blood pressure 66 mm[Hg] Oscar Weaver MD Work Phone: [facility] 09-18-2023 10:47-0500 Heart rate 69 /min Oscar Weaver MD Work Phone: [facility] 09-18-2023 10:47-0500 SaO2% (BldA) [Mass fraction] 98 % Oscar Weaver MD Work Phone: [facility] 09-18-2023 10:47-0500 Systolic blood pressure 118 mm[Hg] Oscar Weaver MD Work Phone: [facility] 09-04-2023 11:56-0500 Body temperature 97.7 [degF] Navin Paniagua MD Work Phone: [facility] 09-04-2023 11:56-0500 Body weight 90.72 kg Navin Paniagua MD Work Phone: [facility] 09-04-2023 11:56-0500 Diastolic blood pressure 58 mm[Hg] Navin Paniagua MD Work Phone: [facility] 09-04-2023 11:56-0500 Heart rate 81 /min Navin Paniagua MD Work Phone: [facility] 09-04-2023 11:56-0500 Systolic blood pressure 94 mm[Hg] Navin Paniagua MD Work Phone: [facility] 07-15-2023 09:57-0500 Body weight 89.81 kg Ruben Correa LABORER LANDSCAPE.POLICY CANCELLATION CLERK Work Phone: [facility] 07-15-2023 09:57-0500 Diastolic blood pressure 66 mm[Hg] Ruben Correa LABORER LANDSCAPE.POLICY CANCELLATION CLERK Work Phone: [facility] 07-15-2023 09:57-0500 Heart rate 69 /min Ruben Correa LABORER LANDSCAPE.POLICY CANCELLATION CLERK Work Phone: [facility] 07-15-2023 09:57-0500 Respiratory rate 16 /min Ruben Correa LABORER LANDSCAPE.POLICY CANCELLATION CLERK Work Phone: [facility] 07-15-2023 09:57-0500 Systolic blood pressure 120 mm[Hg] Ruben Correa LABORER LANDSCAPE.POLICY CANCELLATION CLERK Work Phone: [facility] 06-19-2023 10:42-0500 Body temperature 97.11 [degF] Seema Older 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 FREEZING Work Phone: [facility] 06-19-2023 10:42-0500 Body weight 92.99 kg Seema Older 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 FREEZING Work Phone: [facility] 06-19-2023 10:42-0500 Diastolic blood pressure 53 mm[Hg] Seema Older 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 FREEZING Work Phone: [facility] 06-19-2023 10:42-0500 Heart rate 65 /min Seema Older 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 FREEZING Work Phone: [facility] 06-19-2023 10:42-0500 Respiratory rate 18 /min Seema Older 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 FREEZING Work Phone: [facility] 06-19-2023 10:42-0500 SaO2% (BldA) [Mass fraction] 98 % Seema Older 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 FREEZING Work Phone: [facility] 06-19-2023 10:42-0500 Systolic blood pressure 104 mm[Hg] Seema Older 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 FREEZING Work Phone: [facility] 06-05-2023 15:03-0400 Diastolic blood pressure 42 mm[Hg] Navin Paniagua MD Work Phone: [facility] 06-05-2023 15:03-0400 Heart rate 65 /min Navin Paniagua MD Work Phone: [facility] 06-05-2023 15:03-0400 Systolic blood pressure 86 mm[Hg] Navin Paniagua MD Work Phone: [facility] 06-05-2023 14:53-0400 Body temperature 97.3 [degF] Navin Paniagua MD Work Phone: [facility] 06-05-2023 14:53-0400 Body weight 92.99 kg Navin Paniagua MD Work Phone: [facility] 06-05-2023 14:53-0400 Respiratory rate 24 /min Navin Paniagua MD Work Phone: [facility] 06-05-2023 14:53-0400 SaO2% (BldA) [Mass fraction] 96 % Navin Paniagua MD Work Phone: [facility] 05-22-2023 09:53-0400 Body weight 94.35 kg Seema Older 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 FREEZING Work Phone: [facility] 05-22-2023 09:53-0400 Diastolic blood pressure 70 mm[Hg] Seema Older 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 FREEZING Work Phone: [facility] 05-22-2023 09:53-0400 Heart rate 90 /min Seema Older 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 FREEZING Work Phone: [facility] 05-22-2023 09:53-0400 Respiratory rate 18 /min Seema Older 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 FREEZING Work Phone: [facility] 05-22-2023 09:53-0400 SaO2% (BldA) [Mass fraction] 98 % Seema Older 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 FREEZING Work Phone: [facility] 05-22-2023 09:53-0400 Systolic blood pressure 130 mm[Hg] Seema Older 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 FREEZING Work Phone: [facility] 05-20-2023 08:45-0400 Body weight 93.44 kg Liliane Amadeo 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 FREEZING Work Phone: [facility] 05-20-2023 08:45-0400 Diastolic blood pressure 62 mm[Hg] Liliane Amadeo 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 FREEZING Work Phone: [facility] 05-20-2023 08:45-0400 Heart rate 64 /min Liliane Amadeo 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 FREEZING Work Phone: [facility] 05-20-2023 08:45-0400 SaO2% (BldA) [Mass fraction] 98 % Liliane Amadeo 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 FREEZING Work Phone: [facility] 05-20-2023 08:45-0400 Systolic blood pressure 114 mm[Hg] Liliane Amadeo 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 FREEZING Work Phone: [facility] 09-11-2022 11:34-0500 Body weight 95.25 kg Seema Older 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 FREEZING Work Phone: [facility] 09-11-2022 11:34-0500 Diastolic blood pressure 74 mm[Hg] Seema Older 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 FREEZING Work Phone: [facility] 09-11-2022 11:34-0500 Heart rate 70 /min Seema Older 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 FREEZING Work Phone: [facility] 09-11-2022 11:34-0500 Respiratory rate 16 /min Seema Older 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 FREEZING Work Phone: [facility] 09-11-2022 11:34-0500 Systolic blood pressure 134 mm[Hg] Seema Older 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 FREEZING Work Phone: [facility] 07-25-2022 09:31-0500 Body weight 97.52 kg Bobbi Rosa PA-C Work Phone: [facility] 07-25-2022 09:31-0500 Diastolic blood pressure 66 mm[Hg] Bobbi Rosa PA-C Work Phone: [facility] 07-25-2022 09:31-0500 Heart rate 63 /min Bobbi Rosa PA-C Work Phone: [facility] 07-25-2022 09:31-0500 Respiratory rate 14 /min Bobbi Rosa PA-C Work Phone: [facility] 07-25-2022 09:31-0500 SaO2% (BldA) [Mass fraction] 97 % Bobbi Rosa PA-C Work Phone: [facility] 07-25-2022 09:31-0500 Systolic blood pressure 108 mm[Hg] Bobbi Rosa PA-C Work Phone: [facility] 07-25-2022 09:24-0500 Body height 178.6 cm Pulm Wstr Work Phone: [facility] 07-25-2022 09:24-0500 Body weight 97.52 kg Pulm Wstr Work Phone: [facility] 07-25-2022 09:24-0500 Heart rate 63 /min Pulm Wstr Work Phone: [facility] 07-25-2022 09:24-0500 Respiratory rate 14 /min Pulm Wstr Work Phone: [facility] 07-25-2022 09:24-0500 SaO2% (BldA) [Mass fraction] 97 % Pulm Wstr Work Phone: [facility] 07-12-2022 10:01-0500 Body height 180 cm Zina Daniel MD Work Phone: [facility] 07-12-2022 10:01-0500 Body weight 95.71 kg Zina Daniel MD Work Phone: [facility] 07-12-2022 10:01-0500 Diastolic blood pressure 78 mm[Hg] Zina Daniel MD Work Phone: [facility] 07-12-2022 10:01-0500 Heart rate 79 /min Zina Daniel MD Work Phone: [facility] 07-12-2022 10:01-0500 Respiratory rate 17 /min Zina Daniel MD Work Phone: [facility] 07-12-2022 10:01-0500 SaO2% (BldA) [Mass fraction] 99 % Zina Daniel MD Work Phone: [facility] 07-12-2022 10:01-0500 Systolic blood pressure 120 mm[Hg] Zina Daniel MD Work Phone: [facility] 07-11-2022 14:59-0500 Body height 180 cm Navin Paniagua MD Work Phone: [facility] 07-11-2022 14:59-0500 Body temperature 97.3 [degF] Navin Paniagua MD Work Phone: [facility] 07-11-2022 14:59-0500 Body weight 95.71 kg Navin Paniagua MD Work Phone: [facility] 07-11-2022 14:59-0500 Diastolic blood pressure 64 mm[Hg] Navin Paniagua MD Work Phone: [facility] 07-11-2022 14:59-0500 Heart rate 80 /min Navin Paniagua MD Work Phone: [facility] 07-11-2022 14:59-0500 Respiratory rate 22 /min Navin Paniagua MD Work Phone: [facility] 07-11-2022 14:59-0500 SaO2% (BldA) [Mass fraction] 97 % Navin Paniagua MD Work Phone: [facility] 07-11-2022 14:59-0500 Systolic blood pressure 108 mm[Hg] Navin Paniagua MD Work Phone: [facility] 05-27-2022 15:32-0400 Body temperature 97.3 [degF] Seema Older 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 FREEZING Work Phone: [facility] 05-27-2022 15:32-0400 Body weight 91.17 kg Seema Older 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 FREEZING Work Phone: [facility] 05-27-2022 15:32-0400 Diastolic blood pressure 67 mm[Hg] Seema Older 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 FREEZING Work Phone: [facility] 05-27-2022 15:32-0400 Heart rate 84 /min Seema Older 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 FREEZING Work Phone: [facility] 05-27-2022 15:32-0400 Respiratory rate 22 /min Seema Older 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 FREEZING Work Phone: [facility] 05-27-2022 15:32-0400 SaO2% (BldA) [Mass fraction] 97 % Seema Older 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 FREEZING Work Phone: [facility] 05-27-2022 15:32-0400 Systolic blood pressure 100 mm[Hg] Seema Older 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 FREEZING Work Phone: [facility] 04-10-2022 15:56-0400 Diastolic blood pressure 69 mm[Hg] Navin Paniagua MD Work Phone: [facility] 04-10-2022 15:56-0400 Heart rate 67 /min Navin Paniagua MD Work Phone: [facility] 04-10-2022 15:56-0400 Systolic blood pressure 119 mm[Hg] Navin Paniagua MD Work Phone: [facility] 04-10-2022 15:49-0400 Body temperature 97.2 [degF] Navin Paniagua MD Work Phone: [facility] 04-10-2022 15:49-0400 Body weight 93.89 kg Navin Paniagua MD Work Phone: [facility] 04-10-2022 15:49-0400 Respiratory rate 20 /min Navin Paniagua MD Work Phone: [facility] 11-13-2021 12:37-0400 Body temperature 97.39 [degF] Seema Older 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 FREEZING Work Phone: [facility] 11-13-2021 12:37-0400 Body weight 92.9 kg Seema Older 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 FREEZING Work Phone: [facility] 11-13-2021 12:37-0400 Diastolic blood pressure 64 mm[Hg] Seema Older 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 FREEZING Work Phone: [facility] 11-13-2021 12:37-0400 Heart rate 88 /min Seema Older 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 FREEZING Work Phone: [facility] 11-13-2021 12:37-0400 Respiratory rate 20 /min Seema Older 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 FREEZING Work Phone: [facility] 11-13-2021 12:37-0400 SaO2% (BldA) [Mass fraction] 98 % Seema Older 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 FREEZING Work Phone: [facility] 11-13-2021 12:37-0400 Systolic blood pressure 110 mm[Hg] Seema Older 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 FREEZING Work Phone: [facility] 10-22-2016 10:00-0400 BMI (Body Mass Index) 30.14 kg/m2 [facility] Work Phone: 10-22-2016 10:00-0400 BP Diastolic 60 mm[Hg] [facility] Work Phone: 10-22-2016 10:00-0400 BP Systolic 128 mm[Hg] [facility] Work Phone: 10-22-2016 10:00-0400 Height 180.34 cm [facility] Work Phone: 10-22-2016 10:00-0400 Pulse (Heart Rate) 72 /min [facility] Work Phone: 10-22-2016 10:00-0400 Respiratory Rate 20 /min [facility]: 10-22-2016 10:00-0400 [facility] 98.02 [facility] Work Phone: 04-15-2016 11:34-0400 BSA (Body Surface Area) 2.17 m2 [facility] Work Phone: Encounters Encounter Date Encounter Type Care Provider Facility Start: 05-31-2024 End: 05-31-2024 Telephone encounter Navin Paniagua MD Work Phone: [facility] Comment on above: Report of lab result Start: 05-18-2024 End: 05-18-2024 Telephone encounter Navin Paniagua MD Work Phone: [facility] Comment on above: Patient Update Start: 04-27-2024 End: 04-27-2024 Telephone encounter Seema Mcginnis APRN.PREPARATION SUPERVISOR FREEZING Work Phone: [facility] Comment on above: hematoma Start: 03-23-2024 End: 03-23-2024 Telephone encounter Seema Mcginnis APRN.PREPARATION SUPERVISOR FREEZING Work Phone: [facility] Comment on above: Results Patient Update Start: 03-23-2024 End: 03-23-2024 ambulatory SEEMA MCGINNIS Facility:[facility] Start: 03-22-2024 End: 03-22-2024 ambulatory Ratna Shea RN NURSE RETAIL GREETER Comment on above: Bleeding/Bruising Start: 03-22-2024 End: 03-22-2024 Patient encounter procedure Seema Mcginnis APRN.PREPARATION SUPERVISOR FREEZING Work Phone: [facility] Comment on above: Edema of right lower extremity (Primary Dx); Bruising; Acute pain of right lower extremity Start: 03-18-2024 ambulatory Navin zaman MD Work Phone: [facility] Comment on above: Constipation Start: 03-16-2024 ambulatory Navin zaman MD Work Phone: [facility] Comment on above: Right calf swelling Start: 03-08-2024 End: 03-08-2024 Office outpatient visit 10 minutes Navin Paniagua MD Work Phone: [facility] Comment on above: Stasis dermatitis (P rimary Dx); Asteototic dermatitis Start: 03-08-2024 End: 03-08-2024 ambulatory NAVIN PANIAGUA Facility:[facility] Start: 02-23-2024 End: 02-23-2024 Office outpatient visit 15 minutes Navin Paniagua MD Work Phone: [facility] Comment on above: Stasis dermatitis (P rimary Dx); Stage 3a chronic kidney disease (HCC) Start: 02-23-2024 End: 02-23-2024 ambulatory Marly Negrete RN NURSE RETAIL GREETER Comment on above: Cellulitis Start: 02-20-2024 End: 02-20-2024 Office outpatient visit 15 minutes Navin Paniagua MD Work Phone: [facility] Comment on above: Cellulitis of left l eg (Primary Dx); Stasis dermatitis; Essential hypertension Start: 02-20-2024 End: 02-20-2024 ambulatory NAVIN PANIAGUA Facility:[facility] Start: 01-28-2024 End: 01-28-2024 ambulatory NAVIN PANIAGUA Facility:[facility] Start: 01-28-2024 End: 01-28-2024 ambulatory NAVIN PANIAGUA Facility:[facility] Start: 01-28-2024 End: 01-28-2024 Patient encounter procedure Navin Paniagua MD Work Phone: [facility] Comment on above: TIA (transient ische kayleigh attack) (Primary Dx); Hyperlipidemia with target LDL less than 100; Controlled type 2 diabetes mellitus without complication, without long-term current use of insulin (HCC); Right-sided lacunar infarction (HCC); Branch retinal artery occlusion of right eye Start: 01-16-2024 Telephone encounter Navin mckeon MD Work Phone: [facility] Comment on above: fax lab orders to [facility] Start: 01-09-2024 Telephone encounter Navin mckeon MD Work Phone: [facility] Comment on above: Patient Update; Appo intment Start: 12-26-2023 Refill Navin zaman MD Work Phone: [facility] Comment on above: Refill Request Start: 12-10-2023 Telephone encounter Navin mckeon MD Work Phone: [facility] Comment on above: Patient Question Start: 11-17-2023 Telephone encounter Navin mckeon MD Work Phone: [facility] Comment on above: Results Start: 11-13-2023 End: 11-13-2023 ambulatory NAVIN PANIAGUA Facility:[facility] Start: 11-13-2023 End: 11-13-2023 Subsequent hospital visit by physician [facility] Work Phone: Radiology Comment on above: Abdominal aortic ane urysm (AAA) without rupture, unspecified part (HCC) [I71.40] Start: 11-10-2023 End: 11-10-2023 ambulatory NAVIN PANIAGUA Facility:[facility] Start: 11-10-2023 End: 11-10-2023 Patient encounter procedure Navin Paniagua MD Work Phone: [facility] Comment on above: TIA (transient ische kayleigh attack) (Primary Dx); Bilateral carotid artery stenosis; Paroxysmal A-fib (HCC); Vision disturbance; Unsteady gait Start: 11-07-2023 Telephone encounter Navin mckeon MD Work Phone: [facility] Comment on above: Patient Update Start: 11-06-2023 Refill Navin zaman MD Work Phone: [facility] Comment on above: Refill Request Start: 11-03-2023 Patient Outreach Navin del rio MD Work Phone: [facility] Comment on above: Transition Of Care Start: 10-28-2023 End: 10-28-2023 ambulatory NAVIN PANIAGUA Facility:[facility] Start: 10-28-2023 End: 10-28-2023 Patient encounter procedure Navin Paniagua MD Work Phone: [facility] Comment on above: Essential hypertensi on (Primary Dx); Controlled type 2 diabetes mellitus without complication, without long-term current use of insulin (HCC); Abdominal aortic aneurysm (AAA) without rupture, unspecified part (HCC); Need for COVID-19 vaccine; Cat scratch of left hand, initial encounter; Stage 3a chronic kidney disease (HCC); Thrombocytopenia (HCC) Start: 10-21-2023 Telephone encounter Navin mckeon MD Work Phone: [facility] Comment on above: Results Start: 09-18-2023 End: 09-18-2023 ambulatory Oscar Weaver MD Work Phone: Hematology/Oncology Comment on above: Platelet count less 140,000 per cubic millimeter (Primary Dx); Abnormal CBC Start: 09-18-2023 End: 09-18-2023 Patient encounter procedure Oscar Weaver MD Work Phone: [facility] Start: 09-10-2023 Telephone encounter Navin mckeon MD Work Phone: [facility] Comment on above: Orders Start: 09-09-2023 End: 09-09-2023 ambulatory MARYLOU MELGOZA Facility:[facility] Start: 09-09-2023 End: 09-09-2023 Patient encounter procedure Marylou Neliabc Work Phone: Podiatry Comment on above: Onychomycosis (Prima ry Dx); Pain in toe of left foot; Pain in toe of right foot; Ingrowing toenail; Other diabetic neurological complication associated with type 2 diabetes mellitus (HCC); PAD (peripheral artery disease) (HCC) Start: 09-08-2023 Refill Navin zaman MD Work Phone: [facility] Comment on above: Refill Request Start: 09-04-2023 End: 09-04-2023 ambulatory RUBEN CORNELL Facility:[facility] Start: 09-04-2023 End: 09-04-2023 ambulatory NAVIN PANIAGUA Facility:[facility] Start: 09-04-2023 End: 09-04-2023 Patient encounter procedure Navin Paniagua MD Work Phone: [facility] Comment on above: Idiopathic 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 Facility:[facility] Start: 07-15-2023 End: 07-15-2023 Patient encounter procedure [facility] LABORER LANDSCAPE.POLICY CANCELLATION CLERK Work Phone: [facility] Comment on above: Medicare annual well ness visit, subsequent (Primary Dx); Encounter for immunization; Screening for diabetic retinopathy; Controlled type 2 diabetes mellitus without complication, without long-term current use of insulin ([facility]) Start: 06-30-2023 Telephone encounter Seema Stanford APRN.PREPARATION SUPERVISOR FREEZING Work Phone: [facility] Comment on above: Medication Problem Start: 06-20-2023 Telephone encounter Navin mckeon MD Work Phone: [facility] Start: 06-19-2023 Telephone encounter Navin mckeon MD Work Phone: [facility] Comment on above: Patient Update Start: 06-19-2023 End: 06-19-2023 ambulatory SEEMA MCGINNIS Facility:[facility] Start: 06-19-2023 End: 06-19-2023 Patient encounter procedure Seema Stanford 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 FREEZING Work Phone: [facility] Comment on above: Hypotension, unspeci fied hypotension type (Primary Dx); Viral URI with cough Start: 06-06-2023 Telephone encounter Navin mckeon MD Work Phone: [facility] Comment on above: Patient Update Start: 06-05-2023 End: 06-05-2023 ambulatory NAVIN PANIAGUA Facility:[facility] Start: 06-05-2023 End: 06-05-2023 Patient encounter procedure Navin Paniagua MD Work Phone: [facility] Comment on above: Dermatitis (Primary Dx); Pruritic disorder; Controlled type 2 diabetes mellitus without complication, without long-term current use of insulin (HCC); Essential hypertension Start: 06-02-2023 Refill Navin zaman MD Work Phone: [facility] Comment on above: Refill Request Start: 05-29-2023 Telephone encounter Navin mckeon MD Work Phone: Family [facility] [place] Comment on above: Results (Lab results /) Start: 05-26-2023 Refill Navin zaman MD Work Phone: Internal [facility] [place] Comment on above: Refill Request Start: 05-22-2023 Telephone encounter Navin mckeon MD Work Phone: Internal Medicine [place] Comment on above: Results Start: 05-22-2023 End: 05-22-2023 Patient encounter procedure Seema Stanford 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 FREEZING Work Phone: Internal Medicine [place] Comment on above: Rash and nonspecific skin eruption (Primary Dx); Edema of both legs Start: 05-21-2023 Telephone encounter Liliane New er 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 FREEZING Work Phone: [facility] [place] Comment on above: Patient Question Start: 05-20-2023 End: 05-20-2023 Patient encounter procedure Liliane Amadeo 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 FREEZING Work Phone: Internal Medicine [place] Comment on above: Cellulitis of left l ower extremity (Primary Dx); Edema of both legs; Essential hypertension Start: 05-16-2023 End: 05-16-2023 Subsequent hospital visit by physician [facility] [place] Work Phone: Radiology Comment on above: Dyspnea, unspecified type [R06.00] Start: 05-16-2023 End: 05-16-2023 Patient encounter procedure Navin Paniagua MD Work Phone: Internal Medicine [place] Comment on above: Dermatitis (Primary Dx); Pruritus; Dyspnea, unspecified type; Edema of both legs; Essential hypertension; Need for vaccination Start: 05-08-2023 Telephone encounter Navin mckeon MD Work Phone: Internal Medicine [place] Comment on above: Dressing changes for wounds Start: 05-07-2023 Telephone encounter Navin mckeon MD Work Phone: Internal Medicine [place] Comment on above: [facility] verbal orders needed Start: 04-22-2023 End: 04-22-2023 Patient encounter procedure Marylou Melgoza Work Phone: Podiatry Comment on above: Onychomycosis (Prima ry Dx); Pain in toe of left foot; Pain in toe of right foot; Ingrowing toenail Start: 02-13-2023 Telephone encounter Navin mckeon MD Work Phone: Internal Medicine [place] Comment on above: Lab Orders Start: 02-12-2023 Telephone encounter Navin mckeon MD Work Phone: Family Medicine [place] Comment on above: Release Of Medical R ecords Start: 01-23-2023 Telephone encounter Navin mckeon MD Work Phone: Internal Medicine [place] Comment on above: Results Start: 12-16-2022 Refill Navin zaman MD Work Phone: [address] [place] [address] Comment on above: Refill Request Start: 09-18-2022 End: 09-18-2022 Patient encounter procedure Marylou Melgoza Work Phone: Podiatry Comment on above: Onychomycosis (Prima ry Dx); Pain in toe of left foot; Pain in toe of right foot; Other diabetic neurological complication associated with type 2 diabetes mellitus (HCC); PAD (peripheral artery disease) ([facility]) Start: 09-11-2022 End: 09-11-2022 Patient encounter procedure Seema Stanford APRN.CNP Work Phone: Internal Medicine [place] Comment on above: Controlled type 2 di abetes mellitus without complication, without long-term current use of insulin (HCC) (Primary Dx); BPH with obstruction/lower urinary tract symptoms Start: 08-06-2022 Telephone encounter Navin mckeon MD Work Phone: Internal Medicine [place] Comment on above: Results Start: 07-25-2022 End: 07-25-2022 Subsequent hospital visit by physician Xr [facility] [place] Work Phone: Radiology Comment on above: Simple chronic bronc hitis (HCC) [J41.0] Start: 07-25-2022 End: 07-25-2022 ambulatory Pulm Lab [facility] Work Phone: PULM LAB [facility] Comment on above: Spirometry Start: 07-25-2022 End: 07-25-2022 Patient encounter procedure Pulm [facility] Work Phone: [place] [facility] Comment on above: ROMERO (dyspnea on exer tion) (Primary Dx); Former cigarette smoker Start: 07-12-2022 End: 07-12-2022 Patient encounter procedure Zina Daniel MD Work Phone: Pulmonary Medicine Comment on above: ROMERO (dyspnea on exer tion) (Primary Dx); Former cigarette smoker Start: 07-11-2022 End: 07-11-2022 Patient encounter procedure Navin Paniagua MD Work Phone: Internal Medicine [place] Comment on above: Medicare annual well ness visit, subsequent (Primary Dx); Drug rash; Controlled type 2 diabetes mellitus without complication, without long-term current use of insulin (HCC); Paroxysmal A-fib (HCC); BPH with obstruction/lower urinary tract symptoms; Simple chronic bronchitis (HCC); Dyspnea on exertion; Essential hypertension Start: 07-09-2022 Telephone encounter Navin mckeon MD Work Phone: Family [facility] Comment on above: call from dermatolog ist Start: 06-17-2022 Refill Navin zaman MD Work Phone: Internal Medicine [place] Comment on above: Refill Request Start: 05-29-2022 Telephone encounter Seema Older 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 FREEZING Work Phone: Internal Medicine [place] Comment on above: Results Start: 05-29-2022 End: 05-29-2022 Patient encounter procedure Marylou Melgoza Work Phone: Podiatry Comment on above: Onychomycosis (Prima ry Dx); Pain in toe of left foot; Pain in toe of right foot; Other diabetic neurological complication associated with type 2 diabetes mellitus (HCC); PAD (peripheral artery disease) ([facility]) Start: 05-27-2022 End: 05-27-2022 Patient encounter procedure Seema Older 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 FREEZING Work Phone: Internal Medicine [place] Comment on above: Diarrhea, unspecifie d type (Primary Dx); Dyspepsia; Nausea Start: 05-24-2022 Telephone encounter Navin mckeon MD Work Phone: Internal Medicine [place] Comment on above: FYI-No Action Needed (Apt today cancelled) Start: 05-22-2022 Refill Navin zaman MD Work Phone: Internal Medicine [place] Comment on above: Refill Request Start: 05-21-2022 Telephone encounter Navin mckeon MD Work Phone: Internal Medicine [place] Comment on above: Medication Problem Refill Request Start: 05-20-2022 Telephone encounter Navin mckeon MD Work Phone: Internal Medicine [place] Comment on above: Patient Question Start: 05-08-2022 Telephone encounter Navin mckeon MD Work Phone: Internal Medicine [place] Comment on above: Faxed to Dr. Peters Start: 04-26-2022 Refill Seema Older LABORER LANDSCAPE .PREPARATION SUPERVISOR FREEZING Work Phone: Internal Medicine [place] Start: 04-24-2022 Telephone encounter Navin mckeon MD Work Phone: Internal Medicine [place] Comment on above: Patient Question Start: 04-10-2022 End: 04-10-2022 Patient encounter procedure Navin Paniagua MD Work Phone: Internal Medicine [place] Comment on above: Essential hypertensi on (Primary Dx); Paroxysmal A-fib (HCC); Simple chronic bronchitis (HCC); Controlled type 2 diabetes mellitus without complication, without long-term current use of insulin (HCC); Need for influenza vaccination Start: 03-05-2022 Telephone encounter Navin mckeon MD Work Phone: Internal Medicine [place] Comment on above: Patient Question Start: 02-20-2022 End: 02-20-2022 Patient encounter procedure Marylou Melgoza Work Phone: Podiatry Comment on above: Onychomycosis (Prima ry Dx); Pain in toe of left foot; Pain in toe of right foot; Other diabetic neurological complication associated with type 2 diabetes mellitus (HCC); PAD (peripheral artery disease) (HCC) Start: 02-05-2022 Telephone encounter Navin mckeon MD Work Phone: Family Medicine [place] Comment on above: Patient Update Start: 02-01-2022 Telephone encounter Navin mckeon MD Work Phone: Internal Medicine [place] Comment on above: Patient Update Start: 01-28-2022 Telephone encounter Navin mckeon MD Work Phone: Internal Medicine [place] Comment on above: Patient Update (COVI D positive 01/27/2022); Patient Question Start: 01-23-2022 Telephone encounter Navin mckeon MD Work Phone: Internal Medicine [place] Comment on above: Patient Update Start: 01-10-2022 Telephone encounter Navin mckeon MD Work Phone: Internal Medicine [place] Comment on above: Patient Update (new medications from [place]) Start: 11-21-2021 End: 11-21-2021 Patient encounter procedure Marylou Abad Work Phone: Podiatry Comment on above: Onychomycosis (Prima ry Dx); Pain in toe of left foot; Pain in toe of right foot; Other diabetic neurological complication associated with type 2 diabetes mellitus (HCC); PAD (peripheral artery disease) (HCC) Start: 11-13-2021 End: 11-13-2021 Patient encounter procedure Seema Older 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 FREEZING Work Phone: Internal Medicine [place] Comment on above: Controlled type 2 di abetes mellitus without complication, without long-term current use of insulin (HCC) (Primary Dx); Cloudy urine; Essential hypertension; BPH with obstruction/lower urinary tract symptoms; Thrombocytopenia (HCC) Start: 10-31-2021 Telephone encounter Navin mckeon MD Work Phone: Internal Medicine [place] Comment on above: Patient Question Start: 06-01-2020 End: 06-01-2020 Subsequent hospital visit by physician Xr [facility] [place] Work Phone: Radiology Comment on above: Dyspnea, unspecified type [R06.00] Procedures Date Procedure Procedure Detail Performing Clinician Start: 11-13-2023 Us retroperitoneal real time w/image limited Navin Paniagua MD Work Phone: Start: 10-28-2023 P[employer]ER[employer] COVID-19 VACCINE ( SEASON) AGE 12+ YR Navin Paniagua MD Work Phone: Start: 09-04-2023 Ecg routine ecg w/least 12 lds i&r only [facility] Provider Start: 07-15-2023 [employer] COVID-19 VACCINE ( SEASON) AGE 12+ YR Ruben Correa LABORER LANDSCAPE.POLICY CANCELLATION CLERK Work Phone: Start: 05-16-2023 Radiologic exam chest 2 views Navin Paniagua MD Work Phone: Start: 05-16-2023 INFLUENZA VACCINE, PRSV FREE, AGE 65+ YR, HIGH DOSE, QUADRIVALENT (FLUZONE HIGH-DOSE) Navin Paniagua MD Work Phone: Start: 09-11-2022 Hemoglobin A1c/Hemoglobin.total in Blood Seema Older 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 FREEZING Work Phone: Start: 07-25-2022 Radiologic exam chest 2 views Navin Paniagua MD Work Phone: Start: 07-25-2022 Brncdilat rspse spmtry pre&post-brncdilat admn Zina Daniel MD Work Phone: Start: 07-11-2022 Ecg routine ecg w/least 12 lds i&r only [facility] Provider Start: 04-10-2022 INFLUENZA SEASONAL QUADRIVALENT HIGH DOSE AGE 65+ Navin Paniagua MD Work Phone: Start: 06-01-2020 Radiologic exam chest 2 views Navin Paniagua MD Work Phone: Start: 01-16-2017 End: 01-16-2017 Pm device progr eval, dual Ga Peters MD Start: 10-22-2016 End: 10-22-2016 IGNACIO Peters MD Start: 10-22-2016 End: 10-22-2016 Follow Up Appt 1 year Ga Peters MD Start: 07-18-2016 End: 07-18-2016 Pm device progr jose, ese Peters MD Start: 04-15-2016 End: 04-15-2016 Dietary management education, guidance, and counseling Sandra Yao RN Start: 04-15-2016 End: 04-15-2016 SIGN HANGER SUPERVISOR Lauren Castano PA-C Work Phone: Start: 04-15-2016 End: 04-15-2016 Follow Up Appt 6 months Lauren sun PA-C Work Phone: Start: 01-23-2016 End: 04-02-2016 Follow Up Appt 6 months Ismael Kennedy Start: 01-23-2016 End: 04-02-2016 Pacer Clinic Ga Peters MD Start: 01-23-2016 End: 01-23-2016 Pm device progr eval, dual Ga Peters MD Start: 10-18-2015 End: 10-18-2015 Follow Up Appt 6 months Ismael Kennedy Start: 10-18-2015 End: 10-18-2015 MMIsmael Peters MD Start: 10-13-2015 End: 04-02-2016 Follow Up Appt 3 months Lauren sun PA-C Work Phone: Start: 10-13-2015 End: 04-02-2016 Pacer Clinic Lauren Castano PA-C Work Phone: Start: 10-13-2015 End: 10-13-2015 Pm device progr eval, dual Lauren Carroll PA-C Work Phone: Start: 10-10-2015 Permanent cardiac pacemaker procedure Permanent pacemaker insertion Sandra Yao RN Plan of Treatment Date Care Activity Detail Author Start: 03-16-2034 Urine microalbumin profile DTaP,Tdap,Td Vaccine (4 - Td or Tdap) [facility] Start: 04-28-2028 Urine microalbumin profile [facility] Start: 01-27-2025 Hepatitis B screening Urine Albumin:Creatinine Ratio [facility] Start: 07-29-2024 Hemoglobin A1c measurement HbA1C [facility] Start: 07-18-2024 Hepatitis B surface antibody level LDL Cholesterol [facility] Start: 07-15-2024 Diabetic foot examination Diabetic Foot Exam [facility] Start: 07-15-2024 Glaucoma screening Dilated Retinal Exam [facility] Start: 07-09-2024 End: 07-09-2024 Patient encounter procedure 07/09/2024 9:40 AM EST Office Visit Internal Medicine [place] [address] [place] [id number] Navin Paniagua MD [address] [place] [id number] Medicare wellness Internal Medicine [place] Comment on above: Medicare wellness Start: 04-29-2024 End: 07-29-2024 Basic metabolic 2000 panel - Serum or Plasma BASIC METABOLIC PANEL Lab Routine Controlled type 2 diabetes mellitus without complication, without long-term current use of insulin (HCC) Expected: 04/29/2024, Expires: 07/29/2024 [facility] Work Phone: Comment on above: Expected: 04/29/2024, Expires: Start: 04-29-2024 End: 07-29-2024 Lipid 1996 panel - Serum or Plasma LIPID PANEL BASIC Lab Routine Hyperlipidemia with target LDL less than 100 Expected: 04/29/2024, Expires: 07/29/2024 [facility] Comment on above: Expected: 04/29/2024, Expires: Start: 04-29-2024 End: 04-29-2024 Patient encounter procedure 04/29/2024 9:40 AM EDT Office Visit Internal Medicine [place] [address] [place] [address] Navin Paniagua MD [address] [place] [address] 3 month follow up Internal Medicine [place] Comment on above: 3 month follow up Start: 04-23-2024 End: 04-23-2024 Patient encounter procedure 04/23/2024 1:00 PM EDT Office Visit Podiatry [address] [place], [place] [id number] Marylou Melgoza [address] [place], [place] [id number] 3 month foot check Podiatry Comment on above: 3 month foot check Start: 04-04-2024 Covid-19 Vaccine ( season) Covid-19 Vaccine ( season) [facility] Start: 04-04-2024 Covid-19 Vaccine ( season) Covid-19 Vaccine ( season) [facility] Start: 04-04-2024 Influenza vaccination [facility] Start: 03-22-2024 End: 03-22-2024 Patient encounter procedure 03/22/2024 12:40 PM EDT Office Visit Internal Medicine [place] [address] [facility] [place] [address] Seema Mcginnis, 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 FREEZING [address] [place] [address] [facility] ER follow up right calf pain swelling, bruising ankle to groin now Internal Medicine [place] Comment on above: [facility] ER follow up right calf pain swellin g, bruising ankle to groin now Start: 03-08-2024 End: 03-08-2024 Patient encounter procedure 03/08/2024 3:00 PM EDT Office Visit Internal Medicine [place] [address] [facility] [place] [address] Navin Paniagua MD [address] [place] [address] 2 week follow-up - lower leg cellulitis Internal Medicine [place] Comment on above: 2 week follow-up - lower leg cellulitis Start: 03-04-2024 Hemoglobin A1c measurement HbA1C [facility] Start: 02-23-2024 End: 02-23-2024 Patient encounter procedure 02/23/2024 2:40 PM EDT Office Visit Internal Medicine [place] [address] [place] [address] Navin Paniagua MD [address] [place] [address] [facility] Internal Medicine [place] Comment on above: [employer] Start: 01-28-2024 End: 04-28-2024 CBC W Auto Differential panel - Blood CBC + DIFF Lab Routine Thrombocytopenia (HCC) Expected: 01/28/2024, Expires: 04/28/2024 [facility] Work Phone: Comment on above: Expected: 01/28/2024, Expires: Start: 01-28-2024 End: 04-28-2024 Comprehensive metabolic 2000 panel - Serum or Plasma COMP METABOLIC PANEL Lab Routine Stage 3a chronic kidney disease (HCC) Expected: 01/28/2024, Expires: 04/28/2024 [facility] Work Phone: Comment on above: Expected: 01/28/2024, Expires: Start: 01-28-2024 End: 04-28-2024 Hemoglobin A1c in Blood HGB A1C Lab Routine Controlled type 2 diabetes mellitus without complication, without long-term current use of insulin (HCC) Expected: 01/28/2024, Expires: 04/28/2024 [facility] Work Phone: Comment on above: Expected: 01/28/2024, Expires: Start: 01-28-2024 End: 04-28-2024 Microalbumin/Creatinine [Mass Ratio] in Urine [facility] Comment on above: Expected: 01/28/2024, Expires: Start: 01-28-2024 End: 01-28-2024 Patient encounter procedure 01/28/2024 9:20 AM EDT Office Visit Internal Medicine [place] [address] [place] [id number] Navin Paniagua MD [address] [place], [place] [id number] 3 month follow-up Review labs Internal Medicine [place] Comment on above: 3 month follow-up Review labs Start: 01-11-2024 Hepatitis B screening URINE ALBUMIN:CREATININE RATIO [facility] Start: 12-23-2023 Covid-19 Vaccine () Covid-19 Vaccine () [facility] Start: 09-18-2023 End: 12-18-2023 CITRATED PLATELET COUNT CITRATED PLATELET COUNT Lab Routine Platelet count less 140,000 per cubic millimeter Expected: 09/18/2023, Expires: 12/18/2023 [facility] Work Phone: Comment on above: Expected: 09/18/2023, Expires: Start: 09-09-2023 Covid-19 Vaccine () Covid-19 Vaccine () [facility] Start: 08-04-2023 Advance Directive Discussion Advance Directive Discussion [facility] Start: 08-04-2023 Behavioral Health Screening Behavioral Health Screening [facility] Start: 08-04-2023 Depression Assessment Depression Assessment [facility] Start: 07-15-2023 End: 10-14-2023 Hemoglobin A1c in Blood HGB A1C Lab Routine Controlled type 2 diabetes mellitus without complication, without long-term current use of insulin (HCC) Expected: 07/15/2023, Expires: 10/14/2023 [facility] Work Phone: Comment on above: Expected: 07/15/2023, Expires: 4 Start: 07-12-2023 Hemoglobin A1c measurement HbA1C [facility] Start: 07-12-2023 Hemoglobin A1c/Hemoglobin.total in Blood HBA1C [facility] Start: 06-06-2023 Hepatitis C antibody, confirmatory test DILATED RETINAL EXAM [facility] Start: 05-29-2023 3 comp foot exam completed DIABETIC FOOT EXAM [facility] Start: 05-16-2023 End: 07-16-2023 Comprehensive metabolic 2000 panel - Serum or Plasma [facility] Work Phone: Comment on above: Expected: 05/16/2023, Expires: 3 Start: 05-16-2023 End: 07-16-2023 Natriuretic peptide.B prohormone N-Terminal [Mass/volume] in Serum or Plasma [facility] Work Phone: Comment on above: Expected: 05/16/2023, Expires: 3 Start: 04-11-2023 Hepatitis B surface antibody level LDL CHOLESTEROL [facility] Start: 04-04-2023 Covid-19 Vaccine () Covid-19 Vaccine () [facility] Start: 04-04-2023 Influenza vaccination [facility] Start: 03-11-2023 Hemoglobin A1c/Hemoglobin.total in Blood HBA1C [facility] Start: 11-13-2022 Hepatitis B screening URINE ALBUMIN:CREATININE RATIO [facility] Start: 10-09-2022 Hemoglobin A1c/Hemoglobin.total in Blood HBA1C [facility] Start: 08-29-2022 End: 10-29-2022 Basic metabolic 2000 panel - Serum or Plasma BASIC METABOLIC PNL Lab Routine Controlled type 2 diabetes mellitus without complication, without long-term current use of insulin (HCC) Expected: 08/29/2022, Expires: 10/29/2022 [facility] Work Phone: Comment on above: Expected: 08/29/2022, Expires: 3 Start: 08-29-2022 End: 10-29-2022 Hemoglobin A1c in Blood HGB A1C Lab Routine Controlled type 2 diabetes mellitus without complication, without long-term current use of insulin (HCC) Expected: 08/29/2022, Expires: 10/29/2022 [facility] Work Phone: Comment on above: Expected: 08/29/2022, Expires: 3 Start: 08-23-2022 Covid-19 Vaccine (6 - Moderna risk series) Covid-19 Vaccine (6 - Moderna risk series) [facility] Start: 08-17-2022 3 comp foot exam completed DIABETIC FOOT EXAM [facility] Start: 08-04-2022 ADVANCE DIRECTIVE DISCUSSION ADVANCE DIRECTIVE DISCUSSION [facility] Start: 08-04-2022 DEPRESSION ASSESSMENT DEPRESSION ASSESSMENT [facility] Start: 05-27-2022 End: 07-27-2022 Clostridioides difficile toxin genes [Presence] in Stool by ANAND with probe detection C. DIFFICILE PCR Lab Routine Diarrhea, unspecified type Expected: 05/27/2022, Expires: 07/27/2022 [facility] Work Phone: Comment on above: Expected: 05/27/2022, Expires: 2 Start: 05-27-2022 End: 07-27-2022 ENTERIC BACTERIAL PANEL BY PCR ENTERIC BACTERIAL PANEL BY PCR Lab Routine Diarrhea, unspecified type Expected: 05/27/2022, Expires: 07/27/2022 [facility] Work Phone: Comment on above: Expected: 05/27/2022, Expires: 2 Start: 04-10-2022 End: 06-10-2022 Basic metabolic 2000 panel - Serum or Plasma BASIC METABOLIC PNL Lab Routine Controlled type 2 diabetes mellitus without complication, without long-term current use of insulin (HCC) Expected: 04/10/2022, Expires: 06/10/2022 [facility] Work Phone: Comment on above: Expected: 04/10/2022, Expires: 2 Start: 04-10-2022 End: 06-10-2022 Hemoglobin A1c in Blood HGB A1C Lab Routine Controlled type 2 diabetes mellitus without complication, without long-term current use of insulin (HCC) Expected: 04/10/2022, Expires: 06/10/2022 [facility] Work Phone: Comment on above: Expected: 04/10/2022, Expires: 2 Start: 04-10-2022 Hemoglobin A1c/Hemoglobin.total in Blood HBA1C [facility] Start: 04-10-2022 End: 06-10-2022 Lipid 1996 panel - Serum or Plasma LIPID PANEL BASIC Lab Routine Controlled type 2 diabetes mellitus without complication, without long-term current use of insulin (HCC) Expected: 04/10/2022, Expires: 06/10/2022 [facility] Work Phone: Comment on above: Expected: 04/10/2022, Expires: 2 Start: 04-04-2022 Influenza vaccination INFLUENZA (#1) [facility] Start: 03-22-2022 Hepatitis B surface antibody level LDL CHOLESTEROL [facility] Start: 03-09-2022 COVID-19 VACCINE (5 - Booster for Moderna series) COVID-19 VACCINE (5 - Booster for Moderna series) [facility] Start: 01-02-2022 COVID-19 VACCINE (5 - Booster for Moderna series) COVID-19 VACCINE (5 - Booster for Moderna series) [facility] Start: 11-13-2021 End: 01-13-2022 ALBUMIN/CREAT RATIO RND UR [facility] Work Phone: Comment on above: Expected: 11/13/2021, Expires: 2 Start: 11-13-2021 End: 01-13-2022 Bacteria identified in Urine by Culture [facility] Work Phone: Comment on above: Expected: 11/13/2021, Expires: 2 Start: 11-13-2021 End: 01-13-2022 Urinalysis complete panel - Urine [facility] Work Phone: Comment on above: Expected: 11/13/2021, Expires: 2 Start: 09-07-2021 3 comp foot exam completed DIABETIC FOOT EXAM [facility] Start: 09-07-2021 Hepatitis B screening URINE ALBUMIN:CREATININE RATIO [facility] Start: 08-04-2021 ADVANCE DIRECTIVE DISCUSSION ADVANCE DIRECTIVE DISCUSSION [facility] Start: 08-04-2021 DEPRESSION ASSESSMENT DEPRESSION ASSESSMENT [facility] Start: 08-27-2020 Hepatitis C antibody, confirmatory test DILATED RETINAL EXAM [facility] Start: 10-23-2017 End: 10-23-2017 Appointment Appointment [facility] Work Phone: Start: 07-21-2017 End: 07-21-2017 Appointment Appointment [facility] Work Phone: Start: 01-16-2017 End: 01-16-2017 Appointment Appointment [facility] Work Phone: Start: 01-16-2017 End: 01-16-2017 Follow Up Appt 3 months Follow Up Appt 3 months [facility] Work Phone: Start: 01-16-2017 End: 01-16-2017 Pacer Clinic [facility] Work Phone: Start: 10-22-2016 End: 10-22-[address] 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 Work Phone: Start: 10-18-2015 End: 10-18-2015 Follow Up Appt 6 months Follow Up Appt 6 months [facility] Work Phone: Start: 10-18-2015 End: 10-18-2015 MMM MMM [facility] Work Phone: Start: 10-13-2015 End: 04-02-2016 Follow Up Appt 3 months Follow Up Appt 3 months [facility] Work Phone: Start: 10-13-2015 End: 04-02-[address] [facility] Work Phone: Start: 2010 RSV Vaccine (1 - 1-dose 75+ series) RSV Vaccine (1 - 1-dose 75+ series) [facility] Start: 1995 Hepatitis B Vaccine (1 of 3 - Risk 3-dose series) Hepatitis B Vaccine (1 of 3 - Risk 3-dose series) [facility] Start: 1995 RSV Vaccine (1 - 1-dose 60+ series) RSV Vaccine (1 - 1-dose 60+ series) [facility] Start: 1953 Anxiety Screening Anxiety Screening [facility] Start: 1953 Depression Screening Depression Screening [facility] Basic metabolic 2000 panel - Serum or Plasma BASIC METABOLIC PNL Lab Routine Controlled type 2 diabetes mellitus without complication, without long-term current use of insulin (HCC) 04/11/2022 8:40 AM EDT [facility] Work Phone: CBC panel - Blood by Automated count CBC Lab Routine Dermatitis 05/16/2023 2:38 PM EDT [facility] Work Phone: COVID & INFLUENZA A/ B & RSV NAAT, ROUTINE COVID & INFLUENZA A/B & RSV NAAT, ROUTINE Microbiology Routine Viral URI with cough 06/19/2023 11:10 AM EST [facility] Work Phone: End: 04-10-2023 ECG COMPLETE ECG COMPLETE ECG Routine Paroxysmal A-fib (HCC) 1 Occurrences starting 04/10/2022 until 04/10/2023 [facility] Work Phone: Comment on above: 1 Occurrences starting 04/10/2022 until 04/10/2023 End: 07-11-2023 ECG COMPLETE ECG COMPLETE ECG Routine Paroxysmal A-fib (HCC) 1 Occurrences starting 07/11/2022 until 07/11/2023 [facility] Work Phone: Comment on above: 1 Occurrences starting 07/11/2022 until 07/11/2023 ECG COMPLETE ECG COMPLETE ECG 07/11/2022 3:54 PM EST [facility] ECG COMPLETE [facility] Work Phone: Comment on above: Ordered: 09/04/2023 End: 09-11-2024 Echocardiography ECHO Cardiology Routine Idiopathic hypotension 1 Occurrences starting 09/11/2023 until 09/11/2024 [facility] Work Phone: Comment on above: 1 Occurrences starting 09/11/2023 until 09/11/2024 Hemoglobin A1c in Blood HGB A1C Lab Routine Controlled type 2 diabetes mellitus without complication, without long-term current use of insulin ([facility]) 04/11/2022 8:40 AM EDT [facility] Work Phone: Lipid 1996 panel - S yulia or Plasma LIPID PANEL BASIC Lab Routine Controlled type 2 diabetes mellitus without complication, without long-term current use of insulin ([facility]) 04/11/2022 8:40 AM EDT [facility] Work Phone: End: 08-11-2023 LUNG DIFFUSION CAPACITY (DLCO) LUNG DIFFUSION CAPACITY (DLCO) PFT Routine ROMERO (dyspnea on exertion) 1 Occurrences starting 07/12/2022 until 08/11/2023 [facility] Work Phone: Comment on above: 1 Occurrences starting 07/12/2022 until 08/11/2023 End: 08-10-2023 Radiologic exam chest 2 views XR CHEST 2V FRONTAL/LAT Radiology Routine Simple chronic bronchitis (HCC) Dyspnea on exertion 1 Occurrences starting 07/11/2022 until 08/10/2023 [facility] Work Phone: Comment on above: 1 Occurrences starting 07/11/2022 until 08/10/2023 End: 06-14-2024 Radiologic exam chest 2 views XR CHEST 2V FRONTAL/LAT Radiology Routine Dyspnea, unspecified type 1 Occurrences starting 05/16/2023 until 06/14/2024 [facility] Work Phone: Comment on above: 1 Occurrences starting 05/16/2023 until 06/14/2024 Radiologic exam ches t 2 views XR CHEST 2V FRONTAL/LAT Radiology Routine Dyspnea, unspecified type 05/16/2023 2:32 PM EDT [facility] Work Phone: End: 08-11-2023 SPIROMETRY WITH DILATOR IF OBSTRUCTED SPIROMETRY WITH DILATOR IF OBSTRUCTED PFT Routine ROMERO (dyspnea on exertion) 1 Occurrences starting 07/12/2022 until 08/11/2023 [facility] Work Phone: Comment on above: 1 Occurrences starting 07/12/2022 until 08/11/2023 End: 11-26-2024 US Abdominal Aorta US ABD AORTA Radiology Routine Abdominal aortic aneurysm (AAA) without rupture, unspecified part (HCC) 1 Occurrences starting 10/28/2023 until 11/26/2024 [facility] Work Phone: Comment on above: 1 Occurrences starting 10/28/2023 until 11/26/2024 End: 03-22-2025 US Lower extremity vein US LEG VEIN DVT UNL VAS LAB Vascular Lab STAT Acute pain of right lower extremity Edema of right lower extremity 1 Occurrences starting 03/22/2024 until 03/22/2025 [facility] Work Phone: Comment on above: 1 Occurrences starting 03/22/2024 until 03/22/2025 [facility] Immunizations Immunization Date Immunization Notes Care Provider Fa cili 10-28-2023 COVID-19 vaccine, ag e 12+ yr, season (PFIZER-BIONTECH) Navin Paniagua MD Work Phone: [facility] 07-15-2023 COVID-19 vaccine, ag e 12+ yr, season (PFIZER-BIONTECH) Ruben Sharps POLICY CANCELLATION CLERK Work Phone: [facility] Work Phone: 05-16-2023 influenza (HD-IIV4) vaccine, age 65+ yr, high dose, quadrivalent, PF (FLUZONE HIGH-DOSE) Navin Paniagua MD Work Phone: [facility] 05-16-2023 influenza virus vacc ine, unspecified formulation Navin Paniagua MD Work Phone: [facility] 06-28-2022 COVID-19 booster vaccine, age 12+ yr, bivalent (MODERNA) Navin Paniagua MD Work Phone: [facility] Work Phone: 06-28-2022 Seasonal, quadrivale nt, recombinant, injectable influenza vaccine, preservative free Navin Paniagua MD Work Phone: [facility] Work Phone: 06-28-2022 influenza virus vacc ine, unspecified formulation Marylou Melgoza Work Phone: [facility] 04-10-2022 influenza, high-dose , quadrivalent vaccine (FLUZONE HIGH DOSE QUADRIVALENT) Navin Paniagua MD Work Phone: [facility] Work Phone: 06-06-2021 influenza, high-dose , quadrivalent vaccine (FLUZONE HIGH DOSE QUADRIVALENT) Navin Paniagua MD Work Phone: [facility] Work Phone: 05-10-2020 influenza, high dose seasonal, preservative-free Navin Paniagua MD Work Phone: [facility] Work Phone: 06-09-2019 influenza, high dose seasonal, preservative-free Navin Paniagua MD Work Phone: [facility] Work Phone: 04-06-2019 zoster vaccine recombinant Navin Paniagua MD Work Phone: [facility] Work Phone: 02-03-2019 zoster vaccine recombinant Navin Paniagua MD Work Phone: [facility] 02-02-2019 zoster vaccine recombinant Navin Paniagua MD Work Phone: [facility] Work Phone: 04-28-2018 influenza, high dose seasonal, preservative-free Navin Paniagua MD Work Phone: [facility] Work Phone: 04-28-2018 tetanus toxoid, redu lucas diphtheria toxoid, and acellular pertussis vaccine, adsorbed Navin Paniagua MD Work Phone: [facility] Work Phone: 04-23-2017 influenza, injectabl e, quadrivalent, preservative free Navin Paniagua MD Work Phone: [facility] Work Phone: 06-14-2016 influenza, high dose seasonal, preservative-free Navin Paniagua MD Work Phone: [facility] Work Phone: 03-08-2015 pneumococcal conjuga te vaccine, 13 valent Navin Paniagua MD Work Phone: [facility] 03-08-2015 pneumococcal polysaccharide vaccine, 23 valent Navin Paniagua MD Work Phone: [facility] Work Phone: 06-29-2013 influenza virus vacc ine, unspecified formulation Navin Paniagua MD Work Phone: [facility] 07-07-2012 influenza virus vacc ine, unspecified formulation Navin Paniagua MD Work Phone: [facility] 07-19-2010 influenza virus vacc ine, unspecified formulation Navin Paniagua MD Work Phone: [facility] 04-29-2009 influenza virus vacc ine, unspecified formulation Navin Paniagua MD Work Phone: [facility] Work Phone: 06-10-2008 influenza virus vacc ine, unspecified formulation Navin Paniagua MD Work Phone: [facility] 06-01-2007 influenza virus vacc ine, unspecified formulation Navin Paniagua MD Work Phone: [facility] Work Phone: 05-13-2006 diphtheria and tetan us toxoids, adsorbed for pediatric use Navin Paniagua MD Work Phone: [facility] Work Phone: 05-13-2006 pneumococcal polysaccharide vaccine, 23 valent Navin Paniagua MD Work Phone: [facility] Work Phone: Payers Date Payer Category Payer Unknown [id number] 2021 Medicare HUMANA MEDICARE HUMANA GOLD PLUS [id number] 2021-Present [phone] [address] [address] [place] [address] [facility] [id number] 2021 Private Health Insurance [id number] 2019 Medicare [id number] Social History Date Type Detail Facility Start: 04-10-2022 End: 03-22-2024 Tobacco smoking status NHIS Ex-smoker [facility] Start: 12-18-1944 End: 12-18-1994 History of tobacco use Current smoker [facility] Start: 12-18-1944 End: 12-18-1994 History of tobacco use Cigarette Smoker [facility] Start: 09-14-2021 End: 03-22-2024 Alcohol intake Current drinker of alcohol (finding) [facility] Start: 09-14-2021 End: 12-20-2022 Alcohol intake [facility] Work Phone: Start: 08-17-2021 History SDOH Alcohol Comment daily [facility] Start: 1935 Sex Assigned At Not on file [facility] Start: 05-02-2020 End: 05-29-2022 Exposure to SARS-CoV-2 (event) Not sure [facility] Start: 04-10-2022 End: 03-22-2024 Tobacco use and exposure Smokeless tobacco non-user [facility] Work Phone: Start: 07-11-2022 History SDOH Physica l Activity DPW 0 [facility] Start: 12-20-2022 End: 01-10-2023 Tobacco use panel [facility] Work Phone: Adult Depression Screening Assessment 0 [facility] Work Phone: Start: 11-24-2019 Alcoholic beverage intake Current non-drinker of alcohol (finding) [facility] Clinical Notes 06-01-2020 to 05-31-2024 Telephone Encounter - Navin Paniagua MD - 05/31/2024 12:20 PM EDTTelephone Encounter - Navin Paniagua MD - 05/31/2024 12:20 PM EDSeema Spence, 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 [facility] 05-31-2024 Miscellaneous Notes Noted. Patient phoned to let [facility]cp know[facility] [place], and informed him, his kidney lab is 1.5, states normal is 1.2. Reports they were not worried about it, but advised patient to let pcp know. Reports he takes mycophenolate mofetil 250 mg capsule, 3 capsules two times a day. documented in this encounter [facility] 05-31-2024 Telephone encounter Note Patient phoned to let pcp know, [facility] [place], [facility] patient's [facility] last week, and informed him, his kidney lab is 1.5, states normal is 1.2. Reports they were not worried about it, but advised patient to let pcp know. Reports he takes mycophenolate mofetil 250 mg capsule, 3 capsules two times a day. [facility] 05-18-2024 Telephone encounter Note Noted Seema Mcginnis APRN.CNP [facility] 05-18-2024 Miscellaneous Notes Noted Seema Mcginnis APRN.CNP Patient phoned to give Seema update on right leg. Reports the hematoma is reabsorbing back into the leg, and the leg is 1/2 smaller than the last time he saw Seema, on 03-22-24. Reports he saw Account Manager today, who clipped his toenails. documented in this encounter [facility] 05-18-2024 Telephone encounter Note Patient phoned to give Seema update on right leg. Reports the hematoma is reabsorbing back into the leg, and the leg is 1/2 smaller than the last time he saw Seema, on 03-22-24. Reports he saw Account Manager today, who clipped his toenails. [facility] 04-27-2024 Telephone encounter Note Patient notified of below recommendation, verbalized understanding. Symptoms have not worsened, improving slowly. Bonnie Peres LPN [facility] 04-27-2024 Miscellaneous Notes Patient notified of below recommendation, verbalized understanding. Symptoms have not worsened, improving slowly. Bonnie Peres LPN There is not specific timeline for resolution of a hematoma, it varies depending on location, size, etc. There could be other reasons for his symptoms as well. If he feels his symptoms have worsened he needs to be evaluated now, otherwise follow-up in 4 weeks if persisting. Seema Mcginnis APRN.PREPARATION SUPERVISOR FREEZING Last OV:03/22/24 - ER f/u right calf pain, swelling Pt is calling today for update on hematoma on right calf. Pt reports it has been over a month and he thought hematoma would have been absorbed by now. Pt reports right calf is 1 1/2 inches bigger than left calf and there is some swelling in left foot. Pt reports area is not painful. Pt reports he tries to keep leg elevated when he can. Pt is asking if he needs to be doing something else and also how long can it take for hematoma to be absorbed. Pt does not want to come in for appt because he does not feel he needs to. Maria Teresa Palmer LPN documented in this encounter [facility] 04-27-2024 Telephone encounter Note There is not specific timeline for resolution of a hematoma, it varies depending on location, size, etc. There could be other reasons for his symptoms as well. If he feels his symptoms have worsened he needs to be evaluated now, otherwise follow-up in 4 weeks if persisting. Seema Mcginnis APRN.PREPARATION SUPERVISOR FREEZING [facility] 04-27-2024 Telephone encounter Note Last OV:03/22/24 - ER f/u right calf pain, swelling Pt is calling today for update on hematoma on right calf. Pt reports it has been over a month and he thought hematoma would have been absorbed by now. Pt reports right calf is 1 1/2 inches bigger than left calf and there is some swelling in left foot. Pt reports area is not painful. Pt reports he tries to keep leg elevated when he can. Pt is asking if he needs to be doing something else and also how long can it take for hematoma to be absorbed. Pt does not want to come in for appt because he does not feel he needs to. Maria Teresa Palmer LPN [facility] 03-23-2024 Telephone encounter Note Pt notified of message below: Alix Kevin MA TL 03/23/24 2:53 PM Note ----- Message from Seema Mcginnis APRN.PREPARATION SUPERVISOR FREEZING sent at 03/23/2024 1:30 PM EDT ----- Please let the patient know the preliminary results of the ultrasound were negative for blood clot. It did show a large hematoma but as discussed during office visit this is not something that requires treatment and will resolve on its own. If the final results indicate anything different I will let him know Seema Mcginnis APRN.CECI Palmer LPN [facility] 03-23-2024 Miscellaneous Notes Pt notified of message below: Alix Kevin MA 03/23/24 2:53 PM Note ----- Message from Seema Mcginnis APRN.CNP sent at 03/23/2024 1:30 PM EDT ----- Please let the patient know the preliminary results of the ultrasound were negative for blood clot. It did show a large hematoma but as discussed during office visit this is not something that requires treatment and will resolve on its own. If the final results indicate anything different I will let him know Seema Mcginnis APRN.CECI Palmer LPN Patient scheduled today at noon at [facility]. Order reprinted and handed to PSS on 2nd floor to look into. Keep encounter open until resolved. Please have one of the PSR's look into this Seema Mcginnis APRN.CECI Pt states he was sent to [facility] yesterday for an US to r/o a clot. Pt states when he arrived at the hospital they did not have the order so he was unable to get the test done. Pt is unhappy & wants to know what happened. Enedina Grayson LPN documented in this encounter [facility] 03-23-2024 Telephone encounter Note Left message to call office. 03/23/2024 2:53 PM [facility] 03-23-2024 Telephone encounter Note ----- Message from Seema Mcginnis APRN.CNP sent at 03/23/2024 1:30 PM EDT ----- Please let the patient know the preliminary results of the ultrasound were negative for blood clot. It did show a large hematoma but as discussed during office visit this is not something that requires treatment and will resolve on its own. If the final results indicate anything different I will let him know Seema Mcginnis APRN.PREPARATION SUPERVISOR FREEZING [facility] 03-23-2024 Miscellaneous Notes Left message to call office. 03/23/2024 2:53 PM ----- Message from Seema Mcginnis APRN.CNP sent at 03/23/2024 1:30 PM EDT ----- Please let the patient know the preliminary results of the ultrasound were negative for blood clot. It did show a large hematoma but as discussed during office visit this is not something that requires treatment and will resolve on its own. If the final results indicate anything different I will let him know Seema Mcginnis APRN.CNP documented in this encounter [facility] 03-23-2024 Telephone encounter Note Patient scheduled today at noon at [facility] cc. [facility] 03-23-2024 Telephone encounter Note Order reprinted and handed to PSS on 2nd floor to look into. Keep encounter open until resolved. [facility] 03-23-2024 Telephone encounter Note Please have one of the PSR's look into this Seema Mcginnis APRN.PREPARATION SUPERVISOR FREEZING [facility] 03-23-2024 Telephone encounter Note Pt states he was sent to [facility] yesterday for an US to r/o a clot. Pt states when he arrived at the hospital they did not have the order so he was unable to get the test done. Pt is unhappy & wants to know what happened. Enedina Grayson LPN [facility] 03-22-2024 Note HNO ID: [id number] Author: SEEMA MCGINNIS APRN.PREPARATION SUPERVISOR FREEZING Service: ? Author Type: Nurse Practitioner Type: Progress Notes Filed: 03/22/2024 13:15 Note Text: CC: Patient presents with: ED Follow-up: Right calf pain, swelling, bruising - ankle to groin HPI Violeta Deal is a 89 year old male who presents today for above. He was being treated outpatient for the past month with antibiotics for cellulitis of the right leg followed by triamcinolone for stasis dermatitis. He called on 03/16 to report right calf swelling, pain and bruising and advised to go to the ER. He was evaluated at [facility] ER, symptoms attributed to a hematoma secondary to soft tissue injury/skin tear. No concerns for DVT and ultrasound was not done. Patient called today to report bruising in the leg is worse, bruising has now spread to the inner thigh and down to the foot. Swelling and pain are improving.Wound is healing albeit slowly. Denies fever, chills, body aches, malaise, nausea, purulent drainage. Keeping wound covered with dressing. Review of Systems See HPI PAST MEDICAL HISTORY 06/20/2020: Abdominal aortic aneurysm (AAA) without rupture (HCC) Comment: Infrarenal 4.[address] scan No date: Acute gastritis without mention of hemorrhage No date: Anemia, unspecified No date: Benign neoplasm of colon 06/20/2020: Bladder calculi 05/13/2006: BPH with obstruction/lower urinary tract symptoms 01/10/2024: Branch retinal artery occlusion of right eye No date: Bullous pemphigoid 01/12/2018: Cardiac pacemaker in situ Comment: Dr. [facility] 01/24/2022: COVID-19 No date: Degeneration of lumbar or lumbosacral intervertebral disc 05/29/2023: Diastolic dysfunction No date: Diverticulosis of colon (without mention of hemorrhage) 02/08/2022: Drug rash 08/22/2016: Embolism involving retinal artery Comment: 2015 02/21/2010: Hyperlipidemia LDL goal < 100 No date: MGUS (monoclonal gammopathy of unknown significance) 06/04/2015: Paroxysmal A-fib (HCC) No date: Personal history of colonic polyps 01/10/2024: Right-sided lacunar infarction (HCC) Comment: subacute right frontal 05/07/2007: Simple chronic bronchitis (HCC) Comment: mild COPD 06/04/2015: Sinus node dysfunction (HCC) 11/15/2019: Subarachnoid bleed ([facility]) Comment: [facility] 11/08/2023: TIA (transient ischemic attack) 06/04/2015: Transient neurologic deficit 02/21/2010: Type II or unspecified type diabetes mellitus without mention of complication, not stated as uncontrolled PAST SURGICAL HISTORY 08/2004: COLONOSCOPY FLX DX W/COLLJ SPEC WHEN PFRMD Comment: Colonoscopy 02/25/2008: COLONOSCOPY FLX DX W/COLLJ SPEC WHEN PFRMD Comment: Repeat in 06/26/2020: CYSTOSCOPY 02/25/2008: EGD TRANSORAL BIOPSY SINGLE/MULTIPLE 2015: EYELID SURGERY PROCEDURE, UNLISTED; Left 07/21/2020: LITHOLAPAXY COMP/LG > 2.5 CM 08/2015: PACEMAKER 2012: PAST SURGICAL HISTORY OF; Left Comment: macular hole, left eye 07/27/2020: PROSTHETIC IMPLANT DEVICE UROLIFT Comment: Dr. Queen 2012: XCAPSL CTRC RMVL INSJ IO LENS PROSTH W/O ECP Comment: Cataract Removal ALLERGIES Ether and Tolectin [Tolmetin Sodium] MEDICATIONS triamcinolone acetonide topical 0.5 % ointment Apply to affected area two times a day as needed (itchy areas arms and legs. [facility] medication.). mycophenolate mofetil (CELLCEPT) 250 mg capsule Take 3 capsules by mouth two times a day. From [place] support services rep. clopidogrel (PLAVIX) 75 mg tablet Take 1 tablet by mouth once daily. Patient should start on February 07, 2024. ezetimibe (ZETIA) 10 mg tablet Take 1 tablet by mouth once daily. tamsulosin (FLOMAX) 0.4 mg Take 1 capsule by mouth daily at bedtime. glipiZIDE (GLUCOTROL XL) 5 mg 24 hr tablet Take 1 tablet by mouth once daily. aspirin, enteric coated (ASPIRIN, ENTERIC COATED) 81 mg EC tablet Take 1 tablet by mouth once daily. finasteride (PROSCAR) 5 mg tablet Take 1 tablet by mouth once daily. atorvastatin (LIPITOR) 40 mg tablet Take 1 tablet by mouth daily at bedtime. For cholesterol. furosemide (LASIX) 40 mg tablet Take 1 tablet by mouth. Take 1 tablet on Friday AND Friday only. amiodarone (PACERONE) 200 mg tablet Take 200 mg by mouth once daily. FAMILY HISTORY Problem Relation Age of Onset COPD Mother Heart Father CHF Diabetes Father COPD Sister Obesity Maternal Grandmother Obesity Paternal Grandmother Diabetes Paternal Grandmother Social History Tobacco Use Smoking status: Former Current packs/day: 0.00 Average packs/day: 1 pack/day for 50.0 years (50.0 ttl pk-yrs) Types: Cigarettes Start date: 12/18/1944 Quit date: 12/18/1994 Years since quittin.2 Smokeless tobacco: Never Vaping Use Vaping status: Never Used Substance Use Topics Alcohol use: Yes Alcohol/week: 2.0 standard drinks of alcohol Types: 2 Cans of Beer (12oz) per week Comment: daily Drug use: No BP 112/64 Pulse 85 Temp 37.1 ?C (98.8 ?F) (Temporal) (more content not included)... [facility] 03-22-2024 History of Presen t illness Narrative Images from the original note were not included. CC: Patient presents with: ED Follow-up: Right calf pain, swelling, bruising - ankle to groin HPI Violeta Deal is a 89 year old male who presents today for above. He was being treated outpatient for the past month with antibiotics for cellulitis of the right leg followed by triamcinolone for stasis dermatitis. He called on 03/16 to report right calf swelling, pain and bruising and advised to go to the ER. He was evaluated at [facility] ER, symptoms attributed to a hematoma secondary to soft tissue injury/skin tear. No concerns for DVT and ultrasound was not done. Patient called today to report bruising in the leg is worse, bruising has now spread to the inner thigh and down to the foot. Swelling and pain are improving. Wound is healing albeit slowly. Denies fever, chills, body aches, malaise, nausea, purulent drainage. Keeping wound covered with dressing. Review of Systems See HPI PAST MEDICAL HISTORY 06/20/2020: Abdominal aortic aneurysm (AAA) without rupture (HCC) Comment: Infrarenal 4.[address] scan No date: Acute gastritis without mention of hemorrhage No date: Anemia, unspecified No date: Benign neoplasm of colon 06/20/2020: Bladder calculi 05/13/2006: BPH with obstruction/lower urinary tract symptoms 01/10/2024: Branch retinal artery occlusion of right eye No date: Bullous pemphigoid 01/12/2018: Cardiac pacemaker in situ Comment: Dr. [facility] 01/24/2022: COVID-19 No date: Degeneration of lumbar or lumbosacral intervertebral disc 05/29/2023: Diastolic dysfunction No date: Diverticulosis of colon (without mention of hemorrhage) 02/08/2022: Drug rash 08/22/2016: Embolism involving retinal artery Comment: 2015 02/21/2010: Hyperlipidemia LDL goal < 100 No date: MGUS (monoclonal gammopathy of unknown significance) 06/04/2015: Paroxysmal A-fib (HCC) No date: Personal history of colonic polyps 01/10/2024: Right-sided lacunar infarction (HCC) Comment: subacute right frontal 05/07/2007: Simple chronic bronchitis (HCC) Comment: mild COPD 06/04/2015: Sinus node dysfunction (HCC) 11/15/2019: Subarachnoid bleed (HCC) Comment: [facility] 11/08/2023: TIA (transient ischemic attack) 06/04/2015: Transient neurologic deficit 02/21/2010: Type II or unspecified type diabetes mellitus without mention of complication, not stated as uncontrolled PAST SURGICAL HISTORY 08/2004: COLONOSCOPY FLX DX W/COLLJ SPEC WHEN PFRMD Comment: Colonoscopy 02/25/2008: COLONOSCOPY FLX DX W/COLLJ SPEC WHEN PFRMD Comment: Repeat in 06/26/2020: CYSTOSCOPY 02/25/2008: EGD TRANSORAL BIOPSY SINGLE/MULTIPLE 2014: EYELID SURGERY PROCEDURE, UNLISTED; Left 07/21/2020: LITHOLAPAXY COMP/LG > 2.5 CM 08/2015: PACEMAKER 2012: PAST SURGICAL HISTORY OF; Left Comment: macular hole, left eye 07/27/2020: PROSTHETIC IMPLANT DEVICE UROLIFT Comment: Dr. Queen 2011: XCAPSL CTRC RMVL INSJ IO LENS PROSTH W/O ECP Comment: Cataract Removal ALLERGIES Ether and Tolectin [Tolmetin Sodium] MEDICATIONS triamcinolone acetonide topical 0.5 % ointment Apply to affected area two times a day as needed (itchy areas arms and legs. [facility] medication.). mycophenolate mofetil (CELLCEPT) 250 mg capsule Take 3 capsules by mouth two times a day. From [place] support services rep. clopidogrel (PLAVIX) 75 mg tablet Take 1 tablet by mouth once daily. Patient should start on February 07, 2024. ezetimibe (ZETIA) 10 mg tablet Take 1 tablet by mouth once daily. tamsulosin (FLOMAX) 0.4 mg Take 1 capsule by mouth daily at bedtime. glipiZIDE (GLUCOTROL XL) 5 mg 24 hr tablet Take 1 tablet by mouth once daily. aspirin, enteric coated (ASPIRIN, ENTERIC COATED) 81 mg EC tablet Take 1 tablet by mouth once daily. finasteride (PROSCAR) 5 mg tablet Take 1 tablet by mouth once daily. atorvastatin (LIPITOR) 40 mg tablet Take 1 tablet by mouth daily at bedtime. For cholesterol. furosemide (LASIX) 40 mg tablet Take 1 tablet by mouth. Take 1 tablet on Friday & Friday only. amiodarone (PACERONE) 200 mg tablet Take 200 mg by mouth once daily. FAMILY HISTORY Problem Relation Age of Onset COPD Mother Heart Father CHF Diabetes Father COPD Sister Obesity Maternal Grandmother Obesity Paternal Grandmother Diabetes Paternal Grandmother Social History Tobacco Use Smoking status: Former Current packs/day: 0.00 Average packs/day: 1 pack/day for 50.0 years (50.0 ttl pk-yrs) Types: Cigarettes Start date: 12/18/1944 Quit date: 12/18/1994 Years since quittin.2 Smokeless tobacco: Never Vaping Use Vaping status: Never Used Substance Use Topics Alcohol use: Yes Alcohol/week: 2.0 standard drinks of alcohol Types: 2 Cans of Beer (12oz) per week Comment: daily Drug use: No BP 112/64 Pulse 85 Temp 37.1 C (98.8 F) (Temporal) Resp 20 Wt 87.8 kg (193 lb 9 oz) SpO2 98% BMI 27.00 kg/m Physical Exam Vitals reviewed. Constitutional: Appearance: Normal appearance. Musculoskeletal: Right lower leg: Tenderness (diffuse) present. 1+ Pitting Edema present. Right foot: Normal capillary refill. Normal pulse. Legs: Neurological: Mental Status: He is alert. DATA REVIEWED: Outside chart from [facility] ER reviewed. ASSESSMENT/PLAN: 1. Edema of right lower extremity - ICD9: 782.3, ICD10: R60.0 (primary diagnosis) Persistent edema with minor improvement along with pain and hematoma Evaluate further with: - US LEG VEIN DVT [facility] 2. Bruising - ICD9: 924.9, ICD10: T14.8XXA Localized hematoma/bruising of the right lower leg now extending to upper thigh and down to foot. Suspect this is due to gravity/drifting as patient has been keeping his legs elevated above heart level. See plan above 3. Acute pain of right lower extremity - ICD9: 729.5, ICD10: M79.604 See #1 - US LEG VEIN DVT [facility] LAB Prescription instructions reviewed with patient as applicable. Potential red flag symptoms discussed with the patient. Reviewed appropriate action plan to take if red flag symptoms occur. Patient agreeable to treatment plan. Seema Mcginnis APRN.PREPARATION SUPERVISOR [employer] documented in this encounter [facility] 03-22-2024 Telephone encounter Note Reason For Call: Patient was seen in the ED for calf wound. Leg bruising worse and calf hurts Right leg has bruising from inner ankle to upper thigh near genitals. Calf wound same and about half inch long. Right foot swelling worse Outcome: Advised patient to be seen within 4 hours in office or ED. Patient would like an appt. He does not want to use the ED again. Conferenced patient to Dr. Paniagua's office for scheduling an appt this morning. Asked for triage nurse. HOLLAND Chirinos took the call and said she was the triage nurse. Gave Candis all the above information and left him on line with her for scheduling an appt within 4 hours Reason for Disposition [1] Raised bruise AND [2] size > 2 inches (5 cm) AND [3] getting bigger See healthcare provider within 4 hours in office or emergency room More red bruising on leg and greater than 2 inches but Not raised See My Note Calf pain Calf open wound same since ED visit Additional Information Negative: Shock suspected (e.g., cold/pale/clammy skin, too weak to stand, low BP, rapid pulse) Has not taken BP today Answer Assessment - Initial Assessment Questions 1. APPEARANCE of BRUISE: Describe the bruise. Red bruising per patient 2. SIZE: Upper and lower inner leg swelling. See My Note 3. NUMBER: See My Note 4. LOCATION: Right leg. See My Note 5. ONSET: After going to the ED the end of last week 6. CAUSE: Unknown reason for red bruising per patient. He said his cat may have scratched his calf. 7. MEDICAL HISTORY: Diabetic. Neuropathy 8. MEDICINES: He put Iodine on his wound. 9. OTHER SYMPTOMS: Calf pain and swelling. Right foot swelling, Calf wound open and half inch per patient and not draining today (same since ED visit) 10. : N/A Protocols used: [id number] [facility] 03-22-2024 Miscellaneous Notes Reason For Call: Patient was seen in the ED for calf wound. Leg bruising worse and calf hurts Right leg has bruising from inner ankle to upper thigh near genitals. Calf wound same and about half inch long. Right foot swelling worse Outcome: Advised patient to be seen within 4 hours in office or ED. Patient would like an appt. He does not want to use the ED again. Conferenced patient to Dr. Paniagua's office for scheduling an appt this morning. Asked for triage nurse. HOLLAND Chirinos took the call and said she was the triage nurse. Gave Candis all the above information and left him on line with her for scheduling an appt within 4 hours Reason for Disposition [1] Raised bruise AND [2] size > 2 inches (5 cm) AND [3] getting bigger See healthcare provider within 4 hours in office or emergency room More red bruising on leg and greater than 2 inches but Not raised See My Note Calf pain Calf open wound same since ED visit Additional Information Negative: Shock suspected (e.g., cold/pale/clammy skin, too weak to stand, low BP, rapid pulse) Has not taken BP today Answer Assessment - Initial Assessment Questions 1. APPEARANCE of BRUISE: Describe the bruise. Red bruising per patient 2. SIZE: Upper and lower inner leg swelling. See My Note 3. NUMBER: See My Note 4. LOCATION: Right leg. See My Note 5. ONSET: After going to the ED the end of last week 6. CAUSE: Unknown reason for red bruising per patient. He said his cat may have scratched his calf. 7. MEDICAL HISTORY: Diabetic. Neuropathy 8. MEDICINES: He put Iodine on his wound. 9. OTHER SYMPTOMS: Calf pain and swelling. Right foot swelling, Calf wound open and half inch per patient and not draining today (same since ED visit) 10. : N/A Protocols used: [id number] documented in this encounter [facility] 03-18-2024 Telephone encounter Note Patient reports he has been having constipation for 3 days and after using suppository today was able to have a good BM. Would like recommendations for constipation. Reviewed protocol recommendations with patient. Patient agreeable to try these and will call back with any questions or concerns. Reason for Disposition Rrqf-Xch-Mnnxbwh (OTC) medicines for constipation, questions about Answer Assessment - Initial Assessment Questions 1. STOOL PATTERN OR FREQUENCY: Normally has BM once daily. Last BM today after 3 days of constipation was today after using a suppository. 2. STRAINING: Sometimes has to strain. 3. RECTAL PAIN: Yes, sometimes. 4. STOOL COMPOSITION: Yes 5. BLOOD ON STOOLS: No 6. CHRONIC CONSTIPATION: Yes 7. CHANGES IN DIET OR HYDRATION: No changes in diet. States he is probably not drinking 6 cups a day of fluids. Will work on that. Eating fruits. 8. MEDICINES: No. 9. LAXATIVES: Used a suppository this morning. It worked. 10. ACTIVITY: Walks around the house daily but states probably should walk more. 11. CAUSE: Doesn't know. 12. OTHER SYMPTOMS: No 13. MEDICAL HISTORY: No hx hemorroids, no rectal surgery. 14. : N/A Protocols used: Suiwgaqiuuzu-YZMER-SV [facility] 03-18-2024 Miscellaneous Notes Patient reports he has been having constipation for 3 days and after using suppository today was able to have a good BM. Would like recommendations for constipation. Reviewed protocol recommendations with patient. Patient agreeable to try these and will call back with any questions or concerns. Reason for Disposition Rwas-Wzj-Fvmbqea (OTC) medicines for constipation, questions about Answer Assessment - Initial Assessment Questions 1. STOOL PATTERN OR FREQUENCY: Normally has BM once daily. Last BM today after 3 days of constipation was today after using a suppository. 2. STRAINING: Sometimes has to strain. 3. RECTAL PAIN: Yes, sometimes. 4. STOOL COMPOSITION: Yes 5. BLOOD ON STOOLS: No 6. CHRONIC CONSTIPATION: Yes 7. CHANGES IN DIET OR HYDRATION: No changes in diet. States he is probably not drinking 6 cups a day of fluids. Will work on that. Eating fruits. 8. MEDICINES: No. 9. LAXATIVES: Used a suppository this morning. It worked. 10. ACTIVITY: Walks around the house daily but states probably should walk more. 11. CAUSE: Doesn't know. 12. OTHER SYMPTOMS: No 13. MEDICAL HISTORY: No hx hemorroids, no rectal surgery. 14. : N/A Protocols used: [id number] documented in this encounter [facility] 03-16-2024 Telephone encounter Note Patient reports right lower leg is cold, swollen-patient states it is severe swelling, has knot on inside of leg with bruise size of silver dollar and spreading, painful to walk. Protocol recommends see provider in 4 hours but ER may be best choice. Patient agreeable to ER. Reason for Disposition [1] Thigh, calf, or ankle swelling AND [2] only 1 side Answer Assessment - Initial Assessment Questions 1. ONSET: Noticed it today. Right calf swelling, pain, blue pérez, knot, leg is cold. Only swollen at top of right calf and is spreading. No insect bites. No injury. 2. LOCATION: Top of right calf. Left leg is not swollen. 3. SEVERITY: Patient reports the swelling is severe and spreading. 4. REDNESS: No reddness or s/s infection. Leg is cold. 5. PAIN: Hurts to walk. Bruise size of silver dollar on inside of right calf with a knot- tender to touch. Patient reports no injury. 6. FEVER: No 7. CAUSE: No idea 8. MEDICAL HISTORY: No hx blood clots, cancer, heart failure, kidney dx, or liver failure. Has hx of a-fib. 9. RECURRENT SYMPTOM: Never 10. OTHER SYMPTOMS: No CP. Has COPD so gets SOB sometimes. 11. : N/A Protocols used: Leg Swelling and [id number]-[id number]-VL [facility] 03-16-2024 Miscellaneous Notes Patient reports right lower leg is cold, swollen-patient states it is severe swelling, has knot on inside of leg with bruise size of silver dollar and spreading, painful to walk. Protocol recommends see provider in 4 hours but ER may be best choice. Patient agreeable to ER. Reason for Disposition [1] Thigh, calf, or ankle swelling AND [2] only 1 side Answer Assessment - Initial Assessment Questions 1. ONSET: Noticed it today. Right calf swelling, pain, blue pérez, knot, leg is cold. Only swollen at top of right calf and is spreading. No insect bites. No injury. 2. LOCATION: Top of right calf. Left leg is not swollen. 3. SEVERITY: Patient reports the swelling is severe and spreading. 4. REDNESS: No reddness or s/s infection. Leg is cold. 5. PAIN: Hurts to walk. Bruise size of silver dollar on inside of right calf with a knot- tender to touch. Patient reports no injury. 6. FEVER: No 7. CAUSE: No idea 8. MEDICAL HISTORY: No hx blood clots, cancer, heart failure, kidney dx, or liver failure. Has hx of a-fib. 9. RECURRENT SYMPTOM: Never 10. OTHER SYMPTOMS: No CP. Has COPD so gets SOB sometimes. 11. : N/A Protocols used: Leg Swelling and [id number]-[id number]-PW documented in this encounter [facility] 03-08-2024 Instructions Navin Paniagua MD - 03/08/2024 3:09 PM EDT DO FASTING BLOOD WORK BEFORE JULY APPT. documented in this encounter [facility] 03-08-2024 Note HNO ID: [id number] Author: NAVIN PANIAGUA MD Service: ? Author Type: Physician Type: Progress Notes Filed: 03/08/2024 15:19 Note Text: This note was created using [email or web address]'sriter. Subjective Violeta Deal is a 89 year old male. His leg rashes were much better. He also saw his [facility] support services rep last week, and he was advised to use his compression socks regularly. He was prescribed KANDI as needed. Review of Systems Constitutional: Negative for fatigue and fever. Respiratory: Negative. Cardiovascular: Negative. Neurological: Negative. ACTIVE PROBLEM LIST Bph With Obstruction/Lower Urinary Tract Symptoms Simple Chronic Bronchitis (Hcc) Controlled Type 2 Diabetes Mellitus Without Complication, Without Long-Term Current Use of Insulin (Hcc) Hyperlipidemia With Target Ldl Less Than 100 Paroxysmal A-Fib (Hcc) Cardiac Pacemaker in Situ Essential Hypertension Abdominal Aortic Aneurysm (Aaa) Without Rupture (Hcc) Stage 3a Chronic Kidney Disease (Hcc) Pruritic Disorder Asteototic Dermatitis Stasis Dermatitis Dermatitis, Disseminated Superficial Actinic Porokeratosis (Dsap) Tia (Transient Ischemic Attack) Diastolic Dysfunction Current Outpatient Medications Medication Sig chlorthalidone (HYGROTON) 25 mg tablet Take 1 tablet by mouth once daily for 7 days. mycophenolate mofetil (CELLCEPT) 250 mg capsule Take 3 capsules by mouth two times a day. From [place] support services rep. clopidogrel (PLAVIX) 75 mg tablet Take 1 tablet by mouth once daily. Patient should start on February 07, 2024. ezetimibe (ZETIA) 10 mg tablet Take 1 tablet by mouth once daily. tamsulosin (FLOMAX) 0.4 mg Take 1 capsule by mouth daily at bedtime. glipiZIDE (GLUCOTROL XL) 5 mg 24 hr tablet Take 1 tablet by mouth once daily. aspirin, enteric coated (ASPIRIN, ENTERIC COATED) 81 mg EC tablet Take 1 tablet by mouth once daily. finasteride (PROSCAR) 5 mg tablet Take 1 tablet by mouth once daily. atorvastatin (LIPITOR) 40 mg tablet Take 1 tablet by mouth daily at bedtime. For cholesterol. furosemide (LASIX) 40 mg tablet Take 1 tablet by mouth. Take 1 tablet on Friday AND Friday only. amiodarone (PACERONE) 200 mg tablet Take 200 mg by mouth once daily. No current facility-administered medications for this visit. Objective BP 130/70 (BP Site: Left Arm, BP Position: Sitting, BP Cuff Size: Large Adult) Pulse 77 Temp 36.3 ?C (97.3 ?F) Resp 14 Ht 180.3 cm (5' 11 ) Wt 86.9 kg (191 lb 9.3 oz) SpO2 98% BMI 26.72 kg/m? Physical Exam Constitutional: General: He is not in acute distress. Cardiovascular: Heart sounds: Normal heart sounds. Pulmonary: Breath sounds: Normal breath sounds. Musculoskeletal: Right lower leg: No edema. Left lower leg: No edema. Skin: Findings: No erythema or rash. Neurological: Mental Status: He is alert. Assessment and Plan 1. Stasis dermatitis - ICD9: 454.1, ICD10: I87.2 (primary diagnosis) Controlled. - TRIAMCINOLONE ACETONIDE 0.5 % TOPICAL OINTMENT 2. 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 - TRIAMCINOLONE ACETONIDE 0.5 % TOPICAL OINTMENT Navin Paniagua MD [facility] 03-08-2024 History of Presen t illness Narrative This note was created using [email or web address]'sriter. Subjective Violeta Deal is a 89 year old male. His leg rashes were much better. He also saw his [place] support services rep last week, and he was advised to use his compression socks regularly. He was prescribed KANDI as needed. Review of Systems Constitutional: Negative for fatigue and fever. Respiratory: Negative. Cardiovascular: Negative. Neurological: Negative. ACTIVE PROBLEM LIST Bph With Obstruction/Lower Urinary Tract Symptoms Simple Chronic Bronchitis (Hcc) Controlled Type 2 Diabetes Mellitus Without Complication, Without Long-Term Current Use of Insulin (Hcc) Hyperlipidemia With Target Ldl Less Than 100 Paroxysmal A-Fib (Hcc) Cardiac Pacemaker in Situ Essential Hypertension Abdominal Aortic Aneurysm (Aaa) Without Rupture (Hcc) Stage 3a Chronic Kidney Disease (Hcc) Pruritic Disorder Asteototic Dermatitis Stasis Dermatitis Dermatitis, Disseminated Superficial Actinic Porokeratosis (Dsap) Tia (Transient Ischemic Attack) Diastolic Dysfunction Current Outpatient Medications Medication Sig chlorthalidone (HYGROTON) 25 mg tablet Take 1 tablet by mouth once daily for 7 days. mycophenolate mofetil (CELLCEPT) 250 mg capsule Take 3 capsules by mouth two times a day. From [place] support [place] rep. clopidogrel (PLAVIX) 75 mg tablet Take 1 tablet by mouth once daily. Patient should start on February 07, 2024. ezetimibe (ZETIA) 10 mg tablet Take 1 tablet by mouth once daily. tamsulosin (FLOMAX) 0.4 mg Take 1 capsule by mouth daily at bedtime. glipiZIDE (GLUCOTROL XL) 5 mg 24 hr tablet Take 1 tablet by mouth once daily. aspirin, enteric coated (ASPIRIN, ENTERIC COATED) 81 mg EC tablet Take 1 tablet by mouth once daily. finasteride (PROSCAR) 5 mg tablet Take 1 tablet by mouth once daily. atorvastatin (LIPITOR) 40 mg tablet Take 1 tablet by mouth daily at bedtime. For cholesterol. furosemide (LASIX) 40 mg tablet Take 1 tablet by mouth. Take 1 tablet on Friday & Friday only. amiodarone (PACERONE) 200 mg tablet Take 200 mg by mouth once daily. No current facility-administered medications for this visit. Objective BP 130/70 (BP Site: Left Arm, BP Position: Sitting, BP Cuff Size: Large Adult) Pulse 77 Temp 36.3 C (97.3 F) Resp 14 Ht 180.3 cm (5' 11 ) Wt 86.9 kg (191 lb 9.3 oz) SpO2 98% BMI 26.72 kg/m Physical Exam Constitutional: General: He is not in acute distress. Cardiovascular: Heart sounds: Normal heart sounds. Pulmonary: Breath sounds: Normal breath sounds. Musculoskeletal: Right lower leg: No edema. Left lower leg: No edema. Skin: Findings: No erythema or rash. Neurological: Mental Status: He is alert. Assessment and Plan 1. Stasis dermatitis - ICD9: 454.1, ICD10: I87.2 (primary diagnosis) Controlled. - TRIAMCINOLONE ACETONIDE 0.5 % TOPICAL OINTMENT 2. 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 - TRIAMCINOLONE ACETONIDE 0.5 % TOPICAL OINTMENT Navin Paniagua MD documented in this encounter [facility] 02-23-2024 Note HNO ID: [id number] Author: NAVIN PANIAGUA MD Service: ? Author Type: Physician Type: Progress Notes Filed: 02/23/2024 15:22 Note Text: This note was created using [email or web address]'sriter. Subjective Patient presents with: Irene Deal was here with daughter and son in law. He was having sharp pains in his legs last night, bothersome enough to interfere with sleep. He had no fever or chills. Pain was better today. His rash was stable. I saw him 3 days ago. Review of Systems Constitutional: Negative for fatigue and fever. ACTIVE PROBLEM LIST Bph With Obstruction/Lower Urinary Tract Symptoms Simple Chronic Bronchitis (Hcc) Controlled Type 2 Diabetes Mellitus Without Complication, Without Long-Term Current Use of Insulin (Hcc) Hyperlipidemia With Target Ldl Less Than 100 Paroxysmal A-Fib (Hcc) Cardiac Pacemaker in Situ Essential Hypertension Abdominal Aortic Aneurysm (Aaa) Without Rupture (Hcc) Stage 3a Chronic Kidney Disease (Hcc) Pruritic Disorder Asteototic Dermatitis Stasis Dermatitis Dermatitis, Disseminated Superficial Actinic Porokeratosis (Dsap) Tia (Transient Ischemic Attack) Current Outpatient Medications Medication Sig cephALEXin (KEFLEX) 500 mg capsule Take 1 capsule by mouth three times a day for 7 days. mycophenolate mofetil (CELLCEPT) 250 mg capsule Take 3 capsules by mouth two times a day. From [place] support [place] rep. clopidogrel (PLAVIX) 75 mg tablet Take 1 tablet by mouth once daily. Patient should start on February 07, 2024. ezetimibe (ZETIA) 10 mg tablet Take 1 tablet by mouth once daily. tamsulosin (FLOMAX) 0.4 mg Take 1 capsule by mouth daily at bedtime. glipiZIDE (GLUCOTROL XL) 5 mg 24 hr tablet Take 1 tablet by mouth once daily. aspirin, enteric coated (ASPIRIN, ENTERIC COATED) 81 mg EC tablet Take 1 tablet by mouth once daily. finasteride (PROSCAR) 5 mg tablet Take 1 tablet by mouth once daily. atorvastatin (LIPITOR) 40 mg tablet Take 1 tablet by mouth daily at bedtime. For cholesterol. furosemide (LASIX) 40 mg tablet Take 1 tablet by mouth. Take 1 tablet on Friday AND Friday only. amiodarone (PACERONE) 200 mg tablet Take 200 mg by mouth once daily. No current facility-administered medications for this visit. Objective BP 124/64 (BP Site: Left Arm, BP Position: Sitting, BP Cuff Size: Large Adult) Pulse 84 Temp 36.8 ?C (98.3 ?F) (Temporal) Resp 24 Wt 88 kg (194 lb) BMI 26.31 kg/m? Physical Exam Constitutional: General: He is not in acute distress. Appearance: He is not ill-appearing. Pulmonary: Effort: Pulmonary effort is normal. Musculoskeletal: Right lower le+ Pitting Edema present. Left lower le+ Pitting Edema present. Skin: Findings: Erythema and rash present. Comments: Erythema is more confluent in the lower legs above the ankle. Left lateral small ulcer has dried up. Neurological: Mental Status: He is alert. Assessment and Plan 1. Stasis dermatitis - ICD9: 454.1, ICD10: I87.2 (primary diagnosis) - Elevate legs often. I did not recommend compression stockings due to inflammation. - CHLORTHALIDONE 25 MG TABLET. Take one(1) tablet daily x 7 days. - I offered PRN pain medication. He declined. 2. Stage 3a chronic kidney disease (HCC) - ICD9: 585.3, ICD10: N18.31 - eGFR: 48 Stable - Recent labs noted. Questions, concerns were discussed with patient and family. He should consider reaching out to his [place] support services rep. Follow up in 2 weeks. Navin Paniagua MD [facility] 02-23-2024 History of Presen t illness Narrative This note was created using [email or web address]'sriter. Subjective Patient presents with: Pain Violeta Deal was here with daughter and son in law. He was having sharp pains in his legs last night, bothersome enough to interfere with sleep. He had no fever or chills. Pain was better today. His rash was stable. I saw him 3 days ago. Review of Systems Constitutional: Negative for fatigue and fever. ACTIVE PROBLEM LIST Bph With Obstruction/Lower Urinary Tract Symptoms Simple Chronic Bronchitis ([facility]) Controlled Type 2 Diabetes Mellitus Without Complication, Without Long-Term Current Use of Insulin ([facility]) Hyperlipidemia With Target Ldl Less Than 100 Paroxysmal A-Fib ([facility]) Cardiac Pacemaker in Situ Essential Hypertension Abdominal Aortic Aneurysm (Aaa) Without Rupture ([facility]) Stage 3a Chronic Kidney Disease (Hcc) Pruritic Disorder Asteototic Dermatitis Stasis Dermatitis Dermatitis, Disseminated Superficial Actinic Porokeratosis (Dsap) Tia (Transient Ischemic Attack) Current Outpatient Medications Medication Sig cephALEXin (KEFLEX) 500 mg capsule Take 1 capsule by mouth three times a day for 7 days. mycophenolate mofetil (CELLCEPT) 250 mg capsule Take 3 capsules by mouth two times a day. From [place] support services rep. clopidogrel (PLAVIX) 75 mg tablet Take 1 tablet by mouth once daily. Patient should start on February 07, 2024. ezetimibe (ZETIA) 10 mg tablet Take 1 tablet by mouth once daily. tamsulosin (FLOMAX) 0.4 mg Take 1 capsule by mouth daily at bedtime. glipiZIDE (GLUCOTROL XL) 5 mg 24 hr tablet Take 1 tablet by mouth once daily. aspirin, enteric coated (ASPIRIN, ENTERIC COATED) 81 mg EC tablet Take 1 tablet by mouth once daily. finasteride (PROSCAR) 5 mg tablet Take 1 tablet by mouth once daily. atorvastatin (LIPITOR) 40 mg tablet Take 1 tablet by mouth daily at bedtime. For cholesterol. furosemide (LASIX) 40 mg tablet Take 1 tablet by mouth. Take 1 tablet on Friday & Friday only. amiodarone (PACERONE) 200 mg tablet Take 200 mg by mouth once daily. No current facility-administered medications for this visit. Objective BP 124/64 (BP Site: Left Arm, BP Position: Sitting, BP Cuff Size: Large Adult) Pulse 84 Temp 36.8 C (98.3 F) (Temporal) Resp 24 Wt 88 kg (194 lb) BMI 26.31 kg/m Physical Exam Constitutional: General: He is not in acute distress. Appearance: He is not ill-appearing. Pulmonary: Effort: Pulmonary effort is normal. Musculoskeletal: Right lower le+ Pitting Edema present. Left lower le+ Pitting Edema present. Skin: Findings: Erythema and rash present. Comments: Erythema is more confluent in the lower legs above the ankle. Left lateral small ulcer has dried up. Neurological: Mental Status: He is alert. Assessment and Plan 1. Stasis dermatitis - ICD9: 454.1, ICD10: I87.2 (primary diagnosis) - Elevate legs often. I did not recommend compression stockings due to inflammation. - CHLORTHALIDONE 25 MG TABLET. Take one(1) tablet daily x 7 days. - I offered PRN pain medication. He declined. 2. Stage 3a chronic kidney disease (HCC) - ICD9: 585.3, ICD10: N18.31 - eGFR: 48 Stable - Recent labs noted. Questions, concerns were discussed with patient and family. He should consider reaching out to his [facility]. Follow up in 2 weeks. Navin Paniagua MD documented in this encounter [facility] 02-23-2024 Telephone encounter Note Reason for Call: Pt c/o not sleeping due to increased pain in left leg and inflammation. Was diagnosed with cellulitis on 02/21/24 and taking cephalexin as ordered. Outcome: Disposition- See pcp within 24 hrs. Warm transfer to [facility]. Reason for Disposition [1] Taking antibiotic > 24 hours AND [2] cellulitis symptoms are WORSE (e.g., spreading redness, pain, swelling) Answer Assessment - Initial Assessment Questions 1. SYMPTOM: inflammation has persisted but pain is worse. Feels he is not seeing improvement. Could not sleep last night. 2. CELLULITIS LOCATION: left lower leg/foot. 3. CELLULITIS SIZE: outside left foot to ankle and part way up the calf. Right leg is bumpy from 4 above ankle to the foot. 4. [id number]: worse? More red. 5. PAIN: pain kept him awake all night. Used Eucerin and vaseline which did not help. Has not used otc pain relievers. 6. FEVER: has not checked but states he does not feel feverish. 7. OTHER SYMPTOMS: has clear fluid seeping from left leg. 8. DIAGNOSIS DATE: Friday02/21/24. 9. ANTIBIOTIC NAME: Cephalexin 3 times a day. 10. ANTIBIOTIC DATE: started evening of 02/21/24. 11. FOLLOW-UP APPOINTMENT: no appt Protocols used: Cellulitis on Antibiotic Follow-up [id number] 02-23-2024 Miscellaneous Notes Reason for Call: Pt c/o not sleeping due to increased pain in left leg and inflammation. Was diagnosed with cellulitis on 02/21/24 and taking cephalexin as ordered. Outcome: Disposition- See pcp within 24 hrs. Warm transfer to [facility]. Reason for Disposition [1] Taking antibiotic > 24 hours AND [2] cellulitis symptoms are WORSE (e.g., spreading redness, pain, swelling) Answer Assessment - Initial Assessment Questions 1. SYMPTOM: inflammation has persisted but pain is worse. Feels he is not seeing improvement. Could not sleep last night. 2. CELLULITIS LOCATION: left lower leg/foot. 3. CELLULITIS SIZE: outside left foot to ankle and part way up the calf. Right leg is bumpy from 4 above ankle to the foot. 4. [id number]: worse? More red. 5. PAIN: pain kept him awake all night. Used Eucerin and vaseline which did not help. Has not used otc pain relievers. 6. FEVER: has not checked but states he does not feel feverish. 7. OTHER SYMPTOMS: has clear fluid seeping from left leg. 8. DIAGNOSIS DATE: Friday02/21/24. 9. ANTIBIOTIC NAME: Cephalexin 3 times a day. 10. ANTIBIOTIC DATE: started evening of 02/21/24. 11. FOLLOW-UP APPOINTMENT: no appt Protocols used: Cellulitis on Antibiotic Follow-up [id number] documented in this encounter [facility] 02-23-2024 Evaluation note Diagnosis Stasis dermatitis- Primary Varicose veins of lower extremities with inflammation Stage 3a chronic kidney disease (HCC) documented in this encounter [facility]07-19-2024 Instructions* Patient Instructions* Navin Paniagua MD - 02/20/2024 3:50 PM EDT TRY BENADRYL (OFF THE SHELF) FOR ALLERGY, ITCHING. documented [facility]24 NoteHNO ID: [id number] Author: NAVIN PANIAGUA MD Service: ? Author Type: Physician Type: Progress Notes Filed: 02/22/2024 13:13 Note Text: This note was created using BlackDuckter. Subjective Violeta Deal is a 89 year old male with itchy rash of both legs for 2 days. He was concerned about a medication reaction due to a recalcitrant rash managed by his [facility] support services rep and diagnosed as drug sensitivity rash. He's also had drainage noted from his left leg. Review of Systems Constitutional: Negative for fatigue and fever. ACTIVE PROBLEM LIST Bph With Obstruction/Lower Urinary Tract Symptoms Simple Chronic Bronchitis (Hcc) Controlled Type 2 Diabetes Mellitus Without Complication, Without Long-Term Current Use of Insulin (Hcc) Hyperlipidemia With Target Ldl Less Than 100 Paroxysmal A-Fib (Hcc) Cardiac Pacemaker in Situ Essential Hypertension Abdominal Aortic Aneurysm (Aaa) Without Rupture (Hcc) Stage 3a Chronic Kidney Disease (Hcc) Pruritic Disorder Asteototic Dermatitis Stasis Dermatitis Dermatitis, Disseminated Superficial Actinic Porokeratosis (Dsap) Tia (Transient Ischemic Attack) Social History Tobacco Use Smoking status: Former Packs/day: 1.00 Years: 50.00 Additional pack years: 0.00 Total pack years: 50.00 Types: Cigarettes Quit date: 12/18/1994 Years since quittin.1 Smokeless tobacco: Never Vaping Use Vaping Use: Never used Substance Use Topics Alcohol use: Yes Alcohol/week: 2.0 standard drinks of alcohol Types: 2 Cans of Beer (12oz) per week Comment: daily Drug use: No Current Outpatient Medications Medication Sig clopidogrel (PLAVIX) 75 mg tablet Take 1 tablet by mouth once daily. Patient should start on February 07, 2024. ezetimibe (ZETIA) 10 mg tablet Take 1 tablet by mouth once daily. tamsulosin (FLOMAX) 0.4 mg Take 1 capsule by mouth daily at bedtime. glipiZIDE (GLUCOTROL XL) 5 mg 24 hr tablet Take 1 tablet by mouth once daily. aspirin, enteric coated (ASPIRIN, ENTERIC COATED) 81 mg EC tablet Take 1 tablet by mouth once daily. finasteride (PROSCAR) 5 mg tablet Take 1 tablet by mouth once daily. atorvastatin (LIPITOR) 40 mg tablet Take 1 tablet by mouth daily at bedtime. For cholesterol. mycophenolate mofetil (CELLCEPT) 250 mg capsule 500 mg. furosemide (LASIX) 40 mg tablet Take 1 tablet by mouth. Take 1 tablet on Friday AND Friday only. amiodarone (PACERONE) 200 mg tablet Take 200 mg by mouth once daily. No current facility-administered medications for this visit. Objective BP 138/60 (BP Site: Left Arm, BP Position: Sitting, BP Cuff Size: Large Adult) Pulse 90 Temp 36.4 ?C (97.5 ?F) Resp 14 Ht 182.9 cm (6') Wt 87.1 kg (192 lb) SpO2 98% BMI 26.04 kg/m? Physical Exam Constitutional: Appearance: He is not ill-appearing. Musculoskeletal: Right lower le+ Pitting Edema present. Left lower le+ Pitting Edema present. Skin: Comments: Small ulcer just above left lateral ankle with scant serous drainage and more confluent erythema extending proximally. Assessment and Plan 1. Cellulitis of left leg - ICD9: 682.6, ICD10: L03.116 (primary diagnosis) - Begin treatment with Cephalaxin (Keflex) - CEPHALEXIN 500 MG CAPSULE - Over the counter Benadryl as needed for itching. 2. Stasis dermatitis - ICD9: 454.1, ICD10: I87.2 - Take an extra dose of furosemide. 3. Essential hypertension - ICD9: 401.9, ICD10: I10 Fair control. - Continue current medications Navin Paniagua [facility]07-19-2024 History of Present illness Narrative* Navin Paniagua MD - 02/20/2024 3:32 PM EDT Images from the original note were not included. This note was created using BlackDuckter. Subjective Violeta Deal is a 89 year old male with itchy rash of both legs for 2 days. He was concerned about a medication reaction due to a recalcitrant rash managed by his [place] support services rep and diagnosed as drug sensitivity rash. He's also had drainage noted from his left leg. Review of Systems Constitutional: Negative for fatigue and fever. ACTIVE PROBLEM LIST Bph With Obstruction/Lower Urinary Tract Symptoms Simple Chronic Bronchitis (Hcc) Controlled Type 2 Diabetes Mellitus Without Complication, Without Long-Term Current Use of Insulin (Hcc) Hyperlipidemia With Target Ldl Less Than 100 Paroxysmal A-Fib (Hcc) Cardiac Pacemaker in Situ Essential Hypertension Abdominal Aortic Aneurysm (Aaa) Without Rupture (Hcc) Stage 3a Chronic Kidney Disease (Hcc) Pruritic Disorder Asteototic Dermatitis Stasis Dermatitis Dermatitis, Disseminated Superficial Actinic Porokeratosis (Dsap) Tia (Transient Ischemic Attack) Social History Tobacco Use Smoking status: Former Packs/day: 1.00 Years: 50.00 Additional pack years: 0.00 Total pack years: 50.00 Types: Cigarettes Quit date: 12/18/1994 Years since quittin.1 Smokeless tobacco: Never Vaping Use Vaping Use: Never used Substance Use Topics Alcohol use: Yes Alcohol/week: 2.0 standard drinks of alcohol Types: 2 Cans of Beer (12oz) per week Comment: daily Drug use: No Current Outpatient Medications Medication Sig clopidogrel (PLAVIX) 75 mg tablet Take 1 tablet by mouth once daily. Patient should start on February 07, 2024. ezetimibe (ZETIA) 10 mg tablet Take 1 tablet by mouth once daily. tamsulosin (FLOMAX) 0.4 mg Take 1 capsule by mouth daily at bedtime. glipiZIDE (GLUCOTROL XL) 5 mg 24 hr tablet Take 1 tablet by mouth once daily. aspirin, enteric coated (ASPIRIN, ENTERIC COATED) 81 mg EC tablet Take 1 tablet by mouth once daily. finasteride (PROSCAR) 5 mg tablet Take 1 tablet by mouth once daily. atorvastatin (LIPITOR) 40 mg tablet Take 1 tablet by mouth daily at bedtime. For cholesterol. mycophenolate mofetil (CELLCEPT) 250 mg capsule 500 mg. furosemide (LASIX) 40 mg tablet Take 1 tablet by mouth. Take 1 tablet on Friday & Friday only. amiodarone (PACERONE) 200 mg tablet Take 200 mg by mouth once daily. No current facility-administered medications for this visit. Objective BP 138/60 (BP Site: Left Arm, BP Position: Sitting, BP Cuff Size: Large Adult) Pulse 90 Temp 36.4 C (97.5 F) Resp 14 Ht 182.9 cm (6') Wt 87.1 kg (192 lb) SpO2 98% BMI 26.04 kg/m Physical Exam Constitutional: Appearance: He is not ill-appearing. Musculoskeletal: Right lower le+ Pitting Edema present. Left lower le+ Pitting Edema present. Skin: Comments: Small ulcer just above left lateral ankle with scant serous drainage and more confluent erythema extending proximally. Assessment and Plan 1. Cellulitis of left leg - ICD9: 682.6, ICD10: L03.116 (primary diagnosis) - Begin treatment with Cephalaxin (Keflex) - CEPHALEXIN 500 MG CAPSULE - Over the counter Benadryl as needed for itching. 2. Stasis dermatitis - ICD9: 454.1, ICD10: I87.2 - Take an extra dose of furosemide. 3. Essential hypertension - ICD9: 401.9, ICD10: I10 Fair control. - Continue current medications Navin Paniagua MD [facility] Instructions* Patient Instructions* Navin Paniagua MD - 01/28/2024 10:11 AM EDT Plavix blood thinner for 3 months total, then stop. Aspirin 81 mg indefinitely. Zetia added to lower cholesterol together with atorvastatin. Fasting blood work in 3 months. Urine test today. documented in this encounterMem[facility]24 NoteHNO ID: [id number] Author: NAVIN PANIAGUA MD Service: ? Author Type: Physician Type: Progress Notes Filed: 01/28/2024 10:37 Note Text: This note was created using VeriShow. Subjective Violeta Deal is a 89 year old male. He was admitted for vision loss and diagnosed with TIA. MRI also showed subacute right lacunar infarct. There was a question of right ICA stenosis which was not significant on carotid US. Medical management was recommended. He was discharged on Plavix and baby aspirin. Review of Systems Constitutional: Negative for fatigue and fever. HENT: Negative. Eyes: Positive for visual disturbance. Negative for pain. Respiratory: Negative for cough and shortness of breath. Cardiovascular: Negative for chest pain, palpitations and leg swelling. Neurological: Negative for dizziness, speech difficulty, weakness and headaches. Hematological: Bruises/bleeds easily. ACTIVE PROBLEM LIST Bph With Obstruction/Lower Urinary Tract Symptoms Simple Chronic Bronchitis (Hcc) Controlled Type 2 Diabetes Mellitus Without Complication, Without Long-Term Current Use of Insulin (Hcc) Hyperlipidemia With Target Ldl Less Than 100 Paroxysmal A-Fib (Hcc) Cardiac Pacemaker in Situ Thrombocytopenia (Hcc) Essential Hypertension Abdominal Aortic Aneurysm (Aaa) Without Rupture (Hcc) Stage 3a Chronic Kidney Disease (Hcc) Pruritic Disorder Asteototic Dermatitis Stasis Dermatitis Dermatitis, Disseminated Superficial Actinic Porokeratosis (Dsap) Abnormal Cbc Tia (Transient Ischemic Attack) Current Outpatient Medications Medication Sig tamsulosin (FLOMAX) 0.4 mg Take 1 capsule by mouth daily at bedtime. glipiZIDE (GLUCOTROL XL) 5 mg 24 hr tablet Take 1 tablet by mouth once daily. clopidogrel (PLAVIX) 75 mg tablet Take 1 tablet by mouth once daily. 21 days/doses. aspirin, enteric coated (ASPIRIN, ENTERIC COATED) 81 mg EC tablet Take 1 tablet by mouth once daily. finasteride (PROSCAR) 5 mg tablet Take 1 tablet by mouth once daily. atorvastatin (LIPITOR) 40 mg tablet Take 1 tablet by mouth daily at bedtime. For cholesterol. mycophenolate mofetil (CELLCEPT) 250 mg capsule 500 mg. furosemide (LASIX) 40 mg tablet Take 1 tablet by mouth. Take 1 tablet on Friday AND Friday only. amiodarone (PACERONE) 200 mg tablet Take 200 mg by mouth once daily. No current facility-administered medications for this visit. Objective BP 96/60 (BP Site: Right Arm, BP Position: Sitting, BP Cuff Size: Large Adult) Pulse 72 Temp 36.2 ?C (97.1 ?F) (Temporal) Resp 12 Wt 85.7 kg (188 lb 14.4 oz) BMI 25.62 kg/m? Physical Exam Constitutional: General: He is not in acute distress. HENT: Head: Atraumatic. Eyes: Extraocular Movements: Extraocular movements intact. Conjunctiva/sclera: Conjunctivae normal. Cardiovascular: Rate and Rhythm: Normal rate and regular rhythm. Heart sounds: No murmur heard. No gallop. Pulmonary: Breath sounds: Normal breath sounds. Musculoskeletal: Right lower leg: No edema. Left lower leg: No edema. Neurological: General: No focal deficit present. Mental Status: He is alert. Mental status is at baseline. Cranial Nerves: No cranial nerve deficit. Sensory: No sensory deficit. Motor: No weakness. Gait: Gait abnormal. Comments: Gait slowed. Using cane. Assessment and Plan 1. TIA (transient ischemic attack) - ICD9: 435.9, ICD10: G45.9 (primary diagnosis) - Continue DAPT for 3 months, then stay on ASA 81 mg daily. - CLOPIDOGREL 75 MG TABLET x 60 more days starting 02/2024. 2. Hyperlipidemia with target LDL less than 100 - ICD9: 272.4, ICD10: E78.5 - Control undetermined, due for labs - Continue current medications - Start ezetimibe (Zetia) - EZETIMIBE 10 MG TABLET - LIPID PANEL BASIC 3. Controlled type 2 diabetes mellitus without complication, without long-term current use of insulin (HCC) - ICD9: 250.00, ICD10: E11.9 - Controlled - Continue current medications - BASIC METABOLIC PANEL - ALBUMIN/CREATININE RATIO, URINE 4. Right-sided lacunar infarction (HCC) - ICD9: 434.91, ICD10: I63.81 - Risk factor modification as above. 5. Branch retinal artery occlusion of right eye - ICD9: 362.32, ICD10: H34.231 - Follow up with Dr. Meza regarding return to driving. Navin Paniagua, [facility]06-26-2024 History of Present illness Narrative* Navin Paniagua MD - 01/28/2024 9:42 AM EDT This note was created using NoteWriter. Subjective Violeta Deal is a 89 year old male. He was admitted for vision loss and diagnosed with TIA. MRI also showed subacute right lacunar infarct. There was a question of right ICA stenosis which was not significant on carotid US. Medical management was recommended. He was discharged on Plavix and baby aspirin. Review of Systems Constitutional: Negative for fatigue and fever. HENT: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 scheduled with Dr. Paniagua on 11/10/2023. Daughter states that one of them will try andmake it to appointment with provider. Chanell Doan RN documented in this encounterMemorial Health System04-04-2024 Miscellaneous Notes* Telephone Encounter - Bonnie Peres LPN - 11/06/2023 4:08 PM EDT Notified Vu that Amiodarone is written by [facility]. Patient will contact their office for a refill. Bonnie Peres LPN * Telephone Encounter - Malika Castellon - 11/06/2023 1:54 PM EDT Patient has been identified by name and date of : Patient phones for refill(s): Requested Prescriptions Pending Prescriptions Disp Refills amiodarone (PACERONE) 200 mg tablet Sig: Take 1 tablet by mouth once daily. Date of last office visit in primary care: 10/28/2023 Date of next office visit in primary care: 01/28/2024 Please advise. Thank you. Malika Castellon. documented in this encounterMemorial Health System04-01-2024 NoteHNO ID: [id number] Author: BETTIE BRUMFIELD LPN Service: ? Author Type: LICENSED NURSE Type: Progress Notes Filed: 11/03/2023 15:56 Note Text: TRANSITION CARE MANAGEMENT (TCM) INITIAL CONTACT Cashier Host/Hostess Outreach Provider Action/FYI: TCM Initial contact with patient post discharge, spoke to patient. Patient identified by name and . TRANSITION CARE MANAGEMENT INITIAL OUTREACH DOCUMENTATION: 11/03/2023 Date of Outreach: Outreach Attempt 1: Contact Made Date of Discharge 10/31/2023 SUMMARY: -Pt discharged from [facility] on 10/31/23. -Admitted for: suspected CVA Do you have a hospital follow up appointment with your PCP? Appointment on with . Pt declines to arrange. He says he will call back if he needs anything. He will be following up with specialists. MEDICATIONS: Many patients have questions or concerns about their medications once they are home. Were you prescribed any new medications? If yes, what are those medications? Asa 81 mg daily Plavix 75 mg daily Were you told to hold any medications? No Were any of your medications discontinued? No Do you have any questions about getting or taking your medications? No Your discharge instructions/After visit Summary (AVS) are important in guiding you through the recovery process. Is there anything I might help you understand? No Do you have all the necessary equipment and supplies at home? Yes [facility] History of Present illness Narrative* Bettie Brumfield LPN - 11/03/2023 3:53 PM EDT TRANSITION CARE MANAGEMENT (TCM) INITIAL CONTACT Cashier Host/Hostess Outreach Provider Action/FYI: TCM Initial contact with patient post discharge, spoke to patient. Patient identified by name and . TRANSITION CARE MANAGEMENT INITIAL OUTREACH DOCUMENTATION: 11/03/2023 Date of Outreach: Outreach Attempt 1: Contact Made Date of Discharge 10/31/2023 SUMMARY: -Pt discharged from [facility] on 10/31/23. -Admitted for: suspected CVA Do you have a hospital follow up appointment with your PCP? Appointment on with . Pt declines to arrange. He says he will call back if he needs anything. He will be following up with specialists. MEDICATIONS: Many patients have questions or concerns about their medications once they are home. Were you prescribed any new medications? If yes, what are those medications? Asa 81 mg daily Plavix 75 mg daily Were you told to hold any medications? No Were any of your medications discontinued? No Do you have any questions about getting or taking your medications? No Your discharge instructions/After visit Summary (AVS) are important in guiding you through the recovery process. Is there anything I might help you understand? No Do you have all the necessary equipment and supplies at home? Yes Medical records from recent hospitalization: Care Everywhere documented in this encounterMemorial Health System04-01-2024 NotePatient Outreach (INTMWS) VIOLETA DEAL ([id number]) 1935 M Date Time Provider Department 11/03/23 NAVIN PANIAGUA INTMWS During your visit today, we recorded the following information about you: Bettie Brumfield LPN 11/03/2023 3:56 PM Signed TRANSITION CARE MANAGEMENT (TCM) INITIAL CONTACT Cashier Host/Hostess Outreach Provider Action/FYI: TCM Initial contact with patient post discharge, spoke to patient. Patient identified by name and . TRANSITION CARE MANAGEMENT INITIAL OUTREACH DOCUMENTATION: 11/03/2023 Date of Outreach: Outreach Attempt 1: Contact Made Date of Discharge 10/31/2023 SUMMARY: -Pt discharged from [facility] on 10/31/23. -Admitted for: suspected CVA Do you have a hospital follow up appointment with your PCP? Appointment on with . Pt declines to arrange. He says he will call back if he needs anything. He will be following up with specialists. MEDICATIONS: Many patients have questions or concerns about their medications once they are home. Were you prescribed any new medications? If yes, what are those medications? Asa 81 mg daily Plavix 75 mg daily Were you told to hold any medications? No Were any of your medications discontinued? No Do you have any questions about getting or taking your medications? No Your discharge instructions/After visit Summary (AVS) are important in guiding you through the recovery process. Is there anything I might help you understand? No Do you have all the necessary equipment and supplies at home? Yes Medical records from recent hospitalization: Care Everywhere Allergies As of Date: 11/03/2023 Noted Allergy Reaction ETHER 06/21/2005 TOLECTIN (TOLMETIN SODIUM) 06/21/2005 Date Reviewed: 10/28/2023 Reviewed by: Bonnie Peres LPN - Fully Assessed Reason for Visit: Transition Of Care [4074] Prescriptions as of 11/03/2023 - finasteride (PROSCAR) 5 mg tablet Take 1 tablet by mouth once daily. - atorvastatin (LIPITOR) 40 mg tablet Take 1 tablet by mouth daily at bedtime. For cholesterol. - tamsulosin (FLOMAX) 0.4 mg Take 1 capsule by mouth daily at bedtime. - glipiZIDE (GLUCOTROL XL) 5 mg 24 hr tablet Take 1 tablet by mouth once daily. - mycophenolate mofetil (CELLCEPT) 250 mg capsule 500 mg. - furosemide (LASIX) 40 mg tablet Take 1 tablet by mouth. Take 1 tablet on Friday AND Friday only. - amiodarone (PACERONE) 200 mg tablet Take 200 mg by mouth once daily. 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.9] 08/22/2016 10/27/2018 Paroxysmal A-fib (HCC) [I48.0] 06/04/2015 Sinus node dysfunction (HCC) [I49.5] 06/04/2015 10/27/2018 Cardiac pacemaker in situ [Z95.0] 01/12/2018 Thrombocytopenia (HCC) [D69.6] 10/27/2018 Subarachnoid bleed (HCC) [I60.9] 11/15/2019 09/05/2020 Essential hypertension [I10] 11/24/2019 Abdominal aortic aneurysm (AAA) without rupture*06/20/2020 Bladder calculi [N21.0] 06/20/2020 06/06/2021 Bullous pemphigoid [L12.0] 02/08/2022 06/08/2023 Drug rash [L27.0] 02/08/2022 06/08/2023 Stage 3a chronic kidney disease (HCC) [N18.31] 01/10/2023 Pruritic disorder [L29.9] 06/05/2023 Asteototic dermatitis [L30.8] 06/08/2023 Stasis dermatitis [I87.2] 06/08/2023 Dermatitis, disseminated superficial actinic po*06/08/2023 Abnormal CBC [R79.89] 09/08/2023 Encounter Status:Closed by BETTIE BRUMFIELD on 11/03/23[facility] 10-28-2023 NoteHNO ID: [id number] Author: NAVIN PANIAGUA MD Service: ? Author Type: Physician Type: Progress Notes Filed: 10/28/2023 10:50 Note Text: This note was created using [email or web address]. Subjective Patient presents with: F/U 3 Month Violeta Deal is a 88 year old male. His blood pressure had stabilized and hypotension resolved. He was not taking hypertension medication now. Echo showed normal EF. He was scheduled to see his trauma registrar next month. He mentioned his neck feeling heavy at times. He had his left hand scratched by his cat 3 days ago. He cleaned scratches immediately and this looked dry. Review of Systems Constitutional: Negative for activity change, appetite change and unexpected weight change. HENT: Negative for congestion and sore throat. Respiratory: Negative for cough and shortness of breath. Cardiovascular: Negative for chest pain, palpitations and leg swelling. Gastrointestinal: Negative for abdominal pain, diarrhea and vomiting. Genitourinary: Negative for difficulty urinating and dysuria. Musculoskeletal: Negative for neck pain and neck stiffness. Neurological: Negative for dizziness, weakness, numbness and headaches. ACTIVE PROBLEM LIST Bph With Obstruction/Lower Urinary Tract Symptoms Simple Chronic Bronchitis (Hcc) Controlled Type 2 Diabetes Mellitus Without Complication, Without Long-Term Current Use of Insulin (Hcc) Hyperlipidemia With Target Ldl Less Than 100 Paroxysmal A-Fib (Hcc) Cardiac Pacemaker in Situ Thrombocytopenia (Hcc) Essential Hypertension Abdominal Aortic Aneurysm (Aaa) Without Rupture (Hcc) Stage 3a Chronic Kidney Disease (Hcc) Pruritic Disorder Asteototic Dermatitis Stasis Dermatitis Dermatitis, Disseminated Superficial Actinic Porokeratosis (Dsap) Abnormal Cbc Current Outpatient Medications Medication Sig finasteride (PROSCAR) 5 mg tablet Take 1 tablet by mouth once daily. atorvastatin (LIPITOR) 40 mg tablet Take 1 tablet by mouth daily at bedtime. For cholesterol. tamsulosin (FLOMAX) 0.4 mg Take 1 capsule by mouth daily at bedtime. glipiZIDE (GLUCOTROL XL) 5 mg 24 hr tablet Take 1 tablet by mouth once daily. mycophenolate mofetil (CELLCEPT) 250 mg capsule 500 mg. furosemide (LASIX) 40 mg tablet Take 1 tablet by mouth. Take 1 tablet on Friday AND Friday only. amiodarone (PACERONE) 200 mg tablet Take 200 mg by mouth once daily. Niacinamide 500 mg tablet Take 500 mg by mouth two times a day with meals. (Patient not taking: Reported on 09/18/2023) No current facility-administered medications for this visit. Objective Blood Pressure (Pended) 104/60 (BP Site: Left Arm, BP Position: Sitting, BP Cuff Size: Large Adult) Pulse (Pended) 64 Temperature (Pended) 36.1 ?C (97 ?F) (Temporal) Weight 88.9 kg (196 lb) Body Mass Index 26.58 kg/m? Physical Exam Constitutional: Appearance: Normal appearance. HENT: Head: Atraumatic. Eyes: Conjunctiva/sclera: Conjunctivae normal. Cardiovascular: Rate and Rhythm: Normal rate and regular rhythm. Heart sounds: No murmur heard. No gallop. Pulmonary: Effort: No respiratory distress. Breath sounds: No wheezing or rales. Abdominal: Palpations: There is no mass. Tenderness: There is no abdominal tenderness. Musculoskeletal: Cervical back: Neck supple. No tenderness. No pain with movement, spinous process tenderness or muscular tenderness. Normal range of motion. Right lower leg: No edema. Left lower leg: No edema. Lymphadenopathy: Cervical: No cervical adenopathy. Skin: Comments: 2 small dried superficial lacertations, left hand. No signs of inflammation. Neurological: General: No focal deficit present. Mental Status: He is alert. Comments: Using a cane. Assessment and Plan 1. Essential hypertension - ICD9: 401.9, ICD10: I10 (primary diagnosis) Diet controlled. Off medications. 2. Controlled type 2 diabetes mellitus without complication, without long-term current use of insulin (HCC) - ICD9: 250.00, ICD10: E11.9 - Controlled - Continue current medications - HGB A1C 3. Abdominal aortic aneurysm (AAA) without rupture, unspecified part (HCC) - ICD9: 441.4, ICD10: I71.40 Recheck. - US ABD AORTA 4. Need for COVID-19 vaccine - ICD9: V04.89, ICD10: Z23 - [employer] COVID-19 VACCINE (2022- SEASON) AGE 12+ YR 5. Cat scratch of left hand, initial encounter - ICD9: 914.0, E906.8, ICD10: S60.512A, W55.03XA Superficial, not infected. Monitor for s/s of infection. 6. Stage 3a chronic kidney disease (HCC) - ICD9: 585.3, ICD10: N18.31 Monitor. - COMP METABOLIC PANEL 7. Thrombocytopenia (HCC) - ICD9: 287.5, ICD10: D69.6 Monitor. - CBC + DIFF Navin Paniagua [facility]03-26-2024 History of Present illness Narrative* Navin Paniagua MD - 10/28/2023 10:19 AM EDT This note was created using NoteWriter. Subjective Patient presents with: F/U 3 Month Violeta Deal is a 88 year old male. His blood pressure had stabilized and hypotension resolved. He was not taking hypertension medication now. Echo showed normal EF. He was scheduled to see his trauma registrar next month. He mentioned his neck feeling heavy at times. He had his left hand scratched by his cat 3 days ago. He cleaned scratches immediately and this looked dry. Review of Systems Constitutional: Negative for activity change, appetite change and unexpected weight change. HENT: Negative for congestion and sore throat. Respiratory: Negative for cough and shortness of breath. Cardiovascular: Negative for chest pain, palpitations and leg swelling. Gastrointestinal: Negative for abdominal pain, diarrhea and vomiting. Genitourinary: Negative for difficulty urinating and dysuria. Musculoskeletal: Negative for neck pain and neck stiffness. Neurological: Negative for dizziness, weakness, numbness and headaches. ACTIVE PROBLEM LIST Bph With Obstruction/Lower Urinary Tract Symptoms Simple Chronic Bronchitis (Hcc) Controlled Type 2 Diabetes Mellitus Without Complication, Without Long-Term Current Use of Insulin (Hcc) Hyperlipidemia With Target Ldl Less Than 100 Paroxysmal A-Fib (Hcc) Cardiac Pacemaker in Situ Thrombocytopenia (Hcc) Essential Hypertension Abdominal Aortic Aneurysm (Aaa) Without Rupture (Hcc) Stage 3a Chronic Kidney Disease (Hcc) Pruritic Disorder Asteototic Dermatitis Stasis Dermatitis Dermatitis, Disseminated Superficial Actinic Porokeratosis (Dsap) Abnormal Cbc Current Outpatient Medications Medication Sig finasteride (PROSCAR) 5 mg tablet Take 1 tablet by mouth once daily. atorvastatin (LIPITOR) 40 mg tablet Take 1 tablet by mouth daily at bedtime. For cholesterol. tamsulosin (FLOMAX) 0.4 mg Take 1 capsule by mouth daily at bedtime. glipiZIDE (GLUCOTROL XL) 5 mg 24 hr tablet Take 1 tablet by mouth once daily. mycophenolate mofetil (CELLCEPT) 250 mg capsule 500 mg. furosemide (LASIX) 40 mg tablet Take 1 tablet by mouth. Take 1 tablet on Friday & Friday only. amiodarone (PACERONE) 200 mg tablet Take 200 mg by mouth once daily. Niacinamide 500 mg tablet Take 500 mg by mouth two times a day with meals. (Patient not taking: Reported on 09/18/2023) No current facility-administered medications for this visit. Objective Blood Pressure (Pended) 104/60 (BP Site: Left Arm, BP Position: Sitting, BP Cuff Size: Large Adult) Pulse (Pended) 64 Temperature (Pended) 36.1 C (97 F) (Temporal) Weight 88.9 kg (196 lb) Body Mass Index 26.58 kg/m Physical Exam Constitutional: Appearance: Normal appearance. HENT: Head: Atraumatic. Eyes: Conjunctiva/sclera: Conjunctivae normal. Cardiovascular: Rate and Rhythm: Normal rate and regular rhythm. Heart sounds: No murmur heard. No gallop. Pulmonary: Effort: No respiratory distress. Breath sounds: No wheezing or rales. Abdominal: Palpations: There is no mass. Tenderness: There is no abdominal tenderness. Musculoskeletal: Cervical back: Neck supple. No tenderness. No pain with movement, spinous process tenderness or muscular tenderness. Normal range of motion. Right lower leg: No edema. Left lower leg: No edema. Lymphadenopathy: Cervical: No cervical adenopathy. Skin: Comments: 2 small dried superficial lacertations, left hand. No signs of inflammation. Neurological: General: No focal deficit present. Mental Status: He is alert. Comments: Using a cane. Assessment and Plan 1. Essential hypertension - ICD9: 401.9, ICD10: I10 (primary diagnosis) Diet controlled. Off medications. 2. Controlled type 2 diabetes mellitus without complication, without long-term current use of insulin (HCC) - ICD9: 250.00, ICD10: E11.9 - Controlled - Continue current medications - HGB A1C 3. Abdominal aortic aneurysm (AAA) without rupture, unspecified part (HCC) - ICD9: 441.4, ICD10: I71.40 Recheck. - US ABD AORTA 4. Need for COVID-19 vaccine - ICD9: V04.89, ICD10: Z23 - [employer] COVID-19 VACCINE ( [place]) AGE 12+ YR 5. Cat scratch of left hand, initial encounter - ICD9: 914.0, E906.8, ICD10: S60.512A, W55.03XA Superficial, not infected. Monitor for s/s of infection. 6. Stage 3a chronic kidney disease (HCC) - ICD9: 585.3, ICD10: N18.31 Monitor. - COMP METABOLIC PANEL 7. Thrombocytopenia (HCC) - ICD9: 287.5, ICD10: D69.6 Monitor. - CBC + DIFF Navin Paniagua MD [facility]24 Miscellaneous Notes* Telephone Encounter - Mya Hernández LPN - 10/24/2023 2:44 PM EDT Pt reports he has an apt with his trauma registrar on 12-01-23. He will make sure his trauma registrar is aware of the medications he is taking and the changes that were made. Mya Hernández LPN * Telephone Encounter - Navin Paniagua MD - 10/23/2023 5:45 PM EDT Echocardiogram is overall stable. When does he see his director of cardiology service line? Instruct him to review the medication changes we made to help keep his blood pressure up with [facility]. * Telephone Encounter - Ute Witt Ma - 10/21/2023 3:15 PM EDT Pt had Echo competed outside ordered by PCP. Please review records scanned into chart, link below. Ute Witt Ma [facility] - Echo [ID [id number]] documented in this encounterMemorial [facility] System02-15-2024 NoteHNO ID: [id number] Author: OSCAR WEAVER MD Service: ? Author Type: Physician Type: Progress Notes Filed: 09/18/2023 15:43 Note Text: HISTORY OF PRESENT ILLNESS: Violeta Deal is a 88 year old male referred for cbc abnormality. Looking at CBC he appears to have platelet clumping. We reviewed this phenomenon, and that it is a purely in vitro issue. CLINICAL IMPRESSION: Platelet clumping, this is of no clinical significance RECOMMENDATION/PLAN: 1. Cbcs can be run in blue top tubes for possibly more accurate platelet counts. Written and verbal health teaching given to patient, patient verbalizes understanding and agrees with treatment plan. 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 Peters[facility] 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 Hyperlipidemia LDL goal < 100 02/21/2010 MGUS (monoclonal gammopathy of unknown significance) Paroxysmal A-fib (HCC) 06/04/2015 Personal history of colonic polyps Simple chronic bronchitis (HCC) 05/07/2007 mild COPD Sinus node dysfunction (HCC) 06/04/2015 Subarachnoid bleed ([facility]) 11/15/2019 [facility] Transient neurologic deficit 06/04/2015 Type II or unspecified type diabetes mellitus without mention of complication, not stated as uncontrolled 02/21/2010 PAST SURGICAL HISTORY Procedure Laterality Date COLONOSCOPY FLX DX W/COLLJ SPEC WHEN PFRMD 08/2004 Colonoscopy COLONOSCOPY FLX DX W/COLLJ SPEC WHEN PFRMD 02/25/2008 Repeat in CYSTOSCOPY 06/26/2020 EGD TRANSORAL BIOPSY SINGLE/MULTIPLE 02/25/2008 EYELID SURGERY PROCEDURE, UNLISTED Left 2014 LITHOLAPAXY COMP/LG > 2.5 CM 07/21/2020 PACEMAKER 08/2015 PAST SURGICAL HISTORY OF Left 2012 macular hole, left eye PROSTHETIC IMPLANT DEVICE UROLIFT 07/27/2020 Dr. Queen XCAPSL CTRC RMVL INSJ IO LENS PROSTH W/O ECP 2012 Cataract Removal FAMILY HISTORY Problem Relation Age of Onset COPD Mother Heart Father CHF Diabetes Father COPD Sister Obesity Maternal Grandmother Obesity Paternal Grandmother Diabetes Paternal Grandmother Social History Tobacco Use Smoking status: Former Packs/day: 1.00 Years: 50.00 Additional pack years: 0.00 Total pack years: 50.00 Types: Cigarettes Quit date: 12/18/1994 Years since quittin.7 Smokeless tobacco: Never Vaping Use Vaping Use: Never used Substance Use Topics Alcohol use: Yes Alcohol/week: 2.0 standard drinks of alcohol Types: 2 Cans of Beer (12oz) per week Comment: daily Drug use: No ALLERGIES: ALLERGIES Allergen Reactions Ether Tolectin [Tolmetin * CURRENT OUTPATIENT MEDICATIONS: finasteride (PROSCAR) 5 mg tablet Take 1 tablet by mouth once daily. atorvastatin (LIPITOR) 40 mg tablet Take 1 tablet by mouth daily at bedtime. For cholesterol. tamsulosin (FLOMAX) 0.4 mg Take 1 capsule by mouth daily at bedtime. glipiZIDE (GLUCOTROL XL) 5 mg 24 hr tablet Take 1 tablet by mouth once daily. mycophenolate mofetil (CELLCEPT) 250 mg capsule 500 mg. furosemide (LASIX) 40 mg tablet Take 1 tablet by mouth. Take 1 tablet on Friday AND Friday only. amiodarone (PACERONE) 200 mg tablet Take 200 mg by mouth once daily. Niacinamide 500 mg tablet Take 500 mg by mouth two times a day with meals. (Patient not taking: Reported on 09/18/2023) Pramoxine HCl (SARNA SENSITIVE) 1 % lotn Apply 0.25 mL to affected area two times a day. (Patient not taking: Reported on 09/18/2023) triamcinolone (KENALOG) 0.025 % ointment Apply to affected area once daily. Dr. Hwang, [place] [facility]. (Patient not taking: Reported on 09/18/2023) REVIEW OF SYSTEMS: GENERAL: No fever, night sweats, weight loss or malaise. All other reviewed and negative other than HPI. PHYSICAL EXAMINATION: VITAL SIGNS: BP 118/66 Pulse 69 Temp (Src) 97.9 (Temporal) Ht 6' 0 (1.83m) Wt 202 lb 8 oz (91.9kg) SpO2 98% BMI 27.46 kg/(m2). GENERAL APPEARANCE: Well appearing, in no acute distress, alert and oriented x3, well-hydrated, well nourished. I spent a total of 30 minutes on the date of the service which included preparing to see the patient, [id number] patient care, completing clinical documentation, counseling and educating the patient/family/caregiver, independently interpreting results (not separately reported), and communicating results to the patient/family/caregiver. Electronically Signed: Oscar Weaver MD September 18, 2023 10:58 [facility]02-15-2024 History of Present illness Narrative* Oscar Weaver MD - 09/18/2023 10:58 AM EST HISTORY OF PRESENT ILLNESS: Violeta Deal is a 88 year old male referred for cbc abnormality. Looking at CBC he appears to have platelet clumping. We reviewed this phenomenon, and that it is a purely in vitro issue. CLINICAL IMPRESSION: Platelet clumping, this is of no clinical significance RECOMMENDATION/PLAN: 1. Cbcs can be run in blue top tubes for possibly more accurate platelet counts. Written and verbal health teaching given to patient, patient verbalizes understanding and agrees with treatment plan. PAST MEDICAL HISTORY Diagnosis Date Abdominal aortic aneurysm (AAA) without rupture ([facility]) 06/20/[address] 4[address] scan Acute gastritis without mention of hemorrhage Anemia, unspecified Benign neoplasm of colon Bladder calculi 06/20/2020 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 Peters, [facility]. 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 Hyperlipidemia LDL goal < 100 02/21/2010 MGUS (monoclonal gammopathy of unknown significance) Paroxysmal A-fib ([facility]) 06/04/2015 Personal history of colonic polyps Simple chronic bronchitis ([facility]) 05/07/2007 mild COPD Sinus node dysfunction ([facility]) 06/04/2015 Subarachnoid bleed ([facility]) 11/15/2019 [facility] Transient neurologic deficit 06/04/2015 Type II or unspecified type diabetes mellitus without mention of complication, not stated as uncontrolled 02/21/2010 PAST SURGICAL HISTORY Procedure Laterality Date COLONOSCOPY FLX DX W/COLLJ SPEC WHEN PFRMD 08/2004 Colonoscopy COLONOSCOPY FLX DX W/COLLJ SPEC WHEN PFRMD 02/25/2008 Repeat in CYSTOSCOPY 06/26/2020 EGD TRANSORAL BIOPSY SINGLE/MULTIPLE 02/25/2008 EYELID SURGERY PROCEDURE, UNLISTED Left 2014 LITHOLAPAXY COMP/LG > 2.5 CM 07/21/2020 PACEMAKER 08/2015 PAST SURGICAL HISTORY OF Left 2012 macular hole, left eye PROSTHETIC IMPLANT DEVICE UROLIFT 07/27/2020 Dr. Queen XCAPSL CTRC RMVL INSJ IO LENS PROSTH W/O ECP 2012 Cataract Removal FAMILY HISTORY Problem Relation Age of Onset COPD Mother Heart Father CHF Diabetes Father COPD Sister Obesity Maternal Grandmother Obesity Paternal Grandmother Diabetes Paternal Grandmother Social History Tobacco Use Smoking status: Former Packs/day: 1.00 Years: 50.00 Additional pack years: 0.00 Total pack years: 50.00 Types: Cigarettes Quit date: 12/18/1994 Years since quittin.7 Smokeless tobacco: Never Vaping Use Vaping Use: Never used Substance Use Topics Alcohol use: Yes Alcohol/week: 2.0 standard drinks of alcohol Types: 2 Cans of Beer (12oz) per week Comment: daily Drug use: No ALLERGIES: ALLERGIES Allergen Reactions Ether Tolectin [Tolmetin * CURRENT OUTPATIENT MEDICATIONS: finasteride (PROSCAR) 5 mg tablet Take 1 tablet by mouth once daily. atorvastatin (LIPITOR) 40 mg tablet Take 1 tablet by mouth daily at bedtime. For cholesterol. tamsulosin (FLOMAX) 0.4 mg Take 1 capsule by mouth daily at bedtime. glipiZIDE (GLUCOTROL XL) 5 mg 24 hr tablet Take 1 tablet by mouth once daily. mycophenolate mofetil (CELLCEPT) 250 mg capsule 500 mg. furosemide (LASIX) 40 mg tablet Take 1 tablet by mouth. Take 1 tablet on Friday & Friday only. amiodarone (PACERONE) 200 mg tablet Take 200 mg by mouth once daily. Niacinamide 500 mg tablet Take 500 mg by mouth two times a day with meals. (Patient not taking: Reported on 09/18/2023) Pramoxine HCl (SARNA SENSITIVE) 1 % lotn Apply 0.25 mL to affected area two times a day. (Patient not taking: Reported on 09/18/2023) triamcinolone (KENALOG) 0.025 % ointment Apply to affected area once daily. Dr. Hwang, [place] [facility]. (Patient not taking: Reported on 09/18/2023) REVIEW OF SYSTEMS: GENERAL: No fever, night sweats, weight loss or malaise. All other reviewed and negative other than HPI. PHYSICAL EXAMINATION: VITAL SIGNS: BP 118/66 Pulse 69 Temp (Src) 97.9 (Temporal) Ht 6' 0 (1.83m) Wt 202 lb 8 oz (91.9kg) SpO2 98% BMI 27.46 kg/(m^2). GENERAL APPEARANCE: Well appearing, in no acute distress, alert and oriented x3, well-hydrated, well nourished. I spent a total of 30 minutes on the date of the service which included preparing to see the patient, [id number] patient care, completing clinical documentation, counseling and educating the patient/family/caregiver, independently interpreting results (not separately reported), and communicating results to the patient/family/caregiver. Electronically Signed: Oscar Weaver MD September 18, 2023 10:58 AM documented in this encounterMemorial Health System02-12-2024 Miscellaneous Notes* Telephone Encounter - Bettie Brumfield LPN - 09/15/2023 9:14 AM EST Precert says no auth needed this was faxed to [facility] by or precert dept. * Telephone Encounter - Navin Paniagua MD - 09/11/2023 8:50 AM EST ASSESSMENT/PLAN: 1. 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 This will then send the PSR to enter a referral/precert. [facility] is asking for the recert/auth number. With faxing them an outside order the precert/referral doesn't get completed. documented in this encounterMemorial Health System02-06-2024 NoteHNO ID: [id number] Author: MARYLOU MELGOZA, ? Service: ? Author Type: Physician Type: Progress Notes Filed: 09/09/2023 11:56 Note Text: Last saw pcp: 09/04/23 Subjective: Patient presents to clinic c/o painful toenails. They state that the nails are especially painful with shoe gear and pressure. Patient states that nails 1-5 b/l are painful. Patient admits to being diabetic . No other pedal complaints at this time. Patient states no change in medications or medical history since last visit. Objective: Patient presents to clinic ambulating in [facility] Vasc: DP and PT pulses are nonpalpable bilateral. CFT is less than 5 seconds bilateral. Skin temperature is warm to cool proximal to distal bilateral. There is mild edema or varicosities noted. Neuro: Protective sensation is decreased to the foot and toes when tested with the 5.07 SWM bilateral. Vibratory sensation is absent at the hallux IPJ bilateral. The hallux is downgoing bilateral. Derm: Nails 1-5 b/l are painful, discolored-yellow, thick, crumbly, dystrophic and with subungal debris. Skin is dry, thin, pallor and hair growth is absent bilateral. There are no hyperkeratosis, ulcerations, scars, verruca or other lesions noted. Ortho: Muscle strength is 5/5 for all pedal groups tested. Ankle joint DF is decreased with the knee extended with no pain or crepitus noted. 1st MPJ ROM is decreased bilateral. Assessment: (B35.1) Onychomycosis (primary encounter diagnosis) (M79.675) Pain in toe of left foot (M79.674) Pain in toe of right foot (L60.0) Ingrowing toenail (E11.49) Other diabetic neurological complication associated with type 2 diabetes mellitus (HCC) (I73.9) PAD (peripheral artery disease) ([facility]) Plan: Patient was seen and evaluated. Nails 1-5 bilateral were debrided in length and thickness. Small bleed to left 5th and right 4th. Right hallux nail is ingrowing. Nail was debrided via slant back. No bleeding to hallux. No infection present. Band aide applied to left 5th and right 4th. Call if any issues arise Recommend lotion to b/l feet Patient was instructed on the continued importance of diabetic foot care along with proper diet and keeping their blood sugar under control to prevent complications. Patient is to RTC in 3-4 months. Marylou Melgoza [facility]02-06-2024 History of Present illness Narrative* Marylou Melgoza - 09/09/2023 11:44 AM EST Last saw pcp: 09/04/23 Subjective: Patient presents to clinic c/o painful toenails. They state that the nails are especially painful with shoe gear and pressure. Patient states that nails 1-5 b/l are painful. Patient admits to being diabetic . No other pedal complaints at this time. Patient states no change in medications or medical history since last visit. Objective: Patient presents to clinic ambulating in [facility] Vasc: DP and PT pulses are nonpalpable bilateral. CFT is less than 5 seconds bilateral. Skin temperature is warm to cool proximal to distal bilateral. There is mild edema or varicosities noted. Neuro: Protective sensation is decreased to the foot and toes when tested with the 5.07 SWM bilateral. Vibratory sensation is absent at the hallux IPJ bilateral. The hallux is downgoing bilateral. Derm: Nails 1-5 b/l are painful, discolored-yellow, thick, crumbly, dystrophic and with subungal debris. Skin is dry, thin, pallor and hair growth is absent bilateral. There are no hyperkeratosis, ulcerations, scars, verruca or other lesions noted. Ortho: Muscle strength is 5/5 for all pedal groups tested. Ankle joint DF is decreased with the knee extended with no pain or crepitus noted. 1st MPJ ROM is decreased bilateral. Assessment: (B35.1) Onychomycosis (primary encounter diagnosis) (M79.675) Pain in toe of left foot (M79.674) Pain in toe of right foot (L60.0) Ingrowing toenail (E11.49) Other diabetic neurological complication associated with type 2 diabetes mellitus (HCC) (I73.9) PAD (peripheral artery disease) ([facility]) Plan: Patient was seen and evaluated. Nails 1-5 bilateral were debrided in length and thickness. Small bleed to left 5th and right 4th. Right hallux nail is ingrowing. Nail was debrided via slant back. No bleeding to hallux. No infectionpresent. Band aide applied to left 5th and right 4th. Call if any issues arise Recommend lotion to b/l feet Patient was instructed on the continued importance of diabetic foot care along with proper diet andkeeping their blood sugar under control to prevent complications. Patient is to RTC in 3-4 months. Marylou Melgoza DPM * Maryellen Melissa RN - 09/09/2023 11:25 AM EST Patient presents with: Left Foot - Established Patient, Follow Up, Diabetic Foot Care Right Foot - Established Patient, Follow Up, Diabetic Foot Care Patient presents for Diabetic foot /nail care. UMAIR- 04/22/23 documented in this encounterMem[facility]-2024 Instructions* Patient Instructions* Marylou Melgoza - 09/09/2023 11:44 AM EST Diabetes Foot Care Instructions When you have diabetes, proper foot care is very important. Poor foot care may lead to amputation of a foot or leg. As a person with diabetes, you are more vulnerable to foot problems, because diabetes can damage your nerves and reduce blood flow to your feet. Here are some diabetes foot care tips to follow: Wash and Dry Your Feet Daily Use mild soaps Use warm water Pat your skin dry; do not rub. Thoroughly dry your feet. After washing, use lotion on your feet to prevent cracking. Do not put lotion between your toes. Examine Your Feet Each Day Check the tops and bottoms of your feet. Have someone else look at your feet if you cannot see them. Check for dry, cracked skin. Look for blisters, cuts, scratches, or other sores. Check for redness, increased warmth, or tenderness when touching any area of your feet. Check for ingrown toenails, corns, and calluses. If you get a blister or sore from your shoes, do not pop it. Apply a bandage and wear a differentpair of shoes. Take Care of Your Toenails Cut toenails after bathing, when they are soft. Cut toenails straight across and smooth with a nail file. Avoid cutting into the corners of toes. Do not cut cuticles. If you have neuropathy (or decreased sensation in your feet) a rate examiner should always cut your toenails. Be Careful When Exercising Walk and exercise in comfortable shoes. Do not exercise when you have open sores on your feet. Protect Your Feet With Shoes and Socks Never go barefoot. Always protect your feet by wearing shoes or hard-soled slippers or footwear. Avoid shoes with high heels and pointed toes. Avoid shoes that expose your toes or heels (such as open-toed shoes or sandals). These types of shoes increase your risk for injury and potential infections. Try on new footwear with the type of socks you usually wear. Do not wear new shoes for more than an hour at a time. Change your socks daily. Look and feel inside your shoes before putting them on to make sure there are no foreign objects orrough areas. Avoid tight socks. Wear natural-fiber socks (cotton, wool, or a cotton-wool blend). Wear special shoes if your health care provider recommends them. Wear shoes/boots that will protect your feet from various weather conditions (cold, moisture, etc.). Make sure your shoes fit properly. If you have neuropathy (nerve damage), you may not notice that your shoes are too tight. Perform the footwear test described below. Footwear Test Use this simple test to see if your shoes fit correctly: Stand on a piece of paper. (Make sure you are standing and not sitting, because your foot changes shape when you stand.) Trace the outline of your foot. Trace the outline of your shoe. Compare the tracings: Is the shoe too narrow? Is your foot crammed into the shoe? The shoe should be at least 1/2 inch longer than your longest toe and as wide as your foot. Proper Shoe Choices The following types of shoes are best for people with diabetes Closed toes and heels Leather uppers without a seam inside At least 1/2 inch extra space at the end of your longest toe Inside of shoe should be soft with no rough areas Outer sole should be made of stiff material Shoes should be at least as wide as your feet Tips for Foot Care in Diabetes Don't wait to treat a minor foot problem if you have diabetes. Follow your health care provider's guidelines and first aid guidelines. Report foot injuries and infections to your health care provider immediately. Check water temperature with your elbow, not your foot. Do not use a heating pad on your feet. Do not cross your legs. Do not self-treat your corns, calluses, or other foot problems. Go to your health care provider or rate examiner to treat these conditions. documented in this encounterMemorial Health System02-06-2024 NoteHNO ID: [id number] Author: MARYELLEN MELISSA, RN Service: ? Author Type: Registered Nurse Type: Progress Notes Filed: 09/09/2023 11:56 Note Text: Patient presents with: Left Foot - Established Patient, Follow Up, Diabetic Foot Care Right Foot - Established Patient, Follow Up, Diabetic Foot Care Patient presents for Diabetic foot /nail care. [facility]- 04/22/23[facility] Miscellaneous Notes* Telephone Encounter - Bobbi Ruiz - 09/08/2023 8:21 AM EST Pharmacy verified in [facility] Patient has been identified by name and date of : Yes Patient aware RX will be sent to pharmacy. No need to notify patient. Patient phones for refill(s): Requested Prescriptions Pending Prescriptions Disp Refills omeprazole (PRILOSEC) 40 mg capsule 90 capsule 1 Sig: Take 1 capsule by mouth once daily. Date of last office visit : 09/04/2023 Date of next office visit : 01/14/2024 Patient has new pharmacy. Now using [facility]. Last 2 Encounter Wt Readings: Date: Wt: 09/04/2023 90.7 kg (200 lb) 07/15/2023 89.8 kg (198 lb) Not applicable Please advise. Bobbi Calvin Pss documented in this encounterMemorial Health System02-01-2024 NoteHNO ID: [id number] Author: NAVIN PANIAGUA MD Service: ? Author Type: Physician Type: Progress Notes Filed: 09/04/2023 14:10 Note Text: This note was created using Denty'sriter. Subjective Violeta Deal is a 88 year old male. His blood pressure started running lower about 6 months ago. Few months ago, I had him stop losartan completely. Recently he was concerned about elevating blood pressure, but comparison with his machines show his home readings are 20 points or more higher. He saw his trauma registrar ([facility]) in May but no medication changes were recommended. He sees the [facility] for dermatology and other care. Review of Systems Constitutional: Negative for appetite change, diaphoresis, fever and unexpected weight change. HENT: Negative. Respiratory: Negative for cough, shortness of breath and wheezing. Cardiovascular: Negative for chest pain, palpitations and leg swelling. Gastrointestinal: Negative for diarrhea, nausea and vomiting. Genitourinary: Negative for difficulty urinating, dysuria and frequency. Neurological: Negative for dizziness, syncope and headaches. 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 For cholesterol. tamsulosin (FLOMAX) 0.4 mg Take 1 capsule by mouth daily at bedtime. glipiZIDE (GLUCOTROL XL) 5 mg 24 hr tablet Take 1 tablet by mouth once daily. mycophenolate mofetil (CELLCEPT) 250 mg capsule 500 mg. furosemide (LASIX) 40 mg tablet Take 1 tablet by mouth. Take 1 tablet on Friday AND Friday only. omeprazole (PRILOSEC) 40 mg capsule Take 1 capsule by mouth once daily. Niacinamide 500 mg tablet Take 500 mg by mouth two times a day with meals. Pramoxine HCl (SARNA SENSITIVE) 1 % lotn Apply 0.25 mL to affected area two times a day. triamcinolone (KENALOG) 0.025 % ointment Apply to affected area once daily. Dr. Hwang, [facility]. amiodarone (PACERONE) 200 mg tablet Take 200 mg by mouth once daily. finasteride (PROSCAR) 5 mg tablet Take 1 tablet by mouth once daily. No current facility-administered medications for this visit. Objective BP 94/58 (BP Site: Left Arm, BP Position: Sitting, BP Cuff Size: Large Adult) Pulse 81 Temp 36.5 ?C (97.7 ?F) (Temporal) Wt 90.7 kg (200 lb) BMI 28.45 kg/m? Physical Exam Constitutional: General: He is not in acute distress. Appearance: He is not ill-appearing or diaphoretic. HENT: Head: Normocephalic. Eyes: Extraocular Movements: Extraocular movements intact. Conjunctiva/sclera: Conjunctivae normal. Cardiovascular: Rate and Rhythm: Normal rate and regular rhythm. Occasional Extrasystoles are present. Heart sounds: No murmur heard. No gallop. Pulmonary: Effort: No respiratory distress. Breath sounds: No wheezing or rales. Abdominal: General: There is no distension. Palpations: Abdomen is soft. Tenderness: There is no abdominal tenderness. Musculoskeletal: Right lower le+ Pitting Edema present. Left lower le+ Pitting Edema present. Neurological: General: No focal deficit present. Mental Status: He is alert. Comments: Using a cane. EKG RESULTS: Paced, prolonged AV conduction, nonspecific T changes. Rate 62. Similar pattern to previous. Assessment and Plan 1. 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 Send order for ECHO at the local hospital to be read by his trauma registrar, Dr. Peters. His cardiology follow up is in November. - ECG COMPLETE - CBC - COMP METABOLIC PANEL 2. 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 - FINASTERIDE 5 MG TABLET 3. Dyspepsia - ICD9: 536.8, ICD10: R10.13 Resolved. Discontinue OMEPRAZOLE. 4. Paroxysmal A-fib (HCC) - ICD9: 427.31, ICD10: I48.0 Stable. Not anticoagulated due to history of SAH. Follow up as scheduled, or sooner if needed. Navin Paniagua [facility]02-01-2024 History of Present illness Narrative* Navin Paniagua MD - 09/04/2023 12:45 PM EST This note was created using NoteWriter. Subjective Violeta Deal is a 88 year old male. His blood pressure started running lower about 6 months ago. Few months ago, I had him stop losartan completely. Recently he was concerned about elevating blood pressure, but comparison with his machines show his home readings are 20 points or more higher. He saw his trauma registrar ([facility]) in May but no medication changes were recommended. He sees [facility] for [facility]ology and other care. Review of Systems Constitutional: Negative for appetite change, diaphoresis, fever and unexpected weight change. HENT: Negative. Respiratory: Negative for cough, shortness of breath and wheezing. Cardiovascular: Negative for chest pain, palpitations and leg swelling. Gastrointestinal: Negative for diarrhea, nausea and vomiting. Genitourinary: Negative for difficulty urinating, dysuria and frequency. Neurological: Negative for dizziness, syncope and headaches. ACTIVE PROBLEM LIST Bph With Obstruction/Lower Urinary Tract Symptoms Simple Chronic Bronchitis ([facility]) Controlled Type 2 Diabetes Mellitus Without Complication, Without Long-Term Current Use of Insulin (Hcc) Hyperlipidemia With Target Ldl Less Than 100 Paroxysmal A-Fib ([facility]) Cardiac Pacemaker in Situ Thrombocytopenia ([facility]) Essential Hypertension Abdominal Aortic Aneurysm (Aaa) Without Rupture ([facility]) Stage 3a Chronic Kidney Disease ([facility]) Pruritic Disorder Asteototic Dermatitis Stasis Dermatitis Dermatitis, Disseminated Superficial Actinic Porokeratosis (Dsap) Current Outpatient Medications Medication Sig atorvastatin (LIPITOR) 40 mg tablet Take 1 tablet by mouth daily at bedtime. For cholesterol. tamsulosin (FLOMAX) 0.4 mg Take 1 capsule by mouth daily at bedtime. glipiZIDE (GLUCOTROL XL) 5 mg 24 hr tablet Take 1 tablet by mouth once daily. mycophenolate mofetil (CELLCEPT) 250 mg capsule 500 mg. furosemide (LASIX) 40 mg tablet Take 1 tablet by mouth. Take 1 tablet on Friday & Friday only. omeprazole (PRILOSEC) 40 mg capsule Take 1 capsule by mouth once daily. Niacinamide 500 mg tablet Take 500 mg by mouth two times a day with meals. Pramoxine HCl (SARNA SENSITIVE) 1 % lotn Apply 0.25 mL to affected area two times a day. triamcinolone (KENALOG) 0.025 % ointment Apply to affected area once daily. Dr. Hwang, [place] [facility]. amiodarone (PACERONE) 200 mg tablet Take 200 mg by mouth once daily. finasteride (PROSCAR) 5 mg tablet Take 1 tablet by mouth once daily. No current facility-administered medications for this visit. Objective BP 94/58 (BP Site: Left Arm, BP Position: Sitting, BP Cuff Size: Large Adult) Pulse 81 Temp 36.5 C (97.7 F) (Temporal) Wt 90.7 kg (200 lb) BMI 28.45 kg/m Physical Exam Constitutional: General: He is not in acute distress. Appearance: He is not ill-appearing or diaphoretic. HENT: Head: Normocephalic. Eyes: Extraocular Movements: Extraocular movements intact. Conjunctiva/sclera: Conjunctivae normal. Cardiovascular: Rate and Rhythm: Normal rate and regular rhythm. Occasional Extrasystoles are present. Heart sounds: No murmur heard. No gallop. Pulmonary: Effort: No respiratory distress. Breath sounds: No wheezing or rales. Abdominal: General: There is no distension. Palpations: Abdomen is soft. Tenderness: There is no abdominal tenderness. Musculoskeletal: Right lower le+ Pitting Edema present. Left lower le+ Pitting Edema present. Neurological: General: No focal deficit present. Mental Status: He is alert. Comments: Using a cane. EKG RESULTS: Paced, prolonged AV conduction, nonspecific T changes. Rate 62. Similar pattern to previous. Assessment and Plan 1. 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 Send order for ECHO at the local hospital to be read by his trauma registrar, Dr. Peters. His cardiology follow up is in November. - ECG COMPLETE - CBC - COMP METABOLIC PANEL 2. 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 - FINASTERIDE 5 MG TABLET 3. Dyspepsia - ICD9: 536.8, ICD10: R10.13 Resolved. Discontinue OMEPRAZOLE. 4. Paroxysmal A-fib (HCC) - ICD9: 427.31, ICD10: I48.0 Stable. Not anticoagulated due to history of SAH. Follow up as scheduled, or sooner if needed. Navin Paniagua MD * Navin Paniagua MD - 09/04/2023 12:35 PM EST This note was created using VeriShow. Subjective Violeta Deal is a 88 year old male. Review of Systems Objective BP 94/58 (BP Site: Left Arm, BP Position: Sitting, BP Cuff Size: Large Adult) Pulse 81 Temp 36.5 C (97.7 F) (Temporal) Wt 90.7 kg (200 lb) BMI 28.45 kg/m Physical Exam Assessment and Plan documented in this encounterMemorial Health System02-01-2024 NoteHNO ID: [id number] Author: NAVIN PANIAGUA MD Service: ? Author Type: Physician Type: Progress Notes Filed: 09/04/2023 14:10 Note Text: This note was created using VeriShow. Subjective Violeta Deal is a 88 year old male. Review of Systems Objective BP 94/58 (BP Site: Left Arm, BP Position: Sitting, BP Cuff Size: Large Adult) Pulse 81 Temp 36.5 ?C (97.7 ?F) (Temporal) Wt 90.7 kg (200 lb) BMI 28.45 kg/m? [facility] Ex[facility] NoteHNO ID: [id number] Author: Ruben Correa APRN.POLICY CANCELLATION CLERK Service: ? Author Type: Nurse Specialist Type: Progress Notes Filed: 07/15/2023 12:17 PM Note Text: Violeta Deal is a 88 year old male here for a Medicare wellness visit. Medicare Health Risk Assessment He notes he is in his usual state of health. He is active daily but no formal exercise. No reported alcohol use. He walks with a cane. No falls reported since last year no reported concerns regarding teaser sexual function. Reports trying to eat a healthy diet. Notes feeling a bit depressed at times but not interested in counseling or medication at this time. No smoking is reported. Mildly hard of hearing. No tobacco use. No safety concerns in his home. General Health Exercise: Minutes/Day Exercise: Days/Week Alcohol: Daily Use Alcohol: Drinks/Day Alcohol: 6 or more drinks Feel off balance Concerns: Teeth/Dentures Concerns: Sexual function Troubled by feelings Frequency: Eating healthy diet ADLs requiring help Safety precautions in home/vehicle Smoke, vape, chews tobacco Difficulty hearing Difficulty seeing Current Providers Specialists: I have reviewed specialist-related care of the patient in the medical record. He gets vision checked at [facility]. He sees [facility] specialist, interested in getting prescriptions ordered by this provider sent to his preferred pharmacy. He sees rate examiner Dr Melgoza Medical/Family history review Reviewed and updated problem list, medical/surgical/family/social history, medications, and allergies. Opioid use review Opioid Medications (last 90 days) Some values may be hidden. Unless noted otherwise, only the newest values recorded on each date are displayed. Opioid Medications No data to display. Depression screening Depression Screening PHQ-2 Score 07/15/2023 2 Depression screening tool completed and reviewed. Based on score and interview, patient is at risk for depression. Screening tool discussed with patient, and I recommended antidepressant and counseling if he would like but he defers for now. He will consider it. Cognitive screening Mini Cog Score: 4 Cognitive screening reviewed and no further action needed (score 3-5) Functional Observation Was the patient's timed Up AND Go test unsteady or ? 12 seconds? Yes Advance Care Planning Surrogate decision maker and/or advance care plan documented Measurements BP 120/66 Pulse 69 Resp 16 Wt 198 lb (89.8kg) Additional screenings: Vision Screening Right eye - Without correction: 20/25 With correction: Left eye - Without correction: 20/100 With correction: Both eyes - Without correction: 20/25 With correction: Assessment/Plan Medicare annual wellness visit, subsequent (Z00.00) - Endorse healthy diet and regular exercise - Fall avoidance information provided - Personalized prevention plan provided Advised: Ask your [facility] doctor to send your prescriptions to your preferred pharmacy when you see them. Let us know if any problem with this. Consider treatment of depression Ruben Correa APRN.[facility]12-12-2023 History of Present illness Narrative* Ruben Correa APRN.VINNIE - 07/15/2023 10:23 AM EST Violeta Deal is a 88 year old male here for a Medicare wellness visit. Medicare Health Risk Assessment He notes he is in his usual state of health. He is active daily but no formal exercise. No reportedalcohol use. He walks with a cane. No falls reported since last year no reported concerns regardingteaser sexual function. Reports trying to eat a healthy diet. Notes feeling a bit depressed at times but not interested in counseling or medication at this time. No smoking is reported. Mildly hard of hearing. No tobacco use. No safety concerns in his home. General Health Exercise: Minutes/Day Exercise: Days/Week Alcohol: Daily Use Alcohol: Drinks/Day Alcohol: 6 or more drinks Feel off balance Concerns: Teeth/Dentures Concerns: Sexual function Troubled by feelings Frequency: Eating healthy diet ADLs requiring help Safety precautions in home/vehicle Smoke, vape, chews tobacco Difficulty hearing Difficulty seeing Current Providers Specialists: I have reviewed specialist-related care of the patient in the medical record. He gets vision checked at [facility]. He sees [facility] specialist, interested in getting prescriptions ordered by this provider sent to his preferred pharmacy. He sees rate examiner Dr Melgoza Medical/Family history review Reviewed and updated problem list, medical/surgical/family/social history, medications, and allergies. Opioid use review Opioid Medications (last 90 days) Some values may be hidden. Unless noted otherwise, only the newest values recorded on each date aredisplayed. Opioid Medications No data to display. Depression screening Depression Screening PHQ-2 Score 07/15/2023 2 Depression screening tool completed and reviewed. Based on score and interview, patient is at risk for depression. Screening tool discussed with patient, and I recommended antidepressant and counseling if he would like but he defers for now. He will consider it. Cognitive screening Mini Cog Score: 4 Cognitive screening reviewed and no further action needed (score 3-5) Functional Observation Was the patient's timed Up & Go test unsteady or ? 12 seconds? Yes Advance Care Planning Surrogate decision maker and/or advance care plan documented Measurements BP 120/66 Pulse 69 Resp 16 Wt 198 lb (89.8kg) Additional screenings: Vision Screening Right eye - Without correction: 20/25 With correction: Left eye - Without correction: 20/100 With correction: Both eyes - Without correction: 20/25 With correction: Assessment/Plan Medicare annual wellness visit, subsequent (Z00.00) - Endorse healthy diet and regular exercise - Fall avoidance information provided - Personalized prevention plan provided Advised: Ask your [facility] doctor to send your prescriptions to your preferred pharmacy when you see them. Let us know if any problem with this. Consider treatment of depression Ruben Correa APRN.CNS documented in this encounterMemorial Health System12-12-2023 Instructions* Patient Instructions* Ruben Correa APRN.CNS - 07/15/2023 10:23 AM EST Ask your [facility] doctor to send your prescriptions to your preferred pharmacy when you see them. Let us know if any problem with this. Consider treatment of depression Screening schedule The following prevention plan is recommended: RSV Vaccine(1 - 1-dose 60+ series) Never done Advance Directive Discussion due on 08/04/2022 Depression Assessment due on 08/04/2022 Covid-19 Vaccine() due on 04/04/2023 LDL Cholesterol due on 04/11/2023 Diabetic Foot Exam due on 05/29/2023 Dilated Retinal Exam due on 06/06/2023 HbA1C due on 07/12/2023 WHAT YOU CAN DO TO PREVENT FALLS Many falls can be prevented. By making some changes, you can lower your chances of falling. Four things YOU can do to prevent falls for you* and your caregiver 1. Begin a regular exercise program Exercise is one of the most important ways to lower your chances of falling. It makes you stronger and helps you feel better. Exercises that improve balance and coordination (like Lito Chi) are the most helpful. Lack of exercise leads to weakness and increases your chances of falling. Ask your doctor or health care provider about the best type of exercise program for you. 2. Have your health care provider review your medicines Have your doctor or pharmacist review all the medicines you take, even [id number] medicines. As you get older, the way medicines work in your body can change. Some medicines, or combinations of medicines, can make you sleepy or dizzy andcan cause you to fall. 3. Have your vision checked Have your eyes checked by an eye doctor at least once a year. You may be wearing the wrong glasses or have a condition like glaucoma or cataracts that limits your vision. Poor vision can increase your chances of falling. 4. Make your home safer About half of all falls happen at home. To make your home safer: Remove things you can trip over (like papers, books, clothes, and shoes) from stairs and places where you walk. Remove small throw rugs or use double-sided tape to keep the rugs from slipping. Keep items you use often in cabinets you can reach easily without using a step stool. Have grab bars put in next to your toilet and in the tub or shower. Use non-slip mats in the bathtub and on shower floors. Improve the lighting in your home. As you get older, you need brighter lights to see well. Hang light-weight curtains or shades to reduce glare. Have handrails and lights put in on all staircases. Wear shoes both inside and outside the house. Avoid going barefoot or wearing slippers. For more information, contact: Centers for Disease Control and Prevention www.cdc.gov/injury * This information may not apply if you have certain medical conditions. documented in this encounterMemorial Health System11-27-2023 Miscellaneous Notes* Telephone Encounter - Bonnie Peres LPN - 06/30/2023 11:01 AM EST TC to [facility], [facility] and would [facility]. Bonnie Peres LPN * Telephone Encounter - Seema Stanford APRN.CNP - 06/30/2023 9:21 AM EST I can refill if needed Seema Stanford APRN.CNP * Telephone Encounter - Maria Teresa Palmer LPN - 06/30/2023 8:25 AM EST Pt calls to report he is on prednisone that was prescribed by [place] support services rep for rash. Pt reportseither he did not get enough tabs or he miscalculated his dose but he is a couple tabs short. Pt reports [facility] if [facility] will matter if he does not take the last two doses of prednisone 10 mg. Pt is asking if he does need it if pcp will prescribe a couple of tabs and send it to [facility] because [facility] through [place] and would not make it here in time. Pt will call back and let office know what he [facility] the [facility]. Maria Teresa Palmer LPN documented in this encounterMemorial Health System11-17-2023 Miscellaneous Notes* Telephone Encounter - Barbara Cardona RN - 06/20/2023 8:18 AM EST Images from the original note were not included. Patient updated of message below. Result Notes Seema Stanford APRN.CNP 06/20/2023 6:53 AM EST Please let the patient know he was negative for COVID, influenza and RSV. Follow-up in one week if throat symptoms don't improve or sooner for any worsening symptoms MIREYA Nieto RN documented in this encounterMemorial Health System11-16-2023 Instructions* Patient Instructions* Seema Stanford APRN.CNP - 06/19/2023 10:59 AM EST Stay off Losartan for now documented in this encounterMemorial Health System11-16-2023 NoteHNO ID: [id number] Author: Seema Stanford APRN.CNP Service: ? Author Type: Nurse Practitioner Type: Progress Notes Filed: 06/19/2023 11:50 AM Note Text: CC: Patient presents with: Recheck: Blood pressure HPI Violeta Deal is a 88 year old male who presents today for above. His visit today is for follow-up. Patient was last seen for this approximately 2 weeks ago. Medication changes: Yes BP was low, Losartan discontinued. He is not currently on any medications now for hypertension Home BP's: Yes 130/60's Denies: dizziness, lightheadedness, palpitations, feeling faint, syncope Last 4 Encounter BP Readings: Date: BP: 06/19/2023 104/53 06/05/2023 86/42 05/22/2023 130/70 05/20/2023 114/62 Last 3 Encounter Wt Readings: Date: Wt: 06/19/2023 93 kg (205 lb) 06/05/2023 93 kg (205 lb) 05/22/2023 94.3 kg (208 lb) Patient's daughter called in this morning with concerns. Reports she spoke with him this morning and his voiced sounded hoarse and that patient stated he can't even clear it with water. He was also speaking in short, choppy sentences like he was SOB. She is concerned that symptoms may be due to CHF. Patient reports hoarse voice, post nasal drainage and sore throat started three days ago. Mucus is thick and hard to swallow but he denies difficulty swallowing liquids/solids and does not choke or cough. He has a slight cough that is productive with clear sputum. He has chronic SOB with exertion, no worse than usual. Edema is actually improving with Lasix twice a week prescribed by his trauma registrar. He has a history of CHF and COPD. Denies weight gain, PND, orthopnea, fever, chills, nasal congestion, rhinorrhea, wheezing. No sick contacts that he is aware of. Started taking Robitussin cough syrup this morning. Review of Systems Constitutional: Negative for appetite change and fatigue. 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 [facility] 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 2016 Hyperlipidemia LDL goal < 100 02/21/2010 MGUS (monoclonal gammopathy of unknown significance) Paroxysmal A-fib (HCC) 06/04/2015 Personal history of colonic polyps Simple chronic bronchitis (HCC) 05/07/2007 mild COPD Sinus node dysfunction (HCC) 06/04/2015 Subarachnoid bleed ([facility]) 11/15/2019 [facility] Transient neurologic deficit 06/04/2015 Type II or unspecified type diabetes mellitus without mention of complication, not stated as uncontrolled 02/21/2010 PAST SURGICAL HISTORY Procedure Laterality Date COLONOSCOPY FLX DX W/COLLJ SPEC WHEN PFRMD 08/2004 Colonoscopy COLONOSCOPY FLX DX W/COLLJ SPEC WHEN PFRMD 02/25/2008 Repeat in CYSTOSCOPY 06/26/2020 EGD TRANSORAL BIOPSY SINGLE/MULTIPLE 02/25/2008 EYELID SURGERY PROCEDURE, UNLISTED Left 2014 LITHOLAPAXY COMP/LG > 2.5 CM 07/21/2020 PACEMAKER 08/2015 PAST SURGICAL HISTORY OF Left 2011 macular hole, left eye PROSTHETIC IMPLANT DEVICE UROLIFT 07/27/2020 Dr. Queen XCAPSL CTRC RMVL INSJ IO LENS PROSTH W/O ECP 2011 Cataract Removal ALLERGIES Ether and Tolectin [Tolmetin Sodium] MEDICATIONS mycophenolate mofetil (CELLCEPT) 250 mg capsule 500 mg. furosemide (LASIX) 40 mg tablet Take 1 tablet by mouth. Take 1 tablet on Friday AND Friday only. omeprazole (PRILOSEC) 40 mg capsule Take 1 capsule by mouth once daily. atorvastatin (LIPITOR) 40 mg tablet Take 1 tablet by mouth daily at bedtime. For cholesterol. Niacinamide 500 mg tablet Take 500 mg by mouth two times a day with meals. Pramoxine HCl (SARNA SENSITIVE) 1 % lotn Apply 0.25 mL to affected area two times a day. triamcinolone (KENALOG) 0.025 % ointment Apply to affected area once daily. Dr. Hwang, [place] [facility]. amiodarone (PACERONE) 200 mg tablet Take 200 mg by mouth once daily. tamsulosin (FLOMAX) 0.4 mg Take 1 capsule by mouth daily at bedtime. finasteride (PROSCAR) 5 mg tablet Take 1 tablet by mouth once daily. glipiZIDE (GLUCOTROL XL) 5 mg 24 hr tablet Take 1 tablet by mouth once daily. predniSONE (DELTASONE) 10 mg tablet Take 10 mg by mouth once daily. Taking 3 tablets once daily for 7 days then take two tablets once daily for 7 days silver sulfADIAZINE (SILVADENE) 1 % cream Apply 1 application to affected area once daily. (Patient not taking: Reported on 06/19/2023) FAMILY HISTORY Problem Relation Age of Onset COPD Mother Heart Father CHF Diabetes Father Social History Tobac (more content not included)...[facility]11-16-2023 History of Present illness Narrative* Seema Stanford APRN.PREPARATION SUPERVISOR FREEZING - 06/19/2023 10:48 AM EST CC: Patient presents with: Recheck: Blood pressure HPI Violeta Deal is a 88 year old male who presents today for above. His visit today is for follow-up. Patient was last seen for this approximately 2 weeks ago. Medication changes: Yes BP was low, Losartan discontinued. He is not currently on any medications now for hypertension Home BP's: Yes 130/60's Denies: dizziness, lightheadedness, palpitations, feeling faint, syncope Last 4 Encounter BP Readings: Date: BP: 06/19/2023 104/53 06/05/2023 86/42 05/22/2023 130/70 05/20/2023 114/62 Last 3 Encounter Wt Readings: Date: Wt: 06/19/2023 93 kg (205 lb) 06/05/2023 93 kg (205 lb) 05/22/2023 94.3 kg (208 lb) Patient's daughter called in this morning with concerns. Reports she spoke with him this morning and his voiced sounded hoarse and that patient stated he can't even clear it with water. He was also speaking in short, choppy sentences like he was SOB. She is concerned that symptoms may be due to CHF. Patient reports hoarse voice, post nasal drainage and sore throat started three days ago. Mucus isthick and hard to swallow but he denies difficulty swallowing liquids/solids and does not choke or cough. He has a slight cough that is productive with clear sputum. He has chronic SOB with exertion,no worse than usual. Edema is actually improving with Lasix twice a week prescribed by his trauma registrar. He has a history of CHF and COPD. Denies weight gain, PND, orthopnea, fever, chills, nasal congestion, rhinorrhea, wheezing. No sick contacts that he is aware of. Started taking Robitussin coughsyrup this morning. Review of Systems Constitutional: Negative for appetite change and fatigue. 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 Peters[facility] 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 Hyperlipidemia LDL goal < 100 02/21/2010 MGUS (monoclonal gammopathy of unknown significance) Paroxysmal A-fib (HCC) 06/04/2015 Personal history of colonic polyps Simple chronic bronchitis (HCC) 05/07/2007 mild COPD Sinus node dysfunction (HCC) 06/04/2015 Subarachnoid bleed ([facility]) 11/15/2019 [facility] Transient neurologic deficit 06/04/2015 Type II or unspecified type diabetes mellitus without mention of complication, not stated as uncontrolled 02/21/2010 PAST SURGICAL HISTORY Procedure Laterality Date COLONOSCOPY FLX DX W/COLLJ SPEC WHEN PFRMD 08/2004 Colonoscopy COLONOSCOPY FLX DX W/COLLJ SPEC WHEN PFRMD 02/25/2008 Repeat in CYSTOSCOPY 06/26/2020 EGD TRANSORAL BIOPSY SINGLE/MULTIPLE 02/25/2008 EYELID SURGERY PROCEDURE, UNLISTED Left 2014 LITHOLAPAXY COMP/LG > 2.5 CM 07/21/2020 PACEMAKER 08/2015 PAST SURGICAL HISTORY OF Left 2012 macular hole, left eye PROSTHETIC IMPLANT DEVICE UROLIFT 07/27/2020 Dr. Queen XCAPSL CTRC RMVL INSJ IO LENS PROSTH W/O ECP 2012 Cataract Removal ALLERGIES Ether and Tolectin [Tolmetin Sodium] MEDICATIONS mycophenolate mofetil (CELLCEPT) 250 mg capsule 500 mg. furosemide (LASIX) 40 mg tablet Take 1 tablet by mouth. Take 1 tablet on Friday & Friday only. omeprazole (PRILOSEC) 40 mg capsule Take 1 capsule by mouth once daily. atorvastatin (LIPITOR) 40 mg tablet Take 1 tablet by mouth daily at bedtime. For cholesterol. Niacinamide 500 mg tablet Take 500 mg by mouth two times a day with meals. Pramoxine HCl (SARNA SENSITIVE) 1 % lotn Apply 0.25 mL to affected area two times a day. triamcinolone (KENALOG) 0.025 % ointment Apply to affected area once daily. Dr. Hwang, [place] [facility]. amiodarone (PACERONE) 200 mg tablet Take 200 mg by mouth once daily. tamsulosin (FLOMAX) 0.4 mg Take 1 capsule by mouth daily at bedtime. finasteride (PROSCAR) 5 mg tablet Take 1 tablet by mouth once daily. glipiZIDE (GLUCOTROL XL) 5 mg 24 hr tablet Take 1 tablet by mouth once daily. predniSONE (DELTASONE) 10 mg tablet Take 10 mg by mouth once daily. Taking 3 tablets once daily for7 days then take two tablets once daily for 7 days silver sulfADIAZINE (SILVADENE) 1 % cream Apply 1 application to affected area once daily. (Patientnot taking: Reported on 06/19/2023) FAMILY HISTORY Problem Relation Age of Onset COPD Mother Heart Father CHF Diabetes Father Social History Tobacco Use Smoking status: Former Packs/day: 1.00 Years: 50.00 Additional pack years: 0.00 Total pack years: 50.00 Types: Cigarettes Quit date: 12/18/1994 Years since quittin.5 Smokeless tobacco: Never Vaping Use Vaping Use: Never used Substance Use Topics Alcohol use: Yes Alcohol/week: 2.0 standard drinks of alcohol Types: 2 Cans of Beer (12oz) per week Comment: daily Drug use: No BP 104/53 (BP Site: Left Arm, BP Position: Sitting, BP Cuff Size: Regular Adult) Pulse 65 Temp 36.2 C (97.1 F) Resp 18 Wt 93 kg (205 lb) SpO2 98% BMI 29.16 kg/m Physical Exam Vitals reviewed. Constitutional: General: He is not in acute distress. Appearance: Normal appearance. He is not ill-appearing. HENT: Right Ear: Tympanic membrane normal. Left Ear: Tympanic membrane normal. Nose: Mucosal edema and congestion present. Mouth/Throat: Lips: [place]. Mouth: Mucous membranes are moist. Pharynx: No pharyngeal swelling, oropharyngeal exudate or posterior oropharyngeal erythema. Comments: Thick, white mucus noted in the back of throat. Voice is hoarse. Eyes: Conjunctiva/sclera: Conjunctivae normal. Cardiovascular: Rate and Rhythm: Normal rate and regular rhythm. Heart sounds: Normal heart sounds. No murmur heard. Pulmonary: Effort: Pulmonary effort is normal. Breath sounds: Normal breath sounds. No wheezing, rhonchi or rales. Comments: No conversational dyspnea. Musculoskeletal: Cervical back: Neck supple. Lymphadenopathy: Cervical: No cervical adenopathy. Skin: General: Skin is warm and dry. Neurological: Mental Status: He is alert. DATA REVIEWED: Most recent labs and imaging results. ASSESSMENT/PLAN: 1. Hypotension, unspecified hypotension type - ICD9: 458.9, ICD10: I95.9 (primary diagnosis) Improved off of Losartan. Patient is asymptomatic. He was advised to stay off Losartan unless instructed otherwise by PCP or trauma registrar Follow-up in one month as scheduled or sooner if needed 2. Viral URI with cough - ICD9: 465.9, ICD10: J06.9 Symptoms consistent with viral URI. No symptoms or exam findings to suggest exacerbation of CHF or COPD - Symptomatic treatment with prn analgesia - Supportive care with fluids and rest - The patient may also use OTC Robitussin cough syrup. - COVID & INFLUENZA A/B & RSV NAAT, ROUTINE today Prescription instructions reviewed with patient as applicable. Potential red flag symptoms discussed with the patient. Reviewed appropriate action plan to take if red flag symptoms occur. Patient agreeable to treatment plan. Seema Stanford APRN.CNP documented in this encounterMemorial Health System11-16-2023 Miscellaneous Notes* Telephone Encounter - Seema Stanford APRN.CNP - 06/19/2023 10:25 AM EST Noted Seema Stanford APRN.CNP * Telephone Encounter - Maryellen Wilkerson RN - 06/19/2023 9:59 AM EST Pts daughter called in and reports she just got off the phone with the Pt and they didn't know he had an appointment today, and he has been sneaking around to other doctor appointments and not telling them. She said they wouldn't be able to make it here in an hour to go with him and they don't think he is being truthful with the providers. The states on the phone his voice sounds hoarse and Pts states he can't clear his throat even with water, daughters was a regulatory auditor and he states it sounds like CHF to him. They also report it's hard to understand him and he's speaking in choppy sentences. They report he is very irritable and threw the phone down when they were talking to him. They think his )2 may be low and wanted provider to check pulse ox. Pt also has swelling in his legs, they were saying something about fluid on the lungs. She says he has been sleeping in late and left [place] early because he couldn't stand any longer, and this isn't like him. They have had the talk of him moving closer to them or her brother and going into a residential, but he says he isn't ready. They said [facility] and [facility], but it had been discontinued. Then they said Dr Paniagua had put him on Lasix and his trauma registrar had put him on a 5 day course of Lasix. She just wants the provider to ask him how he's feeling and take a really good lock at him.She would like a call if provider thinks he needs sent to the ER. documented in this encounterMemorial Health System11-05-2023 Miscellaneous Notes* Telephone Encounter - Navin Paniagua MD - 06/08/2023 9:02 AM EST Noted. * Telephone Encounter - Ismael Guevara RN - 06/06/2023 2:[address] Thomason- [place]- asked to speak with pcp or send message. Reports patient saw pcp yesterday and was referred to [facility]. Reports she was informedpcp has concern for cellulitis. Reports she has been seeing patient and is sure it is not cellulitis. 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 They treated patient with doxycycline recently, and are treating him with triamcinolone ointment (pt hasn't received it yet- will receive in the mail) twice day. Patient is encouraged to moisturize dry skin. Reports the weeping is from stasis derm. Dr. Thomason has advised patient to wear compression socks for the swelling and wrap the weeping areas. Reports patient has a f/u with them this month and hopefully has improved. Reports they have a remote computer terminal operator plan in place. 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 States they believe for patient to go to [facility], may cause confusion, and risk continuity of care, and overlapping of treatments. She has advised patient to hold off on visit to [facility], and patient is agreeable. You can reach Dr. Thomason [phone] extension [phone], which is Dr Isabelle bañuelos. She will be at the [place] on Friday. documented in this encounterMemorial Health System11-02-2023 Instructions* Patient Instructions* Navin Paniagua MD - 06/05/2023 3:53 PM EDT I am referring you to the local DERMATOLOGY group, [facility]. STOP taking LOSARTAN 25 mg once daily because your blood pressure is running low. documented in this encounterMemorial Health System11-02-2023 NoteHNO ID: [id number] Author: Navin Paniagua MD Service: ? Author Type: Physician Type: Progress Notes Filed: 06/08/2023 8:54 AM Note Text: This note was created using Denty'sriter. Subjective Violeta Deal is a 88 year old male. He had chronic refractory dermatitis and pruritus for which he has been going to the [place]. Last month he was seen acutely for left arm cellulitis, wounds, and edema. This was followed with celluliti of the left leg. This was in the setting of edema and chronic refractory dermatitis. He has been going to dermatology in the [place] and had various diagnoses the past few years. He even had elimination process of his medications for drug hypersensitivity to no avail. His trauma registrar had been giving his diuretics sparingly due to low blood pressure and kidney disease. His furosemide dose was increased to 40 mg 2 times a week. At this point, he has completed antibiotics an infection was controlled. He continued with rash, itching, swelling with areas of serous seepage in his left elbow and left leg. He was applying absorbent dressings and applying topical treatments. Review of Systems Constitutional: Positive for fatigue. Negative for chills and fever. HENT: Negative. Respiratory: Negative for cough, chest tightness and shortness of breath. Cardiovascular: Positive for leg swelling. Negative for chest pain and palpitations. Gastrointestinal: Negative for diarrhea, nausea and vomiting. Genitourinary: Negative for difficulty urinating and frequency. Neurological: Negative for dizziness, light-headedness and headaches. ACTIVE PROBLEM LIST Bph With Obstruction/Lower Urinary Tract Symptoms Simple Chronic Bronchitis (Hcc) Controlled Type 2 Diabetes Mellitus Without Complication, Without Long-Term Current Use of Insulin (Hcc) Hyperlipidemia With Target Ldl Less Than 100 Paroxysmal A-Fib (Hcc) Cardiac Pacemaker in Situ Thrombocytopenia (Hcc) Essential Hypertension Abdominal Aortic Aneurysm (Aaa) Without Rupture (Hcc) Bullous Pemphigoid Drug Rash Stage 3a Chronic Kidney Disease (Hcc) Current Outpatient Medications Medication Sig omeprazole (PRILOSEC) 40 mg capsule Take 1 capsule by mouth once daily. atorvastatin (LIPITOR) 40 mg tablet Take 1 tablet by mouth daily at bedtime. For cholesterol. losartan (COZAAR) 25 mg tablet Take 1 tablet by mouth once daily. silver sulfADIAZINE (SILVADENE) 1 % cream Apply 1 application to affected area once daily. Niacinamide 500 mg tablet Take 500 mg by mouth two times a day with meals. Pramoxine HCl (SARNA SENSITIVE) 1 % lotn Apply 0.25 mL to affected area two times a day. triamcinolone (KENALOG) 0.025 % ointment Apply to affected area once daily. Dr. Hwang, [place] [facility]. amiodarone (PACERONE) 200 mg tablet Take 200 mg by mouth once daily. tamsulosin (FLOMAX) 0.4 mg Take 1 capsule by mouth daily at bedtime. finasteride (PROSCAR) 5 mg tablet Take 1 tablet by mouth once daily. glipiZIDE (GLUCOTROL XL) 5 mg 24 hr tablet Take 1 tablet by mouth once daily. furosemide (LASIX) 40 mg tablet Take 1 tablet by mouth. Take 1 tablet on Friday AND Friday only. furosemide (LASIX) 20 mg tablet Take 1 tablet by mouth once daily for 5 days. This is in addition to the previously filled 5 day script. (Patient not taking: Reported on 06/05/2023) No current facility-administered medications for this visit. Objective BP (!) 86/42 (BP Site: Right Arm, BP Position: Sitting, BP Cuff Size: Large Adult) Pulse 65 Temp 36.3 ?C (97.3 ?F) (Temporal) Resp 24 Wt 93 kg (205 lb) SpO2 96% BMI 29.16 kg/m? Physical Exam Constitutional: General: He is not in acute distress. Appearance: He is not ill-appearing or diaphoretic. HENT: Mouth/Throat: Mouth: Mucous membranes are moist. Eyes: Conjunctiva/sclera: Conjunctivae normal. Cardiovascular: Rate and Rhythm: Normal rate and regular rhythm. Pulmonary: Effort: No respiratory distress. Breath sounds: No wheezing or rales. Abdominal: General: There is no distension. Musculoskeletal: Right forearm: No edema. Left forearm: Edema present. Right lower le+ Pitting Edema present. Left lower le+ Pitting Edema present. Skin: Findings: Rash present. Rash is scaling. Comments: Superficial erosions with serous seepage, left lebow, left tibia. Neurological: Mental Status: He is alert. Assessment and Plan 1. Dermatitis - ICD9: 692.9, ICD10: L30.9 (primary diagnosis) - I suggested he get a 2nd opinion. He was referred to [facility]. - CONSULT TO DERMATOLOGY 2. Pruritic disorder - ICD9: 698.9, ICD10: L29.9 See above. - CONSULT TO DERMATOLOGY 3. Controlled type 2 diabetes mellitus without complication, without long-term current use of insulin (HCC) - ICD9: 250.00, ICD10: E11.9 - Controlled 4. Essential hypertension - ICD9: 401.9, ICD10: I10 Blood pressure low. Patient with vague episodes of fatigue. - Discontinue LOSARTAN (more content not included)...[facility] 06-05-2023 History of Present illness Narrative* Navin Paniagua MD - 06/05/2023 3:22 PM EDT This note was created using [employer]. Subjective Violeta Deal is a 88 year old male. He had chronic refractory dermatitis and pruritus for which he has been going to the [place]. Last month he was seen acutely for left arm cellulitis, wounds, and edema. This was followed with celluliti of the left leg. This was in the setting of edema and chronic refractory dermatitis. He hasbeen going to dermatology in the [place] and had various diagnoses the past few years. He even had elimination process of his medications for drug hypersensitivity to no avail. His trauma registrar had been gi ving his diuretics sparingly due to low blood pressure and kidney disease. His furosemide dose was increased to 40 mg 2 times a week. At this point, he has completed antibiotics an infection was controlled. He continued with rash, itching, swelling with areas of serous seepage in his left elbow and left leg. He was applying absorbent dressings and applying topical treatments. Review of Systems Constitutional: Positive for fatigue. Negative for chills and fever. HENT: Negative. Respiratory: Negative for cough, chest tightness and shortness of breath. Cardiovascular: Positive for leg swelling. Negative for chest pain and palpitations. Gastrointestinal: Negative for diarrhea, nausea and vomiting. Genitourinary: Negative for difficulty urinating and frequency. Neurological: Negative for dizziness, light-headedness and headaches. ACTIVE PROBLEM LIST Bph With Obstruction/Lower Urinary Tract Symptoms Simple Chronic Bronchitis (Hcc) Controlled Type 2 Diabetes Mellitus Without Complication, Without Long-Term Current Use of Insulin (Hcc) Hyperlipidemia With Target Ldl Less Than 100 Paroxysmal A-Fib (Hcc) Cardiac Pacemaker in Situ Thrombocytopenia (Hcc) Essential Hypertension Abdominal Aortic Aneurysm (Aaa) Without Rupture (Hcc) Bullous Pemphigoid Drug Rash Stage 3a Chronic Kidney Disease (Hcc) Current Outpatient Medications Medication Sig omeprazole (PRILOSEC) 40 mg capsule Take 1 capsule by mouth once daily. atorvastatin (LIPITOR) 40 mg tablet Take 1 tablet by mouth daily at bedtime. For cholesterol. losartan (COZAAR) 25 mg tablet Take 1 tablet by mouth once daily. silver sulfADIAZINE (SILVADENE) 1 % cream Apply 1 application to affected area once daily. Niacinamide 500 mg tablet Take 500 mg by mouth two times a day with meals. Pramoxine HCl (SARNA SENSITIVE) 1 % lotn Apply 0.25 mL to affected area two times a day. triamcinolone (KENALOG) 0.025 % ointment Apply to affected area once daily. Dr. Hwang, [place] [facility]. amiodarone (PACERONE) 200 mg tablet Take 200 mg by mouth once daily. tamsulosin (FLOMAX) 0.4 mg Take 1 capsule by mouth daily at bedtime. finasteride (PROSCAR) 5 mg tablet Take 1 tablet by mouth once daily. glipiZIDE (GLUCOTROL XL) 5 mg 24 hr tablet Take 1 tablet by mouth once daily. furosemide (LASIX) 40 mg tablet Take 1 tablet by mouth. Take 1 tablet on Friday & Friday only. furosemide (LASIX) 20 mg tablet Take 1 tablet by mouth once daily for 5 days. This is in addition to the previously filled 5 day script. (Patient not taking: Reported on 06/05/2023) No current facility-administered medications for this visit. Objective BP (!) 86/42 (BP Site: Right Arm, BP Position: Sitting, BP Cuff Size: Large Adult) Pulse 65 Temp 36.3 C (97.3 F) (Temporal) Resp 24 Wt 93 kg (205 lb) SpO2 96% BMI 29.16 kg/m Physical Exam Constitutional: General: He is not in acute distress. Appearance: He is not ill-appearing or diaphoretic. HENT: Mouth/Throat: Mouth: Mucous membranes are moist. Eyes: Conjunctiva/sclera: Conjunctivae normal. Cardiovascular: Rate and Rhythm: Normal rate and regular rhythm. Pulmonary: Effort: No respiratory distress. Breath sounds: No wheezing or rales. Abdominal: General: There is no distension. Musculoskeletal: Right forearm: No edema. Left forearm: Edema present. Right lower le+ Pitting Edema present. Left lower le+ Pitting Edema present. Skin: Findings: Rash present. Rash is scaling. Comments: Superficial erosions with serous seepage, left lebow, left tibia. Neurological: Mental Status: He is alert. Assessment and Plan 1. Dermatitis - ICD9: 692.9, ICD10: L30.9 (primary diagnosis) - I suggested he get a 2nd opinion. He was referred to Shanita Bui. - CONSULT TO DERMATOLOGY 2. Pruritic disorder - ICD9: 698.9, ICD10: L29.9 See above. - CONSULT TO DERMATOLOGY 3. Controlled type 2 diabetes mellitus without complication, without long-term current use of insulin (HCC) - ICD9: 250.00, ICD10: E11.9 - Controlled 4. Essential hypertension - ICD9: 401.9, ICD10: I10 Blood pressure low. Patient with vague episodes of fatigue. - Discontinue LOSARTAN (prescribed by his trauma registrar). Patient indicated understanding and willingness to follow recommendations. Navin Paniagua MD documented in this encounterMem[facility] System10-30-2023 Miscellaneous Notes* Telephone Encounter - Alix Kevin Ma - 06/02/2023 3:37 PM EDT UMAIR: 05/22/2023 Last refill: 12/17/2022 QTY: 90 Refills: 1 * Telephone Encounter - Ratna Oropeza - 06/02/2023 2:04 PM EDT Patient has been identified by name and date of : Yes Requested Prescriptions Pending Prescriptions Disp Refills omeprazole (PRILOSEC) 40 mg capsule 90 capsule 1 Sig: Take 1 capsule by mouth once daily. RX INSTRUCTIONS: Patient aware RX escripted to mail away pharmacy. No need to notify patient. Ratna Jimenez documented in this encounterMemorial Health System10-26-2023 Miscellaneous Notes* Telephone Encounter - Enedina Grayson LPN - 05/29/2023 10:10 AM EDT Pt is requesting lab results from 05/16/[address] Peters, pt has appt with him today. Results faxed as requested. Enedina Grayson LPN documented in this [facility]10-23-2023 Miscellaneous Notes* Telephone Encounter - Alix Kevin Ma - 05/26/2023 2:13 PM EDT UMAIR: 05/22/2023 Last refill: 05/22/2022 QTY: 90 Refills: 3 * Telephone Encounter - Clarissa Novak - 05/26/2023 11:45 AM EDT Patient has been identified by name and date of : Yes Requested Prescriptions Pending Prescriptions Disp Refills atorvastatin (LIPITOR) 40 mg tablet 90 tablet 3 Sig: Take 1 tablet by mouth daily at bedtime. For cholesterol. RX INSTRUCTIONS: Patient aware RX will be sent to [facility] pharmacy. No need to notify patient. Clarissa Novak documented in this [facility]10-19-2023 Miscellaneous Notes* Telephone Encounter - Candis Kamara LPN - 05/22/2023 4:50 PM EDT Phoned patient and went over results, notes from Dr Paniagua with understanding. He said has [facility] appt in the next month, he will try to move appt sooner if he can. * Telephone Encounter - Candis Kamara LPN - 05/22/2023 4:46 PM EDT ----- Message from Navin Paniagua MD sent at 05/22/2023 3:36 PM EDT ----- Most labs are okay. Abnormal concern is lab test for congestive heart failure. Continue current medications. He should see his trauma registrar ([facility]) soon ( 2 weeks). documented in this encounterMemorial [facility] System10-19-2023 Miscellaneous Notes* Telephone Encounter - Candis Kamara LPN - 05/22/2023 4:43 PM EDT Phoned patient and went over results, notes from Dr Paniagua with understanding. * Telephone Encounter - Candis Kamara LPN - 05/22/2023 4:41 PM EDT ----- Message from Navin Paniagua MD sent at 05/22/2023 3:37 PM EDT ----- chest X-ray negative documented in this encounterMemorial Health System10-19-2023 Instructions* Patient Instructions* Seema Stanford APRN.PREPARATION SUPERVISOR [employer]ZING - 05/22/2023 10:22 AM EDT CAUSES OF LEG SWELLING HOW TO REDUCE LEG SWELLING Sitting with your legs hanging down Elevate your toes above your nose! Sit in a recliner with your legs up. Avoid sitting for long periods of time Standing for long periods of time Wear compression stockings. Apply them first things in the morning and remove them at bedtime. Avoid standing for long periods of time Eating foods high in salt Avoid canned foods, look for low sodium or no salt added foods Medical conditions that cause you to retain fluid: Congestive heart failure, Venous Stasis Take medications as ordered. Take diuretics (water pills) early in the day Sleeping in a chair with you legs hanging down Place a pillow or several phone books between the mattress and box spring of your bed. Sleep in a hospital bed or electric adjustable bed documented in this encounterMemorial Health System10-19-2023 History of Present illness Narrative* Seema Stanford APRN.CNP - 05/22/2023 9:57 AM EDT Images from the original note were not included. CC: Patient presents with: Recheck: Left Leg, TE 05/21 HPI Violeta Deal is a 88 year old male who presents today for above. He was seen 05/20 for possible cellulitis of the right lower leg. Treated with Keflex. He had seeping around the ankle, dressing applied and leg wrapped with WILMER bandage. Patient called with concerns yesterday regarding continuedseeping and unsure about changing the dressing so he was scheduled today. Redness was marked with apen and has not gone past the marked area. There is still seeping from left ankle, patient is very concerned about what ointment and dressing he should be using on this area. Denies any new or worsening symptoms. Review of Systems See HPI PAST MEDICAL HISTORY Diagnosis Date Abdominal aortic aneurysm (AAA) without rupture (HCC) 06/20/[address] scan Acute gastritis without mention of hemorrhage Anemia, unspecified Benign neoplasm of colon Bladder calculi 06/20/2020 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 Peters, [facility]. 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 Hyperlipidemia LDL goal < 100 02/21/2010 MGUS (monoclonal gammopathy of unknown significance) Paroxysmal A-fib (HCC) 06/04/2015 Personal history of colonic polyps Simple chronic bronchitis (HCC) 05/07/2007 mild COPD Sinus node dysfunction (HCC) 06/04/2015 Subarachnoid bleed (HCC) 11/15/2019 [facility] Transient neurologic deficit 06/04/2015 Type II or unspecified type diabetes mellitus without mention of complication, not stated as uncontrolled 02/21/2010 PAST SURGICAL HISTORY Procedure Laterality Date COLONOSCOPY FLX DX W/COLLJ SPEC WHEN PFRMD 08/2004 Colonoscopy COLONOSCOPY FLX DX W/COLLJ SPEC WHEN PFRMD 02/25/2008 Repeat in CYSTOSCOPY 06/26/2020 EGD TRANSORAL BIOPSY SINGLE/MULTIPLE 02/25/2008 EYELID SURGERY PROCEDURE, UNLISTED Left 2014 LITHOLAPAXY COMP/LG > 2.5 CM 07/21/2020 PACEMAKER 08/2015 PAST SURGICAL HISTORY OF Left 2011 macular hole, left eye PROSTHETIC IMPLANT DEVICE UROLIFT 07/27/2020 Dr. Queen XCAPSL CTRC RMVL INSJ IO LENS PROSTH W/O ECP 2011 Cataract Removal ALLERGIES Ether and Tolectin [Tolmetin Sodium] MEDICATIONS furosemide (LASIX) 20 mg tablet Take 1 tablet by mouth once daily for 5 days. This is in addition to the previously filled 5 day script. losartan (COZAAR) 25 mg tablet Take 1 tablet by mouth once daily. cephALEXin (KEFLEX) 500 mg capsule Take 1 capsule by mouth three times a day for 7 days. silver sulfADIAZINE (SILVADENE) 1 % cream Apply 1 application to affected area once daily. Niacinamide 500 mg tablet Take 500 mg by mouth two times a day with meals. Pramoxine HCl (SARNA SENSITIVE) 1 % lotn Apply 0.25 mL to affected area two times a day. triamcinolone (KENALOG) 0.025 % ointment Apply to affected area once daily. Dr. Hwang, [place] [facility]. amiodarone (PACERONE) 200 mg tablet Take 200 mg by mouth once daily. omeprazole (PRILOSEC) 40 mg capsule Take 1 capsule by mouth once daily. tamsulosin (FLOMAX) 0.4 mg Take 1 capsule by mouth daily at bedtime. finasteride (PROSCAR) 5 mg tablet Take 1 tablet by mouth once daily. glipiZIDE (GLUCOTROL XL) 5 mg 24 hr tablet Take 1 tablet by mouth once daily. atorvastatin (LIPITOR) 40 mg tablet Take 1 tablet by mouth daily at bedtime. For cholesterol. FAMILY HISTORY Problem Relation Age of Onset COPD Mother Heart Father CHF Diabetes Father Social History Tobacco Use Smoking status: Former Packs/day: 1.00 Years: 50.00 Additional pack years: 0.00 Total pack years: 50.00 Types: Cigarettes Quit date: 12/18/1994 Years since quittin.4 Smokeless tobacco: Never Vaping Use Vaping Use: Never used Substance Use Topics Alcohol use: Yes Alcohol/week: 2.0 standard drinks of alcohol Types: 2 Cans of Beer (12oz) per week Comment: daily Drug use: No BP 130/70 Pulse 90 Resp 18 Wt 94.3 kg (208 lb) SpO2 98% BMI 29.59 kg/m Physical Exam Vitals reviewed. Constitutional: General: He is not in acute distress. Appearance: He is not ill-appearing. Skin: Neurological: Mental Status: He is alert. ASSESSMENT/PLAN: 1. Rash and nonspecific skin eruption - ICD9: 782.1, ICD10: R21 (primary diagnosis) Cellulitis vs dermatitis. Explained to patient serous drainage is not necessarily a sign of infection and in his case more than likely due to swelling. Continue with Keflex. Keep legs open to air once drainage resolves, otherwise cover moist areas with gauze and wrap with WILMER for compression. Okay t o use Vaseline if he so desires. Follow-up with PCP as scheduled. 2. Edema of both legs - ICD9: 782.3, ICD10: R60.0 Continue with Lasix, see plan above Prescription instructions reviewed with patient as applicable. Potential red flag symptoms discussed with the patient. Reviewed appropriate action plan to take if red flag symptoms occur. Patient agreeable to treatment plan. During this patient visit I have spent approximately 30 minutes in counseling regarding treatment options, medications, and coordinating care. Seema Stanford APRN.CECI documented in this encounterMemorial Health System10-19-2023 Miscellaneous Notes* Telephone Encounter - Katina Hansen RN - 05/22/2023 8:14 AM EDT Called pt and given Liliane's recommendations. Pt states he had already called and made an appt this morning to see Seema Stanford. He is just very unsure of how to take care of his leg. He would feel betterhaving someone look at it again and tell him what to do. * Telephone Encounter - Liliane Childs APRN.CNP - 05/21/2023 5:17 PM EDT For his leg it is okay to leave it open to air when not wearing compression if the seeping is not severe, if needing to control seeping then would recommend either a guaze wrap like I put on in the office or guaze dressing to cover the seeping and help absorb the drainage. * Telephone Encounter - Katina Hansen RN - 05/21/2023 3:10 PM EDT Pt calling as he saw Liliane Childs yesterday and she applied a drsg and wilmer bandage to his left leg.He says Liliane told him that he should take the dressing off at night. Pt did not take the bandage off last night as he said his leg had been weeping clear fluid. He does not know what Liliane would have him put back on his leg. Unsure if he was supposed to have any creams or anything to put on it and doesn't have any dry dressings to replace. No drng has leaked through the drsg at this time. Wondering what he needs to do with it now? Also c/o generalized itching all over his body. States he sees a support services rep from the [place] clinic in [place]. They have given him an ointment and a lotion to use. Pt instructed if he is still having issues with the itching and using what they prescribed for him, then he should give them a call to see if they want to try something else. documented in this encounterMemorial Health System10-17-2023 Instructions* Patient Instructions* Liliane Childs APRN.CNP - 05/20/2023 9:07 AM EDT Make sure you do not miss any doses of your lasix. Take a second dose today and then continue with the once daily dose starting tomorrow. (I sent more in to the pharmacy). Keep the left leg clean and dry. Use the compression socks or wrap for compression daily. Elevate the leg as much as you can. Avoid any salt in your diet. If needed, you can apply mupirocin or bacitracin to the leg, do not use the silvadene cream. documented in this encounterMemorial Health System10-17-2023 History of Present illness Narrative* Liliane Childs APRN.CECI - 05/20/2023 8:48 AM EDT Images from the original note were not included. SUBJECTIVE Violeta Deal is a 88 year old male here today for a check up on his medical problems. Chief Complaint Patient presents with: Leg Edema: with drainage HPI Violeta Deal is a 88 year old male. Established patient of Dr. Paniagua. Here today acutely for concerns of possible cellulitis. He is currently on lasix short term for edema of BLE. Noticed this morning that his left leg has some redness, a few areas seeping. Right leg swelling is improved but left had been getting better but now seems a little more swollen than the right. His medications were reviewed today and his list is now up to date. Medications Current Outpatient Medications Medication Sig silver sulfADIAZINE (SILVADENE) 1 % cream Apply 1 application to affected area once daily. Niacinamide 500 mg tablet Take 500 mg by mouth two times a day with meals. Pramoxine HCl (SARNA SENSITIVE) 1 % lotn Apply 0.25 mL to affected area two times a day. triamcinolone (KENALOG) 0.025 % ointment Apply to affected area once daily. Dr. Hwang, [place] [facility]. amiodarone (PACERONE) 200 mg tablet Take 200 mg by mouth once daily. omeprazole (PRILOSEC) 40 mg capsule Take 1 capsule by mouth once daily. tamsulosin (FLOMAX) 0.4 mg Take 1 capsule by mouth daily at bedtime. finasteride (PROSCAR) 5 mg tablet Take 1 tablet by mouth once daily. glipiZIDE (GLUCOTROL XL) 5 mg 24 hr tablet Take 1 tablet by mouth once daily. atorvastatin (LIPITOR) 40 mg tablet Take 1 tablet by mouth daily at bedtime. For cholesterol. furosemide (LASIX) 20 mg tablet Take 1 tablet by mouth once daily for 5 days. This is in addition to the previously filled 5 day script. losartan (COZAAR) 25 mg tablet Take 1 tablet by mouth once daily. cephALEXin (KEFLEX) 500 mg capsule Take 1 capsule by mouth three times a day for 7 days. No current facility-administered medications for this visit. ALLERGIES Allergen Reactions Ether Tolectin [Tolmetin * ACTIVE PROBLEM LIST Stage 3a Chronic Kidney Disease ([facility]) - 01/10/2023 Bullous Pemphigoid - 02/08/2022 Drug Rash - 02/08/2022 Abdominal Aortic Aneurysm (Aaa) Without Rupture ([facility]) - 06/20/2020 Comment: Infrarenal 4.[address] scan Essential Hypertension - 11/24/2019 Thrombocytopenia ([facility]) - 10/27/2018 Cardiac Pacemaker in Situ - 01/12/2018 Comment: Dr. Peters, [facility]. Paroxysmal A-Fib ([facility]) - 06/04/2015 Controlled Type 2 Diabetes Mellitus Without Complication, Without Long-Term Current Use of Insulin ([facility]) - 02/21/2010 Hyperlipidemia With Target Ldl Less Than 100 - 02/21/2010 Simple Chronic Bronchitis ([facility]) - 05/07/2007 Bph With Obstruction/Lower Urinary Tract Symptoms - 05/13/2006 Social History Tobacco Use Smoking status: Former Packs/day: 1.00 Years: 50.00 Additional pack years: 0.00 Total pack years: 50.00 Types: Cigarettes Quit date: 12/18/1994 Years since quittin.4 Smokeless tobacco: Never Vaping Use Vaping Use: Never used Substance Use Topics Alcohol use: Yes Alcohol/week: 2.0 standard drinks of alcohol Types: 2 Cans of Beer (12oz) per week Comment: daily Drug use: No Review of Systems Respiratory: Negative. Cardiovascular: Positive for leg swelling. Negative for chest pain and palpitations. OBJECTIVE BP 114/62 Pulse 64 Wt 206 lb (93.4kg) SpO2 98% Physical Exam Vitals and nursing note reviewed. Constitutional: General: He is awake. He is not in acute distress. Appearance: Normal appearance. He is well-developed and well-groomed. He is not ill-appearing, toxic-appearing or diaphoretic. HENT: Head: Normocephalic. Right Ear: External ear normal. Left Ear: External ear normal. Nose: Nose normal. Eyes: General: Vision grossly intact. Conjunctiva/sclera: Conjunctivae normal. Pupils: Pupils are equal, round, and reactive to light. Neck: Vascular: No JVD. Trachea: Trachea normal. Cardiovascular: Pulses: Normal pulses. Pulmonary: Effort: Pulmonary effort is normal. No accessory muscle usage, prolonged expiration or respiratory distress. Musculoskeletal: Cervical back: Neck supple. Skin: General: Skin is warm and dry. Capillary Refill: Capillary refill takes less than 2 seconds. Neurological: General: No focal deficit present. Mental Status: He is alert and oriented to person, place, and time. Mental status is at baseline. Psychiatric: Attention and Perception: Attention and perception normal. Mood and Affect: Mood and affect normal. Speech: Speech normal. Behavior: Behavior normal. Behavior is cooperative. Thought Content: Thought content normal. Cognition and Memory: Cognition and memory normal. Judgment: Judgment normal. ASSESSMENT/PLAN: 1. Cellulitis of left lower extremity - ICD9: 682.6, ICD10: L03.116 (primary diagnosis) - Begin treatment with Cephalaxin (Keflex) - No lymphangetic streaking, this was defined for patient to watch for and to seek medical care immediately if appears - Area of cellulitis defined with pen, seek further attention if this area continues to enlarge - Suspect his increased edema resulted in impairment in the left lower leg skin integrity that has now turned in to a cellulitis, no systemic symptoms. Discussed care of the area, signs and symptom to monitor for. He has follow up in about 2 weeks with his PCP so we will keep that but discussed if symptoms not improving then sooner follow up is needed. - CEPHALEXIN 500 MG CAPSULE 2. Edema of both legs - ICD9: 782.3, ICD10: R60.0 Discussed taking an extra lasix today (40 mg total today) and then continuing with the 20 mg daily dose for a total of 9 days diuretic treatment. - FUROSEMIDE 20 MG TABLET 3. Essential hypertension - ICD9: 401.9, ICD10: I10 Holding losartan while on lasix. - LOSARTAN 25 MG TABLET I spent a total of 33 minutes on the date of the service which included preparing to see the patient, [id number] patient care, completing clinical documentation, obtaining and/or reviewing separately obtained history, performing a medically appropriate examination, counseling and educating the pat ient/family/caregiver, ordering medications, tests, or procedures, communicating with other HCPs (not separately reported), independently interpreting results (not separately reported), communicatingresults to the patient/family/caregiver, and care coordination (not separately reported). Portions of this note have been entered by ancillary staff. I have reviewed and when necessary edited, so that they are an adequate record of my encounter with this patient Please note that parts of this document were created using voice recognition software and therefore may contain grammatical errors. Patient verbalizes understanding of instructions from today's visit and in agreement with treatmentplan. Questions answered. Agrees to call the office if questions, concerns of issues with acute symptoms not improving or if they worsen. See diagnoses and orders for additional plan(s). Allergies and medications were reviewed, list was updated, and refills given if needed. Past medical, surgical, social, and family history reviewed and updated as appropriate. Encouraged proper diet & exercise as well as compliance with taking medications. Age- appropriate health preventative measures were discussed. Return if symptoms worsen or fail to improve, for Keep next scheduled appointment.. Liliane Childs APRN-CECI documented in this encounterMemorial Health System10-13-2023 Instructions* Patient Instructions* Navin Paniagua MD - 05/16/2023 1:58 PM EDT DO NOT TAKE LOSARTAN WHILE TAKING LASIX. documented in this encounterMemorial Health System10-13-2023 History of Present illness Narrative* Navin Paniagua MD - 05/16/2023 1:36 PM EDT This note was created using [employer]. Subjective Violeta Deal is a 88 year old male was here with son and daughter in law. He was seen for open wounds and cellulitis of his left arm 05/06/23. He had been seen at the [place] and [facility] of [place] [facility] as well. He was advised to use burn cream and this has helped, and his skin was almost back to baseline. He had chronic issues with pruritus and dermatitis, followed by his [place] support services rep. Other concern was edema of his legs for several weeks. Review of Systems Constitutional: Negative for chills, fever and unexpected weight change. Respiratory: Positive for shortness of breath. Negative for chest tightness. Cardiovascular: Positive for leg swelling. Negative for chest pain and palpitations. Gastrointestinal: Negative for abdominal distention. Genitourinary: Negative for scrotal swelling. Skin: Positive for wound. Neurological: Negative for dizziness and light-headedness. 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 atorvastatin (LIPITOR) 40 mg tablet Take 1 tablet by mouth daily at bedtime. For cholesterol. finasteride (PROSCAR) 5 mg tablet Take 1 tablet by mouth once daily. furosemide (LASIX) 20 mg tablet Take 1 tablet by mouth once daily for 5 days. glipiZIDE (GLUCOTROL XL) 5 mg 24 hr tablet Take 1 tablet by mouth once daily. losartan (COZAAR) 25 mg tablet 1 tablet. mycophenolate mofetil (CELLCEPT) 250 mg capsule Take 3 capsules by mouth twice daily. Per Dr. Hwang (Patient not taking: Reported on 04/22/2023) Niacinamide 500 mg tablet Take 500 mg by mouth two times a day with meals. omeprazole (PRILOSEC) 40 mg capsule Take 1 capsule by mouth once daily. Pramoxine HCl (SARNA SENSITIVE) 1 % lotn Apply 0.25 mL to affected area two times a day. silver sulfADIAZINE (SILVADENE) 1 % cream Apply 1 application to affected area once daily. tamsulosin (FLOMAX) 0.4 mg Take 1 capsule by mouth daily at bedtime. triamcinolone (KENALOG) 0.025 % ointment Apply to affected area once daily. Dr. Hwang, [place] [facility]. No current facility-administered medications for this visit. Objective BP (P) 102/60 (BP Site: Right Arm, BP Position: Sitting, BP Cuff Size: Large Adult) Resp (P) 16 Wt (P) 96.6 kg (213 lb) SpO2 (P) 95% BMI (P) 30.30 kg/m Physical Exam Constitutional: General: He is not in acute distress. Appearance: He is not diaphoretic. Eyes: Conjunctiva/sclera: Conjunctivae normal. Cardiovascular: Rate and Rhythm: Normal rate and regular rhythm. Heart sounds: No murmur heard. No gallop. Pulmonary: Effort: No respiratory distress. Breath sounds: Rhonchi present. No wheezing or rales. Abdominal: Palpations: Abdomen is soft. Tenderness: There is no abdominal tenderness. Musculoskeletal: General: No tenderness. Right lower le+ Pitting Edema present. Left lower le+ Pitting Edema present. Lymphadenopathy: Cervical: No cervical adenopathy. Skin: Findings: Erythema present. Comments: Left arm with new skin, no drainage, no open areas. Neurological: General: No focal deficit present. Mental Status: He is alert. Mental status is at baseline. Comments: Ambulatory with cane. Assessment and Plan 1. Dermatitis - ICD9: 692.9, ICD10: L30.9 (primary diagnosis) - Avoid manipulating or picking. - CBC 2. Pruritus - ICD9: 698.9, ICD10: L29.9 Review at next visit. 3. Dyspnea, unspecified type - ICD9: 786.09, ICD10: R06.00 Rule out CHF. - NT PRO BNP - XR CHEST 2V FRONTAL/LAT 4. Edema of both legs - ICD9: 782.3, ICD10: R60.0 Rule out CHF. - COMP METABOLIC PANEL - TSH BLD - FUROSEMIDE 20 MG TABLET. Take one(1) tablet daily x 5 days. 5. Essential hypertension - ICD9: 401.9, ICD10: I10 - Controlled - Hold LOSARTAN while on FUROSEMIDE. 6. Need for vaccination - ICD9: V05.9, ICD10: Z23 - INFLUENZA VACCINE, PRSV FREE, AGE 65+ YR, HIGH DOSE, QUADRIVALENT (FLUZONE HIGH-DOSE) Navin Paniagua MD documented in this encounterCleveland [id number] Miscellaneous Notes* Telephone Encounter - Bonnie Peres LPN - 05/08/2023 1:26 PM EDT TC to Vu, he wants to go to [facility]. Faxed order & referral info. Bonnie Peres LPN * Telephone Encounter - Tegan Moreno MD - 05/08/2023 1:20 PM EDT See below Filed order for [facility] wound care center so have that in case that is preferred. * Telephone Encounter - Tegan Moreno MD - 05/08/2023 1:16 PM EDT Can refer to wound care center--verify patient has transportation to [place] (but [place] also an option if has transportation and wants to stay in [facility]) If wants to stay in [place], is there a preprinted form to sign? * Telephone Encounter - Candis Kamara LPN - 05/08/2023 9:56 AM EDT Anneliese from [facility] Home Health calling said patient is not home bound so would not continue with home health. Home Health would only go to home once weekly, they usually teach a family member how to do daily dressing changes. Advising if patient should ask to get Wound Center referral for his next option? * Telephone Encounter - Naomi Stone MSW - 05/08/2023 9:25 AM EDT Homebound status is a requirement of Medicare for Home Health Services. Sw notes that below patientstated that he was denied home health care due to not being home bound. What about [facility]??? * Telephone Encounter - Ismael Guevara RN - 05/08/2023 9:08 AM EDT Patient asking if pcp can arrange for someone to do his dressing changes daily? Reports he has an open wound on outside of left arm, from wrist to shoulder and he is unable to change the dressing andhas no one to help him. Patient has no idea what caused this wound, reports it started as a rash, and also has the rash on left leg, toes, and neck, and it itches like crazy. Patient also sees Derm for this- who tells him he needs to contact pcp for help with dressing changes. Destinee Momin, ordered HHC, but HHC tells patient they cannot help him since he is not homebound. [employer] tells patient he needs to contact pcp for help with this. [facility] tells him he needs to contact [facility] for help with this. Please advise patient. Will send this message to O/C and SW, since pcp out, and Liliane, who saw him is out until Friday. documented in this encounterMemorial Health System10-04-2023 Miscellaneous Notes* Telephone Encounter - Mya Hernández LPN - 05/07/2023 3:43 PM EDT Detailed VM left on Anneliese's identified confidential voicemail of information below. Mya Hernández LPN * Telephone Encounter - Liliane Childs APRN.CNP - 05/07/2023 3:26 PM EDT Please give verbal order for ok to delay care, HHC is needed for nursing for wound dressing changes. * Telephone Encounter - Mya Hernández LPN - 05/07/2023 2:43 PM EDT Anneliese with [facility] called and they received an order to see pt but [facility] needs the followin) verbal orders specifying what pt needs( nursing etc) 2)verbal order for delay in start of care, will not be within the 48 hr window. Please call Anneliese with verbal orders. Okay to leave a detailed message. Mya Hernández LPN documented in this encounterMemorial Health System09-19-2023 History of Present illness Narrative* Marylou Melgoza - 04/22/2023 12:32 PM EDT Last saw pcp: 01/10/23 Subjective: Patient presents to clinic c/o painful toenails. They state that the nails are especially painful with shoe gear and pressure. Patient states that nails 1-5 b/l are painful. No other pedal complaints at this time. Patient states no change in medications or medical history since last visit. Objective: Patient presents to clinic ambulating in [facility] Vasc: DP and PT pulses are faintly palpable but audible bilateral. CFT is less than 5 seconds bilateral. Skin temperature is warm to cool proximal to distal bilateral. There is mild edema or varicosities noted. Neuro: Protective sensation is intact to the foot and toes when tested with the 5.07 SWM bilateral.Vibratory sensation is decreased at the hallux IPJ bilateral. The hallux is downgoing bilateral. Derm: Nails 1-5 b/l are painful, ingrowing, discolored-yellow, thick, crumbly, dystrophic and with subungal debris. Skin is of normal turgor, texture and hair growth is absent bilateral. There are nohyperkeratosis, ulcerations, scars, verruca or other lesions noted. Ortho: Muscle strength is 5/5 for all pedal groups tested. Ankle joint DF is decreased with the knee extended with no pain or crepitus noted. 1st MPJ ROM is decreased bilateral. Assessment: (B35.1) Onychomycosis (primary encounter diagnosis) (M79.675) Pain in toe of left foot (M79.674) Pain in toe of right foot (L60.0) Ingrowing toenail diabetes Plan: Patient was seen and evaluated. Nails 1-5 bilateral were debrided in length and thickness. Small bleed present to b/l hallux, left 3rd, left 5th and right 3rd and 4th nail. Band aide applied. Call if any issues arise. Discussed removal of toenails. Patient is not interested. Patient was instructed on the continued importance of diabetic foot care along with proper diet andkeeping their blood sugar under control to prevent complications. Patient is to RTC in 3-4 months. Marylou Melgoza DPM * Maryellen Melissa RN - 04/22/2023 9:15 AM EDT Patient presents with: Left Foot - Established Patient, Follow Up, Diabetic Foot Care Right Foot - Established Patient, Follow Up, Diabetic Foot Care Patient presents for 3 month follow up for diabetic foot care. Last visit was in December. documented in this encounterMemorial Health System09-19-2023 Instructions* Patient Instructions* Marylou Melgoza - 04/22/2023 9:42 AM EDT Diabetes Foot Care Instructions When you have diabetes, proper foot care is very important. Poor foot care may lead to amputation of a foot or leg. As a person with diabetes, you are more vulnerable to foot problems, because diabetes can damage your nerves and reduce blood flow to your feet. Here are some diabetes foot care tips to follow: Wash and Dry Your Feet Daily Use mild soaps Use warm water Pat your skin dry; do not rub. Thoroughly dry your feet. After washing, use lotion on your feet to prevent cracking. Do not put lotion between your toes. Examine Your Feet Each Day Check the tops and bottoms of your feet. Have someone else look at your feet if you cannot see them. Check for dry, cracked skin. Look for blisters, cuts, scratches, or other sores. Check for redness, increased warmth, or tenderness when touching any area of your feet. Check for ingrown toenails, corns, and calluses. If you get a blister or sore from your shoes, do not pop it. Apply a bandage and wear a differentpair of shoes. Take Care of Your Toenails Cut toenails after bathing, when they are soft. Cut toenails straight across and smooth with a nail file. Avoid cutting into the corners of toes. Do not cut cuticles. If you have neuropathy (or decreased sensation in your feet) a rate examiner should always cut your toenails. Be Careful When Exercising Walk and exercise in comfortable shoes. Do not exercise when you have open sores on your feet. Protect Your Feet With Shoes and Socks Never go barefoot. Always protect your feet by wearing shoes or hard-soled slippers or footwear. Avoid shoes with high heels and pointed toes. Avoid shoes that expose your toes or heels (such as open-toed shoes or sandals). These types of shoes increase your risk for injury and potential infections. Try on new footwear with the type of socks you usually wear. Do not wear new shoes for more than an hour at a time. Change your socks daily. Look and feel inside your shoes before putting them on to make sure there are no foreign objects orrough areas. Avoid tight socks. Wear natural-fiber socks (cotton, wool, or a cotton-wool blend). Wear special shoes if your health care provider recommends them. Wear shoes/boots that will protect your feet from various weather conditions (cold, moisture, etc.). Make sure your shoes fit properly. If you have neuropathy (nerve damage), you may not notice that your shoes are too tight. Perform the footwear test described below. Footwear Test Use this simple test to see if your shoes fit correctly: Stand on a piece of paper. (Make sure you are standing and not sitting, because your foot changes shape when you stand.) Trace the outline of your foot. Trace the outline of your shoe. Compare the tracings: Is the shoe too narrow? Is your foot crammed into the shoe? The shoe should be at least 1/2 inch longer than your longest toe and as wide as your foot. Proper Shoe Choices The following types of shoes are best for people with diabetes Closed toes and heels Leather uppers without a seam inside At least 1/2 inch extra space at the end of your longest toe Inside of shoe should be soft with no rough areas Outer sole should be made of stiff material Shoes should be at least as wide as your feet Tips for Foot Care in Diabetes Don't wait to treat a minor foot problem if you have diabetes. Follow your health care provider's guidelines and first aid guidelines. Report foot injuries and infections to your health care provider immediately. Check water temperature with your elbow, not your foot. Do not use a heating pad on your feet. Do not cross your legs. Do not self-treat your corns, calluses, or other foot problems. Go to your health care provider or rate examiner to treat these conditions. Small bleed to left 1,3,5 toe Small bleed to right 1, 3,4 toe. If you develop any redness or slow healing, contact the office documented in this encounterMemorial Health System07-13-2023 Miscellaneous Notes* Telephone Encounter - Bonnie Peres LPN - 02/13/2023 2:09 PM EDT Patient is here for repeat non-fasting labs. Please review & order. Bonnie Peres LPN documented in this encounterMemorial Health System07-12-2023 Miscellaneous Notes* Telephone Encounter - Ratna Marrero LPN - 02/12/2023 4:13 PM EDT Pt. asking that office notes and labs be faxed to Dr.Dennis Hwang's office. This has been done. documented in this [facility]06-22-2023 Miscellaneous Notes* Telephone Encounter - Barbara Cardona RN - 01/23/2023 10:20 AM EDT Images from the original note were not included. Patient notified of message below. TORY Mayo MD 01/23/2023 1:48 AM EDT Back to Top Test results are mostly okay except CKD is worse. Stress hydration. Repeat BMP non fasting in 3 weeks. documented in this encounterMemorial Health System05-15-2023 Miscellaneous Notes* Telephone Encounter - Barbara Jimenez - 12/16/2022 8:19 AM EDT Patient has been identified by name and date of : Yes Last office visit in this department: Visit date not found RX INSTRUCTIONS: Patient aware RX will be sent to pharmacy. No need to notify patient. Patient phones requesting refills as follows: Requested Prescriptions Pending Prescriptions Disp Refills omeprazole (PRILOSEC) 40 mg capsule 90 capsule 1 Sig: Take 1 capsule by mouth once daily. Please review and advise. Barbara Jimenez documented in this encounterMemorial Health System02-15-2023 Instructions* Patient Instructions* Marylou Melgoza - 09/18/2022 11:50 AM EST Diabetes Foot Care Instructions When you have diabetes, proper foot care is very important. Poor foot care may lead to amputation of a foot or leg. As a person with diabetes, you are more vulnerable to foot problems, because diabetes can damage your nerves and reduce blood flow to your feet. Here are some diabetes foot care tips to follow: Wash and Dry Your Feet Daily Use mild soaps Use warm water Pat your skin dry; do not rub. Thoroughly dry your feet. After washing, use lotion on your feet to prevent cracking. Do not put lotion between your toes. Examine Your Feet Each Day Check the tops and bottoms of your feet. Have someone else look at your feet if you cannot see them. Check for dry, cracked skin. Look for blisters, cuts, scratches, or other sores. Check for redness, increased warmth, or tenderness when touching any area of your feet. Check for ingrown toenails, corns, and calluses. If you get a blister or sore from your shoes, do not pop it. Apply a bandage and wear a differentpair of shoes. Take Care of Your Toenails Cut toenails after bathing, when they are soft. Cut toenails straight across and smooth with a nail file. Avoid cutting into the corners of toes. Do not cut cuticles. If you have neuropathy (or decreased sensation in your feet) a rate examiner should always cut your toenails. Be Careful When Exercising Walk and exercise in comfortable shoes. Do not exercise when you have open sores on your feet. Protect Your Feet With Shoes and Socks Never go barefoot. Always protect your feet by wearing shoes or hard-soled slippers or footwear. Avoid shoes with high heels and pointed toes. Avoid shoes that expose your toes or heels (such as open-toed shoes or sandals). These types of shoes increase your risk for injury and potential infections. Try on new footwear with the type of socks you usually wear. Do not wear new shoes for more than an hour at a time. Change your socks daily. Look and feel inside your shoes before putting them on to make sure there are no foreign objects orrough areas. Avoid tight socks. Wear natural-fiber socks (cotton, wool, or a cotton-wool blend). Wear special shoes if your health care provider recommends them. Wear shoes/boots that will protect your feet from various weather conditions (cold, moisture, etc.). Make sure your shoes fit properly. If you have neuropathy (nerve damage), you may not notice that your shoes are too tight. Perform the footwear test described below. Footwear Test Use this simple test to see if your shoes fit correctly: Stand on a piece of paper. (Make sure you are standing and not sitting, because your foot changes shape when you stand.) Trace the outline of your foot. Trace the outline of your shoe. Compare the tracings: Is the shoe too narrow? Is your foot crammed into the shoe? The shoe should be at least 1/2 inch longer than your longest toe and as wide as your foot. Proper Shoe Choices The following types of shoes are best for people with diabetes Closed toes and heels Leather uppers without a seam inside At least 1/2 inch extra space at the end of your longest toe Inside of shoe should be soft with no rough areas Outer sole should be made of stiff material Shoes should be at least as wide as your feet Tips for Foot Care in Diabetes Don't wait to treat a minor foot problem if you have diabetes. Follow your health care provider's guidelines and first aid guidelines. Report foot injuries and infections to your health care provider immediately. Check water temperature with your elbow, not your foot. Do not use a heating pad on your feet. Do not cross your legs. Do not self-treat your corns, calluses, or other foot problems. Go to your health care provider or rate examiner to treat these conditions. documented in this encounterMemorial Health System02-15-2023 History of Present illness Narrative* Marylou Melgoza - 09/18/2022 11:49 AM EST Last saw Seema Older: 09/11/22 Subjective: Patient presents to clinic c/o painful toenails. They state that the nails are especially painful with shoe gear and pressure. Patient states that nails right 2nd and 3rd toenail are painful. Patient admits to being diabetic. No other pedal complaints at this time. Patient states no change in medications or medical history since last visit. Objective: Patient presents to clinic ambulating in dress shoes Vasc: DP and PT pulses are faintly palpable bilateral. CFT is less than 5 seconds bilateral. Skin temperature is warm to cool proximal to distal bilateral. There is mild edema or varicosities noted. Neuro: Protective sensation is decreased to the foot and toes when tested with the 5.07 SWM bilateral. Vibratory sensation is absent at the hallux IPJ bilateral. The hallux is downgoing bilateral. Derm: Nails 1-5 b/l are painful, ingrowing, discolored-yellow, thick, crumbly, dystrophic and with subungal debris. Skin is of normal turgor, texture and hair growth is absent bilateral. There are callus to lateral heel b/l. No ulcerations, scars, verruca or other lesions noted. Ortho: Muscle strength is 5/5 for all pedal groups tested. Ankle joint DF is decreased with the knee extended with no pain or crepitus noted. 1st MPJ ROM is decreased bilateral. Assessment: (B35.1) Onychomycosis (primary encounter diagnosis) (M79.675) Pain in toe of left foot (M79.674) Pain in toe of right foot (E11.49) Other diabetic neurological complication associated with type 2 diabetes mellitus (HCC) (I73.9) PAD (peripheral artery disease) ([facility]) Plan: Patient was seen and evaluated. Nails 1-5 bilateral were debrided in length and thickness. Callus reduced with dremmel b/l. Patient was instructed on the continued importance of diabetic foot care along with proper diet andkeeping their blood sugar under control to prevent complications. Patient is to RTC in 3-4 months. Marylou Melgoza DPM * Maryellen Melissa RN - 09/18/2022 11:43 AM EST Patient presents with: Left Foot - Established Patient, Follow Up, Diabetic Foot Check Right Foot - Established Patient, Follow Up, Diabetic Foot Check Patient presents for follow up diabetic nail care. States that his 2nd or 3rd toe bothers him intermittently on the Right foot. documented in this encounterMemorial Health System02-08-2023 History of Present illness Narrative* Seema Stanford APRN.CECI - 09/11/2022 11:38 AM EST CC: Patient presents with: 2 month follow up HPI Violeta Deal is a 87 year old male who presents today for above. Metformin was discontinued inDecember due to possible drug allergy per [facility] support services rep. He was started on Glipizide. Patient does not check blood sugars at home. Denies symptoms of hypoglycemia. Denies increased thirst, urinaryfrequency, nocturia, fatigue, unintentional weight loss, blurred vision, numbness, tingling or painin extremities, ulcers or sores on feet. Rash has improved with discontinuation of Metformin. Patient thinks that may also be due to new topical medication prescribed by support services rep. He is still onprednisone and Cellcept. 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 [facility] 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 Hyperlipidemia LDL goal < 100 02/21/2010 MGUS (monoclonal gammopathy of unknown significance) Paroxysmal A-fib (HCC) 06/04/2015 Personal history of colonic polyps Simple chronic bronchitis (HCC) 05/07/2007 mild COPD Sinus node dysfunction (HCC) 06/04/2015 Subarachnoid bleed ([facility]) 11/15/2019 [facility] Transient neurologic deficit 06/04/2015 Type II or unspecified type diabetes mellitus without mention of complication, not stated as uncontrolled 02/21/2010 PAST SURGICAL HISTORY Procedure Laterality Date COLONOSCOPY FLX DX W/COLLJ SPEC WHEN PFRMD 08/2004 Colonoscopy COLONOSCOPY FLX DX W/COLLJ SPEC WHEN PFRMD 02/25/2008 Repeat in CYSTOSCOPY 06/26/2020 EGD TRANSORAL BIOPSY SINGLE/MULTIPLE 02/25/2008 EYELID SURGERY PROCEDURE, UNLISTED Left 2014 LITHOLAPAXY COMP/LG > 2.5 CM 07/21/2020 PACEMAKER 08/2015 PAST SURGICAL HISTORY OF Left 2012 macular hole, left eye PROSTHETIC IMPLANT DEVICE UROLIFT 07/27/2020 Dr. Queen XCAPSL CTRC RMVL INSJ IO LENS PROSTH W/O ECP 2011 Cataract Removal ALLERGIES Ether and Tolectin [Tolmetin Sodium] MEDICATIONS losartan (COZAAR) 25 mg tablet 1 tablet. glipiZIDE (GLUCOTROL XL) 5 mg 24 hr tablet Take 1 tablet by mouth once daily. omeprazole (PRILOSEC) 40 mg capsule Take 1 capsule by mouth once daily. atorvastatin (LIPITOR) 40 mg tablet Take 1 tablet by mouth daily at bedtime. For cholesterol. predniSONE (DELTASONE) 5 mg tablet Take 10 mg by mouth once daily. Taking 10mg per day mycophenolate mofetil (CELLCEPT) 250 mg capsule Take 750 mg by mouth twice daily. Per Dr. Hwang Staying off medication till 06/02 then restarting 07/09 changed to 3 capsules in AM and 2 in PM finasteride (PROSCAR) 5 mg tablet Take 1 tablet by mouth once daily. tamsulosin (FLOMAX) 0.4 mg Take 1 capsule by mouth daily at bedtime. FAMILY HISTORY Problem Relation Age of Onset COPD Mother Heart Father CHF Diabetes Father Social History Tobacco Use Smoking status: Former Packs/day: 1.00 Years: 50.00 Pack years: 50.00 Types: Cigarettes Quit date: 12/18/1994 Years since quittin.7 Smokeless tobacco: Never Vaping Use Vaping Use: Never used Substance Use Topics Alcohol use: Yes Alcohol/week: 2.0 standard drinks Types: 2 Cans of Beer (12oz) per week Comment: daily Drug use: No PHYSICAL EXAM BP 134/74 Pulse 70 Resp 16 Wt 95.3 kg (210 lb) BMI 29.88 kg/m General Appearance: well appearing, in no acute distress, alert ASSESSMENT/PLAN: 1. Controlled type 2 diabetes mellitus without complication, without long-term current use of insulin (HCC) - ICD9: 250.00, ICD10: E11.9 (primary diagnosis) improved control - Continue current medications - Discussed diabetic education issues of hypoglycemic symptoms, hyperglycemic symptoms, diet, medications- side effects and need for compliance, and importance of exercise with patient. - HEMOGLOBIN A1C (POC) - GLIPIZIDE ER 5 MG TABLET, EXTENDED RELEASE 24 HR 2. BPH with obstruction/lower urinary tract symptoms - ICD9: 600.01, 599.69, ICD10: N40.1, N13.8 Meds refilled - TAMSULOSIN 0.4 MG CAPSULE - FINASTERIDE 5 MG TABLET Prescription instructions reviewed with patient as applicable. Potential red flag symptoms discussed with the patient. Reviewed appropriate action plan to take if red flag symptoms occur. Patient agreeable to treatment plan. During this patient visit I have spent approximately 20 minutes in counseling regarding medicationsand diabetes management. Seema Stanford APRN.CNP documented in this [facility]01-03-2023 Miscellaneous Notes* Telephone Encounter - Bonnie Peres LPN - 08/06/2022 10:08 AM EST Results printed/faxed to [facility]. Bonnie Peres LPN * Telephone Encounter - Bonnie Peres LPN - 08/06/2022 9:59 AM EST ----- Message from Navin Paniagua MD sent at 08/04/2022 12:52 PM EST ----- CC results to the [facility]. Work up for dyspnea on exertion including PFTs negative. Consider updating stress test and echocardiogram. documented in this [facility]12-22-2022 History of Present illness Narrative* Ariela Minor RT(R) - 07/25/2022 10:40 AM EST Radiology Service Progress Note PATIENT NAME: Violeta Deal DATE OF SERVICE: July 25, 2022 TIME: 10:40 AM PATIENT IDENTITY VERIFICATION COMPLETED USING TWO (2) IDENTIFIERS: Name and Date of confirmedby patient verbally. FALL SCREENING: Has the patient had 2 falls in the last year or 1 fall with injury or currently using an Ambulatory Assistive Device (Walker, Cane, Wheelchair, Crutches, etc.)? No PATIENT GENDER DATA: Male PATIENT RELEVANT IMPLANT DATA REVIEWED: Not Applicable RADIOLOGY DEPARTMENT: General X-ray: Exam(s) Completed: Chest X-Ray PERIPHERAL IV DATA: Not applicable SIGNED BY: RT Alexsander(R) July 25, 2022 10:40 AM documented in this [facility]12-22-2022 Miscellaneous Notes* Result Encounter Note - Navin Paniagua MD - 07/25/2022 10:40 AM EST CC results to the [facility]. Work up for dyspnea on exertion including PFTs negative. Consider updating stress test and echocardiogram. [facility] Progress note* Result Encounter Note - Navin Paniagua MD - 07/25/2022 10:40 AM EST CC results to the [facility]. Work up for dyspnea on exertion including PFTs negative. Consider updating stress test and echocardiogram. [facility]12-22-2022 History of Present illness Narrative* Bobbi Lee PA-C - 07/25/2022 9:53 AM EST Patient: Violeta Deal PCP: Navin Paniagua MD CC: HEATHER HPI: Violeta Deal 87 year old male former smoker, 50 pack years (quitting 1994) with PMH significant for AAA, HLD, PAF, DM2, CVA/SAH, COPD, MGUS, bullous pemphigoid, history of Covid 01/2022. Initially evaluated by Dr. Daniel on 07/12 secondary to dyspnea on exertion. Recommendations at thattime included obtaining updated PFTs and CXR. Pending results, patient may need echocardiogram. Follows with [facility]. Last office notes reports normal ejection fraction and pacemaker function. No cough or sputum. Occasional wheezing. No dyspnea at rest. Exertional dyspnea with climbing more than 1 flight of stairs. States he walkedfrom the parking lot to the office without any issues. Carries groceries and does not get short of breath. No issues with ADLs. No lower extremity edema. 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 Peters[facility]. 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Aug. 2015 Hyperlipidemia LDL goal < 100 02/21/2010 MGUS (monoclonal gammopathy of unknown significance) Paroxysmal A-fib ([facility]) 06/04/2015 Personal history of colonic polyps Simple chronic bronchitis ([facility]) 05/07/2007 mild COPD Sinus node dysfunction ([facility]) 06/04/2015 Subarachnoid bleed ([facility]) 11/15/2019 [facility] Transient neurologic deficit 06/04/2015 Type II or unspecified type diabetes mellitus without mention of complication, not stated as uncontrolled 02/21/2010 Allergies: Ether Tolectin [Tolmetin * losartan (COZAAR) 25 mg tablet 1 tablet. glipiZIDE (GLUCOTROL XL) 5 mg 24 hr tablet Take 1 tablet by mouth once daily. omeprazole (PRILOSEC) 40 mg capsule Take 1 capsule by mouth once daily. atorvastatin (LIPITOR) 40 mg tablet Take 1 tablet by mouth daily at bedtime. For cholesterol. predniSONE (DELTASONE) 5 mg tablet Take 10 mg by mouth once daily. Taking 10mg per day mycophenolate mofetil (CELLCEPT) 250 mg capsule Take 750 mg by mouth twice daily. Per Dr. Hwang Staying off medication till 06/02 then restarting 07/09 changed to 3 capsules in AM and 2 in PM finasteride (PROSCAR) 5 mg tablet Take 1 tablet by mouth once daily. tamsulosin (FLOMAX) 0.4 mg Take 1 capsule by mouth daily at bedtime. Social History Tobacco Use Smoking status: Former Packs/day: 1.00 Years: 50.00 Pack years: 50.00 Types: Cigarettes Quit date: 12/18/1994 Years since quittin.6 Smokeless tobacco: Never Vaping Use Vaping Use: Never used Substance Use Topics Alcohol use: Yes Alcohol/week: 2.0 standard drinks Types: 2 Cans of Beer (12oz) per week Comment: daily Drug use: No Family History Problem Relation Age of Onset COPD Mother Heart Father CHF Diabetes Father PAST SURGICAL HISTORY Procedure Laterality Date COLONOSCOPY FLX DX W/COLLJ SPEC WHEN PFRMD 08/2004 Colonoscopy COLONOSCOPY FLX DX W/COLLJ SPEC WHEN PFRMD 02/25/2008 Repeat in CYSTOSCOPY 06/26/2020 EGD TRANSORAL BIOPSY SINGLE/MULTIPLE 02/25/2008 EYELID SURGERY PROCEDURE, UNLISTED Left 2014 LITHOLAPAXY COMP/LG > 2.5 CM 07/21/2020 PACEMAKER 08/2015 PAST SURGICAL HISTORY OF Left 2012 macular hole, left eye PROSTHETIC IMPLANT DEVICE UROLIFT 07/27/2020 Dr. Queen XCAPSL CTRC RMVL INSJ IO LENS PROSTH W/O ECP 2011 Cataract Removal I reviewed the past medical history, family history, social history and surgical history with changes noted above and updated in EMR. IMMUNIZATIONS Prevnar - 03/08/2015 Pneumovax - 03/08/2015, 05/13/2006 Influenza - 04/10/2022 COVID-19 - 06/28/2022, 11/07/2021, 06/21/2021, 10/12/2020, 09/14/2020 ROS: General: Generally feels well. Appetite good. Eyes, Ears, nose, throat: No post nasal drip, rhinorrhea, purulent nasal discharge, epistaxis. No hoarseness. Vision stable. Cardiac: No angina, edema, orthopnea. Resp: See HPI. GI: No heartburn, dysphagia, diarrhea. Musculoskeletal: No pain. Neuro: No headache, focal weakness, tremor. Skin: No rash. Otherwise negative. PHYSICAL EXAMINATION: BP 108/66 Pulse 63 Resp 14 Wt 97.5 kg (215 lb) SpO2 97% BMI 30.59 kg/m Gen: No acute distress. Cooperative with examination. HEENT: Normocephalic. Sclera, conjunctiva normal. Oral hygeine and dentition good. Resp: No stridor, accessory respiratory muscle use, supra-sternal or intercostal retractions. No wheezes, crackles. CV: Regular rythm. Heart tones normal. Radial pulses normal. Abd: Non distended. MSK: No kyphoscoliosis. Ext: Warm and well perfused. No clubbing, cyanosis, edema. Skin: No rash, ecchymoses. Neuro: Mental status normal. Affect normal. No tremor. DATA: PFT, 07/25/2022 PRE-BRONCH POST-BRONCH Pred LLN ULN Actual %Pred Actual %Chng SPIROMETRY FVC (L) 3.70 2.61 4.80 3.71 100 FEV1 (L) 2.69 1.81 3.50 2.58 95 FEV1/FVC 0.74 0.58 0.88 0.70 94 FEF25 (L/sec) 6.77 FEF50 (L/sec) 3.47 1.34 5.59 2.28 65 FEF75 (L/sec) 0.42 0.13 1.28 0.43 103 SYC36-04 (L/sec) 1.80 0.61 3.61 1.50 83 PEF L/s (L/sec) 6.28 3.95 8.62 7.53 119 FIVC (L) 3.21 FIF50 (L/sec) 4.94 PIF (L/sec) 5.13 Time (sec) 10.49 CURT (L) 0.14 FET PEF (sec) 0.12 DIFFUSION DLCOunc (ml/min/mmHg) 22.25 12.31 32.18 23.81 107 DLunc/VA (ml/min/mmHg 3.38 2.18 4.58 4.23 125 VA (L) 6.88 5.51 8.24 5.63 81 BHT (sec) 10.97 IVC (L) 3.33 ASSESSMENT/PLAN: 1. ROMERO (dyspnea on exertion) - ICD9: 786.09, ICD10: R06.09 (primary diagnosis) PFTs with very mild obstruction. This is most likely not contributing to his exertional dyspnea. Discussed an albuterol inhaler as needed, but patient states he really does not feel limited and wouldrather not. He has not gotten his CXR. Advised him to have this done. If nothing significant on CXR, will proceed with echocardiogram. 2. Former cigarette smoker - ICD9: V15.82, ICD10: Z87.891 Patient does not qualify for LDCT lung cancer screening. Bobbi Lee PA-C [facility] History of Present illness Narrative* FILIBERTO Hogue - 07/25/2022 9:24 AM EST PULM FUNCTION SMARTBLOCK: Provider: Zina Daniel MD Assisting Tech: FILIBERTO Hogue Spirometry: 1 DLCO: 1 documented in this [facility]12-[facility]-2022 History of Present illness Narrative* Zina Daniel MD - 07/12/2022 10:00 AM EST Images from the original note were not included. . [facility] [place] Note Patient name: Violeta Deal PCP: Navin Paniagua MD Referring Physician: same Consultation requested by Dr. Ndiaye for an opinion regarding ROMERO. My final recommendations willbe communicated back to the requesting physician by way of shared Medical record or letter to requesting physician via US mail. CC: ROMERO HPI: Violeta Deal 87 year old male former 50 pack year smoker, quit in 1994 with PMH significant for AAA, HLD, PAF, DM2, CVA/SAH, COPD, MGUS, bullous pemphigoid, history of COVID 01/2022. His current respiratory symptoms consist of mild dyspnea on exertion. He notes that he may have to stop andrest after climbing several flights of stairs. He is able to walk on level ground without much limitation in his activity. He denies shortness of breath when carrying groceries or other heavy objects. No other respiratory symptoms including cough, sputum production, chest pain or pressure. He has noted rare wheezing on occasions. No history of recurrent bronchitis or pneumonia. He has never been h ospitalized for respiratory issues. Follows with [facility]. Last office visit notes normalejection fraction and pacemaker function. DATA: PFT 09/2020: Review of pulmonary function tests show no obstruction and normal lung volumes Labs: Component Ref Range & Units 1 mo ago (05/27/22) WBC 3.70 - 11.00 k/uL 10.51 RBC 4.20 - 6.00 m/uL 4.69 Hemoglobin 13.0 - 17.0 g/dL 14.1 Hematocrit 39.0 - 51.0 % 42.9 MCV 80.0 - 100.0 fL 91.5 MCH 26.0 - 34.0 pg 30.1 MCHC 30.5 - 36.0 g/dL 32.9 RDW-CV 11.5 - 15.0 % 13.6 Platelet Count 150 - 400 k/uL 165 MPV 9.0 - 12.7 fL 11.0 Absolute nRBC <0.01 k/uL <0.01 Imaging / Diagnostic Studies: Last CXR 2019: Reviewed and showed chronic changes and pacemaker PAST MEDICAL HISTORY Diagnosis Date Abdominal aortic aneurysm (AAA) without rupture 06/20/[address] Infrarenal 4.[address] scan Acute gastritis without mention of hemorrhage Anemia, unspecified Benign neoplasm of colon Bladder calculi 06/20/2020 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 Peters[facility] 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Aug. 2015 Hyperlipidemia LDL goal < 100 02/21/2010 MGUS (monoclonal gammopathy of unknown significance) Paroxysmal A-fib (HCC) 06/04/2015 Personal history of colonic polyps Simple chronic bronchitis (HCC) 05/07/2007 mild COPD Sinus node dysfunction ([facility]) 06/04/2015 Subarachnoid bleed ([facility]) 11/15/2019 [facility] Transient neurologic deficit 06/04/2015 Type II or unspecified type diabetes mellitus without mention of complication, not stated as uncontrolled 02/21/2010 ALLERGIES Allergen Reactions Ether Tolectin [Tolmetin * losartan (COZAAR) 25 mg tablet 1 tablet. glipiZIDE (GLUCOTROL XL) 5 mg 24 hr tablet Take 1 tablet by mouth once daily. omeprazole (PRILOSEC) 40 mg capsule Take 1 capsule by mouth once daily. atorvastatin (LIPITOR) 40 mg tablet Take 1 tablet by mouth daily at bedtime. For cholesterol. predniSONE (DELTASONE) 5 mg tablet Take 10 mg by mouth once daily. Taking 10mg per day mycophenolate mofetil (CELLCEPT) 250 mg capsule Take 750 mg by mouth twice daily. Per Dr. Hwang Staying off medication till 06/02 then restarting 07/09 changed to 3 capsules in AM and 2 in PM finasteride (PROSCAR) 5 mg tablet Take 1 tablet by mouth once daily. tamsulosin (FLOMAX) 0.4 mg Take 1 capsule by mouth daily at bedtime. Social History Tobacco Use Smoking status: Former Packs/day: 1.00 Years: 50.00 Pack years: 50.00 Types: Cigarettes Quit date: 12/18/1994 Years since quittin.5 Smokeless tobacco: Never Vaping Use Vaping Use: Never used Substance Use Topics Alcohol use: Yes Alcohol/week: 2.0 standard drinks Types: 2 Cans of Beer (12oz) per week Comment: daily Drug use: No Retired from [employer]. Pets: cat FAMILY HISTORY Problem Relation Age of Onset COPD Mother Heart Father CHF Diabetes Father PAST SURGICAL HISTORY Procedure Laterality Date COLONOSCOPY FLX DX W/COLLJ SPEC WHEN PFRMD 08/2004 Colonoscopy COLONOSCOPY FLX DX W/COLLJ SPEC WHEN PFRMD 02/25/2008 Repeat in CYSTOSCOPY 06/26/2020 EGD TRANSORAL BIOPSY SINGLE/MULTIPLE 02/25/2008 EYELID SURGERY PROCEDURE, UNLISTED Left 2014 LITHOLAPAXY COMP/LG > 2.5 CM 07/21/2020 PACEMAKER 08/2015 PAST SURGICAL HISTORY OF Left 2011 macular hole, left eye PROSTHETIC IMPLANT DEVICE UROLIFT 07/27/2020 Dr. Queen XCAPSL CTRC RMVL INSJ IO LENS PROSTH W/O ECP 2011 Cataract Removal PMH, Social history, family history and surgical history reviewed and updated in EMR REVIEW OF SYSTEMS: CONSTITUTIONAL: No fevers, chills, nightsweats, unintended weight loss, fatigue HEENT: Denies nasal congestion/sinus symptoms, problematic allergy problems. EYES: No diplopia or blurry vision. CARDIOVASCULAR: No chest pain, palpitations, orthopnea, PND, edema. PULM: See HPI GI: No dysphagia/odynophagia, problematic reflux, constipation, diarrhea : No new urinary complaints, including dysuria, gross hematuria NEURO: No new balance problems, peripheral weakness/paresthesias or numbness of concern. MUSC-SKEL: No joint pain, swelling, or erythema. PSY: No concerns regarding depression, anxiety INTEGUMENTARY: No new skin changes or rashes PHYSICAL EXAMINATION: BP 120/78 Pulse 79 Resp 17 Ht 5' 10.87 (1.80m) Wt 211 lb (95.7kg) SpO2 99% BMI 29.54 kg/(m^2). General Appearance: Elderly male, NAD Head: Normocephalic, no masses, lesions, tenderness or abnormalities. Eyes: Sclera, conjunctiva normal Oropharynx: No oral lesions or erythema Neck: No JVD, no masses, no thyromegaly Chest wall: Normal configuration, no tenderness Lungs: Not labored, normal to percussion, no wheezes or crackles Heart: Regular rate and rhythm, no murmurs or gallops Extremities: Lower extremity edema, no clubbing Musculoskeletal: No major joint deformities or effusions Neurologic: Alert and oriented, no focal findings Lymph Nodes: No cervical lymphadenopathy and No supraclavicular lymphadenopathy. Assessment/Plan: 1. ROMERO -Despite past smoking history, previous PFTs do not suggest COPD -Recommend chest x-ray and updated pulmonary function test -Further recommendations pending results. May need echocardiogram 2. Former cigarette smoker -Former [id number] smoker without obvious sequelae of obstructive lung disease -Not a candidate for low-dose chest CT for cancer screening based on the duration of smoking cessation and his age Zina Daniel MD [facility] [place] documented in this [facility]12-[facility]22 Instructions* Patient Instructions* Navin Paniagua MD - 07/11/2022 4:13 PM EST SEE [facility] SO[facility]. YOUR ATRIAL FIBRILLATION IS NOW CHRONIC. BLOOD TESTS FOR DIABETES IN 2 MONTHS. STOP METFORMIN. NEW MEDICATION IS GLUCOTROL XL 5 MG DAILY. documented in this encounter[facility]12-[facility]-2022 History of Present illness Narrative* Navin Paniagua MD - 07/11/2022 3:38 PM EST This note was created using Denty'sriter. Subjective Violeta Deal is a 87 year old male. His [facility] support services rep called and requested metformin be discontinued due to uncontrolled drug rash. He was feeling more dyspneic the past several months. He saw cardiology [facility] in May and no medication changes were made. Review of Systems Constitutional: Negative. Respiratory: Positive for shortness of breath. Negative for cough, chest tightness and wheezing. Cardiovascular: Negative for chest pain, palpitations and leg swelling. Gastrointestinal: Negative. Musculoskeletal: Negative. Skin: Positive for rash. Neurological: Negative. ACTIVE PROBLEM LIST Bph With Obstruction/Lower Urinary Tract Symptoms Simple Chronic Bronchitis (Hcc) Controlled Type 2 Diabetes Mellitus Without Complication, Without Long-Term Current Use of Insulin (Hcc) Hyperlipidemia With Target Ldl Less Than 100 Paroxysmal A-Fib (Hcc) Cardiac Pacemaker in Situ Thrombocytopenia (Hcc) Essential Hypertension Abdominal Aortic Aneurysm (Aaa) Without Rupture Bullous Pemphigoid Drug Rash Current Outpatient Medications Medication Sig losartan (COZAAR) 25 mg tablet 1 tablet. omeprazole (PRILOSEC) 40 mg capsule Take 1 capsule by mouth once daily. metFORMIN ER (GLUCOPHAGE XR) 500 mg 24 hr tablet Take 1 tablet by mouth twice daily. atorvastatin (LIPITOR) 40 mg tablet Take 1 tablet by mouth daily at bedtime. For cholesterol. predniSONE (DELTASONE) 5 mg tablet Take 3 tablets by mouth once daily. mycophenolate mofetil (CELLCEPT) 250 mg capsule Take 750 mg by mouth twice daily. Per Dr. Hwang Staying off medication till 06/02 then restarting 07/09 changed to 3 capsules in AM and 2 in PM finasteride (PROSCAR) 5 mg tablet Take 1 tablet by mouth once daily. tamsulosin (FLOMAX) 0.4 mg Take 1 capsule by mouth daily at bedtime. No current facility-administered medications for this visit. Objective BP 108/64 Pulse 80 Temp 36.3 C (97.3 F) Resp 22 Ht 180 cm (5' 10.87 ) Wt 95.7 kg (211 lb) SpO2 97% BMI 29.54 kg/m Physical Exam Constitutional: General: He is not in acute distress. Appearance: He is not ill-appearing. Cardiovascular: Rate and Rhythm: Tachycardia present. Rhythm irregularly irregular. Heart sounds: S1 normal and S2 normal. Pulmonary: Breath sounds: Normal breath sounds. No wheezing or rales. Abdominal: Palpations: Abdomen is soft. Musculoskeletal: Right lower leg: No edema. Left lower leg: No edema. Skin: Findings: Rash present. Comments: Generalized rash. Neurological: General: No focal deficit present. Mental Status: He is alert. Psychiatric: Mood and Affect: Mood normal. EKG RESULTS: atrial fibrillation, competing with junctional paced rhythm. Assessment and Plan 1. Medicare annual wellness visit, subsequent - ICD9: V70.0, ICD10: Z00.00 (primary diagnosis) See other note. - DEPRESSION SCREENING/ASSESSMENT 2. Drug rash - ICD9: 693.0, ICD10: L27.0 Stop METFORMIN. 3. Controlled type 2 diabetes mellitus without complication, without long-term current use of insulin (HCC) - ICD9: 250.00, ICD10: E11.9 worsening control - GLIPIZIDE ER 5 MG TABLET, EXTENDED RELEASE 24 HR. New medication. Discussed medication dosage, usage, goals of therapy, and side effects. - BASIC METABOLIC PNL - HGB A1C 4. Paroxysmal A-fib (HCC) - ICD9: 427.31, ICD10: I48.0 Now chronic. Not anticoagulated due to history of brain bleed. Refer back to his trauma registrar. - ECG COMPLETE 5. 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 6. Simple chronic bronchitis (HCC) - ICD9: 491.0, ICD10: J41.0 - XR CHEST 2V FRONTAL/LAT - CONSULT TO PULMONARY MEDICINE 7. Dyspnea on exertion - ICD9: 786.09, ICD10: R06.09 - XR CHEST 2V FRONTAL/LAT - CONSULT TO PULMONARY MEDICINE 8. Essential hypertension - ICD9: 401.9, ICD10: I10 - good control - LOSARTAN 25 MG TABLET Patient indicated understanding and willingness to follow recommendations. Navin Paniagua MD * Navin Paniagua MD - 07/11/2022 3:25 PM EST Violeta Deal is a 87 year old male here for a Medicare Subsequent Annual Wellness Visit Health Risk Assessment In general, health is: Good Concerns with tiredness, difficulties with sexual function, balance, teeth/dentures: Several days [place] anxious, stressed, angry, irritable, lonely, isolated, or had thoughts of hurting themself: Not at all Has little interest or pleasure in doing things: Several days Bothered by feeling down, depressed, or hopeless: Not at all Needs help with grocery shopping, cooking, housework, bathing, grooming, dressing, eating, sitting or standing, walking, using the toilet, handling finances, taking medications, using the telephone, or driving: No Following safety precautions in the home environment and vehicle: removed throw rugs from floors, installed grab bars in the bathroom, handrails in stairwells, having adequate lighting, wearing seatbelt at all times?: Yes Smokes cigarettes, vapes, or chew tobacco: No Eats healthy foods including fruits, vegetables, whole grains, and fiber-rich foods: More than halfthe days Number of days per week engages in exercise: 0 days Average alcohol consumption: Never Current Providers Specialists: I have reviewed specialist-related care of the patient in the medical record. Current care team: Patient Care Team: Navin Paniagua MD as PCP - General (Internal Medicine) Dr. Peters, cardiology. Dr. Melgoza, podiatry. Dr. Hwang, dermatology, [place]. [place]. Medical/Family history review Reviewed and updated problem list, medical/surgical/family/social history, medications, and allergies. Opioid use review Patient is not currently using opioids. Depression screening Depression Screening PHQ-2 Score 10/27/2018 0 Depression screening tool completed and reviewed. Based on score and interview, patient is not at risk for depression. Screening tool discussed with patient, and I recommended no further interventionat this time. Cognitive screening Mini Cog Score: 5 Cognitive screening reviewed and no further action needed (score 3-5) Functional Observation Was the patient's timed Up & Go test unsteady or ? 12 seconds? No Advance Care Planning End of Life planning discussed, including patient's advanced directive wishes: Yes Measurements BP 108/64 Pulse 80 Temp 97.3 Resp 22 Ht 5' 10.866 (1.80m) Wt 211 lb (95.7kg) SpO2 97% BMI 29.54 kg/(m^2). Visual acuity: follows with optometry/ophthalmology and Right: 20/20 Left: 20/ 100 Both: 20/20 Hearing Evaluation: hard of hearing Assessment/Plan - Counseled on healthy diet and regular exercise - Discussed need for and benefit of weight loss. BMI 29.54 kg/(m^2) - Fall avoidance - Vaccines recommended none. - Depression screening documented in this encounterMemorial Health System12-07-2022 Miscellaneous Notes* Telephone Encounter - Navin Paniagua MD - 07/10/2022 1:15 PM EST I spoke to Dr. Hwang and we agreed to stop metformin for a minimum of 4 weeks. Sulfonylurea shouldbe an okay option. * Telephone Encounter - Candis Kamara LPN - 07/10/2022 8:[address] Hwang calling back asking if PCP could call him today please. * Telephone Encounter - Maria Teresa Palmer LPN - 07/09/2022 10:[address] Hwang with [facility] calls to report he has been working with pt in regards to continuing rash. Dr. Hwang is requesting a call from pcp to discuss metformin and chance it could be cause of rash. Call Dr. Hwang @ [phone]. Maria Teresa Palmer LPN documented in this encounterMemorial Health System11-15-2022 Miscellaneous Notes* Telephone Encounter - Mya Hernández LPN - 06/18/2022 9:27 AM EST Spoke with pt and information listed below given. Pt verbalizes understanding. Mya Hernández LPN * Telephone Encounter - Seema Stanford APRN.CECI - 06/17/2022 4:14 PM EST I would recommend staying on Prilosec for now until he is no longer taking Cellcept if that is the plan to wean off completely Seema Stanford APRN.CNP * Telephone Encounter - Chanell Doan RN - 06/17/2022 4:05 PM EST Patient calls and state that he has 9 capsules left of the omeprazole. Patient states he has been feeling better. Patient reports that Dr. Hwang cut his mycophenolate mofetil dosage down. Patient isonly taking 2 capsules twice a day of the 250 mg capsules. Patient asking if provider wants patientto continue to continue on omeprazole. If provider does, asking for prescription to be sent to [facility]. Please review and advise, Chanell Doan RN documented in this encounterMemorial Health System10-26-2022 Miscellaneous Notes* Telephone Encounter - Candis Kamara LPN - 05/29/2022 2:00 PM EDT Patient returned call and went over results, notes from Seema Stanford [employer] with understanding. * Telephone Encounter - Alix Kevin Ma - 05/29/2022 1:51 PM EDT Left message to call office. 05/29/2022 1:51 PM Alix Kevin Ma * Telephone Encounter - Seema Stanford APRN.CNP - 05/29/2022 1:30 PM EDT Please let the patient know his stools tests were negative for infection. I spoke with Dr. Hwang today and updated him on everything as well. Seema Stanford APRN.CNP documented in this encounterMemorial Health System10-26-2022 History of Present illness Narrative* Marylou Melgoza - 05/29/2022 10:52 AM EDT Last saw Seema Older: 05/27/22 Subjective: Patient presents to clinic c/o painful toenails. They state that the nails are especially painful with shoe gear and pressure. Patient states that nails 1-5 b/l are painful. Patient admits to being diabetic. No other pedal complaints at this time. Patient states no change in medications or medical history since last visit. Objective: Patient presents to clinic ambulating in [facility] Vasc: DP and PT pulses are nonpalpable bilateral. CFT is less than 5 seconds bilateral. Skin temperature is warm to cool proximal to distal bilateral. There is moderate edema or varicosities noted. Neuro: Protective sensation is absent to the foot and toes when tested with the 5.07 SWM bilateral.Vibratory sensation is absent at the hallux IPJ bilateral. The hallux is downgoing bilateral. Derm: Nails 1-5 b/l are painful, discolored-yellow, thick, crumbly, dystrophic and with subungal debris. Skin is of normal turgor, texture and hair growth is absent bilateral. There are no hyperkeratosis, ulcerations, scars, verruca or other lesions noted. Ortho: Muscle strength is 5/5 for all pedal groups tested. Ankle joint DF is decreased with the knee extended with no pain or crepitus noted. 1st MPJ ROM is decreased bilateral. Assessment: (B35.1) Onychomycosis (primary encounter diagnosis) (M79.675) Pain in toe of left foot (M79.674) Pain in toe of right foot (E11.49) Other diabetic neurological complication associated with type 2 diabetes mellitus (HCC) (I73.9) PAD (peripheral artery disease) ([facility]) Plan: Patient was seen and evaluated. Nails 1-5 bilateral were debrided in length and thickness. Patient was instructed on the continued importance of diabetic foot care along with proper diet and keeping their blood sugar under control to prevent complications. Patient is to RTC in 3-4 months. Marylou Melgoza DPM * Maryellen Melissa RN - 05/29/2022 10:33 AM EDT Patient presents with: Right Foot - Established Patient, Follow Up, nail care Left Foot - Established Patient, Follow Up, nail care documented in this encounterMemorial Health System10-26-2022 Instructions* Patient Instructions* Marylou Melgoza - 05/29/2022 10:52 AM EDT Diabetes Foot Care Instructions When you have diabetes, proper foot care is very important. Poor foot care may lead to amputation of a foot or leg. As a person with diabetes, you are more vulnerable to foot problems, because diabetes can damage your nerves and reduce blood flow to your feet. Here are some diabetes foot care tips to follow: Wash and Dry Your Feet Daily Use mild soaps Use warm water Pat your skin dry; do not rub. Thoroughly dry your feet. After washing, use lotion on your feet to prevent cracking. Do not put lotion between your toes. Examine Your Feet Each Day Check the tops and bottoms of your feet. Have someone else look at your feet if you cannot see them. Check for dry, cracked skin. Look for blisters, cuts, scratches, or other sores. Check for redness, increased warmth, or tenderness when touching any area of your feet. Check for ingrown toenails, corns, and calluses. If you get a blister or sore from your shoes, do not pop it. Apply a bandage and wear a differentpair of shoes. Take Care of Your Toenails Cut toenails after bathing, when they are soft. Cut toenails straight across and smooth with a nail file. Avoid cutting into the corners of toes. Do not cut cuticles. If you have neuropathy (or decreased sensation in your feet) a rate examiner should always cut your toenails. Be Careful When Exercising Walk and exercise in comfortable shoes. Do not exercise when you have open sores on your feet. Protect Your Feet With Shoes and Socks Never go barefoot. Always protect your feet by wearing shoes or hard-soled slippers or footwear. Avoid shoes with high heels and pointed toes. Avoid shoes that expose your toes or heels (such as open-toed shoes or sandals). These types of shoes increase your risk for injury and potential infections. Try on new footwear with the type of socks you usually wear. Do not wear new shoes for more than an hour at a time. Change your socks daily. Look and feel inside your shoes before putting them on to make sure there are no foreign objects orrough areas. Avoid tight socks. Wear natural-fiber socks (cotton, wool, or a cotton-wool blend). Wear special shoes if your health care provider recommends them. Wear shoes/boots that will protect your feet from various weather conditions (cold, moisture, etc.). Make sure your shoes fit properly. If you have neuropathy (nerve damage), you may not notice that your shoes are too tight. Perform the footwear test described below. Footwear Test Use this simple test to see if your shoes fit correctly: Stand on a piece of paper. (Make sure you are standing and not sitting, because your foot changes shape when you stand.) Trace the outline of your foot. Trace the outline of your shoe. Compare the tracings: Is the shoe too narrow? Is your foot crammed into the shoe? The shoe should be at least 1/2 inch longer than your longest toe and as wide as your foot. Proper Shoe Choices The following types of shoes are best for people with diabetes Closed toes and heels Leather uppers without a seam inside At least 1/2 inch extra space at the end of your longest toe Inside of shoe should be soft with no rough areas Outer sole should be made of stiff material Shoes should be at least as wide as your feet Tips for Foot Care in Diabetes Don't wait to treat a minor foot problem if you have diabetes. Follow your health care provider's guidelines and first aid guidelines. Report foot injuries and infections to your health care provider immediately. Check water temperature with your elbow, not your foot. Do not use a heating pad on your feet. Do not cross your legs. Do not self-treat your corns, calluses, or other foot problems. Go to your health care provider or rate examiner to treat these conditions. 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 Patient reports for the past 10-14 days he has had diarrhea and nausea. Diarrhea is watery, occurring 1-3 times a day. He has had normal BM's during this time as well. Associated with excess belching, flatulence, heartburn/reflux and poor appetite. He has lost a few lbs since onset. He has only had one emesis, occurred last night. He vomited up undigested capsules. Denies fever, chills, black/bloody stools, abdominal pain. No sick contacts, recent antibiotics or foreign travel. Treatments: Imodium but caused constipation New medication- he was started on Cellcept a few months ago by support services rep at the [place], Dr. Dirk Hwang. Dose increased over one month ago. Patient did notify him of symptoms and he was instructed to hold x 2 days and then decrease the dose to two capsules twice a day. Patient resumed last night and had emesis mentioned above this morning. He can't recall if symptoms improved during those two days ROS General: denies dizziness, lightheadedness, night sweats, syncope, feeling faint CV: denies rapid heart rate, edema Resp: denies SOB : denies dysuria, urgency, frequency, hesitancy, dark/concentrated urine or decreased urine output PAST MEDICAL HISTORY Diagnosis Date Abdominal aortic aneurysm (AAA) without rupture 06/20/[address] scan Acute gastritis without mention of hemorrhage Anemia, unspecified Benign neoplasm of colon Bladder calculi 06/20/2020 BPH with obstruction/lower urinary tract symptoms 05/13/2006 Cardiac pacemaker in situ 01/12/2018 Dr. Peters[facility] 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 Hyperlipidemia LDL goal < 100 02/21/2010 Paroxysmal A-fib (HCC) 06/04/2015 Personal history of colonic polyps Simple chronic bronchitis (HCC) 05/07/2007 mild COPD Sinus node dysfunction (HCC) 06/04/2015 Subarachnoid bleed (HCC) 11/15/2019 [facility] Transient neurologic deficit 06/04/2015 Type II or unspecified type diabetes mellitus without mention of complication, not stated as uncontrolled 02/21/2010 PAST SURGICAL HISTORY Procedure Laterality Date COLONOSCOPY FLX DX W/COLLJ SPEC WHEN PFRMD 08/2004 Colonoscopy COLONOSCOPY FLX DX W/COLLJ SPEC WHEN PFRMD 02/25/2008 Repeat in CYSTOSCOPY 06/26/2020 EGD TRANSORAL BIOPSY SINGLE/MULTIPLE 02/25/2008 EYELID SURGERY PROCEDURE, UNLISTED Left 2014 LITHOLAPAXY COMP/LG > 2.5 CM 07/21/2020 PACEMAKER 08/2015 PAST SURGICAL HISTORY OF Left 2011 macular hole, left eye PROSTHETIC IMPLANT DEVICE UROLIFT 07/27/2020 Dr. Queen XCAPSL CTRC RMVL INSJ IO LENS PROSTH W/O ECP 2011 Cataract Removal ALLERGIES Ether and Tolectin [Tolmetin Sodium] MEDICATIONS metFORMIN ER (GLUCOPHAGE XR) 500 mg 24 hr tablet Take 1 tablet by mouth twice daily. atorvastatin (LIPITOR) 40 mg tablet Take 1 tablet by mouth daily at bedtime. For cholesterol. predniSONE (DELTASONE) 5 mg tablet Take 3 tablets by mouth once daily. mycophenolate mofetil (CELLCEPT) 250 mg capsule Take 750 mg by mouth twice daily. Per Dr. Hwang finasteride (PROSCAR) 5 mg tablet Take 1 tablet by mouth once daily. tamsulosin (FLOMAX) 0.4 mg Take 1 capsule by mouth daily at bedtime. FAMILY HISTORY Problem Relation Age of Onset COPD Mother Heart Father CHF Diabetes Father Social History Tobacco Use Smoking status: Former Packs/day: 1.00 Years: 50.00 Pack years: 50.00 Types: Cigarettes Quit date: 12/18/1994 Years since quittin.4 Smokeless tobacco: Never Vaping Use Vaping Use: Never used Substance Use Topics Alcohol use: Yes Alcohol/week: 2.0 standard drinks Types: 2 Cans of Beer (12oz) per week Comment: daily Drug use: No PHYSICAL EXAM BP 100/67 Pulse 84 Temp 36.3 C (97.3 F) (Temporal) Resp 22 Wt 91.2 kg (201 lb) SpO2 97% BMI 28.35 kg/m General Appearance: well appearing, in no acute distress, alert Eyes: conjunctiva pink and moist, no icterus, sclera white, non-injected Oropharynx: moist Lungs: Lungs clear to auscultation. No wheezing, rhonchi, rales. Heart: RRR without murmur, gallop, or rubs. No ectopy Abdomen: Abdomen soft, non-tender. Bowel sounds hyperactive. No masses, organomegaly ASSESSMENT/PLAN: 1. Diarrhea, unspecified type - ICD9: 787.91, ICD10: R19.7 (primary diagnosis) Possible medication side effect. No alarm symptoms or exam findings. BRAT diet. Push flulids. Further evaluation with: - CBC - COMP METABOLIC PANEL - C. DIFFICILE PCR - ENTERIC BACTERIAL PANEL BY PCR See plan below 2. Dyspepsia - ICD9: 536.8, ICD10: R10.13 - Begin treatment with Prilosec 40 mg daily 3. Nausea - ICD9: 787.02, ICD10: R11.0 As above - CBC - COMP METABOLIC PANEL Prescription instructions reviewed with patient as applicable. Potential red flag symptoms discussed with the patient. Reviewed appropriate action plan to take if red flag symptoms occur. Patient agreeable to treatment plan. Seema Stanford APRN.CNP documented in this encounterMemorial Health System10-21-2022 Miscellaneous Notes* Telephone Encounter - Mya Hernández LPN - 05/24/2022 11:42 AM EDT FYI: Pt called and cancelled apt today with Dr. Paniagua for nausea and diarrhea. [facility] and is stopping Cellcept medication x 2 days and then having pt go back on taking at adecreased amount 500 mg twice a day. Pt will keep you updated. May Hernández LPN documented in this encounterMemorial Health System10-19-2022 Miscellaneous Notes* Telephone Encounter - Candis Kamara LPN - 05/22/2022 9:03 AM EDT Patient calling his mail away pharmacy had changed, using [facility] [employer] reset rx to file. Please advise Patient has been identified by name and date of : Yes Patient phones for refill(s): Requested Prescriptions Pending Prescriptions Disp Refills atorvastatin (LIPITOR) 40 mg tablet 90 tablet 3 Sig: Take 1 tablet by mouth daily at bedtime. For cholesterol. Date of last office visit in primary care: 04/10/2022, has appt 05/24/2022 Last 2 Encounter Wt Readings: Date: Wt: 04/10/2022 93.9 kg (207 lb) 11/13/2021 92.9 kg (204 lb 12.8 oz) Previous labs/tests for medication: Cholesterol: HDL Cholesterol (mg/dL) Date Value 04/11/2022 60 03/22/2021 Test sent to [facility]. LDL Cholesterol (mg/dL) Date Value 04/11/2022 150 03/22/2021 Test sent to [facility]. ALT (U/L) Date Value 03/22/2021 Test sent to [facility]. Non HDL Cholesterol (mg/dL) Date Value 04/11/2022 163 03/22/2021 Test sent to [facility]. Please advise. Thank you. Candis Kamara LPN documented in this encounterMemorial Health System10-19-2022 Miscellaneous Notes* Telephone Encounter - Candis Kamara LPN - 05/22/2022 8:59 AM EDT Phoned patient and went over notes from Dr Paniagua with understanding. [facility] had [facility] about this. * Telephone Encounter - Navin Paniagua MD - 05/21/2022 4:35 PM EDT Nausea is a listed side effect of both medications. He should contact the prescribing doctor with his concern(s). * Telephone Encounter - Malika Castellon - 05/21/2022 2:41 PM EDT Patient asking if the following medications Are make him nauseated. Prednisone and mycophenolate mofetil (CELLCEPT) 250 mg capsule. Please return call to patient. documented in this encounterMemorial Health System10-18-2022 Miscellaneous Notes* Telephone Encounter - Malika Castellon - 05/21/2022 2:36 PM EDT Patient has been identified by name and date of : Yes Requested Prescriptions Pending Prescriptions Disp Refills metFORMIN ER (GLUCOPHAGE XR) 500 mg 24 hr tablet 180 tablet 3 Sig: Take 1 tablet by mouth twice daily. RX INSTRUCTIONS: Patient aware RX will be sent to pharmacy. No need to notify patient. Malika Castellon documented in this encounterMemorial Health System10-18-2022 Miscellaneous Notes* Telephone Encounter - Chanell Doan RN - 05/21/2022 8:55 AM EDT Patient calls and notified of provider response. Patient set up appointment with Pcp on Friday05/24/2022. Chanell Doan RN * Telephone Encounter - Alix Kevin Ma - 05/21/2022 8:30 AM EDT Left message to call office. 05/21/2022 8:30 AM Alix Kevin Ma * Telephone Encounter - Seema Stanford APRN.CNP - 05/21/2022 8:21 AM EDT Patient needs face to face office evaluation this week Seema Stanford APRN.CNP * Telephone Encounter - Candis Kamara LPN - 05/20/2022 1:48 PM EDT Patient calling he has been having problems with diarrhea and nausea off and on for past 10 days. He has no fever, chills or sweats. Patient is asking if any of his medications could be causing the issues? Patient said he is back taking his Atorvastatin, it was not the cause of his rash. Patient had taken zantac and immodium the other day, he thought they both helped. Patient was t alking about getting his flu shot and COVID booster soon. Patient was asking about if he needs to have colonoscopy done? Please advise documented in this encounterMemorial Health System10-05-2022 Miscellaneous Notes* Telephone Encounter - Ismael Guevara RN - 05/08/2022 1:33 PM EDT Faxed EKG results to Dr. Peters, per patient request. documented in this encounterMemorial Health System09-23-2022 Miscellaneous Notes* Telephone Encounter - Consuelo Zuniga LPN - 04/26/2022 12:59 PM EDT PATIENT NOTIFIED OF SAME. Just yesterday starting taking the the cholesterol again. * Telephone Encounter - Seema Stanford APRN.CNP - 04/26/2022 8:40 AM EDT Please let the patient know his HgbA1c was 7.5, diabetes not well controlled. If he tolerates metformin without any issues with diarrhea/GI upset recommend increasing dose to twice a day with meals. Cholesterol levels also not well controlled off the statin medication, has he resumed taking yet? Thank you, Seema Stanford APRN.CNP documented in this encounterMemorial Health System09-21-2022 Miscellaneous Notes* Telephone Encounter - Ismael Guevara RN - 04/24/2022 2:53 PM EDT Patient returned call and given provider's message below with verbalized understanding. * Telephone Encounter - Bonnie Peres LPN - 04/24/2022 2:48 PM EDT Left message to call & speak to nurse. Bonnie Peres LPN * Telephone Encounter - Seema Stanford APRN.CNP - 04/24/2022 12:15 PM EDT Okay to resume taking atorvastatin Seema Stanford APRN.CNP * Telephone Encounter - Shivani Saeed RN - 04/24/2022 11:40 AM EDT Patient calls to report that Dr. Hwang doesn't feel that patient's rash has been affected by not taking the atorvastatin but wanting provider to advise patient whether or not he may resume. Patient wanting to know if it is ok to resume the atorvastatin 40 mg at bedtime as previously ordered. Patient has medication on hand. Amlodipine is still on hold at this time. Shivani Saeed RN documented in this encounterMemorial Health System09-07-2022 Instructions* Patient Instructions* Navin Paniagua MD - 04/10/2022 4:41 PM EDT DIABETIC EYE EXAM DUE. HAVE REPORT SENT HERE. documented in this encounterMemorial Health System09-07-2022 History of Present illness Narrative* Navin Paniagua MD - 04/10/2022 4:13 PM EDT This note was created using Denty'sriter. Subjective Violeta Deal is a 87 year old male. His blood pressure was somewhat labile. [facility] was systematically eliminating medications due to drug rash. Otherwise, he felt well and diabeteswas controlled. He described an episode of palpitations that lasted several minutes this weekend with no other symptoms of concern. Review of Systems Constitutional: Negative. Respiratory: Negative. Cardiovascular: Positive for palpitations. Negative for chest pain and leg swelling. Gastrointestinal: Negative. Neurological: Negative. 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 Per Dr. Hwang metFORMIN ER (GLUCOPHAGE XR) 500 mg 24 hr tablet Take 1 tablet by mouth daily with breakfast. finasteride (PROSCAR) 5 mg tablet Take 1 tablet by mouth once daily. tamsulosin (FLOMAX) 0.4 mg Take 1 capsule by mouth daily at bedtime. predniSONE (DELTASONE) 5 mg tablet Take 3 tablets by mouth once daily. No current facility-administered medications for this visit. Objective BP 119/69 (BP Site: Left Arm, BP Position: Sitting, BP Cuff Size: Large Adult) Pulse 67 Temp 36.2 C (97.2 F) (Temporal) Resp 20 Wt 93.9 kg (207 lb) BMI 29.20 kg/m Physical Exam Constitutional: Appearance: He is not ill-appearing. Cardiovascular: Rate and Rhythm: Regular rhythm. Bradycardia present. Pulmonary: Breath sounds: Normal breath sounds. Musculoskeletal: Right lower leg: No edema. Left lower leg: No edema. Skin: Findings: Rash present. Comments: Diffuse eczematoid macules with pigmentation. Neurological: Mental Status: He is alert. Assessment and Plan 1. Essential hypertension - ICD9: 401.9, ICD10: I10 (primary diagnosis) - fair control - Continue current medication(s) - Goal of BP <130/80 2. Paroxysmal A-fib (HCC) - ICD9: 427.31, ICD10: I48.0 EKG paced rhythm - ECG COMPLETE 3. Simple chronic bronchitis (HCC) - ICD9: 491.0, ICD10: J41.0 Stable. 4. Controlled type 2 diabetes mellitus without complication, without long-term current use of insulin (HCC) - ICD9: 250.00, ICD10: E11.9 Controlled. - Continue current medications - BASIC METABOLIC PNL - HGB A1C - LIPID PANEL BASIC 5. Need for influenza vaccination - ICD9: V04.81, ICD10: Z23 - INFLUENZA SEASONAL QUADRIVALENT HIGH DOSE AGE 65+ Navin Paniagua MD documented in this encounterMemorial Health System08-02-2022 Miscellaneous Notes* Telephone Encounter - Tasha Gonzalez Ma - 03/05/2022 11:26 AM EDT Pt notified. Tasha Gonzalez Ma * Telephone Encounter - Navin Paniagua MD - 03/05/2022 11:23 AM EDT I don't think a catch up extra dose is needed. Continue the recommended dose. * Telephone Encounter - Barbara Cardona RN - 03/05/2022 8:14 AM EDT Patient states Dr. Hwang at the [place] prescribed him prednisone 20mg daily and he skipped a dose yesterday. He states the bottle states not to skip a dose. Patient states Dr. Hwang is not in the office today and is asking if Dr. Paniagua would advise him if he should take an additional dose of prednisone today or not? Please advise patient. Thank you. documented in this encounterMemorial Health System07-20-2022 History of Present illness Narrative* Marylou Melgoza - 02/20/2022 10:18 AM EDT Last saw Seema Older 11/13/21 Subjective: Patient presents to clinic c/o painful toenails. They state that the nails are especially painful with shoe gear and pressure. Patient states that nails 1-5 b/l are painful. Patient admits to being diabetic. No other pedal complaints at this time. Patient states no change in medications or medical history since last visit. Objective: Patient presents to clinic ambulating in sneakers Vasc: DP and PT pulses are faint bilateral. CFT is less than 5 seconds bilateral. Skin temperature is warm to cool proximal to distal bilateral. There is moderate edema or varicosities noted. Neuro: Protective sensation is absent to the foot and toes when tested with the 5.07 SWM bilateral.Vibratory sensation is absent at the hallux IPJ bilateral. The hallux is downgoing bilateral. Derm: Nails 1-5 b/l are discolored-yellow, thick, crumbly, dystrophic and with subungal debris. Skin is of normal turgor, texture and hair growth is absent bilateral. There are no hyperkeratosis, ulcerations, scars, verruca or other lesions noted. Ortho: Muscle strength is 5/5 for all pedal groups tested. Ankle joint DF is decreased with the knee extended with no pain or crepitus noted. 1st MPJ ROM is decreased bilateral. Assessment: (B35.1) Onychomycosis (primary encounter diagnosis) (M79.675) Pain in toe of left foot (M79.674) Pain in toe of right foot (E11.49) Other diabetic neurological complication associated with type 2 diabetes mellitus (HCC) (I73.9) PAD (peripheral artery disease) ([facility]) Plan: Patient was seen and evaluated. Nails 1-5 bilateral were debrided in length and thickness. Patient was instructed on the continued importance of diabetic foot care along with proper diet and keeping their blood sugar under control to prevent complications. Patient is to RTC in 3-4 months. Marylou Melgoza DPM * Gogo Echevarria RN - 02/20/2022 10:05 AM EDT AMB ROOMING INTAKE FLOWSHEET DATA Risk Screening Do you have concerns about personal safety or safety in the home?: No Patient presents with: Left Foot - Established Patient, Nail Care Right Foot - Established Patient, Nail Care documented in this encounterMemorial Health System07-20-2022 Instructions* Patient Instructions* Marylou Melgoza - 02/20/2022 10:18 AM EDT Diabetes Foot Care Instructions When you have diabetes, proper foot care is very important. Poor foot care may lead to amputation of a foot or leg. As a person with diabetes, you are more vulnerable to foot problems, because diabetes can damage your nerves and reduce blood flow to your feet. Here are some diabetes foot care tips to follow: Wash and Dry Your Feet Daily Use mild soaps Use warm water Pat your skin dry; do not rub. Thoroughly dry your feet. After washing, use lotion on your feet to prevent cracking. Do not put lotion between your toes. Examine Your Feet Each Day Check the tops and bottoms of your feet. Have someone else look at your feet if you cannot see them. Check for dry, cracked skin. Look for blisters, cuts, scratches, or other sores. Check for redness, increased warmth, or tenderness when touching any area of your feet. Check for ingrown toenails, corns, and calluses. If you get a blister or sore from your shoes, do not pop it. Apply a bandage and wear a differentpair of shoes. Take Care of Your Toenails Cut toenails after bathing, when they are soft. Cut toenails straight across and smooth with a nail file. Avoid cutting into the corners of toes. Do not cut cuticles. If you have neuropathy (or decreased sensation in your feet) a rate examiner should always cut your toenails. Be Careful When Exercising Walk and exercise in comfortable shoes. Do not exercise when you have open sores on your feet. Protect Your Feet With Shoes and Socks Never go barefoot. Always protect your feet by wearing shoes or hard-soled slippers or footwear. Avoid shoes with high heels and pointed toes. Avoid shoes that expose your toes or heels (such as open-toed shoes or sandals). These types of shoes increase your risk for injury and potential infections. Try on new footwear with the type of socks you usually wear. Do not wear new shoes for more than an hour at a time. Change your socks daily. Look and feel inside your shoes before putting them on to make sure there are no foreign objects orrough areas. Avoid tight socks. Wear natural-fiber socks (cotton, wool, or a cotton-wool blend). Wear special shoes if your health care provider recommends them. Wear shoes/boots that will protect your feet from various weather conditions (cold, moisture, etc.). Make sure your shoes fit properly. If you have neuropathy (nerve damage), you may not notice that your shoes are too tight. Perform the footwear test described below. Footwear Test Use this simple test to see if your shoes fit correctly: Stand on a piece of paper. (Make sure you are standing and not sitting, because your foot changes shape when you stand.) Trace the outline of your foot. Trace the outline of your shoe. Compare the tracings: Is the shoe too narrow? Is your foot crammed into the shoe? The shoe should be at least 1/2 inch longer than your longest toe and as wide as your foot. Proper Shoe Choices The following types of shoes are best for people with diabetes Closed toes and heels Leather uppers without a seam inside At least 1/2 inch extra space at the end of your longest toe Inside of shoe should be soft with no rough areas Outer sole should be made of stiff material Shoes should be at least as wide as your feet Tips for Foot Care in Diabetes Don't wait to treat a minor foot problem if you have diabetes. Follow your health care provider's guidelines and first aid guidelines. Report foot injuries and infections to your health care provider immediately. Check water temperature with your elbow, not your foot. Do not use a heating pad on your feet. Do not cross your legs. Do not self-treat your corns, calluses, or other foot problems. Go to your health care provider or rate examiner to treat these conditions. documented in this encounterMemorial Health System07-08-2022 History of Past illness Narrative* Problem Noted Date Diagnosed Date Resolved Date Bullous pemphigoid 02/08/2022 3 Drug rash 02/08/2022 06/08/2023 Bladder calculi 06/20/2020 06/06/2021 Subarachnoid bleed 11/15/2019 1 Overview: 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 03/08/2015 documented as of this encounter (statuses as of 09/05/2023) [facility] Narrative* Problem Noted Date Diagnosed Date Resolved Date Bullous pemphigoid 02/08/2022 3 Drug rash 02/08/2022 06/08/2023 Bladder calculi 06/20/2020 06/06/2021 Subarachnoid bleed 11/15/2019 1 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 10/27/2018 Overview: 2015 Sinus node dysfunction 06/04/201510/27 Sciatica 02/13/2011 03/08/2015 Anemia, unspecified 02/10/2008 02/22/20 17 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 03/08/2015 documented as of this encounter (statuses as of 11/14/2023) [facility] Narrative* Problem Noted Date Diagnosed Date Resolved Date Bullous pemphigoid 02/08/2022 3 Drug rash 02/08/2022 06/08/2023 Bladder calculi 06/20/2020 06/06/2021 Subarachnoid bleed 11/15/2019 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 10/27/2018 Overview: 2015 Sinus node dysfunction 06/04/201510/27 Sciatica 02/13/2011 03/08/2015 Anemia, unspecified 02/10/2008 02/22/20 17 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 * Telephone Encounter - Bonnie Peres LPN - 02/06/2022 12:07 PM EDT [facility] Bonnie Peres LPN * Telephone Encounter - Navin Paniagua MD - 02/05/2022 5:20 PM EDT [facility]. * Telephone Encounter - Maria Teresa Palmer LPN - 02/05/2022 2:46 PM EDT Pt calls to report [facility] and [facility] two medications. Med list updated. Pt also reports that he finished Mucinex for congestion and cough from Covid and is doing better. Maria Teresa Palmer LPN documented in this encounterMemorial Health System07-03-2022 Miscellaneous Notes* Telephone Encounter - Navin Paniagua MD - 02/03/2022 3:39 PM EDT Noted. * Telephone Encounter - Ismael Guevara RN - 02/01/2022 11:26 AM EDT Patient phoned to let pcp know, he tested positive for covid for the 3rd time this week. Reports hefeels the same as he usually does except for cough, which has improved since starting mucinex. Reports s/s started -. Advised to quarantine for 5 days from day s/s started, then if symptoms improving and no fever for 24 hours without the use of fever reducing medications may come out of quarantine but will still need to wear a mask for 5 more days. Patient agreeable. Wants pcp to also know he [facility] up on rash on legs and chest. Reports the triamcinolone cream has been helping. Reports rash is not itchy today. Reports his cholesterol medication is stillon hold. documented in this encounterMemorial Health System06-27-2022 Miscellaneous Notes* Telephone Encounter - Alix Kevin Ma - 01/28/2022 10:54 AM EDT Patient notified, verbalized understanding. Patient will try Mucinex for sx. * Telephone Encounter - Seema Stanford APRN.CNP - 01/28/2022 10:29 AM EDT He can take Mucinex over the counter for symptom management if he would like. He is also eligible for Paxvovid antiviral treatment however must be started within 5 days of symptom onset Seema Stanford APRN.CNP * Telephone Encounter - Candis Kamara LPN - 01/28/2022 9:12 AM EDT Patient calling he did home COVID test yesterday morning and is positive. Patient said his symptomsbegan . He is coughing, chest congestion, runny nose. He is not taking anything for the symptoms. Patient is asking any suggestions that he should be taking? Patient uses [facility] for his pharmacy if needed. Patient said he notified all the people he was in contact with closely. Please advise documented in this encounterMemorial Health System06-22-2022 Miscellaneous Notes* Telephone Encounter - Navin Paniagua MD - 01/23/2022 10:12 AM EDT Noted. * Telephone Encounter - Chanell Doan RN - 01/23/2022 9:[address] Hwang from [facility] calls and reports that he has been seeing patient for patient's rash that had started back in August. Patient was seen on 09/14/2021 by Ruben Correa for this. Dr. Hwang has done some biopsies on rash and they were non specific. Dr. Hwang plans to hold patient's atorvastatin for 3- 4 weeks to see if there is any improvement to rash. Patient is following up with Dr. Hwang in [address] Paniagua has any question, he can call Dr. Hwang at [phone]. Chanell Doan RN documented in this encounterMemorial Health System06-09-2022 Miscellaneous Notes* Telephone Encounter - Bonnie Peres LPN - 01/10/2022 9:43 AM EDT Patient notified. Bonnie Peres LPN * Telephone Encounter - Navin Paniagua MD - 01/10/2022 9:36 AM EDT Okay to take prednisone taper. * Telephone Encounter - Marion Hunter LPN - 01/10/2022 9:11 AM EDT Pt calls states been waiting on a answer from Dr. Haque about taking prednisone. Was told to start thisat 9am. This nurse explains he is seeing pts may not have seen this as of yet. Will forward for pt high priorty . * Telephone Encounter - Candis Kamara LPN - 01/10/2022 8:10 AM EDT Patient calling was at the [facility] yesterday. Was seen by Dr Cassie Mercer and put on Clobetazole oint 0.05% for his dermatitis all over his body, biopsy was taken from his arms. He is also starting on Prednisone 10 mg taper today. He wanted to make sure no problem with his other medications he is taking. documented in this encounterMemorial Health System04-20-2022 History of Present illness Narrative* Marylou Melgoza - 11/21/2021 10:05 AM EDT Last saw Seema Older 11/13/21 Subjective: Patient presents to clinic c/o painful toenails. They state that the nails are especially painful with shoe gear and pressure. Patient states that nails b/l hallux are painful. Patient admits to being diabetic. No other pedal complaints at this time. Patient states no change in medications or medical history since last visit. Objective: Patient presents to clinic ambulating in avia Vasc: DP and PT pulses are decreased bilateral. CFT is less than 5 seconds bilateral. Skin temperature is warm to cool proximal to distal bilateral. There is mild edema or varicosities noted. Neuro: Protective sensation is absent to the foot and toes when tested with the 5.07 SWM bilateral.Vibratory sensation is absent at the hallux IPJ bilateral. The hallux is downgoing bilateral. Derm: Nails 1-5 b/l are painful, discolored-yellow, thick, crumbly, dystrophic and with subungal debris. Skin is thin, dry, ruborous and hair growth is absent bilateral. There are no hyperkeratosis, ulcerations, scars, verruca or other lesions noted. Ortho: Muscle strength is 5/5 for all pedal groups tested. Ankle joint DF is decreased with the knee extended with no pain or crepitus noted. 1st MPJ ROM is decreased bilateral. Assessment: (B35.1) Onychomycosis (primary encounter diagnosis) (M79.675) Pain in toe of left foot (M79.674) Pain in toe of right foot (E11.49) Other diabetic neurological complication associated with type 2 diabetes mellitus (HCC) (I73.9) PAD (peripheral artery disease) ([facility]) Plan: Patient was seen and evaluated. Nails 1-5 bilateral were debrided in length and thickness. Small bleed to left hallux and left 5th toenail. Band aid applied. Call if any issues arise. Patient was instructed on the continued importance of diabetic foot care along with proper diet andkeeping their blood sugar under control to prevent complications. Patient is to RTC in 3-4 months. Marylou Melgoza DPM documented in this encounterMemorial Health System04-20-2022 Instructions* Patient Instructions* Marylou Melgoza - 11/21/2021 10:05 AM EDT Diabetes Foot Care Instructions When you have diabetes, proper foot care is very important. Poor foot care may lead to amputation of a foot or leg. As a person with diabetes, you are more vulnerable to foot problems, because diabetes can damage your nerves and reduce blood flow to your feet. Here are some diabetes foot care tips to follow: Wash and Dry Your Feet Daily Use mild soaps Use warm water Pat your skin dry; do not rub. Thoroughly dry your feet. After washing, use lotion on your feet to prevent cracking. Do not put lotion between your toes. Examine Your Feet Each Day Check the tops and bottoms of your feet. Have someone else look at your feet if you cannot see them. Check for dry, cracked skin. Look for blisters, cuts, scratches, or other sores. Check for redness, increased warmth, or tenderness when touching any area of your feet. Check for ingrown toenails, corns, and calluses. If you get a blister or sore from your shoes, do not pop it. Apply a bandage and wear a differentpair of shoes. Take Care of Your Toenails Cut toenails after bathing, when they are soft. Cut toenails straight across and smooth with a nail file. Avoid cutting into the corners of toes. Do not cut cuticles. If you have neuropathy (or decreased sensation in your feet) a rate examiner should always cut your toenails. Be Careful When Exercising Walk and exercise in comfortable shoes. Do not exercise when you have open sores on your feet. Protect Your Feet With Shoes and Socks Never go barefoot. Always protect your feet by wearing shoes or hard-soled slippers or footwear. Avoid shoes with high heels and pointed toes. Avoid shoes that expose your toes or heels (such as open-toed shoes or sandals). These types of shoes increase your risk for injury and potential infections. Try on new footwear with the type of socks you usually wear. Do not wear new shoes for more than an hour at a time. Change your socks daily. Look and feel inside your shoes before putting them on to make sure there are no foreign objects orrough areas. Avoid tight socks. Wear natural-fiber socks (cotton, wool, or a cotton-wool blend). Wear special shoes if your health care provider recommends them. Wear shoes/boots that will protect your feet from various weather conditions (cold, moisture, etc.). Make sure your shoes fit properly. If you have neuropathy (nerve damage), you may not notice that your shoes are too tight. Perform the footwear test described below. Footwear Test Use this simple test to see if your shoes fit correctly: Stand on a piece of paper. (Make sure you are standing and not sitting, because your foot changes shape when you stand.) Trace the outline of your foot. Trace the outline of your shoe. Compare the tracings: Is the shoe too narrow? Is your foot crammed into the shoe? The shoe should be at least 1/2 inch longer than your longest toe and as wide as your foot. Proper Shoe Choices The following types of shoes are best for people with diabetes Closed toes and heels Leather uppers without a seam inside At least 1/2 inch extra space at the end of your longest toe Inside of shoe should be soft with no rough areas Outer sole should be made of stiff material Shoes should be at least as wide as your feet Tips for Foot Care in Diabetes Don't wait to treat a minor foot problem if you have diabetes. Follow your health care provider's guidelines and first aid guidelines. Report foot injuries and infections to your health care provider immediately. Check water temperature with your elbow, not your foot. Do not use a heating pad on your feet. Do not cross your legs. Do not self-treat your corns, calluses, or other foot problems. Go to your health care provider or rate examiner to treat these conditions. documented in this encounterMem[facility] System04-12-[facility]22 History of Present illness Narrative* Seema Stanford, 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 FREEZING - 11/13/2021 12:42 PM EDT CC: Patient presents with: 6 Month Exam HPI Violeta Deal is a 86 year old male who presents today for above. Essential hypertension HTN-Medication changes:No Taking all medications as prescribed: Yes Side effects: No Home BP's: No Denies: headache, chest pain, palpitations, dyspnea and peripheral edema. Last 3 Encounter BP Readings: Date: BP: 11/13/2021 110/64 09/14/2021 138/72 06/06/2021 124/62 BPH with obstruction/lower urinary tract symptoms Reports decreased stream and urinary frequency, no worse than usual. Taking Flomax and Proscar as prescribed. Does mention for the past couple months his urinary has occasionally looked cloudy. Denies dysuria, dark concentrated urine, hematuria, flank or abdominal pain. Admits to not drinking enough water Controlled type 2 diabetes mellitus without complication, without long-term current use of insulin (HCC) DHome blood sugar readings: does not check Hypoglycemia: No He is compliant with medication(s) and is tolerating med(s) without any side effects. Last Ophthalmology exam: scheduled this month Last Podiatry exam was within the past 3 months Patient's last HgA1C was Hemoglobin A1C (%) Date Value 10/08/2021 6.7 03/22/2021 Test sent to [facility]. 09/07/2020 Test sent to [facility]. Thrombocytopenia (HCC) Denies unusual bleeding. 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 [facility] 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 Hyperlipidemia LDL goal < 100 02/21/2010 Paroxysmal A-fib (HCC) 06/04/2015 Personal history of colonic polyps Simple chronic bronchitis (HCC) 05/07/2007 mild COPD Sinus node dysfunction (HCC) 06/04/2015 Subarachnoid bleed (HCC) 11/15/2019 [facility] Transient neurologic deficit 06/04/2015 Type II or unspecified type diabetes mellitus without mention of complication, not stated as uncontrolled 02/21/2010 PAST SURGICAL HISTORY Procedure Laterality Date COLONOSCOPY FLX DX W/COLLJ SPEC WHEN PFRMD 08/2004 Colonoscopy COLONOSCOPY FLX DX W/COLLJ SPEC WHEN PFRMD 02/25/2008 Repeat in CYSTOSCOPY 06/26/2020 EGD TRANSORAL BIOPSY SINGLE/MULTIPLE 02/25/2008 EYELID SURGERY PROCEDURE, UNLISTED Left 2014 LITHOLAPAXY COMP/LG > 2.5 CM 07/21/2020 PACEMAKER 08/2015 PAST SURGICAL HISTORY OF Left 2012 macular hole, left eye PROSTHETIC IMPLANT DEVICE UROLIFT 07/27/2020 Dr. Queen XCAPSL CTRC RMVL INSJ IO LENS PROSTH W/O ECP 2012 Cataract Removal ALLERGIES Ether and Tolectin [Tolmetin Sodium] MEDICATIONS metFORMIN ER (GLUCOPHAGE XR) 500 mg 24 hr tablet Take 1 tablet by mouth daily with breakfast. finasteride (PROSCAR) 5 mg tablet Take 1 tablet by mouth once daily. tamsulosin (FLOMAX) 0.4 mg Take 1 capsule by mouth daily at bedtime. atorvastatin (LIPITOR) 40 mg tablet Take 1 tablet by mouth daily at bedtime. For cholesterol. amLODIPine (NORVASC) 10 mg tablet Take 1 tablet by mouth once daily. FAMILY HISTORY Problem Relation Age of Onset COPD Mother Heart Father CHF Diabetes Father Social History Tobacco Use Smoking status: Former Smoker Packs/day: 1.00 Years: 50.00 Pack years: 50.00 Types: Cigarettes Quit date: 12/18/1994 Years since quittin.9 Smokeless tobacco: Never Used Vaping Use Vaping Use: Never used Substance Use Topics Alcohol use: Yes Alcohol/week: 2.0 standard drinks Types: 2 Cans of Beer (12oz) per week Comment: daily Drug use: No PHYSICAL EXAM BP 110/64 Pulse 88 Temp 36.3 C (97.4 F) (Temporal) Resp 20 Wt 92.9 kg (204 lb 12.8 oz) SpO2 98% BMI 28.89 kg/m General Appearance: well appearing, in no acute distress, alert Lungs: Lungs clear to auscultation. No wheezing, rhonchi, rales. Heart: RRR without murmur, gallop, or rubs. No ectopy Health maintenance reviewed with patient: DILATED RETINAL EXAM due on 08/27/2020 ADVANCE DIRECTIVE DISCUSSION Never done URINE ALBUMIN:CREATININE RATIO due on 09/07/2021 DIABETIC FOOT EXAM due on 09/07/2021 LDL CHOLESTEROL due on 03/22/2022 HBA1C due on 04/10/2022 DTAP,TDAP,TD(3 - Td or Tdap) due on 04/28/2028 INFLUENZA Completed PNEUMOVAX AGE 65 AND OVER WITH 5YR LOOKBACK Completed SHINGRIX VACCINE Completed COVID-19 VACCINE Completed MENINGOCOCCAL CONJUGATE Aged Out DATA REVIEWED: Most recent labs Component Latest Ref Rng & Units 10/08/2021 WBC 3.70 - 11.00 k/uL 5.73 RBC 4.20 - 6.00 m/uL 4.66 Hemoglobin 13.0 - 17.0 g/dL 13.6 Hematocrit 39.0 - 51.0 % 42.9 MCV 80.0 - 100.0 fL 92.1 MCH 26.0 - 34.0 pg 29.2 MCHC 30.5 - 36.0 g/dL 31.7 RDW-CV 11.5 - 15.0 % 13.2 Platelet Count MPV Absolute nRBC <0.01 k/uL <0.01 Glucose 74 - 99 mg/dL 137 (H) BUN 9 - 24 mg/dL 18 Creatinine 0.73 - 1.22 mg/dL 1.00 Sodium 136 - 144 mmol/L 137 Potassium 3.7 - 5.1 mmol/L 4.1 Chloride 97 - 105 mmol/L 101 CO2 22 - 30 mmol/L 26 Anion Gap 9 - 18 mmol/L 10 Calcium 8.5 - 10.2 mg/dL 9.3 eGFR >=60 mL/min/1.73m 73 Hemoglobin A1C 4.3 - 5.6 % 6.7 (H) Estimated Average Glucose mg/dL 146 ASSESSMENT/PLAN: 1. Controlled type 2 diabetes mellitus without complication, without long-term current use of insulin (HCC) - ICD9: 250.00, ICD10: E11.9 (primary diagnosis) Controlled. - Continue current medications - ALBUMIN/CREAT RATIO RND UR 2. Cloudy urine - ICD9: 791.9, ICD10: R82.90 Check urine - URINALYSIS, WITH MICROSCOPIC - URINE CULTURE 3. Essential hypertension - ICD9: 401.9, ICD10: I10 - good control - Continue current medication(s) - Recommended regular aerobic exercise. - Recommend home blood pressure monitoring, to bring results in on next visit - Goal of BP <130/80 4. BPH with obstruction/lower urinary tract symptoms - ICD9: 600.01, 599.69, ICD10: N40.1, N13.8 Stable 5. Thrombocytopenia (HCC) - ICD9: 287.5, ICD10: D69.6 Stable Prescription instructions reviewed with patient as applicable. Potential red flag symptoms discussed with the patient. Reviewed appropriate action plan to take if red flag symptoms occur. Patient agreeable to treatment plan. Seema Stanford APRN.CNP documented in this encounterMemorial Health System03-30-2022 Miscellaneous Notes* Telephone Encounter - Alix Kevin Ma - 10/31/2021 5:23 PM EDT Patient notified, verbalized understanding. Alix Kevin Ma * Telephone Encounter - Seema Stanford APRN.CNP - 10/31/2021 1:57 PM EDT The 2nd booster was just approved and recommended for those age 50 and older. He should be able to get the vaccine any where including where he had the other vaccines Seema Stanford APRN.CNP * Telephone Encounter - Maryellen Wilkerson RN - 10/31/2021 8:55 AM EDT Pt called in and reports he received his first two Covid vaccines September and October. Then he had his 3rd Covid vaccine on June 21, 2021. Pt states he has heard if you are over 60 that youshould get a 4th booster. He wanted to know if this was correct, and if it is where would be the best place for him to go get it. Please call and advise. documented in this encounterMemorial Health System11-17-2020 History of Past illness Narrative* Problem Noted Date Resolved Date Bladder calculi 06/20/2020 06/06/2021 Subarachnoid bleed 11/15/2019 09/05/2020 Overview: 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 documented as of this encounter (statuses as of 11/13/2021) [facility] Narrative* Problem Noted Date Resolved Date Bladder calculi 06/20/2020 06/06/2021 Subarachnoid bleed 11/15/2019 09/05/2020 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 10/27/2018 Overview: 2015 Sinus node dysfunction 06/04/2015 9 Sciatica 02/13/2011 03/08/2015 Anemia, unspecified 02/10/2008 02/21/2017 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 documented as of this encounter (statuses as of 01/23/2022) [facility] Narrative* Problem Noted Date Resolved Date Bladder calculi 06/20/2020 06/06/2021 Subarachnoid bleed 11/15/2019 09/05/2020 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 10/27/2018 Overview: 2015 Sinus node dysfunction 06/04/2015 9 Sciatica 02/13/2011 03/08/2015 Anemia, unspecified 02/10/2008 02/21/2017 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 documented as of this encounter (statuses as of 04/11/2022) [facility] Narr[facility]* Problem Noted Date Resolved Date Bladder calculi 06/20/2020 06/06/2021 Subarachnoid bleed 11/15/2019 09/05/2020 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 10/27/2018 Overview: 2015 Sinus node dysfunction 06/04/2015 9 Sciatica 02/13/2011 03/08/2015 Anemia, unspecified 02/10/2008 02/21/2017 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 10/27/2018 Overview: 2015 Sinus node dysfunction 06/04/2015 9 Sciatica 02/13/2011 03/08/2015 Anemia, unspecified 02/10/2008 02/21/2017 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 documented as of this encounter (statuses as of 01/23/2023) [facility] History of Past illness Narrative* Problem Noted Date Diagnosed Date Resolved Date Bladder calculi 06/20/2020 06/06/2021 Subarachnoid bleed 11/15/2019 Overview: [facility] 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 10/27/2018 Overview: 2015 Sinus node dysfunction 06/04/201510/27 Sciatica 02/13/2011 03/08/2015 Anemia, unspecified 02/10/2008 02/22/20 17 Plantar fascial fibromatosis 07/24/2005 03/08/2015 documented as of this encounter (statuses as of 02/13/2023) [facility] History of Past illness Narrative* Problem Noted Date Diagnosed Date Resolved Date Bladder calculi 06/20/2020 06/06/2021 Subarachnoid bleed 11/15/2019 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 10/27/2018 Overview: 2015 Sinus node dysfunction 06/04/201510/27 Sciatica 02/13/2011 03/08/2015 Anemia, unspecified 02/10/2008 02/22/20 17 Plantar fascial fibromatosis 07/24/2005 03/08/2015 documented as of this encounter (statuses as of 02/14/2023) [facility] History of Past illness Narrative* Problem Noted Date Diagnosed Date Resolved Date Bladder calculi 06/20/2020 06/06/2021 Subarachnoid bleed 11/15/2019 1 [facility]: 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 10/27/2018 Overview: 2015 Sinus node dysfunction 06/04/201510/27 Sciatica 02/13/2011 03/08/2015 Anemia, unspecified 02/10/2008 02/22/20 17 Plantar fascial fibromatosis 07/24/2005 03/08/2015 documented as of this encounter (statuses as of 04/22/2023) [facility] History of Past illness Narrative* Problem Noted Date Diagnosed Date Resolved Date Bladder calculi 06/20/2020 06/06/2021 Subarachnoid bleed 11/15/2019 1 Overview: 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 03/08/2015 documented as of this encounter (statuses as of 05/09/2023) [facility] of Past illness Narrative* Problem Noted Date Diagnosed Date Resolved Date Bladder calculi 06/20/2020 06/06/2021 Subarachnoid bleed 11/15/2019 1 [facility]: 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 10/27/2018 Overview: 2015 Sinus node dysfunction 06/04/201510/27 Sciatica 02/13/2011 03/08/2015 Anemia, unspecified 02/10/2008 02/22/20 17 Plantar fascial fibromatosis 07/24/2005 03/08/2015 documented as of this encounter (statuses as of 05/10/2023) [facility] of Past illness Narrative* Problem Noted Date Diagnosed Date Resolved Date Bladder calculi 06/20/2020 06/06/2021 Subarachnoid bleed 11/15/2019 1 [facility]: 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 10/27/2018 Overview: 2015 Sinus node dysfunction 06/04/201510/27 Sciatica 02/13/2011 03/08/2015 Anemia, unspecified 02/10/2008 02/22/20 17 Plantar fascial fibromatosis 07/24/2005 03/08/2015 documented as of this encounter (statuses as of 05/16/2023) [facility] History of Past illness Narrative* Problem Noted Date Diagnosed Date Resolved Date Bladder calculi 06/20/2020 06/06/2021 Subarachnoid bleed 11/15/2019 1 [facility]: 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 10/27/2018 Overview: 2015 Sinus node dysfunction 06/04/201510/27 Sciatica 02/13/2011 03/08/2015 Anemia, unspecified 02/10/2008 02/22/20 17 Plantar fascial fibromatosis 07/24/2005 03/08/2015 documented as of this encounter (statuses as of 05/20/2023) [facility] History of Past illness Narrative* Problem Noted Date Diagnosed Date Resolved Date Bladder calculi 06/20/2020 06/06/2021 Subarachnoid bleed 11/15/2019 1 Overview: 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 03/08/2015 documented as of this encounter (statuses as of 05/29/2023) [facility] History of Past illness Narrative* Problem Noted Date Diagnosed Date Resolved Date Bladder calculi 06/20/2020 06/06/2021 Subarachnoid bleed 11/15/2019 1 [facility]: 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 10/27/2018 Overview: 2015 Sinus node dysfunction 06/04/201510/27 Sciatica 02/13/2011 03/08/2015 Anemia, unspecified 02/10/2008 02/22/20 17 Plantar fascial fibromatosis 07/24/2005 03/08/2015 documented as of this encounter (statuses as of 06/03/2023) [facility] History of Present illness Narrative* Preeti Leyva (Rt), Tech - 06/01/2020 10:50 AM EDT Radiology Service Progress Note PATIENT NAME: Violeta Deal DATE OF SERVICE: June 01, 2020 TIME: 11:05 AM PATIENT IDENTITY VERIFICATION COMPLETED USING TWO (2) IDENTIFIERS: Name and Date of confirmedby patient verbally. FALL SCREENING: Has the patient had 2 falls in the last year or 1 fall with injury or currently using an Ambulatory Assistive Device (Walker, Cane, Wheelchair, Crutches, etc.)? No PATIENT GENDER DATA: Male PATIENT RELEVANT IMPLANT DATA REVIEWED: Yes RADIOLOGY DEPARTMENT: General X-ray: Exam(s) Completed: Chest X-Ray PERIPHERAL IV DATA: Not applicable SIGNED BY: RT Chris June 01, 2020 11:05 AM [facility] Diagnosis Controlled type 2 diabetes mellitus without complication, without long-term current use of insulin (HCC)- Primary Cloudy urine Other nonspecific finding on examination of urine Essential hypertension Unspecified essential hypertension 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 tract symptoms (LUTS) Thrombocytopenia (HCC) Thrombocytopenia, unspecified [facility] Diagnosis Onychomycosis- Primary Dermatophytosis of nail Pain in toe of left foot Pain in limb Pain in toe of right foot Pain in limb Other diabetic neurological complication associated with type 2 diabetes mellitus (HCC) PAD (peripheral artery disease) ([facility]) Peripheral vascular disease, unspecified [facility]* Diagnosis Bullous pemphigoid- Primary Pemphigoid Drug rash Dermatitis due to drugs and medicines taken internally [facility] Diagnosis Onychomycosis- Primary Dermatophytosis of nail Pain in toe of left foot Pain in limb Pain in toe of right foot Pain in limb Other diabetic neurological complication associated with type 2 diabetes mellitus (HCC) PAD (peripheral artery disease) (HCC) Peripheral vascular disease, unspecified [facility] Diagnosis Essential hypertension- Primary Unspecified essential hypertension Paroxysmal A-fib (HCC) Atrial fibrillation Simple chronic bronchitis (HCC) Simple chronic bronchitis Controlled type 2 diabetes mellitus without complication, without long-term current use of insulin (HCC) Need for influenza vaccination Need for prophylactic vaccination and inoculation against influenza [facility] Diagnosis Hyperlipidemia with target LDL less than 100 Other and unspecified hyperlipidemia [facility]* Diagnosis Diarrhea, unspecified type- Primary Dyspepsia Dyspepsia and other specified disorders of function of stomach Nausea Nausea alone [facility]* Diagnosis Onychomycosis- Primary Dermatophytosis of nail Pain in toe of left foot Pain in limb Pain in toe of right foot Pain in limb Other diabetic neurological complication associated with type 2 diabetes mellitus (HCC) PAD (peripheral artery disease) (HCC) Peripheral vascular disease, unspecified [facility] Diagnosis Medicare annual wellness visit, subsequent- Primary Routine general medical examination at a health care facility Drug rash Dermatitis due to drugs and medicines taken internally Controlled type 2 diabetes mellitus without complication, without long-term current use of insulin (HCC) Paroxysmal A-fib (HCC) Atrial fibrillation 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 tract symptoms (LUTS) Simple chronic bronchitis (HCC) Simple chronic bronchitis Dyspnea on exertion Other dyspnea and respiratory abnormality Essential hypertension Unspecified essential hypertension [facility] ROMERO (dyspnea on exertion)- Primary Other dyspnea and respiratory abnormality Former cigarette smoker Personal history of tobacco use, presenting hazards to health [facility] Diagnosis ROMERO (dyspnea on exertion) Other dyspnea and respiratory abnormality [facility] Diagnosis ROMERO (dyspnea on exertion) Other dyspnea and respiratory abnormality [facility] Diagnosis ROMERO (dyspnea on exertion)- Primary Other dyspnea and respiratory abnormality Former cigarette smoker Personal history of tobacco use, presenting hazards to health [facility] Diagnosis Controlled type 2 diabetes mellitus without complication, without long-term current use of insulin (HCC)- Primary 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 tract symptoms (LUTS) [facility] Diagnosis Onychomycosis- Primary Dermatophytosis of nail Pain in toe of left foot Pain in limb Pain in toe of right foot Pain in limb Other diabetic neurological complication associated with type 2 diabetes mellitus (HCC) PAD (peripheral artery disease) (HCC) Peripheral vascular disease, unspecified [facility] Diagnosis Onychomycosis- Primary Dermatophytosis of nail Pain in toe of left foot Pain in limb Pain in toe of right foot Pain in limb Ingrowing toenail Ingrowing nail [facility] Diagnosis Open wound- Primary Open wound(s) (multiple) of unspecified site(s), without mention of complication [facility] Diagnosis Dermatitis- Primary Contact dermatitis and other eczema, due to unspecified cause Pruritus Unspecified pruritic disorder Dyspnea, unspecified type Edema of both legs Edema Essential hypertension Unspecified essential hypertension Need for vaccination Need for prophylactic vaccination and inoculation against unspecified single disease [facility] Diagnosis Cellulitis of left lower extremity- Primary Cellulitis and abscess of leg, except foot Edema of both legs Edema Essential hypertension Unspecified essential hypertension [facility] Diagnosis Rash and nonspecific skin eruption- Primary Rash and other nonspecific skin eruption Edema of both legs Edema [facility] Diagnosis Dermatitis- Primary Contact dermatitis and other eczema, due to unspecified cause Pruritic disorder Unspecified pruritic disorder Controlled type 2 diabetes mellitus without complication, without long-term current use of insulin ([facility]) Essential hypertension Unspecified essential hypertension [facility] Diagnosis Asteototic dermatitis Venous stasis dermatitis, unspecified laterality Dermatitis, 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) [facility] Diagnosis Hypotension, unspecified hypotension type- Primary Viral URI with cough Acute upper respiratory infections of unspecified site [facility]* Diagnosis Medicare annual wellness visit, subsequent- Primary Routine general medical examination at a health care facility Encounter for immunization Need for other specified prophylactic vaccination against single bacterial disease Screening for diabetic retinopathy Screening for other eye conditions Controlled type 2 diabetes mellitus without complication, without long-term current use of insulin ([facility]) [facility]* Diagnosis Idiopathic hypotension- Primary Hypotension, unspecified 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 tract symptoms (LUTS) Dyspepsia Dyspepsia and other specified disorders of function of stomach Paroxysmal A-fib ([facility]) Atrial fibrillation [facility] Diagnosis Abnormal CBC- Primary Other abnormal blood chemistry [facility] Diagnosis Onychomycosis- Primary Dermatophytosis of nail Pain in toe of left foot Pain in limb Pain in toe of right foot Pain in limb Ingrowing toenail Ingrowing nail Other diabetic neurological complication associated with type 2 diabetes mellitus (HCC) PAD (peripheral artery disease) (HCC) Peripheral vascular disease, unspecified [facility] Diagnosis Idiopathic hypotension- Primary Hypotension, unspecified [facility] Diagnosis Platelet count less 140,000 per cubic millimeter- Primary Abnormal CBC Other abnormal blood chemistry [facility] Diagnosis Essential hypertension- Primary Unspecified essential hypertension Controlled type 2 diabetes mellitus without complication, without long-term current use of insulin (HCC) Abdominal aortic aneurysm (AAA) without rupture, unspecified part (HCC) Need for COVID-19 vaccine Cat scratch of left hand, initial encounter Stage 3a chronic kidney disease (HCC) Thrombocytopenia (HCC) Thrombocytopenia, unspecified [facility] Diagnosis Vision disturbance- Primary Unspecified visual disturbance TIA (transient ischemic attack) Unspecified transient cerebral ischemia [facility]* Diagnosis TIA (transient ischemic attack)- Primary Unspecified transient cerebral ischemia Bilateral carotid artery stenosis Occlusion and stenosis of carotid artery without mention of cerebral infarction Paroxysmal A-fib (HCC) Atrial fibrillation Vision disturbance Unspecified visual disturbance Unsteady gait Abnormality of gait [facility]* Diagnosis Abdominal aortic aneurysm (AAA) without rupture, unspecified part (HCC) [facility]* Diagnosis 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 tract symptoms (LUTS) Controlled type 2 diabetes mellitus without complication, without long-term current use of insulin (HCC) [facility]* Diagnosis TIA (transient ischemic attack)- Primary Unspecified transient cerebral ischemia Hyperlipidemia with target LDL less than 100 Other and unspecified hyperlipidemia Controlled type 2 diabetes mellitus without complication, without long-term current use of insulin (HCC) Right-sided lacunar infarction (HCC) Unspecified cerebral artery occlusion with cerebral infarction Branch retinal artery occlusion of right eye Arterial branch occlusion of retina [facility]* Diagnosis Cellulitis of left leg- Primary Cellulitis and abscess of leg, except foot Stasis dermatitis Varicose veins of lower extremities with inflammation Essential hypertension Unspecified essential hypertension [facility]* Diagnosis Stasis dermatitis- Primary Varicose veins of lower extremities with inflammation Asteototic dermatitis [facility]* Diagnosis Controlled type 2 diabetes mellitus without complication, without long-term current use of insulin (HCC)- Primary Cloudy urine Other nonspecific finding on examination of urine Essential hypertension Unspecified essential hypertension 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 tract symptoms (LUTS) Thrombocytopenia (HCC) Thrombocytopenia, unspecified Edema of right lower extremity- Primary Edema Bruising Contusion of unspecified site Acute pain of right lower extremity documented in this encounter [facility]* Diagnosis Controlled type 2 diabetes mellitus without complication, without long-term current use of insulin (HCC)- Primary Cloudy urine Other nonspecific finding on examination of urine Essential hypertension Unspecified essential hypertension 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 tract symptoms (LUTS) Thrombocytopenia (HCC) Thrombocytopenia, unspecified Dyspnea, unspecified type documented in this encounter [facility] note* Diagnosis Controlled type 2 diabetes mellitus without complication, without long-term current use of insulin (HCC)- Primary Cloudy urine Other nonspecific finding on examination of urine Essential hypertension Unspecified essential hypertension 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 tract symptoms (LUTS) Thrombocytopenia (HCC) Thrombocytopenia, unspecified Simple chronic bronchitis (HCC) Simple chronic bronchitis Dyspnea on exertion Other dyspnea and respiratory abnormality documented in this encounter [facility] note* Diagnosis Dyspnea, unspecified type Controlled type 2 diabetes mellitus without complication, without long-term current use of insulin (HCC)- Primary Cloudy urine Other nonspecific finding on examination of urine Essential hypertension Unspecified essential hypertension 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 tract symptoms (LUTS) Thrombocytopenia (HCC) Thrombocytopenia, unspecified documented in this encounter [facility] for referral (narrative)* Outpatient Procedure (Routine) - Closed Specialty Diagnoses / Procedures Referred By Contac t Referred To [facility] Diagnoses Paroxysmal A-fib (HCC) Procedures ECG COMPLETE ECG ROUTINE ECG W/LEAST 12 LDS W/I&R Navin Paniagua MD [address] [place] [address] [facility] [place] [address] [place] [id number] Referral ID Status Reason Start Date Expiration Date V isits Requested Visits Authorized [id number] Closed Auto-Generate d Referral 04/10/2022 04/10/2023 1 1 [facility] for referral (narrative)* Outpatient Procedure (Routine) - Closed Specialty Diagnoses / Procedures Referred By Contac t Referred To Contact [facility] [place] Diagnoses Paroxysmal A-fib (HCC) Procedures ECG COMPLETE ECG ROUTINE ECG W/LEAST 12 LDS W/I&R Navin Paniagua MD [address] [place] [address] [facility] [place] [id number] Referral ID Status Reason Start Date Expiration Date V isits Requested Visits Authorized [id number] Closed Auto-Generate d Referral 07/11/2022 07/11/2023 1 1 [facility] for referral (narrative)* Outpatient Procedure (Routine) - Authorized Specialty Diagnoses / Procedures Referred By Contac t Referred To Contact [facility] Diagnoses ROMERO (dyspnea on exertion) Procedures LUNG DIFFUSION CAPACITY (DLCO) DIFFUSING CAPACITY Zina Daniel MD [address] [place] [address] [address] Referral ID Status Reason Start Date Expiration Date Visits Requested Visits Authorized [id number] Authorized Auto-Generat ed Referral 07/12/2022 08/11/2023 1 1 * Outpatient Procedure (Routine) - Authorized Specialty Diagnoses / Procedures Referred By Contac t Referred To Contact [facility] Diagnoses ROMERO (dyspnea on exertion) Procedures SPIROMETRY WITH DILATOR IF OBSTRUCTED BRNCDILAT RSPSE SPMTRY PRE&POST-BRNCDILAT Zina Graham MD [address] [place] [address] [address] Referral ID Status Reason Start Date Expiration Date Visits Requested Visits Authorized [id number] Authorized Auto-Generat ed Referral 07/12/2022 08/11/2023 1 1 [facility] for referral (narrative)* Outpatient Procedure (Routine) - Pending Review Specialty Diagnoses / Procedures Referred By Contac t Referred To Contact [facility] [place] Diagnoses Idiopathic hypotension Procedures ECG COMPLETE ECG ROUTINE ECG W/LEAST 12 LDS W/I&R Navin Paniagua MD [facility] [place] [address] [facility] [address] [address] Referral ID Status Reason Start Date Expiration Date Visits Requested Visits Authorized [id number] Pending Review Auto-Generat ed Referral 09/04/2023 09/03/2024 1 1 [facility] for referral (narrative)* Outpatient Procedure (Routine) - Pending Review Specialty Diagnoses / Procedures Referred By Contac t Referred To Contact [facility] Diagnoses Idiopathic hypotension Procedures ECHO ECHO TTHRC R-T 2D W/WOM-MODE COMPL SPEC&COLR D Navin Paniagua MD [address] [place] [address] [place] [id number] [place] [address] Referral ID Status Reason Start Date Expiration Date Visits Requested Visits Authorized [id number] Pending Review Auto-Generat ed Referral 09/11/2023 09/10/2024 1 1 [facility] for referral (narrative)* Diagnostic Procedure Only (Routine) - Authorized Specialty Diagnoses / Procedures Referred By Contac t Referred To Contact [facility] Diagnoses Abdominal aortic aneurysm (AAA) without rupture, unspecified part (HCC) Procedures US ABD AORTA US RETROPERITONEAL REAL TIME W/IMAGE LIMITED Navin Paniagua MD [address] [place] [address] [place] [address] Referral ID Status Reason Start Date Expiration Date Visits Requested Visits Authorized [id number] Authorized Auto-Generat ed Referral 10/28/2023 11/26/2024 1 1 [facility] for referral (narrative)* Diagnostic Procedure Only (Routine) - Closed Specialty Diagnoses / Procedures Referred By Contac t Referred To Contact [facility] Diagnoses Abdominal aortic aneurysm (AAA) without rupture, unspecified part (HCC) Procedures US ABD AORTA US RETROPERITONEAL REAL TIME W/IMAGE LIMITED Navin Paniagua MD [address] [place] [address] [place] [address] Referral ID Status Reason Start Date Expiration Date V isits Requested Visits Authorized [id number] Closed Auto-Generate d Referral 10/28/2023 11/26/2024 1 1 [facility] for referral (narrative)* Outpatient Procedure (Urgent) - New Request Specialty Diagnoses / Procedures Referred By Contac t Referred To Contact [facility] Diagnoses Acute pain of right lower extremity Edema of right lower extremity Procedures US LEG VEIN DVT UNL VAS LAB DUP-SCAN XTR VEINS UNILATERAL/LIMITED STUDY Seema Mcginnis, 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 [employer]ZING [address] [place] [address] [facility] [place] [facility] [place] [address] Referral ID Status Reason Start Date Expiration Date Visits Requested Visits Authorized [id number] New Request Auto-Generat ed Referral 03/22/2024 03/22/2025 1 1 Electronically signed by Seema Mcginnis 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 [employer]ZING at 03/22/2024 12:58 PM EDT [facility] Summary Purpose Family History No Family History Records FoundNo Family History Records Found Advance Directives No Advanced Directives Records FoundDocuments on File Type Date Recorded 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 Advance Directive(s) 01/13/2019 2:43 PM Documents on File Type Date Recorded 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 Advance Directive(s) 01/13/2019 2:43 PM Reason for Referral Specialty Diagnoses / Procedures Referred By Contac t Referred To Contact Dermatology Diagnoses Dermatitis Pruritic disorder Procedures CONSULT TO DERMATOLOGY Navin Paniagua MD [address] [place] [address] Referral ID Status Reason Start Date Expiration Date Visits Requested Visits Authorized [id number] Ref Not Required PCP Requested Referral 06/05/2023 06/04/2024 1 1 Specialty Diagnoses / Procedures Referred By Contac t Referred To Contact Hematology Diagnoses Abnormal CBC Procedures CONSULT TO HEMATOLOGY OFFICE/OUTPATIENT [facility] 60 MINUTES Navin Paniagua MD [address] [place] [address] Referral ID Status Reason Start Date Expiration Date Visits Requested Visits Authorized [id number] Authorized PCP Requested Referral 09/08/2023 09/07/2024 1 1 Specialty Diagnoses / Procedures Referred By Contac t Referred To Contact Ophthalmology Diagnoses Vision disturbance Procedures CONSULT TO OPHTHALMOLOGY OFFICE/OUTPATIENT [facility] 60 MINUTES Navin Paniagua MD [address] [place] [address] Referral ID Status Reason Start Date Expiration Date Visits Requested Visits Authorized [id number] Authorized PCP Requested Referral 11/08/2023 11/07/2024 1 1 Additional Source Comments (unrecognized sect ion and content) No Status Records FoundNo Status Records Found INFORMATION SOURCE (unrecogn ized section and content) DATE CREATED AUTHOR 10/16/2020 [facility] ([place]) DATE CREATED AUTHOR AUTHOR'S ORGANIZ ATION 06/01/2024 [facility] Source Comments (unrecognize d section and content) In the event this informatio n is protected by the Federal Confidentiality of Alcohol and Drug Abuse Patient Records regulations: The Federal rules restrict any use of the information to criminally investigate or prosecute any alcohol or drug abuse patient.[facility] System[facility] the event this information is protected by the Federal Confidentiality of Alcohol and Drug Abuse Patient Records regulations: The Federal rules restrict any use of the information to criminally investigate or prosecute any alcohol or drug abuse patient.[facility] SystemIn the event this information is protected by the Federal Confidentiality of Alcohol and Drug Abuse Patient Records regulations: The Federal rules restrict any use of the information to criminally investigate or prosecute any alcohol or drug abuse patient.[facility] SystemIn the event this information is protected by the Federal Confidentiality of Alcohol and Drug Abuse Patient Records regulations: The Federal rules restrict any use of the information to criminally investigate or prosecute any alcohol or drug abuse patient.[facility] SystemIn the event this information is protected by the Federal Confidentiality of Alcohol and Drug Abuse Patient Records regulations: The Federal rules restrict any use of the information to criminally investigate or prosecute any alcohol or drug abuse patient.[facility] SystemIn the event this information is protected by the Federal Confidentiality of Alcohol and Drug Abuse Patient Records regulations: The Federal rules restrict any use of the information to criminally investigate or prosecute any alcohol or drug abuse patient.[facility] SystemIn the event this information is protected by the Federal Confidentiality of Alcohol and Drug Abuse Patient Records regulations: The Federal rules restrict any use of the information to criminally investigate or prosecute any alcohol or drug abuse patient.[facility] SystemIn the event this information is protected by the Federal Confidentiality of Alcohol and Drug Abuse Patient Records regulations: The Federal rules restrict any use of the information to criminally investigate or prosecute any alcohol or drug abuse patient.[facility] SystemIn the event this information is protected by the Federal Confidentiality of Alcohol and Drug Abuse Patient Records regulations: The Federal rules restrict any use of the information to criminally investigate or prosecute any alcohol or drug abuse patient.[facility] SystemIn the event this information is protected by the Federal Confidentiality of Alcohol and Drug Abuse Patient Records regulations: The Federal rules restrict any use of the information to criminally investigate or prosecute any alcohol or drug abuse patient.[facility] SystemIn the event this information is protected by the Federal Confidentiality of Alcohol and Drug Abuse Patient Records regulations: The Federal rules restrict any use of the information to criminally investigate or prosecute any alcohol or drug abuse patient.[facility] SystemIn the event this information is protected by the Federal Confidentiality of Alcohol and Drug Abuse Patient Records regulations: The Federal rules restrict any use of the information to criminally investigate or prosecute any alcohol or drug abuse patient.[facility] SystemIn the event this information is protected by the Federal Confidentiality of Alcohol and Drug Abuse Patient Records regulations: The Federal rules restrict any use of the information to criminally investigate or prosecute any alcohol or drug abuse patient.[facility] SystemIn the event this information is protected by the Federal Confidentiality of Alcohol and Drug Abuse Patient Records regulations: The Federal rules restrict any use of the information to criminally investigate or prosecute any alcohol or drug abuse patient.[facility] SystemIn the event this information is protected by the Federal Confidentiality of Alcohol and Drug Abuse Patient Records regulations: The Federal rules restrict any use of the information to criminally investigate or prosecute any alcohol or drug abuse patient.[facility] SystemIn the event this information is protected by the Federal Confidentiality of Alcohol and Drug Abuse Patient Records regulations: The Federal rules restrict any use of the information to criminally investigate or prosecute any alcohol or drug abuse patient.[facility] SystemIn the event this information is protected by the Federal Confidentiality of Alcohol and Drug Abuse Patient Records regulations: The Federal rules restrict any use of the information to criminally investigate or prosecute any alcohol or drug abuse patient.[facility] SystemIn the event this information is protected by the Federal Confidentiality of Alcohol and Drug Abuse Patient Records regulations: The Federal rules restrict any use of the information to criminally investigate or prosecute any alcohol or drug abuse patient.[facility] SystemIn the event this information is protected by the Federal Confidentiality of Alcohol and Drug Abuse Patient Records regulations: The Federal rules restrict any use of the information to criminally investigate or prosecute any alcohol or drug abuse patient.[facility] SystemIn the event this information is protected by the Federal Confidentiality of Alcohol and Drug Abuse Patient Records regulations: The Federal rules restrict any use of the information to criminally investigate or prosecute any alcohol or drug abuse patient.[facility] SystemIn the event this information is protected by the Federal Confidentiality of Alcohol and Drug Abuse Patient Records regulations: The Federal rules restrict any use of the information to criminally investigate or prosecute any alcohol or drug abuse patient.[facility] SystemIn the event this information is protected by the Federal Confidentiality of Alcohol and Drug Abuse Patient Records regulations: The Federal rules restrict any use of the information to criminally investigate or prosecute any alcohol or drug abuse patient.[facility] SystemIn the event this information is protected by the Federal Confidentiality of Alcohol and Drug Abuse Patient Records regulations: The Federal rules restrict any use of the information to criminally investigate or prosecute any alcohol or drug abuse patient.[facility] SystemIn the event this information is protected by the Federal Confidentiality of Alcohol and Drug Abuse Patient Records regulations: The Federal rules restrict any use of the information to criminally investigate or prosecute any alcohol or drug abuse patient.[facility] SystemIn the event this information is protected by the Federal Confidentiality of Alcohol and Drug Abuse Patient Records regulations: The Federal rules restrict any use of the information to criminally investigate or prosecute any alcohol or drug abuse patient.[facility] SystemIn the event this information is protected by the Federal Confidentiality of Alcohol and Drug Abuse Patient Records regulations: The Federal rules restrict any use of the information to criminally investigate or prosecute any alcohol or drug abuse patient.[facility] SystemIn the event this information is protected by the Federal Confidentiality of Alcohol and Drug Abuse Patient Records regulations: The Federal rules restrict any use of the information to criminally investigate or prosecute any alcohol or drug abuse patient.[facility] SystemIn the event this information is protected by the Federal Confidentiality of Alcohol and Drug Abuse Patient Records regulations: The Federal rules restrict any use of the information to criminally investigate or prosecute any alcohol or drug abuse patient.[facility] SystemIn the event this information is protected by the Federal Confidentiality of Alcohol and Drug Abuse Patient Records regulations: The Federal rules restrict any use of the information to criminally investigate or prosecute any alcohol or drug abuse patient.[facility] SystemIn the event this information is protected by the Federal Confidentiality of Alcohol and Drug Abuse Patient Records regulations: The Federal rules restrict any use of the information to criminally investigate or prosecute any alcohol or drug abuse patient.[facility] SystemIn the event this information is protected by the Federal Confidentiality of Alcohol and Drug Abuse Patient Records regulations: The Federal rules restrict any use of the information to criminally investigate or prosecute any alcohol or drug abuse patient.[facility] SystemIn the event this information is protected by the Federal Confidentiality of Alcohol and Drug Abuse Patient Records regulations: The Federal rules restrict any use of the information to criminally investigate or prosecute any alcohol or drug abuse patient.[facility] SystemIn the event this information is protected by the Federal Confidentiality of Alcohol and Drug Abuse Patient Records regulations: The Federal rules restrict any use of the information to criminally investigate or prosecute any alcohol or drug abuse patient.[facility] SystemIn the event this information is protected by the Federal Confidentiality of Alcohol and Drug Abuse Patient Records regulations: The Federal rules restrict any use of the information to criminally investigate or prosecute any alcohol or drug abuse patient.[facility] SystemIn the event this information is protected by the Federal Confidentiality of Alcohol and Drug Abuse Patient Records regulations: The Federal rules restrict any use of the information to criminally investigate or prosecute any alcohol or drug abuse patient.[facility] SystemIn the event this information is protected by the Federal Confidentiality of Alcohol and Drug Abuse Patient Records regulations: The Federal rules restrict any use of the information to criminally investigate or prosecute any alcohol or drug abuse patient.[facility] SystemIn the event this information is protected by the Federal Confidentiality of Alcohol and Drug Abuse Patient Records regulations: The Federal rules restrict any use of the information to criminally investigate or prosecute any alcohol or drug abuse patient.[facility] SystemIn the event this information is protected by the Federal Confidentiality of Alcohol and Drug Abuse Patient Records regulations: The Federal rules restrict any use of the information to criminally investigate or prosecute any alcohol or drug abuse patient.[facility] SystemIn the event this information is protected by the Federal Confidentiality of Alcohol and Drug Abuse Patient Records regulations: The Federal rules restrict any use of the information to criminally investigate or prosecute any alcohol or drug abuse patient.[facility] SystemIn the event this information is protected by the Federal Confidentiality of Alcohol and Drug Abuse Patient Records regulations: The Federal rules restrict any use of the information to criminally investigate or prosecute any alcohol or drug abuse patient.[facility] SystemIn the event this information is protected by the Federal Confidentiality of Alcohol and Drug Abuse Patient Records regulations: The Federal rules restrict any use of the information to criminally investigate or prosecute any alcohol or drug abuse patient.[facility] SystemIn the event this information is protected by the Federal Confidentiality of Alcohol and Drug Abuse Patient Records regulations: The Federal rules restrict any use of the information to criminally investigate or prosecute any alcohol or drug abuse patient.[facility] SystemIn the event this information is protected by the Federal Confidentiality of Alcohol and Drug Abuse Patient Records regulations: The Federal rules restrict any use of the information to criminally investigate or prosecute any alcohol or drug abuse patient.[facility] SystemIn the event this information is protected by the Federal Confidentiality of Alcohol and Drug Abuse Patient Records regulations: The Federal rules restrict any use of the information to criminally investigate or prosecute any alcohol or drug abuse patient.[facility] SystemIn the event this information is protected by the Federal Confidentiality of Alcohol and Drug Abuse Patient Records regulations: The Federal rules restrict any use of the information to criminally investigate or prosecute any alcohol or drug abuse patient.[facility] SystemIn the event this information is protected by the Federal Confidentiality of Alcohol and Drug Abuse Patient Records regulations: The Federal rules restrict any use of the information to criminally investigate or prosecute any alcohol or drug abuse patient.[facility] SystemIn the event this information is protected by the Federal Confidentiality of Alcohol and Drug Abuse Patient Records regulations: The Federal rules restrict any use of the information to criminally investigate or prosecute any alcohol or drug abuse patient.[facility] SystemIn the event this information is protected by the Federal Confidentiality of Alcohol and Drug Abuse Patient Records regulations: The Federal rules restrict any use of the information to criminally investigate or prosecute any alcohol or drug abuse patient.[facility] SystemIn the event this information is protected by the Federal Confidentiality of Alcohol and Drug Abuse Patient Records regulations: The Federal rules restrict any use of the information to criminally investigate or prosecute any alcohol or drug abuse patient.[facility] SystemIn the event this information is protected by the Federal Confidentiality of Alcohol and Drug Abuse Patient Records regulations: The Federal rules restrict any use of the information to criminally investigate or prosecute any alcohol or drug abuse patient.[facility] SystemIn the event this information is protected by the Federal Confidentiality of Alcohol and Drug Abuse Patient Records regulations: The Federal rules restrict any use of the information to criminally investigate or prosecute any alcohol or drug abuse patient.[facility] SystemIn the event this information is protected by the Federal Confidentiality of Alcohol and Drug Abuse Patient Records regulations: The Federal rules restrict any use of the information to criminally investigate or prosecute any alcohol or drug abuse patient.[facility] SystemIn the event this information is protected by the Federal Confidentiality of Alcohol and Drug Abuse Patient Records regulations: The Federal rules restrict any use of the information to criminally investigate or prosecute any alcohol or drug abuse patient.[facility] SystemIn the event this information is protected by the Federal Confidentiality of Alcohol and Drug Abuse Patient Records regulations: The Federal rules restrict any use of the information to criminally investigate or prosecute any alcohol or drug abuse patient.[facility] SystemIn the event this information is protected by the Federal Confidentiality of Alcohol and Drug Abuse Patient Records regulations: The Federal rules restrict any use of the information to criminally investigate or prosecute any alcohol or drug abuse patient.[facility] SystemIn the event this information is protected by the Federal Confidentiality of Alcohol and Drug Abuse Patient Records regulations: The Federal rules restrict any use of the information to criminally investigate or prosecute any alcohol or drug abuse patient.[facility] SystemIn the event this information is protected by the Federal Confidentiality of Alcohol and Drug Abuse Patient Records regulations: The Federal rules restrict any use of the information to criminally investigate or prosecute any alcohol or drug abuse patient.[facility] SystemIn the event this information is protected by the Federal Confidentiality of Alcohol and Drug Abuse Patient Records regulations: The Federal rules restrict any use of the information to criminally investigate or prosecute any alcohol or drug abuse patient.[facility] SystemIn the event this information is protected by the Federal Confidentiality of Alcohol and Drug Abuse Patient Records regulations: The Federal rules restrict any use of the information to criminally investigate or prosecute any alcohol or drug abuse patient.[facility] SystemIn the event this information is protected by the Federal Confidentiality of Alcohol and Drug Abuse Patient Records regulations: The Federal rules restrict any use of the information to criminally investigate or prosecute any alcohol or drug abuse patient.[facility] SystemIn the event this information is protected by the Federal Confidentiality of Alcohol and Drug Abuse Patient Records regulations: The Federal rules restrict any use of the information to criminally investigate or prosecute any alcohol or drug abuse patient.[facility] SystemIn the event this information is protected by the Federal Confidentiality of Alcohol and Drug Abuse Patient Records regulations: The Federal rules restrict any use of the information to criminally investigate or prosecute any alcohol or drug abuse patient.[facility] SystemIn the event this information is protected by the Federal Confidentiality of Alcohol and Drug Abuse Patient Records regulations: The Federal rules restrict any use of the information to criminally investigate or prosecute any alcohol or drug abuse patient.[facility] SystemIn the event this information is protected by the Federal Confidentiality of Alcohol and Drug Abuse Patient Records regulations: The Federal rules restrict any use of the information to criminally investigate or prosecute any alcohol or drug abuse patient.[facility] SystemIn the event this information is protected by the Federal Confidentiality of Alcohol and Drug Abuse Patient Records regulations: The Federal rules restrict any use of the information to criminally investigate or prosecute any alcohol or drug abuse patient.[facility] SystemIn the event this information is protected by the Federal Confidentiality of Alcohol and Drug Abuse Patient Records regulations: The Federal rules restrict any use of the information to criminally investigate or prosecute any alcohol or drug abuse patient.[facility] SystemIn the event this information is protected by the Federal Confidentiality of Alcohol and Drug Abuse Patient Records regulations: The Federal rules restrict any use of the information to criminally investigate or prosecute any alcohol or drug abuse patient.[facility] SystemIn the event this information is protected by the Federal Confidentiality of Alcohol and Drug Abuse Patient Records regulations: The Federal rules restrict any use of the information to criminally investigate or prosecute any alcohol or drug abuse patient.[facility] SystemIn the event this information is protected by the Federal Confidentiality of Alcohol and Drug Abuse Patient Records regulations: The Federal rules restrict any use of the information to criminally investigate or prosecute any alcohol or drug abuse patient.[facility] SystemIn the event this information is protected by the Federal Confidentiality of Alcohol and Drug Abuse Patient Records regulations: The Federal rules restrict any use of the information to criminally investigate or prosecute any alcohol or drug abuse patient.[facility] SystemIn the event this information is protected by the Federal Confidentiality of Alcohol and Drug Abuse Patient Records regulations: The Federal rules restrict any use of the information to criminally investigate or prosecute any alcohol or drug abuse patient.[facility] SystemIn the event this information is protected by the Federal Confidentiality of Alcohol and Drug Abuse Patient Records regulations: The Federal rules restrict any use of the information to criminally investigate or prosecute any alcohol or drug abuse patient.[facility] SystemIn the event this information is protected by the Federal Confidentiality of Alcohol and Drug Abuse Patient Records regulations: The Federal rules restrict any use of the information to criminally investigate or prosecute any alcohol or drug abuse patient.[facility] SystemIn the event this information is protected by the Federal Confidentiality of Alcohol and Drug Abuse Patient Records regulations: The Federal rules restrict any use of the information to criminally investigate or prosecute any alcohol or drug abuse patient.[facility] SystemIn the event this information is protected by the Federal Confidentiality of Alcohol and Drug Abuse Patient Records regulations: The Federal rules restrict any use of the information to criminally investigate or prosecute any alcohol or drug abuse patient.[facility] SystemIn the event this information is protected by the Federal Confidentiality of Alcohol and Drug Abuse Patient Records regulations: The Federal rules restrict any use of the information to criminally investigate or prosecute any alcohol or drug abuse patient.[facility] SystemIn the event this information is protected by the Federal Confidentiality of Alcohol and Drug Abuse Patient Records regulations: The Federal rules restrict any use of the information to criminally investigate or prosecute any alcohol or drug abuse patient.[facility] SystemIn the event this information is protected by the Federal Confidentiality of Alcohol and Drug Abuse Patient Records regulations: The Federal rules restrict any use of the information to criminally investigate or prosecute any alcohol or drug abuse patient.[facility] SystemIn the event this information is protected by the Federal Confidentiality of Alcohol and Drug Abuse Patient Records regulations: The Federal rules restrict any use of the information to criminally investigate or prosecute any alcohol or drug abuse patient.[facility] SystemIn the event this information is protected by the Federal Confidentiality of Alcohol and Drug Abuse Patient Records regulations: The Federal rules restrict any use of the information to criminally investigate or prosecute any alcohol or drug abuse patient.[facility] SystemIn the event this information is protected by the Federal Confidentiality of Alcohol and Drug Abuse Patient Records regulations: The Federal rules restrict any use of the information to criminally investigate or prosecute any alcohol or drug abuse patient.[facility] SystemIn the event this information is protected by the Federal Confidentiality of Alcohol and Drug Abuse Patient Records regulations: The Federal rules restrict any use of the information to criminally investigate or prosecute any alcohol or drug abuse patient.[facility] SystemIn the event this information is protected by the Federal Confidentiality of Alcohol and Drug Abuse Patient Records regulations: The Federal rules restrict any use of the information to criminally investigate or prosecute any alcohol or drug abuse patient.[facility] SystemIn the event this information is protected by the Federal Confidentiality of Alcohol and Drug Abuse Patient Records regulations: The Federal rules restrict any use of the information to criminally investigate or prosecute any alcohol or drug abuse patient.[facility] SystemIn the event this information is protected by the Federal Confidentiality of Alcohol and Drug Abuse Patient Records regulations: The Federal rules restrict any use of the information to criminally investigate or prosecute any alcohol or drug abuse patient.[facility] SystemIn the event this information is protected by the Federal Confidentiality of Alcohol and Drug Abuse Patient Records regulations: The Federal rules restrict any use of the information to criminally investigate or prosecute any alcohol or drug abuse patient.[facility] SystemIn the event this information is protected by the Federal Confidentiality of Alcohol and Drug Abuse Patient Records regulations: The Federal rules restrict any use of the information to criminally investigate or prosecute any alcohol or drug abuse patient.[facility] SystemIn the event this information is protected by the Federal Confidentiality of Alcohol and Drug Abuse Patient Records regulations: The Federal rules restrict any use of the information to criminally investigate or prosecute any alcohol or drug abuse patient.[facility] SystemIn the event this information is protected by the Federal Confidentiality of Alcohol and Drug Abuse Patient Records regulations: The Federal rules restrict any use of the information to criminally investigate or prosecute any alcohol or drug abuse patient.[facility] Reason for Visit (unrecogniz ed section and content) Reason Comments Patient Question Reason Comments 6 Month Exam Reason Comments Nailcare Diabetic Foot Care Reason Comments Patient Update new medications from [place] Reason Comments Patient Update Reason Comments Patient Update COVID positive 2021 Patient Question Reason Comments Established Patient Nail Care Reason Onset Date Comments F/U 6 months Immunizations 04/10/2022 Flu vaccination Reason Comments Faxed to Dr. Peters Reason Comments Medication Problem Reason Onset Date Comments Refill Request 05/22/2022 Reason Onset Date Comments Refill Request 05/21/2022 Reason Comments FYI-No Action Needed Apt today cancelled Reason Comments vomiting and nausea with diarrhea Reason Comments Established Patient Follow Up nail care Reason Comments Results Reason Onset Date Comments Refill Request 06/17/2022 Reason Comments call from support services rep Reason Comments Medicare Wellness Exam Reason Comments Shortness of Breath Reason Comments Spirometry Specialty Diagnoses / Procedures Referred By Contac t Referred To Contact [facility] Diagnoses ROMERO (dyspnea on exertion) Procedures SPIROMETRY WITH DILATOR IF OBSTRUCTED BRNCDILAT RSPSE SPMTRY PRE&POST-BRNCDILAT ADMN Zina Daniel MD [address] [place] [address] [facility] [place] [email or web address] [address] Referral ID Status Reason Start Date Expiration Date V isits Requested Visits Authorized [id number] Closed Auto-Generate d Referral 07/12/2022 08/11/2023 1 1 Specialty Diagnoses / Procedures Referred By Contac t Referred To Contact [facility] Diagnoses ROMERO (dyspnea on exertion) Procedures LUNG DIFFUSION CAPACITY (DLCO) DIFFUSING CAPACITY Zina Daniel MD [address] [place] [address] [facility] [email or web address] [address] Referral ID Status Reason Start Date Expiration Date V isits Requested Visits Authorized [id number] Closed Auto-Generate d Referral 07/12/2022 08/11/2023 1 1 Reason Comments Follow Up Reason Comments 2 month follow up Reason Comments Established Patient Follow Up Diabetic Foot Check Reason Onset Date Comments Refill Request 12/16/2022 Reason Comments Release Of Medical Records Reason Comments Lab Orders Reason Comments Established Patient Follow Up Diabetic Foot Care Reason Comments [facility] verbal orders needed Reason Comments Dressing changes for wounds Reason Comments Edema Edema bilateral feet /legs x1 week Reason Comments Leg Edema with drainage Reason Comments Recheck Left Leg, TE 05/21 Reason Onset Date Comments Refill Request 05/26/2023 Reason Comments Results Lab results Reason Onset Date Comments Refill Request 06/02/2023 Reason Comments 3 week follow-up Reason Comments Recheck Blood pressure Reason Comments Medicare Wellness Exam Reason Comments Blood Pressure Reason Onset Date Comments Refill Request 09/08/2023 Reason Comments Orders Reason Comments Consult Specialty Diagnoses / Procedures Referred By Contac t Referred To Contact Hematology Diagnoses Abnormal CBC Procedures CONSULT TO HEMATOLOGY OFFICE/OUTPATIENT NEW HIGH MDM 60 MINUTES Navin Paniagua MD [address] [place] [address] Referral ID Status Reason Start Date Expiration Date V isits Requested Visits Authorized [id number] Closed PCP Requested Referral 09/08/2023 09/07/2024 1 1 Reason Comments F/U 3 Month Reason Onset Date Comments Transition Of Care 11/03/2023 Reason Onset Date Comments Refill Request 11/06/2023 Reason Comments Patient Update Reason Comments Hospital F/U had a possible strok e with a fall Reason Comments Radiology US Specialty Diagnoses / Procedures Referred By Contac t Referred To Contact [facility] Diagnoses Abdominal aortic aneurysm (AAA) without rupture, unspecified part (HCC) Procedures US ABD AORTA US RETROPERITONEAL REAL TIME W/IMAGE LIMITED Navin Paniagua MD [address] [place] [address] [place] [address] Referral ID Status Reason Start Date Expiration Date V isits Requested Visits Authorized [id number] Closed Auto-Generate d Referral 10/28/2023 11/26/2024 1 1 Reason Onset Date Comments Refill Request 12/26/2023 Reason Comments Patient Update Appointment Reason Comments fax lab orders to [facility] Reason Comments F/U 3 Month Reason Comments Same Day Appointment bilateral legs and arms itchy Reason Comments Cellulitis Reason Comments Pain Reason Comments Follow Up 2 week follow up- lo wer left leg cellulitis Reason Comments Right calf swelling Reason Comments Constipation Reason Comments Bleeding/Bruising Reason Comments ED Follow-up Right calf pain, swe lling, bruising - ankle to groin Reason Comments hematoma Reason Comments Report of lab result Care Teams (unrecognized sec tion and content) Cleat Feeder Relationship Specialty Start Date End Date Navin Paniagua MD [address] [facility] [place] [address] PCP - General Internal Medicine 04/28/18 Cleat Feeder Relationship Specialty Start Date End Date Navin Paniagua MD [address] [facility] [place] [address] PCP - General Internal Medicine 04/28/18 Cleat Feeder Relationship Specialty Start Date End Date Navin Paniagua MD [address] [facility] [place] [address] PCP - General Internal Medicine 04/28/18 Cleat Feeder Relationship Specialty Start Date End Date Navin Paniagua MD [address] [facility] [place] [address] PCP - General Internal Medicine 04/28/18 Cleat Feeder Relationship Specialty Start Date End Date Navin Paniagua MD [facility] [place] [address] PCP - General Internal Medicine 04/28/18 Cleat Feeder Relationship Specialty Start Date End Date Navin Paniagua MD [address] [facility] [place] [address] PCP - General Internal Medicine 04/28/18 Cleat Feeder Relationship Specialty Start Date End Date Navin Paniagua MD [address] [facility] [place] [address] PCP - General Internal Medicine 04/28/18 Cleat Feeder Relationship Specialty Start Date End Date Navin Paniagua MD [facility] [place] [address] PCP - General Internal Medicine 04/28/18 Cleat Feeder Relationship Specialty Start Date End Date Navin Paniagua MD [address] [facility] [place] [address] PCP - General Internal Medicine 04/28/18 Cleat Feeder Relationship Specialty Start Date End Date Navin Paniagua MD [address] [facility] [place] [address] PCP - General Internal Medicine 04/28/18 Cleat Feeder Relationship Specialty Start Date End Date Navin Paniagua MD [address] [facility] [address] PCP - General Internal Medicine 04/28/18 Cleat Feeder Relationship Specialty Start Date End Date Navin Paniagua MD [address] [facility] [place] [address] PCP - General Internal Medicine 04/28/18 Cleat Feeder Relationship Specialty Start Date End Date Navin Paniagua MD [address] [facility] [address] PCP - General Internal Medicine 04/28/18 Cleat Feeder Relationship Specialty Start Date End Date Navin Paniagua MD [address] [facility] [place] [address] PCP - General Internal Medicine 04/28/18 Cleat Feeder Relationship Specialty Start Date End Date Navin Paniagua MD [address] [facility] [address] PCP - General Internal Medicine 04/28/18 Cleat Feeder Relationship Specialty Start Date End Date Navin Paniagua MD [address] [facility] [address] PCP - General Internal Medicine 04/28/18 Cleat Feeder Relationship Specialty Start Date End Date Navin Paniagua MD [address] [facility] [address] PCP - General Internal Medicine 04/28/18 Cleat Feeder Relationship Specialty Start Date End Date Navin Paniagua MD [address] [facility] [place] [address] PCP - General Internal Medicine 04/28/18 Cleat Feeder Relationship Specialty Start Date End Date Navin Paniagua MD [address] [facility] [address] PCP - General Internal Medicine 04/28/18 Cleat Feeder Relationship Specialty Start Date End Date Navin Paniagua MD [address] [place] [address] PCP - General Internal Medicine 04/28/18 Cleat Feeder Relationship Specialty Start Date End Date Navin Paniagua MD [address] [place] [address] PCP - General Internal Medicine 04/28/18 Cleat Feeder Relationship Specialty Start Date End Date Navin Paniagua MD [address] [place] [address] PCP - General Internal Medicine 04/28/18 Cleat Feeder Relationship Specialty Start Date End Date Navin Paniagua MD [address] [place] [address] PCP - General Internal Medicine 04/28/18 Cleat Feeder Relationship Specialty Start Date End Date Navin Paniagua MD [address] [facility] [address] PCP - General Internal Medicine 04/28/18 Cleat Feeder Relationship Specialty Start Date End Date Navin Paniagua MD [address] [place] [address] PCP - General Internal Medicine 04/28/18 Cleat Feeder Relationship Specialty Start Date End Date Navin Paniagua MD [address] [facility] [address] PCP - General Internal Medicine 04/28/18 Cleat Feeder Relationship Specialty Start Date End Date Navin Paniagua MD [address] [facility] [address] PCP - General Internal Medicine 04/28/18 Cleat Feeder Relationship Specialty Start Date End Date Navin Paniagua MD [address] [facility] [address] PCP - General Internal Medicine 04/28/18 Cleat Feeder Relationship Specialty Start Date End Date Navin Paniagua MD [address] [facility] [address] PCP - General Internal Medicine 04/28/18 Cleat Feeder Relationship Specialty Start Date End Date Navin Paniagua MD [address] [facility] [address] PCP - General Internal Medicine 04/28/18 Cleat Feeder Relationship Specialty Start Date End Date Navin Paniagua MD [address] [facility] [address] PCP - General Internal Medicine 04/28/18 Cleat Feeder Relationship Specialty Start Date End Date Navin Paniagua MD [address] [facility] [address] PCP - General Internal Medicine 04/28/18 Cleat Feeder Relationship Specialty Start Date End Date Navin Paniagua MD [address] [facility] [address] PCP - General Internal Medicine 04/28/18 Cleat Feeder Relationship Specialty Start Date End Date Navin Paniagua MD [address] [facility] [place] [address] PCP - General Internal Medicine 04/28/18 Cleat Feeder Relationship Specialty Start Date End Date Navin Paniagua MD [address] [facility] [place] [address] PCP - General Internal Medicine 04/28/18 Cleat Feeder Relationship Specialty Start Date End Date Navin Paniagua MD [address] [place] [address] PCP - General Internal Medicine 04/28/18 Cleat Feeder Relationship Specialty Start Date End Date Navin Paniagua MD [address] [place] [address] PCP - General Internal Medicine 04/28/18 Cleat Feeder Relationship Specialty Start Date End Date Navin Paniagua MD [address] [place] [address] PCP - General Internal Medicine 04/28/18 Cleat Feeder Relationship Specialty Start Date End Date Navin Paniagua MD [address] [place] [address] PCP - General Internal Medicine 04/28/18 Cleat Feeder Relationship Specialty Start Date End Date Navin Paniagua MD [address] [place] [address] PCP - General Internal Medicine 04/28/18 Cleat Feeder Relationship Specialty Start Date End Date Navin Paniagua MD [address] [place] [address] PCP - General Internal Medicine 04/28/18 Cleat Feeder Relationship Specialty Start Date End Date Navin Paniagua MD [address] [facility] [address] PCP - General Internal Medicine 04/28/18 Cleat Feeder Relationship Specialty Start Date End Date Navin Paniagua MD [address] [facility] [address] PCP - General Internal Medicine 04/28/18 Cleat Feeder Relationship Specialty Start Date End Date Navin Paniagua MD [address] [facility] [address] PCP - General Internal Medicine 04/28/18 Cleat Feeder Relationship Specialty Start Date End Date Navin Paniagua MD [address] [facility] [address] PCP - General Internal Medicine 04/28/18 Cleat Feeder Relationship Specialty Start Date End Date Navin Paniagua MD [address] [facility] [address] PCP - General Internal Medicine 04/28/18 Cleat Feeder Relationship Specialty Start Date End Date Navin Paniagua MD [address] [facility] [address] PCP - General Internal Medicine 04/28/18 Cleat Feeder Relationship Specialty Start Date End Date Navin Paniagua MD [address] [facility] [address] PCP - General Internal Medicine 04/28/18 Cleat Feeder Relationship Specialty Start Date End Date Navin Paniagua MD [address] [place], [place] [address] PCP - General Internal Medicine 04/28/18 Cleat Feeder Relationship Specialty Start Date End Date Navin Paniagua MD [address] [place], [place] [address] PCP - General Internal Medicine 04/28/18 Cleat Feeder Relationship Specialty Start Date End Date Navin Paniagua MD [address] [place], [place] [id number] PCP - General Internal Medicine 04/28/18 Cleat Feeder Relationship Specialty Start Date End Date Navin Paniagua MD [address] [place], [place] [address] PCP - General Internal Medicine 04/28/18 FOR RECORDS PERTAINING TO PATIENTS WHO ARE OR HAVE BEEN ENROLLED IN A CHEMICAL DEPENDENCY/SUBSTANCEABUSE PROGRAM, SOME INFORMATION MAY BE OMITTED. This clinical summary was aggregated from multiple sources. Caution should be exercised in using it in the provision of clinical care. This summary normalizes information from multiple sources, and as a consequence, information in this document may materially change the coding, format and clinical context of patient data. In addition, data may be omitted in some cases. CLINICAL DECISIONS SHOULD BE BASED ON THE PRIMARY CLINICAL RECORDS. [facility]. provides no warranty or guarantee of the accuracy or completeness of information in this document.
== END | disposition home or self-care (01) ==
LOC: LAB 15:34
PROVIDERS: PCP Internal Medicine; Referring Provider Nurse Practitioner Family; Visit Provider Nurse Practitioner Family
DX: R06.09 Other forms of dyspnea (principal); I49.5 Sick sinus syndrome; I48.0 Paroxysmal atrial fibrillation; Z95.0 Presence of cardiac pacemaker; E78.2 Mixed hyperlipidemia
CPT/HCPCS: 36415; 80053; 83880; 85025

== ENCOUNTER 2024-11-17 16:11 | Observation (INO) | payer MEDICARE, SELFPAY ==
[2024-11-17] VITALS (7 sets, daily range): BP systolic 140–167; BP diastolic 69–87; PULSE 60–87; RESP 18–25; TEMP 36.4–36.6; O2SAT 97–99; BMI 27.7; BMI 27.8; BMI 26.6
--- NOTE | 2024-11-17 16:27 | EKG12_ITS ---
Test Reason : Blood Pressure : */* mmHG Vent. Rate : 61 BPM Atrial Rate : 61 BPM P-R Int : 330 ms QRS Dur : 104 ms QT Int : 438 ms P-R-T Axes : * -20 -7 degrees QTcB Int : 440 ms ? Atrial-paced rhythm with prolonged AV conduction Abnormal ECG Confirmed by Austin Bobby ([id number]), deputy editor in chief EVELYN CHRISTIAN ([id number]) on 11/19/2024 6:59:39 AM Referred By: Andrade Eisenberg Confirmed By: Austin Bobby
--- NOTE | 2024-11-17 16:32 | EX.ED.DYSGE1 ---
HPI <SUNNY Valle - Last Filed: 11/17/24 19:23> History of Present Illness Chief Complaint: Neuro S/Sx Narrative Narrative: Patient is a 89-year-old male with history of paroxysmal atrial fibrillation, hyperlipidemia, on 81 mg aspirin, TIA, history of CVA presents to the [facility] part with left foot weakness. Patient states that he went to bed roughly around midnight this morning, he states that he walked normally, there was no weakness. When he woke up, he noticed that whenever dorsiflex his left foot it would not go as high as the right. Patient states that this was concerning, he believes he might of had another stroke and is here for evaluation. He denies any headache, denies any significant weakness. 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 Disequilibrium Blurred vision Carotid artery stenosis Hypertensive urgency History of CVA (cerebrovascular accident) COPD (chronic obstructive pulmonary disease) Sick sinus syndrome Paroxysmal supraventricular tachycardia Essential (primary) hypertension Diabetes mellitus BPH (benign prostatic hyperplasia) Sinus node dysfunction Transient cerebral ischemic attack Home Medications ?Medication ?Instructions ?Recorded ?Last Taken ?Type finasteride 5 mg tablet 5 mg PO DAILY prostate 06/15/15 01/09/24 History tamsulosin 0.4 mg capsule 0.4 mg PO QHS prostate 05/08/21 01/08/24 History atorvastatin 40 mg tablet 40 mg PO QHS cholesterol #90 tabs 11/19/22 01/08/24 Rx glipizide 5 mg tablet, extended 5 mg PO DAILY diabetes #90 tabs 11/19/22 01/09/24 Rx release 24 hr mycophenolate 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 10/30/23 01/09/24 History capsule aspirin 81 mg chewable tablet 81 mg PO BREAKFAST heart YouTern #0 10/31/23 01/09/24 Rx tabs furosemide 40 mg tablet (Lasix) 40 mg PO TUSA diuretic 01/09/24 01/06/24 History ezetimibe 10 mg tablet 10 mg PO QDAY 06/01/24 Unknown History amiodarone 200 mg tablet 200 mg PO DAILY heart #90 tabs 11/01/24 Unknown Rx Allergy/AdvReac Type Severity Reaction Status Date / Time amlodipine Allergy Rash Verified 06/01/24 14:11 ether AdvReac Unknown Verified 06/01/24 14:11 tolmetin (From Tolectin) AdvReac Hives Verified 06/01/24 14:11 Family History (Updated 11/17/24 @ 19:[address] Chanel Conde MD) Father Negative FH of ASCVD Trauma Patient reports complex paraplegia following trauma when he was in his 40s, 2-3 years following accident. 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 Chanel Conde MD) household members: none Smoking Status: Former smoker how long ago did patient quit smokin years ago alcohol intake: current alcohol intake frequency: 0-2 drinks per day Alcohol type: beer, wine and hard liquor substance use type: does not use caffeine: Yes Type: coffee Number of servings: 2 what type of physical activity do you participate in: none ROS <SUNNY Valle - Last Filed: 11/17/24 19:23> ROS ED ROS Narrative Constitutional: Negative for fever, chills, weight loss, weakness Eyes: Negative for vision loss, vision change, double vision ENT: Negative for any sore throat, ear pain, congestion Cardiovascular: Negative for any chest pain, tightness, palpitations Respiratory: Negative for any cough, sputum production, hemoptysis, dyspnea, dyspnea on exertion, orthopnea Gastrointestinal: Negative for any abdominal pain, nausea, vomiting, diarrhea, constipation, blood in stool, blood in vomit : Negative for any urinary frequency, dysuria, retention, blood in urine Muscle skeletal: Negative for any neck pain, back pain. Positive for weakness to the left foot Neurological: Negative for any headache, syncope, dizziness Skin: Negative for any rashes, itching, abrasions, lacerations Psychiatric: Negative for any depression, anxiety, stress, suicidal ideation, homicidal ideation Hematologic: Negative for any excessive bruising, easy bleeding EXAM <SUNNY Valle - Last Filed: 11/17/24 19:23> Physical Exam Narrative Exam Narrative: Vital signs reviewed. HEET: Head normocephalic atraumatic, TMs clear bilaterally. Posterior pharynx is clear, moist mucous membranes. Nares clear bilaterally. Neck: Supple with no lymphadenopathy or tenderness. No signs of meningismus. Cardiac: Regular rate and rhythm no murmurs gallops or rubs, equal peripheral pulses bilaterally. Respiratory: Lungs clear to auscultation bilaterally. No chest tenderness. Abdomen: Soft, nontender, nondistended. No abdominal bruit or pulsatile masses. No hepatosplenomegaly Extremities: No peripheral edema, no signs of gross trauma or deformity. Active full range of motion of all extremities. Patient's left foot does not dorsiflex as much as the right foot. However patient has full range of motion of both feet. Patient does have slight weakness when trying to dorsiflex against resistance. Neuro: Cranial nerves II through XII intact, no focal neurological deficits. NIH score was a possible 1 for the weakness to the left foot. Skin: Clean dry and intact with no rash, purpura, petechiae, vesicles or pustules. Backs/flank: No CVA tenderness, no midline spinal tenderness, no deformity. Psych: Normal mood and affect. No SI, HI or acute psychosis. Const Vital Signs: 11/17/24 16:12 11/17/24 16:36 11/17/24 17:10 Temperature 97.6 F L Temperature Source Temporal Pulse Rate 87 Respiratory Rate 25 H Blood Pressure 151/80 H 153/69 H Blood Pressure Mean 103 97 Pulse Ox 99 Oxygen Delivery Method Room Air Room Air 11/17/24 18:00 11/17/24 18:55 11/17/24 19:27 Temperature 98 F Temperature Source Pulse Rate 60 62 60 Respiratory Rate 24 H 23 H 18 Blood Pressure 140/71 H 163/83 H 167/87 H Blood Pressure Mean 94 109 113 Pulse Ox 98 Oxygen Delivery Method Positive well nourished <Andrade Eisenberg MD - Last Filed: 11/17/24 20:09> Physical Exam Const Vital Signs: 11/17/24 16:12 11/17/24 16:36 11/17/24 17:10 Temperature 97.6 F L Temperature Source Temporal Pulse Rate 87 Respiratory Rate 25 H Blood Pressure 151/80 H 153/69 H Blood Pressure Mean 103 97 Pulse Ox 99 Oxygen Delivery Method Room Air Room Air 11/17/24 18:00 11/17/24 18:55 11/17/24 19:27 Temperature 98 F Temperature Source Pulse Rate 60 62 60 Respiratory Rate 24 H 23 H 18 Blood Pressure 140/71 H 163/83 H 167/87 H Blood Pressure Mean 94 109 113 Pulse Ox 98 Oxygen Delivery Method [facility] <SUNNY Valle - Last Filed: 11/17/24 19:23> [facility] Lab Data Labs: Laboratory Results - last 24 hr 11/17/24 16:15 WBC 9.0 RBC 4.33 L Hgb 12.7 L Hct 40.0 MCV 92.4 MCH 29.3 MCHC 31.8 L RDW Std Deviation 46.5 H RDW Coeff of [place] 13.8 Plt Count TNP MPV 11.7 Immature Gran % (Auto) 0.400 Neut % (Auto) 81.3 H Lymph % (Auto) 8.9 L [place]oup % (Auto) 8.1 Eos % (Auto) 1.1 Baso % (Auto) 0.2 Absolute Neuts (auto) 7.3 Absolute Lymphs (auto) 0.80 L Nucleated RBC % 0 Platelet Estimate ADEQUATE PT 13.9 INR 1.1 APTT 22.7 L Sodium 139 Potassium 4.2 Chloride 103 Carbon Dioxide 24.6 Anion Gap 11 BUN 27 H Creatinine 1.34 H Estim Creat Clear Calc 42.20 L Est GFR (MDRD) Non-Af 51 L BUN/Creatinine Ratio 20.2 H Glucose 185 H Calcium 8.9 Radiography Diagnostic Testing: Clinical Impression(s) from Imaging Studies Head/Neck CTA 11/17/24 17:49 IMPRESSION: No large vessel occlusion. Mild (40%) right carotid stenosis. Mild (20%) left carotid stenosis. Patent vertebral arteries bilaterally. Reading Location: [facility] EKG Atrial paced rhythm, rate of 61: Attestation: I personally reviewed and interpreted this EKG as follows: Comments: Atrial paced rhythm with prolonged AV conduction, rate of 61 bpm, RI interval 338 ms, QRS duration 104 ms, no acute ST elevation, no acute infarct noted. Treatment and Re-Evaluation :: Differential diagnosis includes however is not limited to: Sequelae of arthritis in the back, CVA, TIA, lumbar radiculopathy, muscle soreness, muscle tightness Patient appears generally well, vital signs are stable, patient is nontoxic-appearing. Presenting to the emergency department complaints of difficulty dorsiflexing the left foot. The patient's remainder of the neurological exam was unremarkable. Patient will not be called the stroke team, last known well was around midnight this last evening. Patient will receive a CT scan of the brain, CTA head neck, as well as basic laboratory values, EKG. All radiologic examinations were read, reviewed by the emergency department attending. From these reads, a plan of care will be put in place. Patient CBC shows stable anemia with a hemoglobin 12.7, patient's PT was 13.9 with INR 1.1, APTT was 22.7. Patient's creatinine was stable at 1.34, glucose 185. Patient's CTA shows no large vessel occlusion. Mild 40% right carotid stenosis, mild 20% left carotid stenosis. Patent vertebral arteries bilaterally. At this time, patient is still complaining of left foot weakness. Patient will be admitted to the hospital. <Andrade Eisenberg MD - Last Filed: 11/17/24 20:09> [facility] Narrative Medical decision making narrative: Dr. Eisenberg: I have personally performed a face to face assessment of the patient and have reviewed the ORTIZ Note. I performed a substantive portion of the visit including all aspects of the following. My mckinnon findings include: History is patient with history of previous TIAs and strokes, not on anticoagulation, presents with inability to raise his left forefoot since this morning. This is over 4 hours ago. He is outside the window for tPA. He is unsure when he went to bed last evening, but awoke stating that when he stands he is unable to lift his forefoot off the ground on the left-hand side. He denies other symptoms. Exam is afebrile. Vital signs noted. Nontoxic-appearing. Cardiovascular examination reveals a regular rate and rhythm. Lungs clear to auscultation bilaterally. Abdomen soft nontender with normal active bowel sounds. Neurological examination shows that he has weakness in dorsiflexion of his left foot. He is able to plantar flex and is able to dorsiflex a small amount but not as much as compared to his right foot. Medical Decision Making: I do not feel that stroke team is indicated. He is already outside the 4-hour window, and his NIH stroke scale is essentially 0. He may have more of a peripheral nerve neuropathy versus muscle weakness. CTA obtained as well as stroke laboratory work. Given that he lives alone, and has had prior CVA as well as risk factors, discussed with hospitalist. Assigned observation. Other additions or changes: [None] History & Record Review Discussion w/independent historian: Patient Lab Data Attestation: I reviewed the patient's lab results. Labs: Laboratory Results - last 24 hr 11/17/24 16:15 WBC 9.0 RBC 4.33 L Hgb 12.7 L Hct 40.0 MCV 92.4 MCH 29.3 MCHC 31.8 L RDW Std Deviation 46.5 H RDW Coeff of [place] 13.8 Plt Count TNP MPV 11.7 Immature Gran % (Auto) 0.400 Neut % (Auto) 81.3 H Lymph % (Auto) 8.9 L Loup % (Auto) 8.1 Eos % (Auto) 1.1 Baso % (Auto) 0.2 Absolute Neuts (auto) 7.3 Absolute Lymphs (auto) 0.80 L Nucleated RBC % 0 Platelet Estimate ADEQUATE PT 13.9 INR 1.1 APTT 22.7 L Sodium 139 Potassium 4.2 Chloride 103 Carbon Dioxide 24.6 Anion Gap 11 BUN 27 H Creatinine 1.34 H Estim Creat Clear Calc 42.20 L Est GFR (MDRD) Non-Af 51 L BUN/Creatinine Ratio 20.2 H Glucose 185 H Calcium 8.9 Radiography Diagnostic Testing: Clinical Impression(s) from Imaging Studies Head/Neck CTA 11/17/24 17:49 IMPRESSION: No large vessel occlusion. Mild (40%) right carotid stenosis. Mild (20%) left carotid stenosis. Patent vertebral arteries bilaterally. Reading Location: [id number] Discharge Plan Dx/Rx/DC Orders Clinical Impression: Weakness of left foot, History of cardioembolic cerebrovascular accident (CVA) Disposition Disposition: Acute Care [facility]
[2024-11-17 16:44] LABS: Absolute Neutrophil Count 7.3 X10^3/uL (2.0-7.7); Basophil# 0.02 X10^3/uL; Basophil% 0.2 % (0-1); Eosinophils% 1.1 % (0-5); Hemoglobin 12.7 g/dL (13.0-16.5); Lymphocyte % 8.9 % (19-41); Mean Corp Hgb Conc 31.8 g/dL (32-36); Mean Corpuscular Hgb 29.3 pg (27.0-32.0); Mean Corpuscular Volume 92.4 fL (80-94); Mean Platelet Vol. 11.7 fl (6.2-12.0); Monocyte# 0.73 X10^3/uL; Monocyte% 8.1 % (0-10); NRBC Flagged by Analyzer 0 % (0-5); Neutrophil # 7.33 X10^3/uL (2.7-7.7); Neutrophil % 81.3 % (47-70); POSITIVE COUNT YES; RBC Distribution Width CV 13.8 % (11.6-14.6); RBC Distribution Width SD 46.5 fl (35.1-43.9); Red Blood Count 4.33 M/mm3 (4.6-6.2)
[2024-11-17 17:24] LABS: Differential Indicated SCAN CRITERIA MET
[2024-11-17 17:25] LABS: International Normalized Ratio 1.1; Partial Thromboplast Time 22.7 Seconds (24.1-36.2); Platelet Estimate ADEQUATE (ADEQ); Prothrombin Time (Protime)PT. 13.9 SECONDS (11.7-14.9)
[2024-11-17 17:27] LABS: Anion Gap 11 (5-15); BUN 27 mg/dL (4-19); BUN/Creat Ratio 20.2 RATIO (10-20); Calcium,Total 8.9 mg/dL (7.6-11.0); Carbon Dioxide 24.6 mmol/L (21.0-32.0); Chloride 103 mmol/L (98-108); Creatinine, Serum 1.34 mg/dL (0.70-1.20); EST Glomerular Filtration Rate 51 (>60); Glucose 185 mg/dL (70-99); Potassium 4.2 mmol/L (3.3-5.1); Sodium Level 139 mmol/L (133-145)
--- NOTE | 2024-11-17 17:49 | CT_ITS ---
PROCEDURE: STROKE CTA HEAD AND NECK W/CON 11/17/2024 REASON FOR EXAM: NEURO DEFICIT, ACUTE, STROKE SUSPECTED TECHNIQUE: CTA imaging of the head and neck from the aortic arch to the skull vertex with out constrast and with intravenous contrast. Coronal and Sagittal reconstruction series were provided. 3D post processing with reformations, Maximum intensity projection (MIPs) Volume rendering and Shaded surface rendering was provided. One or more dose reduction techniques were used (e.g., Automated exposure control, adjustment of the mA and/or kV according to patient size, use of iterative reconstruction technique). FINDINGS: Aortic Arch: Mild amount of calcified and noncalcified plaque in the aortic arch. Brachiocephalic and Subclavians: Mild (50%) stenosis of the origin of the brachiocephalic trunk. Widely patent origins of the left common carotid artery and left subclavian artery. RIGHT Carotid: Right CCA: Tortuous proximal right common carotid artery without stenosis. Right ICA: Mild amount of calcified plaque of the carotid bifurcation producing mild (40%) stenosis. Maximum stenosis (NASCET): 40 % Right ECA: Patent LEFT Carotid: Left CCA: Tortuous proximal left common carotid artery. Left ICA: Mild amount of calcified plaque of the carotid bifurcation producing mild (20%) stenosis. Maximum stenosis (NASCET): 20 % Left ECA: Patent Vertebrals: Widely patent RIGHT Vertebral: Widely patent LEFT Vertebral: Widely patent Anatomy: Persistent origin of the right posterior cerebral artery which is a normal variant. Aneurysm or avm: No intracranial aneurysms or large vascular malformations are identified. Anterior cerebral arteries: Unremarkable: Middle cerebral arteries: Unremarkable. Basilar artery: Unremarkable. Posterior cerebral arteries: Unremarkable. Other major branches of the posterior circulation: Unremarkable. Major venous structures: Unremarkable. Other findings: Neck: No lymphadenopathy. Lungs: Lung apices are clear. Bones: Bones are unremarkable. CT/STROKE CTA Head AND Neck W/Con IMPRESSION: No large vessel occlusion. Mild (40%) right carotid stenosis. Mild (20%) left carotid stenosis. Patent vertebral arteries bilaterally. Reading Location: [id number]
--- NOTE | 2024-11-17 19:47 | HP.PCM.HOS_ITS ---
HPI - General General Date of Admission: 11/17/24 Date of Service: 11/17/24 Chief Complaint: Mild L foot drop. HPI Narrative The patiet is an 89 y/o M w/ PMHx: CKD stage III unclear subtype per GFR trending, Chronic anemia, Former tobacco use, Heavy EtOH usage, BPH with obstructive pathology, Diabetes mellitus type II, PAF, HTN, HLD, HFpEF, Hx spontaneous right parietal subarachnoid hemorrhage 11/2019, COPD, Hx Sick sinus syndrome/sinus node dysfunction s/p pacemaker placement who presents to the [facility] ED on 11/17/2024 with history of onset of left foot weakness noting that he went to bed at approximately midnight and had walked normally with no debility however upon awakening he noticed that whenever he attempted to dorsiflex his left foot it would not elevate as high as his right which was a concern to him given his previous history prompting ED evaluation to be certain he was not having a stroke. Workup in the ED included T97.6 Temporal, heart rate 87, BP 151/80, respiratory rate 25, 9% on room air with most recent repeat vitals BP 153/69, CBC with WBC 9.0, hemoglobin 12.7, MCV 92.4, platelets not listed with lymphopenia, coags unremarkable aside PTT 22.7, BMP with BUN/creatinine 27/1.34, GFR 51, glucose 185, EKG with atrial paced rhythm with no acute evidence of ischemia. 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 Disequilibrium Blurred vision Carotid artery stenosis Hypertensive urgency History of CVA (cerebrovascular accident) COPD (chronic obstructive pulmonary disease) Sick sinus syndrome Paroxysmal supraventricular tachycardia Essential (primary) hypertension Diabetes mellitus BPH (benign prostatic hyperplasia) Sinus node dysfunction Transient cerebral ischemic attack Home Medications ?Medication ?Instructions ?Recorded ?Last Taken ?Type finasteride 5 mg tablet 5 mg PO DAILY prostate 06/1501/09/24 History tamsulosin 0.4 mg capsule 0.4 mg PO QHS prostate 05/0801/08/24 History atorvastatin 40 mg tablet 40 mg PO QHS cholesterol #90 tabs 11/19/22 01/08/24 Rx glipizide 5 mg tablet, extended 5 mg PO DAILY diabetes #90 tabs 11/19/22 01/09/24 Rx release 24 hr mycophenolate 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 10/30/23 01/09/24 History capsule aspirin 81 mg chewable tablet 81 mg PO BREAKFAST heart health #0 10/31/23 01/09/24 Rx tabs furosemide 40 mg tablet (Lasix) 40 mg PO TUSA diuretic 01/09/24 01/06/24 History ezetimibe 10 mg tablet 10 mg PO QDAY 06/01/24 Unkno wn History amiodarone 200 mg tablet 200 mg PO DAILY heart #90 ta bs 11/01/24 Unknown Rx Allergy/AdvReac Type Severity Reaction Status Date / Time amlodipine Allergy Rash Verified 06/01/24 14:11 ether AdvReac Unknown Verified 06/01/24 14:11 tolmetin (From Tolectin) AdvReac Hives Verified 06/01/24 14:11 Family History (Updated 11/17/24 @ 19:[address] Chanel Conde MD) Father Negative FH of ASCVD Trauma Patient reports complex paraplegia following trauma when he was in his 40s, 2-3 years following accident. 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 Chanel Conde MD) household members: none Smoking Status: Former smoker how long ago did patient quit smokin years ago alcohol intake: current alcohol intake frequency: 0-2 drinks per day Alcohol type: beer, wine and hard liquor substance use type: does not use caffeine: Yes Type: coffee Number of servings: 2 what type of physical activity do you participate in: none ROS ROS Narrative Admission Review of Systems: CONSTITUTIONAL: No weight loss, fever, chills, weakness or fatigue. HEENT: Eyes: No visual loss, blurred vision, double vision or yellow sclerae. Ears, Nose, Throat: No hearing loss, sneezing, congestion, runny nose or sore throat. SKIN: No rash or itching, lesions, wounds. CARDIOVASCULAR: No chest pain, chest pressure or chest discomfort, palpitations, edema, orthopnea, syncopal events. RESPIRATORY: No shortness of breath, cough or sputum, wheezing, hemoptysis. GASTROINTESTINAL: No anorexia, nausea, vomiting or diarrhea, abdominal pain, melena, BRBPR. GENITOURINARY: + BPH with chronic frequency. No dysuria, urgency or retention. NEUROLOGICAL: + Mild left foot drop/weakness. No headache, dizziness, syncope, paralysis, ataxia, numbness or tingling in the extremities, change in bowel or bladder control, seizure. MUSCULOSKELETAL: + muscle, back pain, joint pain or stiffness. HEMATOLOGIC: + Chronic anemia, history of bleeding and bruising. LYMPHATICS: No enlarged nodes. No history of splenectomy. PSYCHIATRIC: + No history, but suspected underlying depression. ENDOCRINOLOGIC: No reports of sweating, cold or heat intolerance. No polyuria or polydipsia. ALLERGIES: No history of asthma, hives, eczema or rhinitis. Vital Signs Vital Signs Vital Signs: 11/17/24 16:12 11/17/24 16:36 11/17/24 17:10 Temperature 97.6 F L Temperature Source Temporal Pulse Rate 87 Respiratory Rate 25 H Blood Pressure 151/80 H 153/69 H Blood Pressure Mean 103 97 Pulse Ox 99 Oxygen Delivery Method Room Air Room Air 11/17/24 18:00 11/17/24 18:55 11/17/24 19:27 Temperature 98 F Temperature Source Pulse Rate 60 62 60 Respiratory Rate 24 H 23 H 18 Blood Pressure 140/71 H 163/83 H 167/87 H Blood Pressure Mean 94 109 113 Pulse Ox 98 Oxygen Delivery Method Weight Weight: 198 lb 10.184 oz Body Mass Index (BMI) 27.8 Physical Exam Narrative Physical Examination: General: Awake, alert, oriented x 3 and cooperative, seated upright in the ED bed in no apparent distress although during evaluation patient was significantly labile emotionally especially when talking about the of his mother many years ago. Skin: Normal color, normal turgor, no icterus, no cyanosis except occasional stage ecchymoses, abrasion HEENT: AT/NC, EOMI, PERRLA, MMM, no carotid bruits or JVD noted. Lungs: Mildly diminished, greater bases, appropriate effort, no rales, ronchi or wheezing. Heart: Paced; no gallop, rub audible. Abdomen: Soft, NTTP, ND, distant normal BS, no appreciated HSM. Extremities: No cyanosis, clubbing, or edema. Neurological: Patient awake, alert, oriented as noted, cognitive function intact; pupils equally reactive to light and accommodation, cranial nerves grossly normal, moving all 4 extremities, finger-nose and [id number] appropriate, no focal Babinski, very mild noted left foot drop with difficulty with primarily dorsiflexion. Psychiatric: Affect appears intermittently labile especially with discussions of the of his mother which has been many years prior, suspect he has underlying depression, denies any history of anxiety or depression. Results Lab / Micro Data 11/17/24 16:15 11/17/24 16:15 Labs: Laboratory Results - last 24 hr 11/17/24 16:15: WBC 9.0, RBC 4.33 L, Hgb 12.7 L, Hct 40.0, MCV 92.4, MCH 29.3, M CHC 31.8 L, RDW Std Deviation 46.5 H, RDW Coeff of [place] 13.8, Plt Count TNP, MPV 11.7, Immature Gran % (Auto) 0.400, Neut % (Auto) 81.3 H, Lymph % (Auto) 8.9 L, [place] % (Auto) 8.1, Eos % (Auto) 1.1, Baso % (Auto) 0.2, Absolute Neuts (auto) 7.3, Absolute Lymphs (auto) 0.80 L, Nucleated RBC % 0, Platelet Estimate ADEQUATE, PT 13.9, INR 1.1, APTT 22.7 L, Sodium 139, Potassium 4.2, Chloride 103, Carbon Dioxide 24.6, Anion Gap 11, BUN 27 H, Creatinine 1.34 H, Estim Creat Clear Calc 42.20 L, Est GFR (MDRD) Non-Af 51 L, BUN/Creatinine Ratio 20.2 H, G lucose 185 H, Calcium 8.9 Imaging Radiology Impression Head/Neck CTA 11/17/24 17:49 IMPRESSION: No large vessel occlusion. Mild (40%) right carotid stenosis. Mild (20%) left carotid stenosis. Patent vertebral arteries bilaterally. Reading Location: [facility] Assessment & Plan Assessment/Plan (1) Weakness of left foot: PLAN: Plan The patiet is an 89 y/o M w/ PMHx: CKD stage III unclear subtype per GFR trending, Chronic anemia, Former tobacco use, Heavy EtOH usage, BPH with obstructive pathology, Diabetes mellitus type II, PAF, HTN, HLD, HFpEF, Hx spontaneous right parietal subarachnoid hemorrhage 11/2019, COPD, Hx Sick sinus syndrome/sinus node dysfunction s/p pacemaker placement who presents to the [facility] ED on 11/17/2024 with history of onset of left foot weakness noting that he went to bed at approximately midnight and had walked normally with no debility however upon awakening he noticed that whenever he attempted to dorsiflex his left foot it would not elevate as high as his right which was a concern to him given his previous history prompting ED evaluation to be certain he was not having a stroke. #1. Mild left foot drop concerning for CVA with previous Hx spontaneous right parietal subarachnoid hemorrhage 11/2019: Will admit to PCU, will need to verify if patient's pacemaker is MRI compatible otherwise may require repeat CT head in 24 hours, patient most recent echocardiogram in 2023, will repeat without bubble just to assure there is no clots evidence as patient is not chronically anticoagulated with PAF history given history of spontaneous hemorrhagic bleed, PT/OT/Speech/Nutrition evaluation per protocol. Will allow permissive HTN, maintain on asa, statin w/ AM FLP, fall precautions. Mag, TSH, FLP, HgbA1c requested. Maintain on fall and aspiration precautions. Neurology consulted. #2. HFpEF: Most recent echocardiogram noted 10/30/2023 with EF 55 to 60% with no acute findings noted, continue aspirin, statin, per current list does not appear to be an M beta-hellen but is on amiodarone of note, also not on SAM inhibitor or ARB but on pulsed dose Lasix on Tuesdays and Saturdays which will be held given permissive hypertension temporarily, judiciously hydrate given history. #3. Chronic normocytic anemia: Admission hemoglobin 12.7, MCV 92.4, baseline most recently 06/01/2024 hemoglobin 12.5 but is vacillated in the past, will continue to closely monitor #4. Chronic Kidney Disease Stage III, unclear subtype per GFR trending presumed: Admission BUN/Cr 27/1.34, GFR 51, baseline renal function most recently 06/01/2024 1.37, repeat BMP in AM. #5. Heavy alcohol use: Patient notes routine consumption of usually 2 drinks of beer/wine or hard liquor per day. Will maintain on CIWA protocol, MVI, thiamine and folic acid. Patient notes intention of continued EtOH usage, magnesium, phosphorus, folic acid, vitamin B12 levels requested. #6. PAF: We will continue patient home amiodarone regimen, not chronically anticoagulated with history of previous hemorrhagic stroke of note. #7. Hypertension: Will maintain permissive hypertension with as needed agents per stroke protocol. #8. Hyperlipidemia: Will continue patient home statin and ezetimibe therapy, FLP in AM. #9. Diabetes mellitus type II: Hold oral home regimen, hemoglobin A1c requested per protocol, nutrition consulted per protocol, ADA diet, accu checks w/ ISS. #10. BPH with obstructive pathology: Will continue patient home Flomax and finasteride regimen, monitor for retention. #11. Chronic COPD: Per current medication list on a regimen, will have PRN albuterol, HOB, IS parameters. #12. History sick sinus syndrome/sinus node dysfunction: Status post pacemaker placement, encourage continued outpatient follow-up with cardiology as previously arranged, interrogation requested. #13. Former tobacco use: Encourage continued tobacco cessation. #14. DVT prophylaxis: Lovenox cautiously. #15. CODE status: Patient TARAN is his son and daughter, unclear if living will was in place. Discussed CODE status at length including difference between FULL code, DNR-CCA and DNR-CC status. Following discussions about the differences in these status, requested Full Code status. Advanced Care Planning Face to Face Time: 16 minutes. Charges/Coding Visit Charges Inpatient E&M: 47014 Init Hosp L3 Procedures Hospitalists Procedures: 80475 Advncd Care Plan 30 Min
[2024-11-17 20:42] LABS: Alcohol, Blood (Medical)-Serum < 10.1 mg/dL (<=10.0); Magnesium 2.1 mg/dL (1.5-2.2); Phosphorus 3.2 mg/dL (2.7-4.5)
--- NOTE | 2024-11-17 20:42 | ECHOD_ITS ---
Reason For Study Reason For Study: TIA/CVA Procedure This was a 2D Doppler, Color Flow transthoracic echocardiogram. Exam performed portable in patient room. Left Ventricle Normal LV size. Left ventricular systolic function is normal. The left ventricular ejection fraction is 65 %. No regional wall motion abnormalities noted. Right Ventricle Normal RV size. Normal systolic function. Atria The left atrium is moderately enlarged. Normal right atrium. Mitral Valve Equivocal mitral valve prolapse. Tricuspid Valve Normal tricuspid valve. Mild tricuspid valve insufficiency. Pulmonary artery systolic pressure is 32 mmHg. Aortic Valve Trisinus/trileaflet aortic valve. Pulmonic Valve Normal pulmonic valve. Great Vessels Mildly dilated aortic root. The pulmonary artery is normal size. Normal inferior vena cava. Pericardium/Pleural No pericardial effusion. MMode/2D Measurements & Calculations LVIDd: 5.4 cm IVSd: 1.1 cm Ao root diam: 3.9 cm LVIDs: 3.8 cm LVPWd: 1.1 cm RVDd: 3.7 cm FS: 31.0 % LAV(MOD-bp): 98.1 ml LVAd ap4: 25.3 cm2 SV(MOD-sp4): 42.4 ml LAV(MOD-bp) Indexed: 47.7 ml/m2 LVLd ap4: 7.7 cm SI(MOD-sp4): 20.6 ml/m2 LAV(MOD-sp2): 98.7 ml EDV(MOD-sp4): 66.2 ml LAV(MOD-sp4): 98.4 ml EDV(sp4-el): 71.1 ml LVAs ap4: 13.5 cm2 LVLs ap4: 6.8 cm ESV(MOD-sp4): 23.8 ml ESV(sp4-el): 22.8 ml EF(MOD-sp4): 64.1 % EF(sp4-el): 67.9 % SV(sp4-el): 48.2 ml LA A4 area: 30.0 cm2 LA dimension(2D): 4.5 cm RA A4 area: 16.7 cm2 TAPSE: 2.4 cm Time Measurements MV dec time: 0.27 sec Doppler Measurements & Calculations MV E max harshil: 56.1 cm/sec Lat Peak E' Harshil: 10.5 cm/sec Med Peak E' Harshil: 6.5 cm/sec MV A max harshil: 47.6 cm/sec E/E' lat: 5.3 E/E' med: 8.6 MV E/A: 1.2 MV V2 max: 62.1 cm/sec MV P1/2t max harshil: 63.4 cm/sec Ao V2 max: 166.3 cm/sec MV max P.5 mmHg MV P1/2t: 85.4 msec Ao max P.1 mmHg MV V2 mean: 33.3 cm/sec Ao V2 mean: 117.0 cm/sec MV mean P.50 mmHg MV dec slope: 217.6 cm/sec2 Ao mean P.3 mmHg MV V2 VTI: 20.2 cm MVA(P1/2t): 2.6 cm2 Ao V2 VTI: 38.3 cm AV (velocity ratio): 0.63 LV V1 max: 103.3 cm/sec MR max harshil: 447.9 cm/sec PA V2 max: 97.4 cm/sec LV V1 max P.3 mmHg MR max P.3 mmHg PA V2 mean: 68.4 cm/sec LV V1 mean P.3 mmHg MR mean harshil: 372.1 cm/sec LV V1 mean: 71.4 cm/sec MR mean P.4 mmHg LV V1 VTI: 24.3 cm MR VTI: 152.2 cm TR max harshil: 263.8 cm/sec PI dec slope: 85.6 cm/sec2 TR max P.8 mmHg ECHO/Echo Complete Interpretation Summary Normal LV size. Left ventricular systolic function is normal. The left ventricular ejection fraction is 65 %. The left atrium is moderately enlarged. Pulmonary artery systolic pressure is 32 mmHg. Mildly dilated aortic root. Ordering Physician: Chanel Conde Referring Physician: Navin Paniagua Performed By: Luisa Whiteside RDCS, RVT
[2024-11-17] MEDS: 0.9% Saline Lock 10 ML Syringe IV (21:04)
[2024-11-17] MEDS: 0.9% Normal Saline (1000mL) 1,000 ML 100 ML IV (21:04)
[2024-11-17] MEDS: Tamsulosin HCl 0.4 MG Capsule PO (21:42)
[2024-11-17] MEDS: Atorvastatin Calcium 40 MG Tablet PO (21:42)
[2024-11-17] MEDS: Mycophenolate Mofetil 250 MG Capsule 750 MG PO (21:42)
[2024-11-17] MEDS: Ezetimibe 10 MG Tablet PO (22:11)
[2024-11-17] MEDS: Amiodarone 200 MG Tablet PO (22:11)
[2024-11-18] VITALS (13 sets, daily range): BP systolic 103–147; BP diastolic 59–82; PULSE 62–85; RESP 14–16; TEMP 36.5–36.7; O2SAT 93–100; BMI 26.9
--- NOTE | 2024-11-18 06:00 | MRI_ITS ---
PROCEDURE: BRAIN WITHOUT CONTRAST 11/18/2024 REASON FOR EXAM: WEAKNESS/CVA TECHNIQUE: Noncontrast brain MRI. Multiplanar and multisequence images were obtained. COMPARISON: 11/17/[address] FINDINGS: Brain: FLAIR and T2 images demonstrate scattered foci of nonspecific increased signal in the deep and subcortical white matter. The sella, corpus callosum, and cerebellar vermis appear within normal limits. Ventricles: Ex vacuo ventricular dilation is proportionate to cerebral volume loss Major Intracranial Vessels: Flow voids are maintained. Sinuses: Clear. Bilateral ocular lens replacements. Mastoids: Clear. MRI/Brain without Contrast IMPRESSION: No restricted diffusion to suggest infarct. Senescent changes in the brain. Reading Location: [place]
[2024-11-18 06:48] LABS: Absolute Lymphocyte Count 0.77 X10^3/uL (0.83-4.51); Absolute Neutrophil Count 4.9 X10^3/uL (2.0-7.7); Basophil# 0.02 X10^3/uL; Basophil% 0.3 % (0-1); Eosinophil# 0.14 X10^3/uL; Eosinophils% 2.2 % (0-5); Hemoglobin 11.4 g/dL (13.0-16.5); Lymphocyte # 0.77 X10^3/ul (0.83-4.51); Lymphocyte % 12.1 % (19-41); Mean Corp Hgb Conc 32.6 g/dL (32-36); Mean Corpuscular Hgb 29.8 pg (27.0-32.0); Mean Corpuscular Volume 91.6 fL (80-94); Mean Platelet Vol. 10.4 fl (6.2-12.0); Monocyte# 0.56 X10^3/uL; Monocyte% 8.8 % (0-10); NRBC Flagged by Analyzer 0 % (0-5); Neutrophil # 4.86 X10^3/uL (2.7-7.7); Neutrophil % 76.1 % (47-70); Platelet Count 161 K/mm3 (150-450); RBC Distribution Width CV 13.7 % (11.6-14.6); RBC Distribution Width SD 45.8 fl (35.1-43.9); Red Blood Count 3.82 M/mm3 (4.6-6.2); White Blood Count 6.4 K/mm3 (4.4-11.0)
[2024-11-18 07:00] LABS: Bedside Glucose 72 mg/dL (74-106)
[2024-11-18 07:51] LABS: ALB/GLOB Ratio 1.9 RATIO (0.9-2.4); AST(SGOT) 18 U/L (<=37); Alanine Aminotransfer ALT/SGPT 6 U/L (<=46); Albumin, Serum 3.3 g/dL (3.4-4.8); Alkaline Phosphatase 74 U/L (40-129); Anion Gap 8 (5-15); BUN 18 mg/dL (4-19); BUN/Creat Ratio 17.3 RATIO (10-20); Calcium,Total 8.4 mg/dL (7.6-11.0); Carbon Dioxide 23.2 mmol/L (21.0-32.0); Chloride 109 mmol/L (98-108); Cholesterol 92 mg/dL (<=200); Creatinine, Serum 1.04 mg/dL (0.70-1.20); EST Glomerular Filtration Rate 69 (>60); Estimated Creatinine Clearance 51.29 ml/min (50-250); Globulin 1.7 g/dL (2.2-4.2); Glucose 87 mg/dL (70-99); High Density Lipoprotein 48 mg/dL; Low Density Lipoprotein Calc. 37 mg/dL; Potassium 3.9 mmol/L (3.3-5.1); Sodium Level 140 mmol/L (133-145); Total Bilirubin 0.53 mg/dL (0.00-1.30); Triglycerides 35 mg/dL; Very Low Density Lipoprotein 7 mg/dL (5-40); Vitamin B12 520 pg/mL (180-914)
[2024-11-18 08:31] LABS: Hemoglobin A1c 6.7 % (<=5.6)
[2024-11-18] MEDS: Multivitamins,Ther W-Minerals Tablet 1 TABLET PO (08:34)
[2024-11-18] MEDS: Mycophenolate Mofetil 250 MG Capsule 750 MG PO ×2 (08:34→22:56)
[2024-11-18] MEDS: Aspirin 81 MG TAB.CHEW PO (08:34)
[2024-11-18] MEDS: Folic Acid 1 MG Tablet PO (08:34)
[2024-11-18] MEDS: Thiamine Hydrochloride 100 MG Tablet PO (08:34)
[2024-11-18] MEDS: Finasteride 5 MG Tablet PO (08:35)
--- NOTE | 2024-11-18 12:56 | CASEMGMT ---
TORY MALDONADO Assessment: Face to Face with pt for initial transition planning/care coordination assessment. TORY MALDONADO introduced self and role at [facility], pt voices understanding and consents to assessment. Pt is A&O x4 and answers all questions appropriately at this time. Pt lying in bed in no distress. Care providers, pharmacy, and demographics verified/updated. Strata: 2 Admitting Dx: L foot weakness PCP: [facility] Specialists: Denies Preferred Pharmacy: [facility] Insurance: O [facility] Prescription Benefit: yes LNOK: Son, aLn; Daughter, Marion Living Arrangements: Pt lives alone in a 1 story home with 4 steps to enter ADLs: Pt states he is I with ADLs and IADLs at baseline. Transportation: Pt neighbor or family provides transportation. DME: walker, cane, grab bars HHC/SNF: Denies Hx of Pt states no concerns with going home at time of dc. Pt states no further concerns/needs. Pt states he has a Hx of smoking but stopped several years ago. Pt states he drinks occasionally, but it's rare. CM to follow. Advised pt to ask CM if any further question/concerns/needs arise, voices understanding. Pt Goal: Home Plan: Home with family support. Follow for safe DC. Venus SPEARS CM
[2024-11-18 13:05] LABS: Bedside Glucose 94 mg/dL (74-106)
--- NOTE | 2024-11-18 15:03 | CASEMGMT ---
GERRY Attempted to complete GARRETT form with pt but he was out of room at a procedure. GARRETT form and contact information left in room. Will attempt to meet with pt again today. Enedina Cleaning DC Planning Asst.
--- NOTE | 2024-11-18 16:18 | CASEMGMT ---
Met with patient to complete GARRETT form. GARRETT form explained to patient who voiced understanding and signed form. Original form placed in pt?s chart and copy provided to patient. Enedina Cleaning, Discharge Planning Asst
--- NOTE | 2024-11-18 16:45 | PN.HOSP_ITS ---
Subjective Subjective Continues to have left foot drop but otherwise feels fine awaiting MRI Objective Data Objective Data Vital Signs: Vital Signs Temp Pulse Resp BP Pulse Ox O2 Del Method 97.9 F 78 16 147/82 H 100 Room Air 11/18/24 16:23 11/18/24 16:23 11/18/24 16:23 11/18/24 16:23 11/18/24 16:23 11/18/24 16:23 Oxygen Delivery Method Room Air Weight: 193 lb 5.526 oz Body Mass Index (BMI) 26.9 Intake & Output: Intake and Output for Last 24 Hours 11/17/24 11/18/24 11/19/24 03:59 03:59 03:59 Intake Total 240 / 240 968.33 / 968.33 Balance 240 / 240 968.33 / 968.33 Lab / Micro Data 11/18/24 06:00 11/18/24 06:00 Labs: Laboratory Results - last 24 hr 11/17/24 16:15: WBC 9.0, RBC 4.33 L, Hgb 12.7 L, Hct 40.0, MCV 92.4, MCH 29.3, M CHC 31.8 L, RDW Std Deviation 46.5 H, RDW Coeff of [place] 13.8, Plt Count TNP, MPV 11.7, Immature Gran % (Auto) 0.400, Neut % (Auto) 81.3 H, Lymph % (Auto) 8.9 L, [place] % (Auto) 8.1, Eos % (Auto) 1.1, Baso % (Auto) 0.2, Absolute Neuts (auto) 7.3, Absolute Lymphs (auto) 0.80 L, Nucleated RBC % 0, Platelet Estimate ADEQUATE, PT 13.9, INR 1.1, APTT 22.7 L, Sodium 139, Potassium 4.2, Chloride 103, Carbon Dioxide 24.6, Anion Gap 11, BUN 27 H, Creatinine 1.34 H, Estim Creat Clear Calc 42.20 L, Est GFR (MDRD) Non-Af 51 L, BUN/Creatinine Ratio 20.2 H, G lucose 185 H, Calcium 8.9 11/17/24 20:18: Phosphorus 3.2, Magnesium 2.1, Ethyl Alcohol < 10.1 11/18/24 06:00: WBC 6.4, RBC 3.82 L, Hgb 11.4 L, Hct 35.0 L, MCV 91.6, MCH 29.8, MCHC 32.6, RDW Std Deviation 45.8 H, RDW Coeff of [place] 13.7, Plt Count 161, MPV 10.4, Immature Gran % (Auto) 0.500, Neut % (Auto) 76.1 H, Lymph % (Auto) 12.1 L, [place] % (Auto) 8.8, Eos % (Auto) 2.2, Baso % (Auto) 0.3, Absolute Neuts (auto) 4.9, Absolute Lymphs (auto) 0.77 L, Nucleated RBC % 0, Sodium 140, Potassium 3.9, Chloride 109 H, Carbon Dioxide 23.2, Anion Gap 8, BUN 18, Creatinine 1.04, Estim Creat Clear Calc 51.29, Est GFR (MDRD) Non-Af 69, BUN/Creatinine Ratio 17.3, Glucose 87, Hemoglobin A1c 6.7 H, Calcium 8.4, Total Bilirubin 0.53, AST 18, ALT 6, Alkaline Phosphatase 74, Total Protein 5.0 L, Albumin 3.3 L, Globulin 1.7 L, Albumin/Globulin Ratio 1.9, Triglycerides 35, Cholesterol 92, LDL Cholesterol, Calc 37, VLDL Cholesterol 7, HDL Cholesterol 48, Cholesterol/HDL Ratio 1.90, Vitamin B12 520, TSH 1.580 11/18/24 06:38: POC Glucose 72 L 11/18/24 11:42: POC Glucose 94 Radiography Diagnostic Testing: Radiology Impression Head/Neck CTA 11/17/24 17:49 IMPRESSION: No large vessel occlusion. Mild (40%) right carotid stenosis. Mild (20%) left carotid stenosis. Patent vertebral arteries bilaterally. Reading Location: [id number] Echocardiogram 11/17/24 20:42 Interpretation Summary Normal LV size. Left ventricular systolic function is normal. The left ventricular ejection fraction is 65 %. The left atrium is moderately enlarged. Pulmonary artery systolic pressure is 32 mmHg. Mildly dilated aortic root. Ordering Physician: Chanel Conde Referring Physician: Navin Paniagua Performed By: Luisa Whiteside, KATHRYN, RVT Brain MRI 11/18/24 06:00 IMPRESSION: No restricted diffusion to suggest infarct. Senescent changes in the brain. Reading Location: [facility] Physical Exam Narrative General: Alert, Oriented x3, Cooperative, No apparent distress HEENT: Atraumatic, PERRLA, EOMI, Normocephalic Oral: Moist Mucosa Neck: Supple, No JVD Lungs: Diminished, Normal air movement, No rhonchi, No wheeze, No rales Cardiovascular: Regular rate, Regular Rhythm, Normal S1, Normal S2, No murmurs Abdomen: Soft, Non Tender, Non-Distended, No Hepato-splenomegaly Extremities: No edema, Capillary Refill Less than 3 Seconds Skin: No rashes, No breakdown Musculoskeletal: No Tenderness to Palpation of Joints or Extremities Neurological: Left lower extremity foot drop, rest of his motor functions and his sensations intact Psych/Mental Status: Normal Affect, Appropriate Assessment & Plan Assessment/Plan (1) Weakness of left foot: PLAN: Plan 1. Left foot drop ? Concern for CVA, MRI is pending ? Neurology evaluated the patient and felt that this was likely more of a peripheral nerve issue ? Continue with his home aspirin and Lipitor ? Echo was completed with an EF of 65% and a PASP of 32 mmHg ? PT/OT 2. Essential HTN/HLD/paroxysmal A-fib/chronic diastolic CHF/sick sinus syndrome status post pacemaker ? Continue with his home blood pressure medications if the MRI is negative ? Continue with amiodarone for rhythm control ? Can resume his Lasix on discharge as he takes it only on Friday and Friday 3. DM2/CKD 3 ? Sliding scale insulin ? Accu-Cheks ACHS ? Will monitor and make adjustments as necessary ? Renal function is at baseline 4. BPH with obstruction ? Stable ? Continue with his home Flomax and finasteride DVT: Lovenox Charges/Coding Visit Charges Inpatient E&M: 97247 Subs Hosp L2
[2024-11-18 17:38] LABS: Bedside Glucose 179 mg/dL (74-106)
[2024-11-18] MEDS: Amiodarone 200 MG Tablet PO (22:55)
[2024-11-18] MEDS: Tamsulosin HCl 0.4 MG Capsule PO (22:55)
[2024-11-18] MEDS: Atorvastatin Calcium 40 MG Tablet PO (22:55)
[2024-11-18] MEDS: Ezetimibe 10 MG Tablet PO (22:55)
[2024-11-19 00:51] LABS: Bedside Glucose 99 mg/dL (74-106)
--- NOTE | 2024-11-19 01:53 | STROKE.CONS ---
Assessment and Plan: Stroke Assessment/Plan VIOLETA DEAL is a 89 M with a history of CVA and CRAwho presents for evaluation of left foot drop. Rest of exam is wnl. Neurological examination shows NIH 0. L foot drop. Neuroimaging shows MRI with no acute infarct. CTA with mild stenosis. ASA/Statin. Mention of pAF on history. Would send home on EM or follow up with cards to see if needs AC. If no Afib then antiplatelet is ok. - Anti-platelet medication: Aspirin 81 mg daily - Occupational/ Physical therapy consults - NPO until swallow evaluation. IVF until able to take po - DVT prophylaxis with SCDs and heparin SQ - Vascular risk factor modification. The following are the recommended guidelines: LDL Goal < 70 Smoking Cessation Diabetes Management nursing home blood pressure control should achieve <130/80 mmHg. BP management should aim to achieve jail contorl in a reasonable amount of time, taking into consideration the individual patient's requirements and characteristics. Weight Management: Goal for BMI is 18.5 -24.9 kg/m2 Alcohol: No more than 2 drinks/day for men or 1 drink/day for non- women - Promote lifestyle modification: weight control, physical activity, moderation of alcohol intake, moderate sodium intake. 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 Disequilibrium Blurred vision Carotid artery stenosis Hypertensive urgency History of CVA (cerebrovascular accident) COPD (chronic obstructive pulmonary disease) Sick sinus syndrome Paroxysmal supraventricular tachycardia Essential (primary) hypertension Diabetes mellitus BPH (benign prostatic hyperplasia) Sinus node dysfunction Transient cerebral ischemic attack Home Medications ?Medication ?Instructions ?Recorded ?Last Taken ?Type finasteride 5 mg tablet 5 mg PO DAILY prostate 06/15/15 11/16/24 History tamsulosin 0.4 mg capsule 0.4 mg PO QHS prostate 05/08/21 11/16/24 History atorvastatin 40 mg tablet 40 mg PO QHS cholesterol #90 tabs 11/19/22 11/16/24 Rx glipizide 5 mg tablet, extended 5 mg PO DAILY diabetes #90 tabs 11/19/22 11/17/24 Rx release 24 hr mycophenolate 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 10/30/23 11/17/24 History capsule aspirin 81 mg chewable tablet 81 mg PO BREAKFAST heart health #0 10/31/23 11/17/24 Rx tabs furosemide 40 mg tablet (Lasix) 40 mg PO TUSA diuretic 01/09/24 01/06/24 History ezetimibe 10 mg tablet 10 mg PO QDAY Cholesterol 06/01/24 11/16/24 History amiodarone 200 mg tablet 200 mg PO DAILY heart #90 tabs 11/01/24 11/16/24 Rx Allergy/AdvReac Type Severity Reaction Status Date / Time amlodipine Allergy Rash Verified 06/01/24 14:11 ether AdvReac Unknown Verified 06/01/24 14:11 tolmetin (From Tolectin) AdvReac Hives Verified 06/01/24 14:11 Family History Father Negative FH of ASCVD Trauma Patient reports complex paraplegia following trauma when he was in his 40s, 2-3 years following accident. 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) hx eyelid surgery History of tonsillectomy Social History household members: none Smoking Status: Former smoker how long ago did patient quit smokin years ago alcohol intake: current alcohol intake frequency: 0-2 drinks per day Alcohol type: beer, wine and hard liquor substance use type: does not use caffeine: Yes Type: coffee Number of servings: 2 what type of physical activity do you participate in: none Vital Signs Vital Signs Vital Signs: 11/18/24 05:15 11/18/24 07:34 11/18/24 08:22 Temperature 97.9 F Temperature Source Oral Pulse Rate 64 Pulse Strength Respiratory Rate 16 Respiratory Effort Normal Non-Labored Respiratory Depth Normal Respiratory Pattern Normal Blood Pressure 134/71 H Blood Pressure Mean 92 Blood Pressure Source Monitor Blood Pressure Position Semi-Fowlers Blood Pressure Location Left Arm Pulse Ox 96 96 Oxygen Delivery Method Room Air Room Air Room Air 11/18/24 08:23 11/18/24 10:00 11/18/24 10:50 Temperature 97.7 F L Temperature Source Oral Pulse Rate 64 Pulse Strength Normal (2+) Respiratory Rate 14 Respiratory Effort Respiratory Depth Respiratory Pattern Blood Pressure 124/66 H Blood Pressure Mean 85 Blood Pressure Source Monitor Blood Pressure Position Semi-Fowlers Blood Pressure Location Left Arm Pulse Ox 96 96 Oxygen Delivery Method Room Air 11/18/24 12:23 11/18/24 14:32 11/18/24 14:50 Temperature 98.1 F Temperature Source Oral Pulse Rate 64 69 Pulse Strength Respiratory Rate 16 16 Respiratory Effort Normal Non-Labored Respiratory Depth Normal Respiratory Pattern Normal Blood Pressure 147/79 H 120/59 L Blood Pressure Mean 101 79 Blood Pressure Source Monitor Monitor Blood Pressure Position Semi-Fowlers Sitting Blood Pressure Location Left Arm Right Arm Pulse Ox 98 94 Oxygen Delivery Method Room Air Room Air Room Air 11/18/24 15:06 11/18/24 15:22 11/18/24 15:39 Temperature Temperature Source Pulse Rate 84 85 84 Pulse Strength Respiratory Rate 16 16 16 Respiratory Effort Respiratory Depth Respiratory Pattern Blood Pressure 145/65 H 135/72 H 134/74 H Blood Pressure Mean 91 93 94 Blood Pressure Source Monitor Monitor Monitor Blood Pressure Position Supine Supine Supine Blood Pressure Location Right Arm Right Arm Right Arm Pulse Ox 94 93 94 Oxygen Delivery Method Room Air Room Air Room Air 11/18/24 15:47 11/18/24 16:23 11/18/24 22:45 Temperature 97.9 F 97.7 F L Temperature Source Oral Oral Pulse Rate 62 78 62 Pulse Strength Respiratory Rate 16 16 16 Respiratory Effort Respiratory Depth Respiratory Pattern Blood Pressure 133/67 H 147/82 H 136/71 H Blood Pressure Mean 89 103 92 Blood Pressure Source Monitor Monitor Monitor Blood Pressure Position Supine Semi-Fowlers Semi-Fowlers Blood Pressure Location Right Arm Left Arm Left Arm Pulse Ox 94 100 97 Oxygen Delivery Method Room Air Room Air Room Air Weight Weight: 87.7 kg Body Mass Index (BMI) 26.9 EEG Results Procedure Details EEG Procedure Details: VIOLETA DEAL is a 89 year old M with a past medical history of , who presents for evaluation of Electroencephalogram on DATE at TIME Lab / Micro Data 04/17/25 06:00 11/18/24 06:00 Labs: Laboratory Results - last 24 hr 11/18/24 06:00: WBC 6.4, RBC 3.82 L, Hgb 11.4 L, Hct 35.0 L, MCV 91.6, MCH 29.8, MCHC 32.6, RDW Std Deviation 45.8 H, RDW Coeff of [place] 13.7, Plt Count 161, MPV 10.4, Immature Gran % (Auto) 0.500, Neut % (Auto) 76.1 H, Lymph % (Auto) 12.1 L, Toole % (Auto) 8.8, Eos % (Auto) 2.2, Baso % (Auto) 0.3, Absolute Neuts (auto) 4.9, Absolute Lymphs (auto) 0.77 L, Nucleated RBC % 0, Sodium 140, Potassium 3.9, Chloride 109 H, Carbon Dioxide 23.2, Anion Gap 8, BUN 18, Creatinine 1.04, Estim Creat Clear Calc 51.29, Est GFR (MDRD) Non-Af 69, BUN/Creatinine Ratio 17.3, Glucose 87, Hemoglobin A1c 6.7 H, Calcium 8.4, Total Bilirubin 0.53, AST 18, ALT 6, Alkaline Phosphatase 74, Total Protein 5.0 L, Albumin 3.3 L, Globulin 1.7 L, Albumin/Globulin Ratio 1.9, Triglycerides 35, Cholesterol 92, LDL Cholesterol, Calc 37, VLDL Cholesterol 7, HDL Cholesterol 48, Cholesterol/HDL Ratio 1.90, Vitamin B12 520, TSH 1.580 11/18/24 06:38: POC Glucose 72 L 11/18/24 11:42: POC Glucose 94 11/18/24 17:09: POC Glucose 179 H 11/18/24 22:52: POC Glucose 99 Imaging Radiology Impression Echocardiogram 11/17/24 20:42 Interpretation Summary Normal LV size. Left ventricular systolic function is normal. The left ventricular ejection fraction is 65 %. The left atrium is moderately enlarged. Pulmonary artery systolic pressure is 32 mmHg. Mildly dilated aortic root. Ordering Physician: Chanel Conde Referring Physician: Navin Paniagua Performed By: Luisa Whiteside, KATHRYN, RVT Brain MRI 11/18/24 06:00 IMPRESSION: No restricted diffusion to suggest infarct. Senescent changes in the brain. Reading Location: [facility] Active Medications Active Medications Active Medications: Current Medications Generic Name Dose Route Start Last Admin Trade Name Freq PRN Reason Stop Dose Admin Acetaminophen 650 mg 11/17/24 20:42 Acetaminophen 325 Mg Tablet PO Q4H PRN PRN Fever, pain 1-10 Al Hydroxide/Mg Hydroxide 30 ml 11/17/24 20:42 Mag Hydrox/Al Hydrox/Simeth 30 Ml Udc PO Q6H PRN PRN Gastric Burning Albuterol Sulfate 2.5 mg 11/17/24 20:42 Albuterol 2.5 Mg/3 Ml Vial.Neb. INHALATION Q2H PRN PRN Dyspnea, wheezing Amiodarone HCl 200 mg 11/17/24 22:00 11/18/24 22:55 Amiodarone 200 Mg Tablet PO 200 mg QHS OSWALDO Administration Aspirin 81 mg 11/18/24 08:00 11/18/24 08:34 Aspirin 81 Mg Tab.Chew PO 81 mg BREAKFAST OSWALDO Administration Atorvastatin Calcium 40 mg 11/17/24 22:00 11/18/24 22:55 Atorvastatin Calcium 40 Mg Tablet PO 40 mg QHS OSWALDO Administration Ezetimibe 10 mg 11/17/24 22:00 11/18/24 22:55 Ezetimibe 10 Mg Tablet PO 10 mg QHS OSWALDO Administration Enoxaparin Sodium 40 mg 11/18/24 10:00 11/18/24 11:29 Enoxaparin 40 Mg/0.4 Ml Syringe SC Not Given DAILY OSWALDO Finasteride 5 mg 11/18/24 10:00 11/18/24 08:35 Finasteride 5 Mg Tablet PO 5 mg DAILY OSWALDO Administration Folic Acid 1 mg 11/18/24 08:00 11/18/24 08:34 Folic Acid 1 Mg Tablet PO 1 mg BREAKFAST OSWALDO Administration Glucagon 1 mg 11/17/24 20:42 Glucagon 1 Mg/Ml Syringe IM X1 PRN HYPOGLYCEMIA Protocol Glucagon 1 mg 11/17/24 23:10 Glucagon 1 Mg/Ml Syringe IM X1 PRN Hypoglycemia Protocol Guaifenesin 20 ml 11/17/24 20:42 Guaifenesin 10 Ml Udc (200mg/10ml) PO Q4H PRN PRN COUGH Dextrose 250 mls @ 0 mls/hr 11/17/24 20:42 Dextrose 10%-Water IV .Q0M PRN HYPOGLYCEMIA Protocol As Directed Sodium Chloride 100 mls @ 15 mls/hr 11/17/24 20:44 IV .Q6H40M PRN Saline Flush Sodium Chloride 100 mls @ 15 mls/hr 11/17/24 20:44 IV .Q6H40M PRN Additional IVPB Infusion Dextrose 250 mls @ 0 mls/hr 11/17/24 23:10 Dextrose 10%-Water IV .Q0M PRN HYPOGLYCEMIA Protocol As Directed Insulin Human Lispro 0 unit 11/18/24 07:00 11/18/24 22:56 Insulin Lispro 100 Unit/Ml Insuln.Pen SC Not Given ACHS OSWALDO Protocol Lorazepam 2 mg 11/17/24 20:42 Lorazepam 2 Mg/Ml Syringe IV UD PRN CIWA score >/=15. Protocol Lorazepam 2 mg 11/17/24 20:42 Lorazepam 2 Mg/Ml Syringe IV Q2H PRN PRN CIWA score > 8 but <15 Protocol Lorazepam 2 mg 11/17/24 20:42 Lorazepam 1 Mg Tablet PO UD PRN CIWA score >/=15. Protocol Lorazepam 2 mg 11/17/24 20:42 Lorazepam 1 Mg Tablet PO Q2H PRN PRN CIWA score > 8 but <15 Protocol Melatonin 3 mg 11/17/24 20:42 Melatonin 3 Mg Tablet PO QHS PRN PRN INSOMNIA Multivitamins/Minerals 1 tablet 11/18/24 08:00 11/18/24 08:34 Multivitamins,Ther W-Minerals Tablet PO 1 tablet BREAKFAST OSWALDO Administration Mycophenolate Mofetil 750 mg 11/17/24 22:00 11/18/24 22:56 Mycophenolate Mofetil 250 Mg Capsule PO 750 mg BID OSWALDO Administration Ondansetron HCl 4 mg 11/17/24 20:42 Ondansetron 4 Mg/2 Ml Vial IV Q8H PRN PRN NAUSEA/VOMITING Prochlorperazine Edisylate 5 mg 11/17/24 20:42 Prochlorperazine 10 Mg/2 Ml Vial IV Q4H PRN PRN Breakthrough Nausea/Vomiting Senna/Docusate Sodium 2 tablet 11/17/24 20:42 Senna/Docusate Sodium 1 Tablet PO BID PRN PRN Constipation Sodium Chloride 10 - 40 ml 11/17/24 20:44 11/17/24 21:04 0.9% Saline Lock 10 Ml Syringe IV 10 ml UD PRN Administration SALINE FLUSH Tamsulosin HCl 0.4 mg 11/17/24 22:00 11/18/24 22:55 Tamsulosin Hcl 0.4 Mg Capsule PO 0.4 mg QHS OSWALDO Administration Thiamine HCl 100 mg 11/18/24 08:00 11/18/24 08:34 Thiamine Hydrochloride 100 Mg Tablet PO 100 mg BREAKFAST OSWALDO Administration NIHSS NIHSS Nursing Documentation NIHSS Nursing Documentation: NIH Stroke Scale Start: 11/17/24 16:18 Freq: Status: Discharge Protocol: Activity Type Activity Date Activity User E-sign Co-sign Detail Recorded Client Recorded Date Recorded By Document 11/17/24 16:18 CDA [id number] 11/17/24 16:18 CDA 11/17/24 16:18 NIH Stroke Scale [NIHSS] A score of 0 is normal or asymptomatic . Total possible score is 42. Inpatient: RN or Physician to activate a stroke alert for onset of new stroke symptoms or with NIHSS increase >/= 3 points. Following change in neurological status, NIHSS will be performed per physician order or more frequently PRN. -1a. Level of Consciousness 0 - Alert; keenly responsive -1b. LOC Questions 0 - Answers BOTH questions correctly -1c. LOC Commands 0 - Performs BOTH tasks correctly -2. Best Gaze 1 - Normal -3. Visual 0 - No visual loss -4. Facial Palsy 0 - Normal symmetrical movements -5a. Left Arm 0 - No drift; arm holds 90 ( or 45) degrees for full 10 seconds -5b. Right Arm 0 - No drift; arm holds 90 ( or 45) degrees for full 10 seconds -6a. Left Leg 0 - No drift; leg holds 30- degree position for full 5 seconds -6b. Right Leg 0 - No drift; leg holds 30- degree position for full 5 seconds -7. Limb Ataxia 0 - Absent -8. Sensory 0 - Normal; no sensory loss -9. Best Language 0 - No aphasia; normal -10. Dysarthria 0 - Normal -11. Extinction and Inattention 0 - No abnormality -Total 0 Query Text:A score of 0 is normal or asymptomatic. Total possible score is 42 . ED: Notify Physician for NIHSS increase by > / = 3 points. Inpatient: RN or Physician to activate a stroke alert for NIHSS increase of > / = 3 points. NIHSS: Ischemic Stroke/TIA Start: 11/17/24 20:42 Text: For PCU Patients: NIH and Neuro Check every 4 Status: Complete hours, PRN and with change in RN caregiver. Freq: [id number] Protocol: Activity Type Activity Date Activity User E-sign Co-sign Detail Recorded Client Recorded Date Recorded By Document 11/18/24 16:23 SILVESTRE [id number] 11/18/24 16:26 July 11/18/24 16:23 -1a. Level of Consciousness 0 - Alert; keenly responsive -1b. LOC Questions 0 - Answers BOTH questions correctly -1c. LOC Commands 0 - Performs BOTH tasks correctly -2. Best Gaze 1 - Normal -3. Visual 0 - No visual loss -4. Facial Palsy 0 - Normal symmetrical movements -5a. Left Arm 0 - No drift; arm holds 90 ( or 45) degrees for full 10 seconds -5b. Right Arm 0 - No drift; arm holds 90 ( or 45) degrees for full 10 seconds -6a. Left Leg 0 - No drift; leg holds 30- degree position for full 5 seconds -6b. Right Leg 0 - No drift; leg holds 30- degree position for full 5 seconds -7. Limb Ataxia 0 - Absent -8. Sensory 0 - Normal; no sensory loss -9. Best Language 0 - No aphasia; normal -10. Dysarthria 0 - Normal -11. Extinction and Inattention 0 - No abnormality -Total 0 Query Text:A score of 0 is normal or asymptomatic. Total possible score is 42 . ED: Notify Physician for NIHSS increase by > / = 3 points. Inpatient: RN or Physician to activate a stroke alert for NIHSS increase of > / = 3 points. Coma Scale [Assess] -Eye Opening Spontaneous -Motor Obeys Commands -Verbal Oriented [Total] -Coma Scale Total 15
[2024-11-19 01:56] LABS: FOLATES,SERUM (FOLIC ACID) 9.09 ng/mL (4.60-34.80)
[2024-11-19 03:25] VITALS: BMI 26.7
[2024-11-19 04:12] VITALS: BMI 26.7
[2024-11-19 06:20] VITALS: BP 143/78; PULSE 60; RESP 16; TEMP 36.7; O2SAT 97
[2024-11-19 07:52] LABS: Bedside Glucose 90 mg/dL (74-106)
[2024-11-19 09:01] VITALS: BP 128/71; PULSE 60; RESP 16; TEMP 36.5; O2SAT 96
[2024-11-19] MEDS: Multivitamins,Ther W-Minerals Tablet 1 TABLET PO (09:04)
[2024-11-19] MEDS: Folic Acid 1 MG Tablet PO (09:04)
[2024-11-19] MEDS: Aspirin 81 MG TAB.CHEW PO (09:04)
[2024-11-19] MEDS: Thiamine Hydrochloride 100 MG Tablet PO (09:05)
[2024-11-19] MEDS: Mycophenolate Mofetil 250 MG Capsule 750 MG PO (09:05)
[2024-11-19] MEDS: Finasteride 5 MG Tablet PO (09:06)
--- NOTE | 2024-11-19 11:34 | DCINST_ITS ---
Discharge Instructions Diet Discharge Diet: Low fat / Low cholesterol and Carb Control Diet DC O2, CPAP, BIPAP needs Home O2 Discharge instructions: No Dressing / Incision Discharge Activity: Return to Normal Activity Dressing / Incision Call your doctor if you observe: Fever of 101 or Higher, Shortness of breath, Dizziness, Fainting spells, Swelling in the ankles, Chest pain and Increased palpitations (irregular heartbeat) Follow Up Care Test Results: Test results from this visit will be discussed in further detail at your follow- up appointment, if applicable. Discharge Plan Admission Admit Date/Time: 11/17/24 19:54 Attending Provider: Rk Pastor Primary Care Provider: Navin Paniagua Consulting Providers: Huber Mendez; Garcia Page; Desiree Baptiste; Jimena Russell; Cecy Jackson; Medardo Wade; Farzaneh Reyes; Juanpablo Almanza; Lan Donovan; Antwon Desai; Wanda Bhat; Justin Kelly; Jennifer Heck; Nguyen Lombardo; Lida Mejia; Juan Quiroz; Joan Cardenas; Ender Olivarez; Niki Daigle; Eliseo Colin; Chanel Conde Instructions Additional Instructions / Restrictions: Follow-up with your PCP as an outpatient to obtain an outpatient EMG to evaluate a possible peripheral source of your left foot drop Discharge Orders/Prescriptions Prescriptions: Continued ezetimibe 10 mg tablet 10 mg PO QDAY finasteride 5 MG tablet 5 mg PO DAILY tamsulosin 0.4 mg capsule 0.4 mg PO QHS furosemide [Lasix] 40 mg tablet 40 mg PO TUSA Rx Instructions: 40 mg orally twice per week on and Fri mycophenolate mofetil 250 mg capsule 750 mg PO BID aspirin 81 mg Tablet,Chewable 81 mg PO BREAKFAST Qty: 0 0RF Rx Instructions: You may take either a baby aspirin or an 81 mg coated aspirin daily atorvastatin 40 mg tablet 40 mg PO QHS Qty: 90 3RF glipizide 5 mg tablet extended release 24hr 5 mg PO DAILY Qty: 90 0RF amiodarone 200 mg tablet 200 mg PO DAILY Qty: 90 3RF Patient Comments: pt unsure of dosage 10/30/23 Referrals / Follow Up: Navin Paniagua MD [Primary Care Provider] - Within 1 Week Disposition Disposition (needs filled in before D/C Order can be placed): Home, Self Care
[2024-11-19 11:36] VITALS: BP 109/57; PULSE 62; RESP 16; TEMP 36.8; O2SAT 98
--- NOTE | 2024-11-19 11:36 | CASEMGMT ---
TORY MALDONADO in to discuss needs at discharge. Patient states that he will need transport home and would like to use the hospital van. TORY MALDONADO discuss progress with therapy. Patient states he has exercises to complete at home and denied HHC or outpatient therapy. Patient denied further needs or concerns. Patient had no further questions. TORY MALDONADO updated community youth secretary to inquire about hospital van.
--- NOTE | 2024-11-19 11:49 | PHA.DC.MR.R ---
Pharmacy [place] Med Reconciliation Pharmacy Service has performed discharge medication reconciliation for this patient. The patient's discharge medication list was reviewed for discrepancies and discrepancies were resolved. Medications at Discharge Home Medications finasteride 5 mg tablet 5 mg PO DAILY prostate 06/15/15 tamsulosin 0.4 mg capsule 0.4 mg PO QHS prostate 05/08/21 atorvastatin 40 mg tablet 40 mg PO QHS cholesterol #90 tabs 11/19/22 glipizide 5 mg tablet, extended release 24 hr 5 mg PO DAILY diabetes #90 tabs 11/19/22 mycophenolate mofetil 250 mg capsule 750 mg PO BID transplant 10/30/23 aspirin 81 mg chewable tablet 81 mg PO BREAKFAST heart health #0 tabs 10/31/23 furosemide 40 mg tablet (Lasix) 40 mg PO TUSA diuretic 01/09/24 ezetimibe 10 mg tablet 10 mg PO QDAY Cholesterol 06/01/24 amiodarone 200 mg tablet 200 mg PO DAILY heart #90 tabs 11/01/24
--- NOTE | 2024-11-19 12:24 | CASEMGMT ---
SW did not complete a PHQ 9 as patient did not have a Stroke or TIA. Emelina FARRAR
[2024-11-19 12:25] LABS: Bedside Glucose 115 mg/dL (74-106)
--- NOTE | 2024-11-19 15:27 | DS.PCM_ITS ---
Providers Date of Admission: 11/17/24 Primary Care Physician: Dr. Navin Paniagua MD Consultations 11/17/24 20:42 Consult: Tele-Neurology Routine Consulting Provider: [facility] Reason for Consult: Acute Ischemic Stroke/TIA EMERGENT Consult: No MD Notified: Yes Date Notified: 11/17/24 Time Notified: 21:00 Method of Notification: Answering Service Nursing Unit Staff Notify [facility] of Tele-Neurology Consult: Yes Reason For Visit: L FOOT WEAKNESS Diagnosis Discharge Diagnosis (1) Weakness of left foot: Status: Acute Code(s): R29.898 - Other symptoms and signs involving the musculoskeletal system Medications at Discharge Home Medications finasteride 5 mg tablet 5 mg PO DAILY prostate 06/15/15 tamsulosin 0.4 mg capsule 0.4 mg PO QHS prostate 05/08/21 atorvastatin 40 mg tablet 40 mg PO QHS cholesterol #90 tabs 11/19/22 glipizide 5 mg tablet, extended release 24 hr 5 mg PO DAILY diabetes #90 tabs 11/19/22 mycophenolate mofetil 250 mg capsule 750 mg PO BID transplant 10/30/23 aspirin 81 mg chewable tablet 81 mg PO BREAKFAST heart health #0 tabs 10/31/23 furosemide 40 mg tablet (Lasix) 40 mg PO TUSA diuretic 01/09/24 ezetimibe 10 mg tablet 10 mg PO QDAY Cholesterol 06/01/24 amiodarone 200 mg tablet 200 mg PO DAILY heart #90 tabs 11/01/24 Hospital Course Operations None Procedures 2-D Echocardiogram Summary of Care Provided Minutes Spent on Discharge: 33 Hospital Course: Per HPI: The patiet is an 89 y/o M w/ PMHx: CKD stage III unclear subtype per GFR trending, Chronic anemia, Former tobacco use, Heavy EtOH usage, BPH with obstructive pathology, Diabetes mellitus type II, PAF, HTN, HLD, HFpEF, Hx spontaneous right parietal subarachnoid hemorrhage 11/2019, COPD, Hx Sick sinus syndrome/sinus node dysfunction s/p pacemaker placement who presents to the [facility] ED on 11/17/2024 with history of onset of left foot weakness noting that he went to bed at approximately midnight and had walked normally with no debility however upon awakening he noticed that whenever he attempted to dorsiflex his left foot it would not elevate as high as his right which was a concern to him given his previous history prompting ED evaluation to be certain he was not having a stroke. Workup in the ED included T97.6 Temporal, heart rate 87, BP 151/80, respiratory rate 25, 9% on room air with most recent repeat vitals BP 153/69, CBC with WBC 9.0, hemoglobin 12.7, MCV 92.4, platelets not listed with lymphopenia, coags unremarkable aside PTT 22.7, BMP with BUN/creatinine 27/1.34, GFR 51, glucose 185, EKG with atrial paced rhythm with no acute evidence of ischemia. Time Hospital Course: 1. Left foot drop?89-year-old male presented to the hospital with left foot drop. He is going to bed the night before without any issues and when he woke up in the morning of admission he had a foot drop. No back pain or trauma. There is concern for possible stroke so he had a CTA of the head and neck which was unremarkable with no major stenosis and then he had a MRI of his brain which was also negative. Neurology was consulted and felt this was likely a peripheral nerve issue and recommended outpatient EMG by his PCP. No changes were made to his medications as he is already on aspirin and Lipitor which is appropriately dosed for his age. I discussed with him the plan for discharge today and he expressed understanding of the risks and benefits of going home and would like to go home today. 2. Essential hypertension, hyperlipidemia, BPH with obstruction, paroxysmal A- fib, chronic diastolic CHF, sick sinus syndrome status post pacemaker, type 2 diabetes, CKD 3 are all chronic medical conditions which complicate his care. His home medications were continued where appropriate Physical Exam Narrative General: Alert, Oriented x3, Cooperative, No apparent distress HEENT: Atraumatic, PERRLA, EOMI, Normocephalic Oral: Moist Mucosa Neck: Supple, No JVD Lungs: Diminished, Normal air movement, No rhonchi, No wheeze, No rales Cardiovascular: Regular rate, Regular Rhythm, Normal S1, Normal S2, No murmurs Abdomen: Soft, Non Tender, Non-Distended, No Hepato-splenomegaly Extremities: No edema, Capillary Refill Less than 3 Seconds Skin: No rashes, No breakdown Musculoskeletal: No Tenderness to Palpation of Joints or Extremities Neurological: Left lower extremity foot drop, rest of his motor functions and his sensations intact Psych/Mental Status: Normal Affect, Appropriate Weight / BMI Weight Weight: 191 lb 12.835 oz Body Mass Index (BMI) 26.7 ABG / Lab / Microbiology Data 11/18/24 06:00 11/18/24 06:00 Laboratory: Laboratory Results - last 24 hr 11/18/24 06:00: Serum Folate 9.09 11/18/24 17:09: POC Glucose 179 H 11/18/24 22:52: POC Glucose 99 11/19/24 06:33: POC Glucose 90 11/19/24 12:07: POC Glucose 115 H Radiography Diagnostic Testing: Radiology Impression Brain MRI 11/18/24 06:00 IMPRESSION: No restricted diffusion to suggest infarct. Senescent changes in the brain. [facility] Instructions Discharge Diet: Low fat / Low cholesterol and Carb Control Diet Call your doctor if you observe: Fever of 101 or Higher, Shortness of breath, Dizziness, Fainting spells, Swelling in the ankles, Chest pain and Increased palpitations (irregular heartbeat) DC O2, CPAP, BIPAP Needs Home O2 Discharge instructions: No Meaningful Use Info Meaningful Use Meaningful Use Diagnoses (Choose all that apply): None applicable Ischemic Stroke Statin Dosing Therapy Reference: STATIN DOSE THERAPY REFERENCE: * Patients > 75 years receive moderate or high dose statin therapy. * Patients 75 years or YOUNGER should receive HIGH intensity statin dose unless contraindicated. You will be required to document reason for non-treatment if statin daily dose does not meet guidelines. HIGH DOSE STATIN THERAPY DAILY Atorvastatin > than or = to 40 mg Rosuvastatin > than or = to 20 mg Amlodipine + Atorvastatin > than or = to 2.5/40 mg Ezetimibe + Simvastatin 10/80 mg Simvastatin 80mg Discharge Plan Admission Admit Date/Time: 11/17/24 19:54 Attending Provider: Rk Pastor Primary Care Provider: Navin Paniagua Consulting Providers: Huber Mendez; Garcia Page; Desiree Baptiste; Jimena Russell; Cecy Jackson; Medardo Wade; Farzaneh Reyes; Juanpablo Almanza; Lan Donovan; Antwon Desai; Wanda Bhat; Justin Kelly; Jennifer Heck; Nguyen Lombardo; Lida Mejia; Juan Quiroz; Joan Cardenas; Ender Olivarez; Niki Daigle; Eliseo Colin; Chanel Conde Instructions Additional Instructions / Restrictions: Follow-up with your PCP as an outpatient to obtain an outpatient EMG to evaluate a possible peripheral source of your left foot drop Discharge Orders/Prescriptions Prescriptions: Continued ezetimibe 10 mg tablet 10 mg PO QDAY finasteride 5 MG tablet 5 mg PO DAILY tamsulosin 0.4 mg capsule 0.4 mg PO QHS furosemide [Lasix] 40 mg tablet 40 mg PO Rx Instructions: 40 mg orally twice per week on and Fri mycophenolate mofetil 250 mg capsule 750 mg PO BID aspirin 81 mg Tablet,Chewable 81 mg PO BREAKFAST Qty: 0 0RF Rx Instructions: You may take either a baby aspirin or an 81 mg coated aspirin daily atorvastatin 40 mg tablet 40 mg PO QHS Qty: 90 3RF glipizide 5 mg tablet extended release 24hr 5 mg PO DAILY Qty: 90 0RF amiodarone 200 mg tablet 200 mg PO DAILY Qty: 90 3RF Patient Comments: pt unsure of dosage 10/30/23 Referrals / Follow Up: Navin Paniagua MD [Primary Care Provider] - 11/24/24 12:30 pm (Appointment is with George Older DIRECTOR DENTAL SERVICES) Disposition Disposition (needs filled in before D/C Order can be placed): Home, Self Care Charges/Coding Visit Charges Inpatient E&M: 90856 Disch Hosp >30min
== END 2024-11-19 11:36 | disposition home or self-care (01) ==
LOC: ED 20:09 → PCU 20:25
PROVIDERS: Nurse Practitioner; Admitting Provider Family Medicine; Emergency Provider Emergency Medicine; PCP Internal Medicine; Referring Provider Emergency Medicine; Visit Provider Family Medicine
DX: M21.372 Foot drop, left foot (principal); I50.32 Chronic diastolic (congestive) heart failure; I13.0 Hypertensive heart and chronic kidney disease with heart failure and stage 1 through stage 4 chronic kidney disease, or unspecified chronic kidney disease; J44.9 Chronic obstructive pulmonary disease, unspecified; I48.0 Paroxysmal atrial fibrillation; I49.5 Sick sinus syndrome; E11.22 Type 2 diabetes mellitus with diabetic chronic kidney disease; N18.30 Chronic kidney disease, stage 3 unspecified; N40.1 Benign prostatic hyperplasia with lower urinary tract symptoms; N13.8 Other obstructive and reflux uropathy; E78.5 Hyperlipidemia, unspecified; Z79.84 Long term (current) use of oral hypoglycemic drugs; Z79.82 Long term (current) use of aspirin; Z79.899 Other long term (current) drug therapy; Z87.891 Personal history of nicotine dependence; Z86.73 Personal history of transient ischemic attack (TIA), and cerebral infarction without residual deficits; Z95.0 Presence of cardiac pacemaker; R35.0 Frequency of micturition; D64.9 Anemia, unspecified
CPT/HCPCS: 36415; 70496; 70498; 70551; 80048; 80053; 80061; 82077; 82607; 82746; 82962; 83036; 83735; 84100; 84443; 85025; 85610; 85730; 92610; 93005; 93306; 94762; 96360; 96361; 97162; 97166; 97530; 97535; 97802; 99221; 99285; Q9967; A4216; G0378

== ENCOUNTER → 2024-12-28 | Outpatient (CLI) | payer MEDICARE, SELFPAY ==
--- NOTE | 2024-12-28 11:38 | NEURO ---
NCS and/or EMG Patient Report Ordering Doctor: Seema Beltran NP DATE OF SERVICE: 12/28/24 Clinical Summary: 89 year old male patient presenting with symptoms of left foot drop. He has diabetes. He denies having any significant back pain. Nerve Conduction Studies Summary: Nerve conduction studies were performed in the left lower extremity. The sural and superficial peroneal SNAPs were absent. The left peroneal-EDB CMAP distal latency was prolonged. The left peroneal-EDB CMAP amplitude was reduced diffusely. The left peroneal-TA amplitude dropped by ~84% across the fibular head, which is indicative of conduction block. The left peroneal motor conduction velocity was reduced. The left tibial F-wave onset latency was prolonged. The left peroneal F-wave was absent. Needle Examination Summary: Needle examination of select muscles of the left lower extremity was performed. There was increased insertional activity and spontaneous activity (positive sharp waves and/or fibrillation potentials) in the left tibialis anterior, peroneus longus, medial gastrocnemius, and flexor digitorum longus muscles. There was a higher proportion of motor unit action potentials with reduced recruitment, increased amplitude, increased duration, and polyphasia in the left semitendinosus, vastus lateralis, tibialis anterior, and peroneus longus muscles. Impression: This is an abnormal study. 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
== END | disposition home or self-care (01) ==
PROVIDERS: PCP Internal Medicine; Referring Provider Nurse Practitioner; Visit Provider Nurse Practitioner
DX: M21.372 Foot drop, left foot (principal); R20.0 Anesthesia of skin
CPT/HCPCS: 95886; 95909